=== PATIENT | male | born 1950 | race Caucasian/White ===

== ENCOUNTER 2022-01-25 14:03 | Inpatient (IN) | payer MEDICARE, SELFPAY ==
[2022-01-25 14:10] VITALS: BP 165/72; PULSE 93; RESP 18; O2SAT 92; BMI 44.3
--- NOTE | 2022-01-25 14:17 | ECG_ITS ---
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 Measurements Intervals [place] Rate: 95 P: [place]: QRS: 7 QRSD: 102 T: 55 QT: 365 QTc: 460 Interpretive Statements ATRIAL FIBRILLATION WITH ABERRANT CONDUCTION OR VENTRICULAR PREMATURE COMPLEXES ABNORMAL RHYTHM ECG Compared to ECG 01/25/2022 14:34:07 Aberrant conduction of supraventricular beat(s) now present Sinus rhythm no longer present Myocardial infarct finding no longer present ST (T wave) deviation no longer present Electronically Signed On 01-25-2022 22:01:18 CDT by Cristiano De M.D. [id number]
--- NOTE | 2022-01-25 14:18 | W.ED.AMS ---
HPI - Altered Mental Status General: Chief Complaint: Altered Mental Status Stated Complaint: AMS Time Seen by Provider: 01/25/22 14:17 Course Vital Signs: Vital signs: Vital Signs Pulse Rate 93 01/25/22 14:10 Respiratory Rate 18 01/25/22 14:10 Blood Pressure 165/72 01/25/22 14:10 Pulse Oximetry 92 01/25/22 14:10 MDM - Altered Mental Status Lab Data : 01/25/22 14:10 01/25/22 14:10 Laboratory Results WBC 14.5 10^3/uL (4.0-10.0) H 01/25/22 14:10 RBC 3.77 10^6/uL (4.1-5.3) L 01/25/22 14:10 Hgb 12.8 g/dL (11.7-16.6) 01/25/22 14:10 Hct 37.1 % (42.0-52.0) L 01/25/22 14:10 MCV 98.4 fl (80-94) H 01/25/22 14:10 MCH 34.0 pg (28.0-34.0) 01/25/22 14:10 MCHC 34.5 g/dL (30.0-36.0) 01/25/22 14:10 RDW 14.5 % (12.1-15.1) 01/25/22 14:10 Plt Count 218 10^3/cmm (130-400) 01/25/22 14:10 MPV 10.2 fL (7.4-10.4) 01/25/22 14:10 Neut % (Auto) 72.2 % 01/25/22 14:10 Lymph % (Auto) 19.8 % 01/25/22 14:10 Desha % (Auto) 6.7 % 01/25/22 14:10 Eos % (Auto) 0.4 % 01/25/22 14:10 Baso % (Auto) 0.4 % 01/25/22 14:10 Neut # (Auto) 10.50 10^3/uL (1.8-7.7) H 01/25/22 14:10 Lymph # (Auto) 2.9 10^3/uL (0.8-4.8) 01/25/22 14:10 Desha # (Auto) 1.0 10^3/uL (0.2-0.9) H 01/25/22 14:10 Eos # (Auto) 0.1 10^3/uL (0.0-0.8) 01/25/22 14:10 Baso # (Auto) 0.1 10^3/uL (0.0-0.1) 01/25/22 14:10 Nucleated RBC % (auto) 0 % 01/25/22 14:10 Nucleated RBCs # 0.0 /100WBC 01/25/22 14:10 Discharge Plan Discharge Patient Disposition: Home Clinical Impression: Altered mental status Condition: Stable Referrals: Tashi Mora DO [Primary Care Provider] - Patient Instructions: Opioid Safety Coding Level of Care Code 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
--- NOTE | 2022-01-25 14:19 | CTR_ITS ---
PROCEDURE INFORMATION: Exam: CT Head Without Contrast Exam date and time: 01/25/2022 3:13 PM Age: 71 years old Clinical indication: Altered mental status/memory loss; Confusion or disorientation; Patient HX: Baseline dementia w worsening confusion; Additional info: AMS TECHNIQUE: Imaging protocol: Computed tomography of the head without contrast. Radiation optimization: All CT scans at this facility use at least one of these dose optimization techniques: automated exposure control; mA and/or kV adjustment per patient size (includes targeted exams where dose is matched to clinical indication); or iterative reconstruction. COMPARISON: No relevant prior studies available. RADIATION DOSE METRICS: Total DLP (mGy-cm): 2031.78 FINDINGS: Brain: No hemorrhage or evidence of acute infarction. No mass effect. Cerebral ventricles: No ventriculomegaly. Paranasal sinuses: Visualized sinuses are unremarkable. No fluid levels. Mastoid air cells: Visualized mastoid air cells are well aerated. Soft tissues: Unremarkable. Bones/joints: Unremarkable. No acute fracture. CT/CT head wo con* [id number] IMPRESSION: No acute intracranial abnormality.
[2022-01-25 14:26] LABS: Basophils # 0.1 10^3/uL (0.0-0.1); Basophils % 0.4 %; Eosinophils # 0.1 10^3/uL (0.0-0.8); Eosinophils % 0.4 %; Hematocrit 37.1 % (42.0-52.0); Hemoglobin 12.8 g/dL (11.7-16.6); Lymphocytes # 2.9 10^3/uL (0.8-4.8); Lymphocytes % 19.8 %; Mean Corpuscular HGB Conc 34.5 g/dL (30.0-36.0); Mean Corpuscular Volume 98.4 fl (80-94); Mean Platelet Volume 10.2 fL (7.4-10.4); Monocytes % 6.7 %; Neutrophils % 72.2 %; Nucleated Red Blood Cells % 0 %; Platelet Count 218 10^3/cmm (130-400); Red Blood Count 3.77 10^6/uL (4.1-5.3); Red Cell Distribution Width 14.5 % (12.1-15.1); White Blood Count 14.5 10^3/uL (4.0-10.0)
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
--- NOTE | 2022-01-25 14:37 | XRR_ITS ---
PROCEDURE INFORMATION: Exam: XR Right Tibia and Fibula Exam date and time: 01/25/2022 2:45 PM Age: 71 years old Clinical indication: Cellulitis; Lower leg; Right; Additional info: Erythema TECHNIQUE: Imaging protocol: XR Right tibia and fibula. Views: 2 views. COMPARISON: No relevant prior studies available. FINDINGS: Bones/joints: No fracture or dislocation. No definite evidence of osteomyelitis. Mild simple appearing periosteal thickening in the lateral mid-fibular diaphysis may be secondary to chronic venous congestion. Ruia-ao-qdpmyauu degenerative changes are present in the right knee Soft tissues: Prominent diffuse subcutaneous edema changes are noted. XR/XR tibia fibula RT 2V [id number] IMPRESSION: No fracture or dislocation. Mild periosteal thickening in the lateral mid-fibular diaphysis may be secondary to chronic venous congestion. No definite radiographic evidence of osteomyelitis.
--- NOTE | 2022-01-25 14:37 | XRR_ITS ---
PROCEDURE INFORMATION: Exam: XR Left Tibia and Fibula Exam date and time: 01/25/2022 2:48 PM Age: 71 years old Clinical indication: Cellulitis; Lower leg; Left; Additional info: Erythema TECHNIQUE: Imaging protocol: XR Left tibia and fibula. Views: 2 views. COMPARISON: Right tibia/fibula radiographs from today. FINDINGS: Bones/joints: No fracture or dislocation. Mild periosteal thickening in the lateral mid-fibular diaphysis is similar to that seen on the comparison radiograph and may be secondary to chronic venous congestion. Moderate degenerative changes are seen in the left knee. Mild degenerative changes are also observed in the left ankle. A small 10 mm ossicle is seen in the posterolateral ankle soft tissues. Soft tissues: Prominent diffuse subcutaneous edema changes are noted. XR/XR tibia fibula LT 2V [id number] IMPRESSION: No fracture or dislocation. Mild periosteal thickening in the lateral left mid-fibular diaphysis may be secondary to chronic venous congestion. No definite radiographic evidence of osteomyelitis.
--- NOTE | 2022-01-25 14:38 | XRR_ITS ---
PROCEDURE INFORMATION: Exam: XR Chest Exam date and time: 01/25/2022 2:44 PM Age: 71 years old Clinical indication: Other: AMS TECHNIQUE: Imaging protocol: XR of the chest. Views: 1 view. COMPARISON: No relevant prior studies available. FINDINGS: Lungs: Mild pulmonary edema changes are noted. Pleural spaces: Small bilateral pleural effusions are noted. No pneumothorax is seen. Heart/Mediastinum: Unremarkable. No cardiomegaly. Bones/joints: Wggl-fz-bvqexmjd degenerative changes are present in the thoracic spine. No acute fracture is visualized. XR/XR chest 1V portable [id number] IMPRESSION: Mild pulmonary edema and small bilateral pleural effusions.
[2022-01-25 14:42] LABS: Troponin(5th) Baseline 19 ng/L (0-15)
[2022-01-25 14:49] LABS: Alanine Aminotransferase 25 U/L (0-41); Albumin Level 3.9 g/dL (3.5-5.2); Alkaline Phosphatase 95 IU/L (40-130); Anion Gap 18.2 (5-19); Aspartate Amino Transferase 34 U/L (0-40); Blood Urea Nitrogen 18 mg/dL (8-23); Calcium 9.4 mg/dL (8.5-10.5); Carbon Dioxide 21 mmol/L (22-29); Chloride 99 mmol/L (98-107); Free T4 Free Thyroxine 0.91 ng/dL (0.82-1.77); Globulin 3.6 g/dL (1.3-4.6); Glucose 131 mg/dL (65-115); Lipase 13 U/L (13-60); NT Pro B Type Natriuretic Pept 452 pg/mL (0-125); Osmolality Calculated 282 mOsm/kg (285-295); Potassium 4.2 mmol/L (3.5-5.1); Sodium 134 mmol/L (136-145); Thyroid Stimulating Hormone 1.44 uIU/mL (0.27-4.20); Total Bilirubin 0.7 mg/dL (0.15-1.2); Total Protein 7.5 g/dL (6.6-8.7)
[2022-01-25 14:50] LABS: Acetaminophen < 5.0 ug/mL (10-30); Salicylate < 0.3 mg/dL (3-10)
[2022-01-25 14:52] LABS: Alcohol Level < 10 mg/dL (0-10)
[2022-01-25 15:02] LABS: Ammonia 112 umol/L (16-60)
[2022-01-25 15:27] LABS: Bilirubin Urine Neg (Negative); Blood Urine 3+ (Negative); Glucose Urine UA Norm (Normal); Ketones Urine 1+ (Negative); Nitrate Urine Positive (Negative); Protein Urine Trace (Negative); Specific Gravity, Urine 1.015 (1.005-1.030); Sulfosalicylic Acid Urine Negative (Negative); Urine Appearance Hazy (CLEAR); Urine Color Yellow (Yellow); pH Urine 8 (5-7)
[2022-01-25 15:28] LABS: Add Urine Microscopic? YES; Leukocyte Esterase Urine 2+ (Negative); Urobilinogen Urine 1 mg/dL (Negative)
[2022-01-25 15:31] LABS: RBC Urine 40-50 /hpf (0-2); WBC Urine 80-100 /hpf (0-5)
[2022-01-25 15:32] LABS: Add Urine Culture? Yes; Bacteria Urine 2+ /hpf; Mucus Urine 1+ /hpf
[2022-01-25] MEDS: cefTRIAXone 1,000 MG in sodium chloride 0.9% (plus) 50 ML 100 MG IV (15:56)
[2022-01-25 16:01] VITALS: BP 149/62; PULSE 83; RESP 18; O2SAT 96
[2022-01-25 16:08] VITALS: BP 149/62; PULSE 82; RESP 17; O2SAT 95
--- NOTE | 2022-01-25 16:17 | ECG_ITS ---
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 Measurements Intervals [place] Rate: 83 P: [place]: QRS: 22 QRSD: 97 T: 60 QT: 361 QTc: 425 Interpretive Statements ATRIAL FLUTTER/TACHYCARDIA MINIMAL ST DEPRESSION [0.025+ mV ST DEPRESSION] ABNORMAL RHYTHM ECG Compared to ECG 01/25/2022 14:44:21 ST (T wave) deviation now present Atrial fibrillation no longer present Ventricular premature complex(es) no longer present Aberrant conduction of supraventricular beat(s) no longer present Electronically Signed On 01-26-2022 23:03:58 CDT by Cristiano De M.D. [id number]
--- NOTE | 2022-01-25 16:39 | CTR_ITS ---
PROCEDURE INFORMATION: Exam: CT Abdomen And Pelvis Without Contrast Exam date and time: 01/25/2022 6:05 PM Age: 71 years old Clinical indication: Abdominal pain; Generalized; Patient HX: C/O abd pain; Additional info: Renal stone, liver cirhoisis? TECHNIQUE: Imaging protocol: Computed tomography of the abdomen and pelvis without contrast. Radiation optimization: All CT scans at this facility use at least one of these dose optimization techniques: automated exposure control; mA and/or kV adjustment per patient size (includes targeted exams where dose is matched to clinical indication); or iterative reconstruction. COMPARISON: CR Hip 2-3v RIGHT wwo Pelv* [id number] 08/03/2018 11:24 AM RADIATION DOSE METRICS: Total DLP (mGy-cm): 1910.6 FINDINGS: Mild patient motion occurs during the examination. Tubes, catheters and devices: A catheter is present in the urinary bladder. Liver: Normal. No mass. Gallbladder and bile ducts: A small amount of sludge is present in the gallbladder. No biliary ductal dilatation. Pancreas: Normal. No ductal dilation. Spleen: Normal. No splenomegaly. Adrenal glands: Normal. No mass. Kidneys and ureters: Normal. No renal stone or hydronephrosis. Stomach and bowel: Unremarkable. No obstruction. No mucosal thickening. Appendix: The appendix is normal. Intraperitoneal space: Unremarkable. No free air. No significant fluid collection. Arteries: Unremarkable. No abdominal aortic aneurysm. Lymph nodes: Unremarkable. No enlarged lymph nodes. Urinary bladder: Unremarkable as visualized. Reproductive: Unremarkable as visualized. Bones/joints: Degenerative changes are observed in the visualized spine and both hips. No acute fracture. Soft tissues: A small umbilical hernia containing fat is noted. CT/CT abdomen pelvis con [id number] IMPRESSION: Mild patient motion. No acute abnormality is seen in the abdomen or pelvis. No renal stone is visualized.
[2022-01-25 16:44] VITALS: BMI 43.0
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
[2022-01-25 16:53] VITALS: BP 149/62; PULSE 82; RESP 17
[2022-01-25 17:14] LABS: Erythrocyte Sedimentation Rate 73 mm/hr (0-10)
[2022-01-25 17:19] LABS: Glucose Point of Care 93 mg/dL (70-110)
[2022-01-25 17:29] LABS: C Reactive Protein 15.8 mg/L (0.0-4.9)
[2022-01-25] MEDS: pantoprazole 40 mg SDV IVP (17:29)
[2022-01-25] MEDS: FUROsemide 10 mg/mL SDV 4mL 40 MG IVP (17:29)
[2022-01-25] MEDS: amlodipine 10 mg Tablet PO (17:29)
[2022-01-25] MEDS: enoxaparin 40 mg/0.4 mL Syringe SUBCUT (17:29)
[2022-01-25] MEDS: aspirin 325 mg Tablet PO (17:29)
[2022-01-25] MEDS: lactulose oral liq 20 gm/30 mL UDC PO ×2 (17:29→22:27)
[2022-01-25 17:30] LABS: Troponin 5 2HR 63.93 ng/L (0-15)
[2022-01-25 17:34] LABS: Procalcitonin 0.19 ng/mL (0-0.5)
[2022-01-25 17:34] LABS: Troponin 5 2HR Delta 44.93 ABS# (0-10)
[2022-01-25] MEDS: piperacillin-tazobactam 3.375 GM in sodium chloride 0.9% (plus) 50 ML IV (18:20)
[2022-01-25] MEDS: enoxaparin 100 mg/mL Syringe 90 MG SUBCUT (18:28)
[2022-01-25] MEDS: vancomycin 1,500 MG/300 ML PIGGYBACK 200 MG IV (18:41)
[2022-01-25 20:00] VITALS: BP 138/72; PULSE 83; RESP 17; TEMP 38.4; O2SAT 95
--- NOTE | 2022-01-25 20:17 | ECG_ITS ---
[facility] Test Date: 2022-01-25 Pat Name: Riki Lopez Department: Room: Gender: Male Copy Manager: : 1950 Requested By: Kalpana Maciel Order Number: [id number] Regulo MD: Cristiano De M.D. Measurements Intervals [place] Rate: 90 P: 41 OR: 201 QRS: 32 QRSD: 103 T: 81 QT: 349 QTc: 429 Interpretive Statements SINUS RHYTHM WITH OCCASIONAL VENTRICULAR PREMATURE COMPLEXES ANTEROSEPTAL MYOCARDIAL INFARCTION , OF INDETERMINATE AGE [40+ ms Q WAVE IN V1-V4] ST DEPRESSION, CONSIDER SUBENDOCARDIAL INJURY [0.1+ mV ST DEPRESSION] No previous ECG available for comparison Electronically Signed On 01-25-2022 22:03:32 CDT by Cristiano De M.D. [id number]
[2022-01-25 20:55] LABS: Lactate (Lactic Acid level) 3.4 mmol/L (0.5-2.2)
--- NOTE | 2022-01-25 21:14 | PC.NURSE ---
PATIENT'S NURSE SARAN JAMES NOTIFIED OF PATIENT'S FEVER.
[2022-01-25 22:00] VITALS: PULSE 81
[2022-01-25] MEDS: insulin glargine 100 units/1 mL 10 UNIT SUBCUT (22:26)
[2022-01-25] MEDS: metoprolol tartrate 25 mg Tablet PO (22:26)
[2022-01-25] MEDS: nitroglycerin 1 gm/inch oint Pkt 0.5 INCH TOPICAL (22:27)
[2022-01-26] VITALS (11 sets, daily range): BP systolic 127–157; BP diastolic 60–79; PULSE 69–95; RESP 18–24; TEMP 36.5–38; O2SAT 93–97
--- NOTE | 2022-01-26 00:10 | USCV_ITS ---
LE Venous Duplex BILATERAL Riki Lopez Age: 71 Gender: M : 1950 Exam Date: 01/26/2022 00:23 Ordering Phys: Deondre Mays MD Technologist: Javier Myers Exam Location: [facility] [place] Indication: dvt HISTORY: dvt PROCEDURES: Venous duplex imaging was performed in bilateral lower extremities. The following venous structures were evaluated: common femoral vein, profunda vein, proximal portion of the greater saphenous vein, superficial femoral vein, and the popliteal vein. In addition, the posterior tibial and peroneal trunk were evaluated. Serial compression, augmentation maneuvers, and spectral Doppler flow evaluation were performed. Distally the LT superficial femoral vein could not be visualized due to patient dressing. FINDINGS: Normal 2-D Doppler and augmentation and compressibility throughout the lower extremity venous structures. Additional imaging through the proximal calf veins also reveals no thrombus. Limited evaluation of the greater saphenous vein is patent with no thrombus.. CONCLUSIONS No DVT bilateral lower extremities. Dr. Genesis Alexis DO (Electronically Signed) Final Date: 26 January 2022 08:35 S
--- NOTE | 2022-01-26 00:10 | USCV_ITS ---
Riki Lopez Age: 71 Gender: M : 1950 Exam Date: 01/26/2022 05:48 Ordering Phys: Deondre Mays MD Technologist: Graciela Cervantes Exam Location: [facility] [place] Indication: NSTEMI BP: 157 / 79 HR: 73 Rhythm: Sinus Technical Quality: Technically difficult study MEASUREMENTS (Male / Female) Normal Values 2D ECHO LV Diastolic Diameter PLAX 5.2 cm 4.2 - 5.9 / 3.9 - 5.3 cm LV Systolic Diameter PLAX 3.6 cm LV Chamber Size 5.0 cm IVS Diastolic Thickness 0.9 cm 0.6 - 1.0 / 0.6 - 0.9 cm IVS Systolic Thickness 1.3 cm LVPW Diastolic Thickness 1.1 cm 0.6 - 1.0 / 0.6 - 0.9 cm LVPW Systolic Thickness 1.5 cm RV Chamber Size 3.8 cm LVOT Diameter 2.0 cm LV Ejection Fraction 2D Teich 57.8 % LV Ejection Fraction MOD 2C 51.7 % LV Ejection Fraction 2C AL 51.2 % LA Diameter 3.5 cm LA Width 4.0 cm LA Height 5.6 cm RA Width 4.0 cm RA Height 4.2 cm Aorta at Sinotubular Diameter 3.1 cm M-MODE Aortic Annulus Diameter 3.1 cm LA Ao Ratio MM 1.1 MV E Point Septal Separation 0.9 cm DOPPLER AV Peak Velocity 228.3 cm/s LVOT Peak Velocity 98.7 cm/s AV Area Cont Eq vti 1.7 cm squared AV Area Cont Eq pk 1.4 cm squared MV Area PHT 3.5 cm squared Mitral E to A Ratio 1.2 MV E' Velocity 59.0 cm/s Mitral E to MV E' Ratio 14.4 Mitral E to LV E' Lateral Ratio 11.4 Mitral E to LV E' Septal Ratio 19.6 TR Peak Velocity 221.7 cm/s TR Peak Gradient 19.7 mmHg TR Mean Velocity 164.3 cm/s TR Mean Gradient 12.2 mmHg TR Velocity Time Integral 54.6 cm TV Peak E Velocity 70.0 cm/s Right Atrial Pressure 3.0 mmHg Pulmonary Artery Systolic Pressu 22.7 mmHg PV Peak Velocity 82.0 cm/s RV Acceleration Time 0.2 s RV Ejection Time 0.3 s RV AcT/ET 0.6 FINDINGS Left Ventricle Normal left ventricular cavity size. Moderately decreased left ventricular systolic function. Left ventricular ejection fraction is estimated at 35-40 %. There is severe hypokinesis of mid to apical anterior, apical septal, apical inferior, apical lateral and apical boateng. Grade II diastolic dysfunction, moderately elevated filling pressures. Right Ventricle Normal right ventricular size and systolic function. Right ventricular systolic pressure 20 mmHg. Right Atrium Normal right atrial size. Left Atrium Mildly increased left atrial size. Mitral Valve Structurally normal mitral valve. No mitral valve stenosis. No mitral valve regurgitation. Aortic Valve Aortic valve not well visualized. No aortic valve stenosis. No aortic valve regurgitation. Tricuspid Valve Tricuspid valve not well visualized. Pulmonic Valve Structurally normal pulmonic valve. No pulmonary valve stenosis. Trace pulmonary valve regurgitation. Pericardium No pericardial effusion. Aorta Normal-sized aortic root. CONCLUSIONS 1. This is a technically difficult study. Optison was used per protocol. 2. Normal left ventricular cavity size. Moderately decreased left ventricular systolic function. Leftventricular ejection fraction is estimated at 35-40 %. There is moderate hypokinesis of mid to apical anterior, apical septal, apical inferior, apical lateral and apical boateng. Grade II diastolic dysfunction, moderately elevated filling pressures. 3. No prior similar studies to compare. Dayna Rice MD (Electronically Signed) Final Date: 26 January 2022 13:57 Amended: 28 January 2022 15:05 C
[2022-01-26] MEDS: piperacillin-tazobactam 3.375 GM in sodium chloride 0.9% (plus) 50 ML IV ×3 (02:29→17:18)
[2022-01-26] MEDS: nitroglycerin 1 gm/inch oint Pkt 0.5 INCH TOPICAL (05:34)
[2022-01-26] MEDS: lactulose oral liq 20 gm/30 mL UDC PO ×4 (05:34→21:50)
[2022-01-26] MEDS: enoxaparin 100 mg/mL Syringe 130 MG SUBCUT ×2 (05:35→17:27)
[2022-01-26 05:38] LABS: Ammonia 64 umol/L (16-60)
[2022-01-26 05:41] LABS: Alanine Aminotransferase 24 U/L (0-41); Albumin Level 3.4 g/dL (3.5-5.2); Alkaline Phosphatase 93 IU/L (40-130); Anion Gap 17.8 (5-19); Aspartate Amino Transferase 95 U/L (0-40); Blood Urea Nitrogen 18 mg/dL (8-23); C Reactive Protein 90.6 mg/L (0.0-4.9); Carbon Dioxide 23 mmol/L (22-29); Chloride 99 mmol/L (98-107); Globulin 4.1 g/dL (1.3-4.6); Glucose 132 mg/dL (65-115); Magnesium 1.5 mg/dL (1.7-2.3); Osmolality Calculated 286 mOsm/kg (285-295); Phosphorus 3.1 mg/dL (2.5-4.5); Potassium 3.8 mmol/L (3.5-5.1); Sodium 136 mmol/L (136-145); Total Bilirubin 1.9 mg/dL (0.15-1.2); Total Protein 7.5 g/dL (6.6-8.7)
[2022-01-26 06:25] LABS: Glucose Point of Care 94 mg/dL (70-110)
[2022-01-26] MEDS: perflutren protein-a microsphr 0.22 mg/mL SDV 3 mL IV (06:32)
[2022-01-26] MEDS: vancomycin 1,500 MG/300 ML PIGGYBACK 200 MG IV ×2 (06:33→18:26)
[2022-01-26 06:40] LABS: Troponin T (5th) Once 677 ng/L (0-15)
--- NOTE | 2022-01-26 06:44 | ECG_ITS ---
[facility] Test Date: 2022-01-26 Pat Name: Riki Lopez Department: Room: 276 Gender: Male Wood Type Finisher: : 1950 Requested By: Soumya Moreno Order Number: [id number] Reuglo MD: Cristiano De M.D. Measurements Intervals [place] Rate: 75 P: 21 MS: 148 QRS: 34 QRSD: 110 T: 72 QT: 411 QTc: 460 Interpretive Statements SINUS RHYTHM ANTEROSEPTAL MYOCARDIAL INFARCTION , OF INDETERMINATE AGE [40+ ms Q WAVE IN V1-V4] WARNING: DATA QUALITY MAY AFFECT INTERPRETATION Compared to ECG 01/25/2022 15:55:47 Myocardial infarct finding now present Atrial flutter no longer present ST (T wave) deviation no longer present Electronically Signed On 01-26-2022 22:50:48 CDT by Cristiano De M.D. [id number]
[2022-01-26 06:57] LABS: Basophils # 0.2 10^3/uL (0.0-0.1); Basophils % 0.9 %; Eosinophils % 0.1 %; Hematocrit 38.5 % (42.0-52.0); Hemoglobin 12.5 g/dL (11.7-16.6); Lymphocytes # 2.4 10^3/uL (0.8-4.8); Lymphocytes % 14.4 %; Mean Corpuscular HGB Conc 32.5 g/dL (30.0-36.0); Mean Corpuscular Hemoglobin 35.4 pg (28.0-34.0); Mean Corpuscular Volume 109.1 fl (80-94); Monocytes % 6.3 %; Neutrophils # 12.75 10^3/uL (1.8-7.7); Neutrophils % 77.7 %; Nucleated Red Blood Cells % 0.2 %; Platelet Count 179 10^3/cmm (130-400); Red Blood Count 3.53 10^6/uL (4.1-5.3); Red Cell Distribution Width 15.6 % (12.1-15.1); White Blood Count 16.4 10^3/uL (4.0-10.0)
[2022-01-26 07:12] LABS: Glucose Point of Care 127 mg/dL (70-110)
[2022-01-26] MEDS: aspirin 81 mg EC Tablet PO (08:06)
[2022-01-26] MEDS: atorvastatin 40 mg Tablet PO (08:07)
[2022-01-26] MEDS: nitroglycerin drip 50 MG/250 ML PREMIX IV (08:08)
--- NOTE | 2022-01-26 10:45 | PC.CHAP ---
Pastoral Care Encounter/Spiritual Assessment Type of Contact [] Declined automation qa lead visit [] Patient/Family/Request visit [] Outpatient visit [] Follow-up visit [] Physician referral [] Code/Alert [x] Routine visit [] Staff referral [] Actively dying [] Patient sleeping [] Family support [] [x] Out of room [] Palliative care [] [] Receiving care in room [] Pre-surgical visit [] Trauma [] Long length of stay [] ICU visit [] Other: Relational/Emotional Strength [] Patient feels connected with others/family/visitors/staff [] Distress [] Loneliness/isolation [] Abandonment Spirituality of Patient Person of Gaby [] Attends Yarsanism of their Gaby [] Believes in Prayer [] Reads Bible or Congregational materials [] There are Spiritual issues to be addressed Irrigationist Interventions [] Prayer [] Active listening [] Non-anxious presence [] Spiritual/emotional support [] Crisis/trauma care [] Spiritual counseling [] Bereavement support [] Provided bereavement packet [] Provided Bible/devotional materials [] Provided toy/stuffed animal, coloring book to patient or family member [] Provided Communion [] Anointing/[place] [] Salvation [] Completed spiritual assessment [] Other: Impact on Illness or Injury [] Angry [] Fearful [] Anxious [] Often cries [] Exhaustion [] Unable to work [] Unable to attend confucianism [] Unable to walk/stand [] Unable to read [] Unable to drive [] Unable to eat/drink [] Unable to sleep [] Unable to be with family [] Patient intubated [] Other: Summary Time spent with patient
[2022-01-26] MEDS: insulin glargine 100 units/1 mL 10 UNIT SUBCUT ×2 (10:53→21:15)
[2022-01-26 11:47] LABS: Glucose Point of Care 292 mg/dL (70-110)
--- NOTE | 2022-01-26 12:38 | PC.OT ---
OT EVALUATION ORDERS RECEIVED. EVALUATION ATTEMPTED. PATIENT IS SLEEPING SOUNDLY AND DOES NOT AWAKEN TO TOUCH OR TO CONVERSATION IN ROOM. I DID VISIT WITH HIS DAUGHTER ABOUT HIS PLOF. WILL HOLD TODAY AND ATTEMPT AGAIN IN TOMORROW.
[2022-01-26] MEDS: insulin lispro 100 unit/1 mL SUBCUT ×3 (12:51→20:50)
--- NOTE | 2022-01-26 13:08 | P.PN_ITS ---
Subjective Subjective: Overnight reports chest pain, received nitroglycerin, nitro drip was initially ordered, but was chest pain-free this morning. Subsequently some additional episodes of chest pain, nitroglycerin was started. Currently he is chest pain-free. His confusion appears to have improved. He knows where he is. He knows the year, the month. His daughter is at bedside. He is able to tell me some detail s about the equipment she has at home for assistance including lift chair and hospital bed. He is not a good historian, but does not recall ever having an IN or stress test. His daughter recalls that perhaps he was told of possible incidentally found mild heart attack told to him by his primary provider. His daughter also reports he had had some on and off epigastric discomfort sometimes for which he had seen his primary provider previously. He states he does not remember much from the last few days. He is not sure what may have led to his episode of confusion. Discussed with him that he should not be driving. He does take multiple pain medications, and he states sometimes it takes him a little bit to come back to his usual self especially if he takes them on empty stomach. Per discussion with his daughter, she and her brother have been considering additional supervision from her father. They are working currently on placement to assisted living. Vitals/I&O/Wt Last Vital Signs Temp 98.8 F 01/26/22 11:25 Pulse 78 01/26/22 11:25 Resp 18 01/26/22 11:25 BP 127/68 01/26/22 11:25 Pulse Ox 95 01/26/22 11:25 01/25/22 01/26/22 01/26/22 22:59 06:59 14:59 Intake Total 664.375 / 664.375 215.625 / 880.000 241.700 / 241.700 Output Total 1900 / 1900 Balance 664.375 / 664.375 -1684.375 / -1020.000 241.700 / 241.700 Weight last 48 hrs Weight 132.052 kg Weight 136.078 kg Physical Exam Narrative: Daughter at bedside Const: COMMON NORMALS: alert GENERAL APPEARANCE: cooperative NUTRITIONAL APPEARANCE: obese ORIENTATION/CONSCIOUSNESS: Yes awake HENMT: COMMON NORMALS: normocephalic, EAC's normal, Normal external nose present and moist oral mucous membranes HEAD & SCALP: normocephalic NOSE: Normal external nose present EXTERNAL AUDITORY CANAL: EAC's normal TEETH & GINGIVA: Yes poor dentition Neck/C-Spine: COMMON NORMALS: no meningeal signs Chest: CHEST: Yes Symmetrical chest wall rise Resp: COMMON NORMALS: clear to auscultation bilaterally AUSCULTATION: clear to auscultation bilaterally Cardio: COMMON NORMALS: regular rate, regular rhythm and No murmurs present (Cardio) RATE: regular rate RHYTHM: regular rhythm GI: COMMON NORMALS: Normal to inspection, nondistended, normoactive bowel sounds present, Soft to palpation and non-tender PALPATION: Yes Soft to palpation Extremity: GENERAL: Yes edema (Severe BL LE) Neuro: COMMON NORMALS: moves all extremities SENSORIUM/ORIENTATION: Yes alert MENINGEAL SIGNS: Yes no meningeal signs Psych: COMMON NORMALS: mental status grossly normal Skin: COMMON NORMALS: no wounds GENERAL SKIN EXAM: erythema (BL LE up to 2/3 of shins) Urinary Catheter Management: Guzmán: Cath Placed During This Visit: yes Reason for Continuing Indwelling Catheter: Acute Urinary Retention or Obstruction Urinary Catheter Date of Insertion: 01/25/22 Urinary Catheter Time of Insertion: 17:30 Data : 01/26/22 04:51 01/26/22 04:51 A&P Assessment and plan (1) NSTEMI (non-ST elevated myocardial infarction): Episodes of chest pain overnight. Nitro drip was requested, but not started initially as chest pain had resolved, this morning with transferring to the commode again chest pain reported. Is started on nitro drip currently. Troponin this morning up to 677. Risk factors of CAD, denies any prior evaluation. At home also takes meloxicam. Continue aspirin, Lovenox, statin, beta-jose francisco. Status: Acute (2) Acute encephalopathy: Improved. Unclear etiology. Does have underlying dementia which appears possibly mild as he does live independently, although his children do assist him at home and with shopping. Daughter reports some episodes of him not remembering her previously. These do not seem to be consistent. Not sundowning. Still question whether episodes of encephalopathy may be related to medications, he is on a number of pain medicines. Otherwise also possibly acute metabolic encephalopathy with urinary tract infection, cellulitis. Continue antibiotics to treat underlying conditions. Status: Acute (3) UTI (urinary tract infection): Continue antibiotic coverage. Follow culture. Status: Acute (4) Cellulitis: Continue antibiotics. LE duplex Status: Acute (5) Bilateral lower extremity edema: Acute systolic and diastolic CHF exacerbation. IV Lasix. Monitor I&O. Renal function. Additional work-up for ischemic heart disease pending. Appreciate cardiology recommendations. No DVT on venous duplex. Status: Acute (6) Chest pain: Status: Acute Plan Hyperammonemia -Etiology unclear, CT scan as above -Continue lactulose, monitor ammonia levels Type 2 diabetes mellitus -Moderate dose sliding scale -Lantus 10 units twice daily Hypertension -Norvasc -Metoprolol Attestations Medical Necessity Statement*: Continue admission for assessment management of NSTEMI, acute combined CHF. Coding Level of Care Code Acute Motorcycle Service Technician for g Fwd Exam Comprehensive Diagnoses Acute encephalopathy G93.40 UTI (urinary tract infection) N39.0 Cellulitis L03.90 Bilateral lower extremity edema R60.0 Chest pain R07.9 NSTEMI (non-ST elevated myocardial infarction) I21.4
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
--- NOTE | 2022-01-26 16:42 | PC.NURSE ---
Taking over care from primary nurse. Patient is resting in bed with physician at bedside.
[2022-01-26] MEDS: amlodipine 10 mg Tablet PO (16:58)
[2022-01-26] MEDS: FUROsemide 10 mg/mL SDV 4mL 40 MG IVP (16:58)
[2022-01-26] MEDS: pantoprazole 40 mg SDV IVP (16:58)
--- NOTE | 2022-01-26 17:12 | PC.NURSE ---
Shift Summary: Uneventful shift Patient rested in bed most of the day. Was occasionally up to a bedside commode. Patient has had 1 large bowel movement. Troponin came back elevated and nitroglycerin drip was briefly needed for chest pain. PCI planned for the future.
[2022-01-26 17:23] LABS: Glucose Point of Care 447 mg/dL (70-110)
[2022-01-26] MEDS: magnesium sulfate premix 2 GM/50 ML PIGGYBACK IV (18:26)
[2022-01-26 20:15] LABS: Glucose Point of Care 273 mg/dL (70-110)
[2022-01-26] MEDS: metoprolol tartrate 25 mg Tablet PO (20:50)
[2022-01-26] MEDS: clopidogrel 300 mg Tablet PO (20:50)
[2022-01-27] VITALS (12 sets, daily range): BP systolic 124–161; BP diastolic 49–74; PULSE 68–82; RESP 16–27; TEMP 36.6–37.6; O2SAT 90–96
[2022-01-27] MEDS: piperacillin-tazobactam 3.375 GM in sodium chloride 0.9% (plus) 50 ML IV ×3 (02:42→18:04)
[2022-01-27] MEDS: enoxaparin 100 mg/mL Syringe 130 MG SUBCUT ×2 (05:25→17:16)
[2022-01-27] MEDS: FUROsemide 10 mg/mL SDV 4mL 40 MG IVP ×2 (05:25→17:16)
[2022-01-27] MEDS: lactulose oral liq 20 gm/30 mL UDC PO (05:25)
--- NOTE | 2022-01-27 06:18 | PC.NURSE ---
Lab staff and nurse attempt to get blood for morning labs. Unable to obtain morning labs and vanc trough at this time. Lab states that another person will be coming down to try.
[2022-01-27 06:32] LABS: Glucose Point of Care 167 mg/dL (70-110)
[2022-01-27 07:27] LABS: Alanine Aminotransferase 31 U/L (0-41); Albumin Level 3.2 g/dL (3.5-5.2); Alkaline Phosphatase 89 IU/L (40-130); Blood Urea Nitrogen 17 mg/dL (8-23); C Reactive Protein 165.9 mg/L (0.0-4.9); Carbon Dioxide 20 mmol/L (22-29); Chloride 96 mmol/L (98-107); Globulin 4.4 g/dL (1.3-4.6); Glucose 168 mg/dL (65-115); Magnesium 1.8 mg/dL (1.7-2.3); Osmolality Calculated 277 mOsm/kg (285-295); Phosphorus 2.1 mg/dL (2.5-4.5); Sodium 131 mmol/L (136-145); Total Protein 7.6 g/dL (6.6-8.7)
[2022-01-27 07:29] LABS: Anion Gap 18.5 (5-19); Aspartate Amino Transferase 123 U/L (0-40); Potassium 3.5 mmol/L (3.5-5.1)
--- NOTE | 2022-01-27 08:22 | PC.OT ---
HOLD OT EVALUATION UNTIL AFTER [facility].
[2022-01-27] MEDS: vancomycin 1,500 MG/300 ML PIGGYBACK 200 MG IV (08:41)
[2022-01-27] MEDS: metoprolol tartrate 25 mg Tablet PO (08:42)
[2022-01-27] MEDS: clopidogrel 75 mg Tablet PO (08:42)
[2022-01-27] MEDS: aspirin 81 mg EC Tablet PO (08:42)
[2022-01-27] MEDS: atorvastatin 40 mg Tablet PO (08:42)
[2022-01-27] MEDS: insulin lispro 100 unit/1 mL SUBCUT ×4 (08:42→20:43)
[2022-01-27] MEDS: insulin glargine 100 units/1 mL 10 UNIT SUBCUT ×2 (08:50→20:42)
[2022-01-27] MEDS: potassium chloride ER 20 mEq Tablet PO (08:50)
[2022-01-27 09:01] LABS: Basophils # 0.1 10^3/uL (0.0-0.1); Basophils % 0.4 %; Eosinophils # 0.1 10^3/uL (0.0-0.8); Eosinophils % 0.6 %; Hematocrit 35.3 % (42.0-52.0); Hemoglobin 12.2 g/dL (11.7-16.6); Lymphocytes # 2.2 10^3/uL (0.8-4.8); Lymphocytes % 17.1 %; Mean Corpuscular HGB Conc 34.6 g/dL (30.0-36.0); Mean Corpuscular Hemoglobin 34.6 pg (28.0-34.0); Mean Platelet Volume 10.6 fL (7.4-10.4); Monocytes # 0.9 10^3/uL (0.2-0.9); Monocytes % 6.5 %; Neutrophils # 9.79 10^3/uL (1.8-7.7); Neutrophils % 74.6 %; Nucleated Red Blood Cells % 0 %; Platelet Count 189 10^3/cmm (130-400); Red Blood Count 3.53 10^6/uL (4.1-5.3); Red Cell Distribution Width 14.6 % (12.1-15.1); White Blood Count 13.1 10^3/uL (4.0-10.0)
[2022-01-27 09:07] LABS: Ammonia 25 umol/L (16-60)
--- NOTE | 2022-01-27 10:19 | P.PN_ITS ---
Subjective Subjective: Feels better. No chest pain overnight. Urine output 1875 mL yesterday, -100 mL. Length of stay -2.8 L Medications: Reviewed: Yes Medication Review Details: Current Medications Acetaminophen (Acetaminophen 325 Mg Tablet) 650 mg PO Q6H PRN PRN Reason: Mild/Mod Pain Or Temp >/= 101 Amlodipine Besylate (Amlodipine 10 Mg Tablet) 10 mg PO Q24H [facility] Last Admin: 01/26/22 16:58 Dose: 10 mg Documented by: Aspirin (Aspirin 81 Mg Ec Tablet) 81 mg PO DAILY [facility] Last Admin: 01/27/22 08:42 Dose: 81 mg Documented by: Atorvastatin Calcium (Atorvastatin 40 Mg Tablet) 40 mg PO DAILY NEFTALI Last Admin: 01/27/22 08:42 Dose: 40 mg Documented by: Clopidogrel Bisulfate (Clopidogrel 75 Mg Tablet) 75 mg PO DAILY [facility] Last Admin: 01/27/22 08:42 Dose: 75 mg Documented by: Dextrose (Dextrose 50% Syringe 50 Ml) 25 ml IVP ONCE PRN; Protocol PRN Reason: hypoglycemia protocol Dextrose (Dextrose 50% Syringe 50 Ml) 50 ml IVP PRN PRN; Protocol PRN Reason: hypoglycemia protocol Enoxaparin Sodium (Enoxaparin 100 Mg/Ml Syringe) 130 mg 1 mg/kg (130 mg) SUBCUT Q12H [facility] Last Admin: 01/27/22 05:25 Dose: 130 mg Documented by: Furosemide (Furosemide 10 Mg/Ml Sdv 4ml) 40 mg IVP Q12H NEFTALI Last Admin: 01/27/22 05:25 Dose: 40 mg Documented by: Glucagon (Glucagon 1 Mg/Ml Inj 1 Ml) 1 mg IM ONCE PRN; Protocol PRN Reason: Adult Acute Hypoglycemia Prot. Dextrose (D5w) 500 mls @ 100 mls/hr IV ONCE PRN; Protocol PRN Reason: Adult Acute Hypoglycemia Prot Piperacillin Sod/Tazobactam (Sod 3.375 gm/ Sodium Chloride) 50 mls @ 12.5 mls/hr IV Q8H [facility]; Protocol Last Admin: 01/27/22 11:39 Dose: 12.5 mls/hr Documented by: Vancomycin/PEG/NADA/Lysine/Water (Vancocin) 1,500 mg in 300 mls @ 200 mls/hr IV Q12H [facility] Last Admin: 01/27/22 08:41 Dose: 200 mls/hr Documented by: Nitroglycerin/Dextrose (Nitroglycerin Drip) 50 mg in 250 mls @ 0 mls/hr IV .Q0M [facility]; Protocol Last Titration: 01/26/22 17:14 Dose: 0 mcg/min, 0 mls/hr Documented by: Insulin Glargine (Insulin Glargine 100 Units/1 Ml) 10 unit SUBCUT Q12H NEFTALI Last Admin: 01/27/22 08:50 Dose: 10 unit Documented by: Insulin Human Lispro (Insulin Lispro 100 Unit/1 Ml) 0 unit SUBCUT WM&BEDTIME NEFTALI; Protocol Last Admin: 01/27/22 11:40 Dose: 6 unit Documented by: Metoprolol Tartrate (Metoprolol Tartrate 25 Mg Tablet) 25 mg PO BID@0900,2100 [facility] Last Admin: 01/27/22 08:42 Dose: 25 mg Documented by: Ondansetron HCl (Ondansetron 2 Mg/Ml Sdv 2 Ml) 4 mg IVP Q8H PRN PRN Reason: vomiting, or N/V if npo Pantoprazole Sodium (Pantoprazole Dr 40 Mg Tablet) 40 mg PO Q24H NEFTALI Potassium Chloride (Potassium Chloride Er 20 Meq Tablet) 20 meq PO DAILY [facility] Last Admin: 01/27/22 08:50 Dose: 20 meq Documented by: Vitals/I&O/Wt Last Vital Signs Temp 98 F 01/27/22 03:27 Pulse 68 01/27/22 10:18 Resp 27 H 01/27/22 03:27 BP 138/65 01/27/22 03:27 Pulse Ox 92 01/27/22 10:18 01/26/22 01/27/22 01/27/22 22:59 06:59 14:59 Intake Total 816.95 / 1458.650 300 / 1758.650 Output Total 1875 / 1875 1700 / 1700 Balance -1058.05 / -416.350 300 / -116.350 -1700 / -1700 Weight last 48 hrs Weight 291 lb 2 oz Weight 300 lb Physical Exam Narrative: GENERAL: Obese man sitting in bed in no acute distress HEENT: Extraocular movement intact. No pallor or icterus. NECK: Mild JVD, No carotid bruit. CARDIOVASCULAR SYSTEM: S1-S2 regular. No murmur rubs or gallops. RESPIRATORY SYSTEM: Chest clear to auscultation. No wheezes rhonchi or rubs heard. No use of accessory muscles. ABDOMEN: Soft, nontender and nondistended. Normal bowel sounds present. EXTREMITIES: No cyanosis. 2+ edema (R>L). Bilateral leg erythema present. PARKING GARAGE MANAGER: Patient is alert oriented ?3. No focal neurological deficits. SKIN: Normal turgor and temperature. No breakdown, rash or nail changes noted. PSYCH: Normal insight and judgment. Urinary Catheter Management: Guzmán: Cath Placed During This Visit: yes Reason for Continuing Indwelling Catheter: Acute Urinary Retention or Obstruction Urinary Catheter Date of Insertion: 01/25/22 Urinary Catheter Time of Insertion: 17:30 Data : 01/27/22 08:27 01/27/22 06:38 Micro: Microbiology 01/25/22 14:30 Urine Culture - Final Urine,Clean Catch A&P Assessment and plan (1) NSTEMI (non-ST elevated myocardial infarction): I had a long discussion with patient and family and decision was made to proceed with [facility]. -Risks and benefits were discussed with the patients. Possible complications including risk of heart attack stroke and , coronary perforation, arrhythmia, [place], stroke, , cardiac tamponade in urgent CABG were discussed with the patient as well. Plan is to proceed for the procedure tomorrow. -continue ASA, plavix, statin, lovenox, NTG SL. Status: Acute (2) CHF (congestive heart failure), NYHA class III: Will start on lasix 40 mg IV BID -I/O charting and daily weight -will add entresto after cath -BMP in morning. Status: Acute (3) Hypertension: Status: Acute (4) Hyperlipidemia: Status: Acute (5) Insulin dependent type 2 diabetes mellitus: Status: Acute Plan UTI : on antibiotics Hypomagnesemia: replaced Encephalopathy: resolved Abnormal LFT's Thank you for allowing me to participate in patient's care. Please feel free to call with questions or concerns Attestations Medical Necessity Statement*: needs hospital stay for CHF and NSTEMI Coding Level of Care Code Acute Associate Professor Of Automation for [facility] Fwd Diagnoses NSTEMI (non-ST elevated myocardial infarction) I21.4 CHF (congestive heart failure), NYHA class III I50.9 Hypertension I10 Hyperlipidemia E78.5 Insulin dependent type 2 diabetes mellitus E11.9; Z79.4
[2022-01-27 11:28] LABS: Glucose Point of Care 218 mg/dL (70-110)
--- NOTE | 2022-01-27 15:00 | P.PN_ITS ---
Subjective Subjective: When asked how he is doing, states he is feeling good but not looking good . Lower extremity edema appears to be shrinking down with some wrinkling visible over the residual swelling bilaterally. Denies chest pain. States has no problem breathing. Vitals/I&O/Wt Last Vital Signs Temp 98 F 01/27/22 03:27 Pulse 76 01/27/22 14:00 Resp 26 H 01/27/22 12:00 BP 137/63 01/27/22 12:00 Pulse Ox 94 01/27/22 12:00 01/27/22 01/27/22 01/27/22 06:59 14:59 22:59 Intake Total 300 / 1758.650 360 / 360 Output Total 1700 / 1700 Balance 300 / -116.350 -1340 / -1340 Weight last 48 hrs Weight 132.052 kg Physical Exam Const: COMMON NORMALS: alert GENERAL APPEARANCE: cooperative NUTRITIONAL APPEARANCE: obese ORIENTATION/CONSCIOUSNESS: Yes awake HENMT: COMMON NORMALS: normocephalic, EAC's normal, Normal external nose present and moist oral mucous membranes HEAD & SCALP: normocephalic NOSE: Normal external nose present EXTERNAL AUDITORY CANAL: EAC's normal TEETH & GINGIVA: Yes poor dentition Neck/C-Spine: COMMON NORMALS: no meningeal signs Chest: CHEST: Yes Symmetrical chest wall rise Resp: COMMON NORMALS: clear to auscultation bilaterally AUSCULTATION: clear to auscultation bilaterally Cardio: COMMON NORMALS: regular rate, regular rhythm and No murmurs present (Cardio) RATE: regular rate RHYTHM: regular rhythm GI: COMMON NORMALS: Normal to inspection, nondistended, normoactive bowel sounds present, Soft to palpation and non-tender PALPATION: Yes Soft to palpation Extremity: COMMON NORMALS: no pedal edema GENERAL: Yes edema (Shrinking 3+ BL LE edema, some wrinkling, cracking/dry flakes) Neuro: COMMON NORMALS: moves all extremities SENSORIUM/ORIENTATION: Yes alert MENINGEAL SIGNS: Yes no meningeal signs Psych: COMMON NORMALS: mental status grossly normal Skin: COMMON NORMALS: no wounds GENERAL SKIN EXAM: erythema (BL LE up to 2/3 of shins) RASHES: no rashes Urinary Catheter Management: Guzmán: Cath Placed During This Visit: yes Reason for Continuing Indwelling Catheter: Acute Urinary Retention or Obstruction Urinary Catheter Date of Insertion: 01/25/22 Urinary Catheter Time of Insertion: 17:30 Data : 01/27/22 08:27 01/27/22 06:38 Micro: Microbiology 01/25/22 14:30 Urine Culture - Final Urine,Clean Catch A&P Assessment and plan (1) CHF (congestive heart failure), NYHA class III: He is diuresing well. Continue IV diuresis, I&O monitoring, follow renal function. Acute systolic and diastolic CHF exacerbation. Additional work-up for ischemic heart disease pending. Appreciate cardiology recommendations. No LE DVT on venous duplex. Status: Acute (2) NSTEMI (non-ST elevated myocardial infarction): Episodes of chest pain resolved. Transiently on nitro drip. Continue aspirin, Lovenox, statin, beta-jose francisco. Pending additional assessment with coronary angiography once more euvolemic. Cardiology recommendations appreciated. Would discontinue celecoxib at discharge. Status: Acute (3) Acute encephalopathy: Improved. Unclear etiology. Does have underlying dementia which appears possibly mild as he does live independently, although his children do assist him at home and with shopping. Daughter reports some episodes of him not remembering her previously. These do not seem to be consistent. Not sundowning. Still question whether episodes of encephalopathy may be related to medications, he is on a number of pain medicines. Otherwise also possibly acute metabolic encephalopathy with urinary tract infection, cellulitis. Continue antibiotics to treat underlying conditions. Status: Acute (4) UTI (urinary tract infection): Continue antibiotic coverage. Urine culture with more than 100,000 CFU of mixed superficial jordan. Status: Acute (5) Cellulitis: Continue antibiotics. LE duplex without DVT Status: Acute (6) Bilateral lower extremity edema: Decreasing with diuresis. Some cracking/dry flakes of skin. Apply moisturizer. Status: Acute (7) Chest pain: Status: Acute Plan Hyperammonemia: Resolved. Hold further lactulose. Should follow-up with evaluation targeted for possible fibrosis or cirrhosis, although liver reported normal on CT. Does have some AST elevation, although this is new in the last 2 days. Type 2 diabetes mellitus -Moderate dose sliding scale -Lantus 10 units twice daily Hypertension -Norvasc -Metoprolol Attestations Medical Necessity Statement*: Continue admission for assessment of management of acute systolic and diastolic CHF, NSTEMI. Coding Level of Care Code Acute Clinical Interviewer for [facility] Fwd Exam Comprehensive Diagnoses NSTEMI (non-ST elevated myocardial infarction) I21.4 Acute encephalopathy G93.40 UTI (urinary tract infection) N39.0 Cellulitis L03.90 Bilateral lower extremity edema R60.0 Chest pain R07.9 CHF (congestive heart failure), NYHA class III I50.9
[2022-01-27 16:25] LABS: Creatine Phosphokinase 778 U/L (39-308)
[2022-01-27 16:49] LABS: Glucose Point of Care 255 mg/dL (70-110)
[2022-01-27] MEDS: pantoprazole DR 40 mg Tablet PO (17:15)
[2022-01-27] MEDS: amlodipine 10 mg Tablet PO (17:16)
[2022-01-27] MEDS: vancomycin 1,500 MG/300 ML PIGGYBACK 150 MG IV (18:04)
[2022-01-27 19:29] LABS: Glucose Point of Care 304 mg/dL (70-110)
[2022-01-27] MEDS: metoprolol succinate ER (24 HR) 25 mg Tablet PO (20:40)
[2022-01-28] VITALS (42 sets, daily range): BP systolic 120–169; BP diastolic 63–87; PULSE 71–97; RESP 14–31; TEMP 36.6–37.8; O2SAT 67–100
[2022-01-28] MEDS: piperacillin-tazobactam 3.375 GM in sodium chloride 0.9% (plus) 50 ML IV ×3 (02:01→17:56)
[2022-01-28] MEDS: FUROsemide 10 mg/mL SDV 4mL 40 MG IVP (05:04)
[2022-01-28] MEDS: enoxaparin 100 mg/mL Syringe 130 MG SUBCUT ×2 (05:04→17:55)
[2022-01-28] MEDS: vancomycin 1,500 MG/300 ML PIGGYBACK 150 MG IV (06:02)
--- NOTE | 2022-01-28 06:20 | PC.NURSE ---
pt's bilateral wrist and groin hair clipped. sites cleansed with CHG wipes x2.
[2022-01-28 06:29] LABS: Glucose Point of Care 237 mg/dL (70-110)
--- NOTE | 2022-01-28 07:30 | XACV_ITS ---
Exam Room: [facility] Ht: 175 cm Wt: 132 kg BSA: 2.60 m2 Gender: Male : 1950 Any Known Allergies: No known allergies Exam Priority: Routine Procedure(s): Procedure Description: Diagnostic procedure Procedure Description: Coronary Angiography Diagnostic Cath Status: Urgent Diagnostic Findings * Riki Lopez is a 71-year-old man with past medical history of insulin-dependent diabetes mellitus type 2, diabetic peripheral neuropathy, hypertension hyperlipidemia, BPH and chronic back pain who presented to the ER with altered mental status. He was found to have UTI and was treated for cellulitis in bilateral lower extremity. He complained of atypical chest discomfort and troponin T increased from 19 on arrival to greater than 600 at 6 hours. Echocardiogram showed moderately decreased left ventricular systolic function at 35 to 40% with severe hypokinesis of mid to apical anterior and apical boateng. * Angiography shows a right coronary dominant system. * Normal left main artery. * Small to medium caliber left circumflex artery. Short discrete calcified 95% stenosis in proximal circumflex. DEVI-3 flow. Segment distal to this is slightly aneurysmal. Proximal obtuse marginal with 70% stenosis. DEVI-3 flow. * Small caliber calcified left anterior descending artery with chronic total occlusion of proximal left anterior descending artery after takeoff of first septal civil project engineer. * Small to medium caliber right coronary artery. Highly calcified proximal to mid right coronary artery. 70-80% diffuse stenosis of proximal right coronary artery. DEVI-3 flow. Mid right coronary artery with 60-70% stenosis. Proximal PDA with 80% stenosis that seems to be nearly occluded distally with DEVI 2 flow. Conclusions 1. Cardiac Catheterization study revealed multivessel coronary artery disease. 2. Severe 95% stenosis of proximal circumflex and proximal obtuse marginal with 70% stenosis. 3. Chronic total occlusion of proximal left anterior descending artery. 4. 70-80% diffuse stenosis of proximal right coronary artery. Mid right coronary artery with 60-70% stenosis. Proximal PDA with 80% stenosis and vessel is nearly occluded distally. 5. Case was discussed with Dr. Gayle and decision was made to proceed with evaluation by Dr. Mccann for possible CABG. Recommendations * Return to inpatient for close monitoring and routine cath care. * Statin and aspirin 81mg lifelong, if tolerated. Interventional RX Recommendation: CABG Diagnostic RX Recommendation: CABG Left Ventriculography Findings: * Left Ventriculogram not performed to minimize contrast use. Pressures Phase:Rest AO : 122 / 66 ( 89 ) @ 9:54:00 AM 109 / 76 ( 92 ) @ 9:57:00 AM 96 / 56 ( 74 ) @ 10:11:00 AM 136 / 70 ( 98 ) @ 10:17:00 AM 126 / 65 ( 92 ) @ 10:22:00 AM Hemodynamic Findings Aortic valve not crossed. Clinical Evaluation EBL: 5mL-10mL Procedural Details Procedure Consent Obtained. Admit Source: In Patient. Pre-Procedure Time Out. Identified patient by full name and date of as verbalized by the patient/guarantor. Does the consent match the physician's order: Yes. Accurate & Complete Informed Consent: Yes. Inpatient/Outpatient History & Physical on Chart: Yes. If H&P is completed, is and addenduem needed: No; If yes, is the addendum complete: N/A. Visualize and Verify Site with Patient/Guarantor: N/A. Relevant Radiology Images available: Yes. Pre-op teaching completed and patient verbalized understanding. The risks, benefits, and alternatives of sedation and/or procedure were discussed by physician. The patient agrees to continue. Procedure started. [facility] Clinical Fraility Score: 4: Vulnerable. Fiscal Clerk Indications: ACS > 24 hours. Chest Pain Symptom Assessment: Atypical Angina. Correct patient, site and procedure confirmed by cath team. Current diagnosis: NSTEMI. PERRLA. Strong, equal hand financial services intern bilaterally. Lungs clear x 5 lobes. IV Fluids: 0.9% NaCl at KVO. 0 mL infused prior to chemical laboratory tester. IV Site on Arrival: 20 gauge in the right anticubital. Oxygen started at 2liters/min via nasal canula. right groin was prepped with chloroprep then draped in the usual sterile fashion. right radial was prepped with chloroprep then draped in the usual sterile fashion. Physician notified. Baseline sample Acquired. HR: 82 BPM. Physician arrived. Physician scrubbed in. Immediate Pre-Procedure Time Out. Correct Patient: Yes; Correct Procedure: Yes; Correct Site: Yes; Correct Patient Position: Yes; Correct Supplies: Yes; Dried Flammable Prep: Yes; Blood Products Available: N/A;. Lidocaine 1% infiltrated to the right radial. Arterial access obtained. A 6 kazakh TIG catheter in over wire. Multiple views taken of left coronary artery. Dr. Gayle called to review films. Catheter redirected to the RCA. exchange wire inserted. Dr. Gayle arrived. Wire out. Catheter removed over the exchange wire. A 6 kazakh JR4 catheter in over wire. Multiple views taken of right coronary artery. Side port of sheath attached to Normal Saline flush at KVO to maintain patency. Physician review of cine films. Dr. Mccann called to review films. Dr. Rice scrubbed out to talk to family. Dr. Rice scrubbed in to remove catheter OTW. Catheter removed over the exchange wire. Physician scrubbed out. Vital chart was stopped. A TR Band was successful obtaining hemostatsis at the Right Radial artery insertion site. Post Procedure: Pulses reassessed and unchanged. PERRLA. Strong, equal hand financial services intern bilaterally. No VTE prophylaxis required. Contrast type used: Visipaque 320 mgI/mL, 500 mL bottle. Post-op diagnosis: CAD. Complications: None. Estimated blood loss: 5mL-10mL. Responsiveness - Normal response to verbal stimuli; alert and oriented, PERRLA. Airway - Unaffected, no intervention required; spontaneous ventilation. Circulation: W/N/L, pulses unchanged. Nausea/Vomiting: No. Procedure completed. Medication's Wasted: Lidocaine 1% = 9 mL. Medication's Wasted: Heparin = 1000 units. Medication's Wasted: Nitro = 49.8 mg. Total IV fluids: 75.6 mL. Patient transferred by wheelchair to 1st floor. Access Site Site: Right Radial artery Sheath Size: 6 Fr Hemostasis Method: TR Band Hemostasis Success: Successful Procedure Medications Start: 8:42 AM Stop: 8:42 AM Medication: Fentanyl Amount: 50 mcg Route: I.V. Start: 8:42 AM Stop: 8:42 AM Medication: Versed Amount: 1 mg Route: I.V. Start: 8:51 AM Stop: 8:51 AM Medication: Nitrogylcerin Amount: 200 mcg Route: I.A. Start: 8:51 AM Stop: 8:51 AM Medication: Verapamil Amount: 5 mg Route: I.A. Start: 8:51 AM Stop: 8:51 AM Medication: Versed Amount: 1 mg Route: I.V. Start: 9:17 AM Stop: 9:17 AM Medication: Fentanyl Amount: 25 mcg Route: I.V. Start: 9:24 AM Stop: 9:24 AM Medication: Fentanyl Amount: 25 mcg Route: I.V. I, the attending physician, have reviewed and verified all procedure medications. Yes, all medications given per verbal order History/Risk Factors Hypertension: Yes Dyslipidemia: Yes Peripheral Arterial Disease (PAD): No Myocardial Infarction (PR): No Obesity: Yes Renal Disease: No Tobacco Use: Never Prior Interventions PCI: No CABG: No Valve Surgery: No Report Signatures Finalized by Dayna Rice MD on 02/10/2022 06:59 PM
[2022-01-28 07:57] LABS: Basophils # 0.1 10^3/uL (0.0-0.1); Basophils % 0.6 %; Eosinophils # 0.4 10^3/uL (0.0-0.8); Eosinophils % 3.3 %; Hematocrit 34.6 % (42.0-52.0); Hemoglobin 11.9 g/dL (11.7-16.6); Lymphocytes # 2.2 10^3/uL (0.8-4.8); Lymphocytes % 20.5 %; Mean Corpuscular HGB Conc 34.4 g/dL (30.0-36.0); Mean Corpuscular Hemoglobin 34.6 pg (28.0-34.0); Mean Corpuscular Volume 100.6 fl (80-94); Monocytes % 9.2 %; Neutrophils # 7.21 10^3/uL (1.8-7.7); Neutrophils % 65.9 %; Nucleated Red Blood Cells % 0 %; Platelet Count 199 10^3/cmm (130-400); Red Blood Count 3.44 10^6/uL (4.1-5.3); Red Cell Distribution Width 14.4 % (12.1-15.1); White Blood Count 10.9 10^3/uL (4.0-10.0)
[2022-01-28 08:03] LABS: Alanine Aminotransferase 26 U/L (0-41); Alkaline Phosphatase 79 IU/L (40-130); Aspartate Amino Transferase 71 U/L (0-40); Blood Urea Nitrogen 15 mg/dL (8-23); Calcium 8.4 mg/dL (8.5-10.5); Carbon Dioxide 25 mmol/L (22-29); Chloride 96 mmol/L (98-107); Glucose 231 mg/dL (65-115); Magnesium 1.7 mg/dL (1.7-2.3); Osmolality Calculated 284 mOsm/kg (285-295); Sodium 133 mmol/L (136-145); Total Bilirubin 1.8 mg/dL (0.15-1.2)
[2022-01-28 08:04] LABS: Anion Gap 15.2 (5-19); Potassium 3.2 mmol/L (3.5-5.1)
[2022-01-28 08:05] LABS: Ammonia 35 umol/L (16-60)
[2022-01-28] MEDS: metoprolol succinate ER (24 HR) 25 mg Tablet PO ×2 (08:10→20:44)
[2022-01-28] MEDS: diphenhydrAMINE 50 mg Capsule PO (08:10)
[2022-01-28] MEDS: atorvastatin 40 mg Tablet PO (08:10)
[2022-01-28] MEDS: clopidogrel 75 mg Tablet PO (08:10)
[2022-01-28] MEDS: potassium chloride ER 20 mEq Tablet PO (08:10)
[2022-01-28] MEDS: aspirin 81 mg EC Tablet PO (08:10)
[2022-01-28] MEDS: sodium chloride 0.9% 1,000 ML 50 ML IV (08:10)
--- NOTE | 2022-01-28 08:44 | W.PM.OPSUD ---
Surgery/Procedure H&P Update DATE OF PROCEDURE: January 28, 2022 DATE H&P PERFORMED: 01/27/22 PREOP DIAGNOSIS: NSTEMI, CHF PLANNED PROCEDURE: Operation Date: 01/28/22 10:00 Proposed Procedures p Cardiac Catheterization(Not Applicable) - Dayna Rice MD PATIENT REASSESSED PRIOR TO SEDATION, WITH NO CHANGE NOTED: Yes PHYSICAL EXAM: alert, oriented x 3, clear to auscultation bilaterally and regular rate & rhythm AIRWAY EVAL/ANESTHESIA PLAN: see other exam findings (Airway 3), ASA III, Monitored Anesthesia, Local Anesthesia, Risks, benefits & alternatives of sedation and/or procedure discussed and Patient agrees to continue as planned
--- NOTE | 2022-01-28 09:42 | PM.PN ---
Subjective Subjective: Patient underwent LHC and was was found to have multivessel CAD Medications: Reviewed: Yes Vitals/I&O/Wt Last Vital Signs Temp 100.1 F H 01/28/22 08:00 Pulse 87 01/28/22 08:00 Resp 14 01/28/22 08:00 BP 153/68 01/28/22 08:00 Pulse Ox 93 01/28/22 08:00 01/27/22 01/28/22 01/28/22 22:59 06:59 14:59 Intake Total 760 / 1420 50 / 1470 358 / 358 Output Total 1900 / 3600 900 / 4500 Balance -1140 / -2180 -850 / -3030 358 / 358 Physical Exam Narrative: GENERAL: Obese man sitting in bed in no acute distress HEENT: Extraocular movement intact. ? No pallor or icterus. NECK: Mild JVD,? No carotid bruit. CARDIOVASCULAR SYSTEM: S1-S2 regular.? No murmur rubs or gallops. RESPIRATORY SYSTEM: Chest clear to auscultation.? No wheezes rhonchi or rubs heard. No use of accessory muscles. ABDOMEN: Soft, nontender and nondistended.? Normal bowel sounds present.? EXTREMITIES: No cyanosis. 2+ edema (R>L).? Bilateral leg erythema present. ANALOG IC DESIGN ENGINEER: Patient is alert oriented ?3.? No focal neurological deficits.? SKIN: Normal turgor and temperature.? No breakdown, rash or nail changes noted. PSYCH: Normal insight and judgment. ? Urinary Catheter Management: Guzmán: Cath Placed During This Visit: yes Reason for Continuing Indwelling Catheter: Accurate Measurement of Urinary Output in Critically Ill Patients Urinary Catheter Date of Insertion: 01/25/22 Urinary Catheter Time of Insertion: 17:30 Data : 01/28/22 07:27 01/28/22 07:27 Micro: Microbiology 01/25/22 14:30 Urine Culture - Final Urine,Clean Catch A&P Assessment and plan (1) NSTEMI (non-ST elevated myocardial infarction): I had a long discussion with patient and family and decision was made to proceed with C. Patient was found to have severe stenosis in px to mid RCA, px to mid LCx and PAPER REWINDER OPERATOR of mid LAD -After discussing with the patient and family, decision was made to get Dr. Mccann's opinion and proceed from there. -continue ASA, statin, lovenox, NTG SL. Status: Acute (2) CHF (congestive heart failure), NYHA class III: hold off on lasix today -I/O charting and daily weight -will add entresto after cath Status: Acute (3) Hypertension: Status: Acute (4) Hyperlipidemia: Status: Acute (5) Insulin dependent type 2 diabetes mellitus: Status: Acute Plan UTI : on antibiotics Hypomagnesemia: replaced Hypokalemia: replaced Encephalopathy: resolved Abnormal LFT's Altered mental status: resolved Thank you for allowing me to participate in patient's care. Please feel free to call with questions or concerns Attestations Medical Necessity Statement*: needs hospital stay for NSTEMI, CHF and UTI Coding Level of Care Code Acute Law Reporter for [facility] Fwd Diagnoses NSTEMI (non-ST elevated myocardial infarction) I21.4 CHF (congestive heart failure), NYHA class III I50.9 Hypertension I10 Hyperlipidemia E78.5 Insulin dependent type 2 diabetes mellitus E11.9; Z79.4
--- NOTE | 2022-01-28 10:13 | PC.SOCIAL ---
IMM update IMM updated with patient and family at bedside. Verbalized an understanding. Copy Pg 2 provided. Initialled, dated, timed, and placed in chart.
--- NOTE | 2022-01-28 10:41 | PM.CONSULT ---
Providers/Reason For Consult Consulting Physician/Specialty*: Dr. Mccann/cardiothoracic surgery Reason for Consult*: Coronary artery disease Requesting Physician: Dr. Rice/cardiology Attending Physician: Reji Miramontes Primary Care Provider: Tashi Mora DO History of Present Illness History of Present Illness Riki Lopez is a 71 year old male whom I been consulted on by Dr. Rice following up left heart catheterization this morning. He presented to the emergency department on January 25 with altered mental status and some confusion which slowly cleared. He lives alone though his daughter does visit with him at least 3 times weekly if not more as well as run his errands. He ambulates with the use of a cane or a walker. He does have some mild confusion from time to time as reported by his daughter. He complained of chest discomfort for which he initially treated as acid reflux without substantial resolution. He was evaluated by my colleague Dr. Rice and was also noted to have a troponin leak. Due to a strong family history as well as multiple risk factors including type 2 diabetes mellitus, hyperlipidemia, and hypertension, left heart catheterization was recommended. His initial presenting evaluation also determine that he had a urinary tract infection for which she is currently undergoing treatment. Left heart catheterization was completed this morning by Dr. Rice. I have personally reviewed the cardiac catheterization. He has rather diffuse disease particular involving the LAD though he does have a very discrete high-grade lesion in the proximal circumflex and subtotal occlusion of the first OMB with diffuse disease elsewhere, including the RCA Currently being treated for urinary tract infection as well. Given review of the anatomy of his left heart catheterization, I feel he would be best served initially with addressing percutaneously if possible, the proximal circumflex lesion. I do not think the LAD is acceptable target for surgery revascularization and the mid and distal OMB branches of the circumflex also are small target vessels. The RCA has diffuse very distal disease also with small targets. Transthoracic echocardiogram of January 26 revealed reduced ejection fraction at 35 to 40% with moderate hypokinesia of the apical anterior, apical septal, apical inferior, apical lateral, and apical boateng. There was also grade 2 diastolic dysfunction with moderately elevated filling pressures. Chest x-ray from this admission reveals relatively clear lung rosa with modest to moderate cardiomegaly. Review of Systems Const: Denies: fever(s), chills or change in appetite ENMT: Denies: throat pain or hoarseness Card: Reports: chest pain, edema and swelling of feet/ankles; Denies: irregular heart rhythm Resp: Reports: dyspnea; Denies: productive cough GI: Denies: abdominal pain, nausea or vomiting : Denies: flank pain, difficulty urinating or dysuria Neuro: Reports: confusion; Denies: headache(s), numbness in extremities or Slurred speech present Psych: Denies: anxiety or depression Medications/Allergies Home Medications Medication Instructions Recorded Confirmed Last Taken Type amlodipine 2.5 mg tablet 2.5 mg PO DAILY 01/25/22 01/25/22 01/24/22 History atorvastatin 20 mg tablet 20 mg PO DAILY 01/25/22 01/25/22 01/24/22 History cyclobenzaprine 10 mg tablet 5 - 10 mg PO DAILY PRN 01/25/22 01/25/22 Unknown History gabapentin 100 mg capsule 100 mg PO TID PRN 01/25/22 01/25/22 Unknown History hydrocodone 5 mg-acetaminophen 325 1 tab PO QID PRN 01/25/22 01/25/22 Unknown History mg tablet insulin glargine 100 unit/mL 50 unit SUBCUT BEDTIME 01/25/22 01/25/22 01/24/22 History subcutaneous solution (Lantus U-100 Insulin) insulin lispro 100 unit/mL 75 unit SUBCUT TID 01/25/22 01/25/22 01/24/22 History subcutaneous solution meloxicam 15 mg tablet 15 mg PO DAILY 01/25/22 01/25/22 01/24/22 History metformin 1,000 mg tablet 1,000 mg PO BID 01/25/22 01/25/22 01/24/22 History metoprolol succinate 200 mg 200 mg PO DAILY 01/25/22 01/25/22 01/24/22 History tablet,extended release 24 hr naloxone 4 mg/actuation nasal 1 spray INTRANASAL . DIRECTED PRN 01/25/22 01/25/22 Unknown History spray (Narcan) omeprazole 20 mg capsule,delayed 20 mg PO DAILY 01/25/22 01/25/22 01/24/22 History release Allergies Allergy/AdvReac Type Severity Reaction Status Date / Time No Known Allergies Allergy Verified 01/25/22 14:16 Current Medications Generic Name Dose Route Start Last Admin Trade Name Freq PRN Reason Stop Dose Admin Amlodipine Besylate 10 mg 01/25/22 16:45 01/27/22 17:16 Amlodipine 10 Mg Tablet PO 10 mg Q24H NEFTALI Administration Aspirin 81 mg 01/26/22 09:00 01/28/22 08:10 Aspirin 81 Mg Ec Tablet PO 81 mg DAILY NEFTALI Administration Atorvastatin Calcium 40 mg 01/26/22 09:00 01/28/22 08:10 Atorvastatin 40 Mg Tablet PO 40 mg DAILY NEFTALI Administration Enoxaparin Sodium 130 mg 01/26/22 06:00 01/28/22 05:04 Enoxaparin 100 Mg/Ml Syringe 1 mg/kg (130 mg) 130 mg SUBCUT Administration Q12H NEFTALI Furosemide 40 mg 01/26/22 16:45 01/28/22 05:04 Furosemide 10 Mg/Ml Sdv 4ml IVP 40 mg Q12H NEFTALI Administration Piperacillin Sod/Tazobactam 50 mls @ 12.5 mls/hr 01/25/22 18:30 01/28/22 06:03 Sod 3.375 gm/ Sodium Chloride IV Infused Q8H [facility] Infusion Protocol Vancomycin/PEG/NADA/Lysine/Water 1,500 mg in 300 mls @ 200 mls/hr 01/26/22 06:30 01/28/22 06:02 Vancocin IV 150 mls/hr Q12H NEFTALI Administration Sodium Chloride 1,000 mls @ 50 mls/hr 01/28/22 08:00 01/28/22 08:10 Sodium Chloride 0.9% IV 01/29/22 03:59 50 mls/hr .Q20H ONE Administration Insulin Glargine 10 unit 01/25/22 21:00 01/27/22 20:42 Insulin Glargine 100 Units/1 Ml SUBCUT 10 unit Q12H NEFTALI Administration Insulin Human Lispro 0 unit 01/25/22 18:00 01/27/22 20:43 Insulin Lispro 100 Unit/1 Ml SUBCUT 12 unit WM&BEDTIME NEFTALI Administration Protocol Metoprolol Succinate 25 mg 01/27/22 21:00 01/28/22 08:10 Metoprolol Succinate Er (24 Hr) 25 Mg Tablet PO 25 mg 0900,2100 NEFTALI Administration Pantoprazole Sodium 40 mg 01/27/22 16:30 01/27/22 17:[address] 40 Mg Tablet PO 40 mg Q24H NEFTALI Administration Potassium Chloride 20 meq 01/27/22 09:00 01/28/22 08:10 Potassium Chloride Er 20 Meq Tablet PO 20 meq DAILY NEFTALI Administration PFSH Acute PFSH: Medical History CHF (congestive heart failure), NYHA class III Chronic prescription opiate use Dementia History of diabetic neuropathy Hyperlipidemia Hypertension Insulin dependent type 2 diabetes mellitus Surgical History History of left knee replacement Social History Smoking and tobacco status: never smoked Alcohol intake: never Substance/Drug Use: never Vitals/I&O/Wt Last Vital Signs Temp 100.1 F H 01/28/22 08:00 Pulse 87 01/28/22 08:00 Resp 14 01/28/22 08:00 BP 153/68 01/28/22 08:00 Pulse Ox 93 01/28/22 08:00 01/27/22 01/28/22 01/28/22 22:59 06:59 14:59 Intake Total 760 / 1420 50 / 1470 358 / 358 Output Total 1900 / 3600 900 / 4500 Balance -1140 / -2180 -850 / -3030 358 / 358 Physical Exam Const: COMMON NORMALS: patient oriented x3 HENMT: COMMON NORMALS: normocephalic, atraumatic, hearing grossly normal bilaterally and external ears normal HEAD & SCALP: normocephalic and atraumatic EXTERNAL EAR: Yes external ears normal Eye: COMMON NORMALS: Equal, round and reactive pupils present, EOMs intact bilaterally and conjunctivae normal CONJUNCTIVA: Yes conjunctivae normal PUPIL: Yes Equal, round and reactive pupils present Neck/C-Spine: COMMON NORMALS: no lymphadenopathy Chest: COMMONS NORMALS: normal inspection of the chest Resp: COMMON NORMALS: normal respiratory effort, No retractions and No use of accessory muscles AUSCULTATION: diminished lung sounds bilateral in the lower lung rosa Cardio: COMMON NORMALS: regular rate, regular rhythm, S1 normal heart sound present, No murmurs present (Cardio) and No rub (Cardio) RATE: regular rate RHYTHM: regular rhythm HEART SOUNDS: S1 normal heart sound present GI: INSPECTION: Yes central obesity Extremity: OTHER: 1+ peripheral edema Neuro: COMMON NORMALS: patient oriented x3, moves all extremities, no focal motor deficits and no sensory deficits noted Urinary Catheter Management: Guzmán: Cath Placed During This Visit: yes Reason for Continuing Indwelling Catheter: Accurate Measurement of Urinary Output in Critically Ill Patients Urinary Catheter Date of Insertion: 01/25/22 Urinary Catheter Time of Insertion: 17:30 Data : 01/28/22 07:27 01/28/22 07:27 Micro: Microbiology 01/25/22 14:30 Urine Culture - Final Urine,Clean Catch A&P Assessment and plan (1) Multi-vessel coronary artery stenosis: Mr. Lopez is a pleasant, quite obese gentleman with multivessel and rather diffuse coronary artery disease. Related to his rather mid vessel and distal diffuse disease I do not think surgery vascularization is an ideal option at present, though certainly may eventually be required. Given his discrete proximal circumflex lesion and a relatively large vessel, it may be prudent to consider attempting to address this first percutaneously, and as Dr. Rice has suggested, perhaps addressing some areas of the RCA percutaneously as well. The relative increased upfront risk profile for proceeding directly to surgery revascularization I do not think it is prudent in the immediate future given the above findings as well as his current treatment for urinary tract infection. I will be available to discuss further with our cardiology colleagues. Thank you very much for allowing me to dissipate in the evaluation of Mr. Lopez. Status: Acute Coding Level of Care Code Acute Credit Department Manager for [facility] Diagnoses Multi-vessel coronary artery stenosis I25.10
--- NOTE | 2022-01-28 10:59 | PM.PN ---
Subjective Subjective: States he is doing all right. Denies chest pain or pressure. Has some mild cough which is dry. Denies any other new symptoms, no nausea vomiting or diarrhea. Discussed with him and his family regarding noted low-grade fever, 100.1 Fahrenheit. He has been discussing results of coronary angiogram with multivessel disease with cardiology with consideration of further steps including evaluation for bypass surgery. Vitals/I&O/Wt Last Vital Signs Temp 100.1 F H 01/28/22 08:00 Pulse 87 01/28/22 08:00 Resp 14 01/28/22 08:00 BP 153/68 01/28/22 08:00 Pulse Ox 93 01/28/22 08:00 01/27/22 01/28/22 01/28/22 22:59 06:59 14:59 Intake Total 760 / 1420 50 / 1470 358 / 358 Output Total 1900 / 3600 900 / 4500 Balance -1140 / -2180 -850 / -3030 358 / 358 Physical Exam Narrative: Children at bedside Const: COMMON NORMALS: alert GENERAL APPEARANCE: cooperative NUTRITIONAL APPEARANCE: obese ORIENTATION/CONSCIOUSNESS: Yes awake HENMT: COMMON NORMALS: normocephalic, EAC's normal, Normal external nose present and moist oral mucous membranes HEAD & SCALP: normocephalic NOSE: Normal external nose present EXTERNAL AUDITORY CANAL: EAC's normal TEETH & GINGIVA: Yes poor dentition Neck/C-Spine: COMMON NORMALS: no meningeal signs Chest: CHEST: Yes Symmetrical chest wall rise Resp: COMMON NORMALS: clear to auscultation bilaterally AUSCULTATION: clear to auscultation bilaterally Cardio: COMMON NORMALS: regular rate, regular rhythm and No murmurs present (Cardio) RATE: regular rate RHYTHM: regular rhythm GI: COMMON NORMALS: Normal to inspection, nondistended, normoactive bowel sounds present, Soft to palpation and non-tender PALPATION: Yes Soft to palpation Extremity: COMMON NORMALS: no pedal edema GENERAL: Yes edema (Shrinking 3+ BL LE edema, some wrinkling, cracking/dry flakes) Neuro: COMMON NORMALS: moves all extremities SENSORIUM/ORIENTATION: Yes alert MENINGEAL SIGNS: Yes no meningeal signs Psych: COMMON NORMALS: mental status grossly normal Skin: COMMON NORMALS: no wounds GENERAL SKIN EXAM: erythema (BL LE up to 2/3 of shins) RASHES: no rashes Urinary Catheter Management: Guzmán: Cath Placed During This Visit: yes Reason for Continuing Indwelling Catheter: Accurate Measurement of Urinary Output in Critically Ill Patients Urinary Catheter Date of Insertion: 01/25/22 Urinary Catheter Time of Insertion: 17:30 Data : 01/28/22 07:27 01/28/22 07:27 Micro: Microbiology 01/25/22 14:30 Urine Culture - Final Urine,Clean Catch A&P Assessment and plan (1) Multi-vessel coronary artery stenosis: Underwent coronary angiography with HYPERION ADMINISTRATOR of LAD with circumflex lesion and RCA disease. Pending cardiothoracic surgery evaluation and further recommendations for revascularization options. Status: Acute (2) CHF (congestive heart failure), NYHA class III: Tolerating diuresis. Continue IV diuretics, I&O monitoring, follow renal function. Acute systolic and diastolic CHF exacerbation. Additional work-up for ischemic heart disease pending. Appreciate cardiology recommendations. No LE DVT on venous duplex. Status: Acute (3) NSTEMI (non-ST elevated myocardial infarction): Status post diagnostic coronary angiogram 01/28. Continue cardiac medications. Would discontinue celecoxib at discharge. Status: Acute (4) Acute encephalopathy: Improved. Unclear etiology. Does have underlying dementia which appears possibly mild as he does live independently, although his children do assist him at home and with shopping. Daughter reports some episodes of him not remembering her previously. These do not seem to be consistent. Not sundowning. Still question whether episodes of encephalopathy may be related to medications, he is on a number of pain medicines. Otherwise also possibly acute metabolic encephalopathy with urinary tract infection, cellulitis. Continue antibiotics to treat underlying conditions. Status: Acute (5) UTI (urinary tract infection): Continue antibiotic coverage. Urine culture with more than 100,000 CFU of mixed superficial jordan. Status: Acute (6) Cellulitis: Low-grade fever today 100.1. Leukocytosis has been improving. Continue Vanco and Zosyn. LE duplex without DVT Status: Acute (7) Bilateral lower extremity edema: Decreasing with diuresis. Some cracking/dry flakes of skin. Apply moisturizer. Status: Acute (8) Chest pain: Status: Acute Plan Low-grade fever: 100.1 Fahrenheit fever today. Reports dry cough. He is having some persistent oxygen requirement of 4 L. Will assess chest x-ray. COVID-19 PCR. Hyperammonemia: Resolved. Hold further lactulose. Should follow-up with evaluation targeted for possible fibrosis or cirrhosis, although liver reported normal on CT. Does have some AST elevation, although this is new in the last 2 days. Type 2 diabetes mellitus -Moderate dose sliding scale -Lantus 10 units twice daily Hypertension -Norvasc -Metoprolol Attestations Medical Necessity Statement*: Continue admission for additional assessment and management of multivessel coronary artery disease, UTI, cellulitis. 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
--- NOTE | 2022-01-28 11:14 | XRR_ITS ---
PROCEDURE INFORMATION: Exam: XR Chest Exam date and time: 01/28/2022 11:42 AM Age: 71 years old Clinical indication: Cough and fever; Additional info: Low grade fever, cough TECHNIQUE: Imaging protocol: XR of the chest. Views: 1 view. COMPARISON: CR (CHEST, ) 01/25/2022 2:44 PM FINDINGS: Lungs: Low lung volumes seen. The lungs are otherwise clear. Pleural spaces: Unremarkable. No pleural effusion. No pneumothorax. Heart/Mediastinum: Unremarkable. No cardiomegaly. Bones/joints: Unremarkable. XR/XR chest 1V portable [id number] IMPRESSION: 1. Low lung volumes 2. No acute findings.
[2022-01-28] MEDS: insulin lispro 100 unit/1 mL SUBCUT ×3 (11:22→20:44)
[2022-01-28] MEDS: magnesium sulfate premix 2 GM/50 ML PIGGYBACK IV (11:24)
[2022-01-28] MEDS: insulin glargine 100 units/1 mL 10 UNIT SUBCUT ×2 (11:24→20:45)
[2022-01-28] MEDS: lidocaine 1% 5 ML in potassium chloride premix 100 ML 50 ML IV (11:25)
[2022-01-28 11:27] LABS: Glucose Point of Care 224 mg/dL (70-110)
[2022-01-28 14:51] LABS: Adenovirus Not Detected (NOT DETECT); Chlamydia Pneumoniae Not Detected (NOT DETECT); Coronavirus 229E,HKU1,NL63,OC4 Not Detected (NOT DETECT); Human Metapneumovirus Not Detected (NOT DETECT); Human Rhinovirus/Enterovirus Not Detected (NOT DETECT); Influenza A Not Detected (NOT DETECT); Influenza A H1 Not Detected (NOT DETECT); Influenza A H1-2009 Not Detected (NOT DETECT); Influenza A H3 Not Detected (NOT DETECT); Influenza B Not Detected (NOT DETECT); Mycoplasma Pneumoniae Not Detected (NOT DETECT); Parainfluenza Virus Type 1 Not Detected (NOT DETECT); Parainfluenza Virus Type 2 Not Detected (NOT DETECT); Parainfluenza Virus Type 3 Not Detected (NOT DETECT); Parainfluenza Virus Type 4 Not Detected (NOT DETECT); Respiratory Syncytial Virus A Not Detected (NOT DETECT); Respiratory Syncytial Virus B Not Detected (NOT DETECT); SARS-COV-2 Not Detected (NOT DETECT)
--- NOTE | 2022-01-28 15:17 | PC.NURSE ---
received from cardiac wastewater analyst lab analyst at 0940 via w/c.report received.pt is awake and alert.sr on monitor.tr band on and inflated.right hand is warm to touch and with brisk capillary refill.palpable radial pulse noted distal to tr band.no hematoma noted.instructed in activity restrictions s/p radial artery procedure ,and instructed to notify staff for any bleeding,pain,numbness...or for any concerns at all.pt verb understanding of instructions
[2022-01-28 16:40] LABS: Glucose Point of Care 342 mg/dL (70-110)
[2022-01-28] MEDS: pantoprazole DR 40 mg Tablet PO (17:19)
[2022-01-28] MEDS: amlodipine 10 mg Tablet PO (17:21)
[2022-01-28] MEDS: vancomycin 1,500 MG/300 ML PIGGYBACK 200 MG IV (17:56)
[2022-01-28 20:05] LABS: Glucose Point of Care 407 mg/dL (70-110)
[2022-01-29] VITALS (30 sets, daily range): BP systolic 122–169; BP diastolic 49–97; PULSE 72–94; RESP 18–31; TEMP 36.8–37.1; O2SAT 92–98
[2022-01-29] MEDS: piperacillin-tazobactam 3.375 GM in sodium chloride 0.9% (plus) 50 ML IV ×2 (03:34→18:45)
[2022-01-29 05:40] LABS: Basophils # 0.1 10^3/uL (0.0-0.1); Basophils % 0.9 %; Eosinophils # 0.5 10^3/uL (0.0-0.8); Eosinophils % 7.2 %; Hematocrit 36.2 % (42.0-52.0); Hemoglobin 12.5 g/dL (11.7-16.6); Lymphocytes # 1.8 10^3/uL (0.8-4.8); Lymphocytes % 26.4 %; Mean Corpuscular HGB Conc 34.5 g/dL (30.0-36.0); Mean Corpuscular Hemoglobin 34.2 pg (28.0-34.0); Mean Corpuscular Volume 99.2 fl (80-94); Mean Platelet Volume 12.3 fL (7.4-10.4); Monocytes # 0.8 10^3/uL (0.2-0.9); Monocytes % 11.6 %; Neutrophils % 53.5 %; Nucleated Red Blood Cells % 0 %; Platelet Count 122 10^3/cmm (130-400); Red Blood Count 3.65 10^6/uL (4.1-5.3); Red Cell Distribution Width 14.2 % (12.1-15.1); White Blood Count 6.9 10^3/uL (4.0-10.0)
[2022-01-29] MEDS: vancomycin 1,500 MG/300 ML PIGGYBACK 150 MG IV ×2 (06:00→18:46)
[2022-01-29 06:23] LABS: Slide Review Slide Review Perform
[2022-01-29 06:44] LABS: Glucose Point of Care 275 mg/dL (70-110)
--- NOTE | 2022-01-29 08:16 | W.PM.OPSUD ---
Surgery/Procedure H&P Update DATE OF PROCEDURE: January 29, 2022 DATE H&P PERFORMED: 01/26/22 H&P UPDATE INFORMATION: I have reviewed H&P completed within last 30 days, I have examined patient prior to procedure and No changes to prior documentation CHANGES TO PREVIOUS DOCUMENTATION: Patient has severe, heavily calcified multivessel disease with CAN FILLING MACHINE OPERATOR of mid LAD, critical stenosis of proximal to mid left circumflex artery and critical, long, heavily calcified stenosis of proximal to mid RCA. Patient was assessed by CT surgery team and was deemed high risk for surgical revascularization and they noted diffusely diseased vessels at target areas. Today we will proceed with PCI of left circumflex artery with arthrectomy. Depending on the complexity of procedure, will assess during the procedure if RCA needs to be staged or can undergo revascularization today. I had a detailed discussion with the patient and his family regarding risks and benefits of the procedure. They understand the risks and benefits and wants to proceed with the procedure. PREOP DIAGNOSIS: NSTEMI, CHF PRIMARY INDICATION FOR PROCEDURE: NSTEMI/ CHF PLANNED PROCEDURE: Operation Date: 01/28/22 10:00 Proposed Procedures p Cardiac Catheterization(Not Applicable) - Zay Gayle MD Percutaneous coronary intervention PATIENT REASSESSED PRIOR TO SEDATION, WITH NO CHANGE NOTED: Yes PHYSICAL EXAM: alert, oriented x 3, clear to auscultation bilaterally and regular rate & rhythm AIRWAY EVAL/ANESTHESIA PLAN: ASA IV, Monitored Anesthesia, Local Anesthesia, Risks, benefits & alternatives of sedation and/or procedure discussed and Patient agrees to continue as planned
--- NOTE | 2022-01-29 08:30 | XACV_ITS ---
Exam Room: [facility] Ht: 175 cm Wt: 132 kg BSA: 2.60 m2 Gender: Male : 1950 Any Known Allergies: No known allergies Exam Priority: Routine Procedure(s): Procedure Description: Diagnostic procedure Procedure Description: PCI procedure Procedure Description: Drug Eluting Coronary Stent Procedure Description: PTCA Procedure Description: Coronary Atherectomy Procedure Description: Miscellaneous Procedure Description: Angio-Seal Procedure Description: ACT Procedure Description: Coronary Angiography Zay Gayle MD; Diagnostic Cath Status: Urgent Diagnostic Findings * Left Main has no disease. * Proximal Circumflex: critical 95% stenosis, DEVI: 3 flow. PCI Status: Urgent PCI Indication: NSTE - ACS Interventional Findings * Procedure Detail: We engaged left main artery with XB 3.5 guide catheter. IV heparin was administered to maintain ACT above 250 s. Viper wire was used to cross severe proximal left circumflex artery stenosis. This was followed by performing orbital arthrectomy. We then predilated the stenosis by 2.75 x 15 mm semi-compliant balloon. This was followed by placement of 3.5 x 26 mm resolute Leonardo drug-eluting stent. We then postdilated the stent with 3.75 x 8 mm NC balloon. At this time final angiogram was performed that showed excellent stent expansion, DEVI-3 flow and no residual stenosis. Patient left the Business Resiliency Manager in stable condition.. * Proximal Circumflex: 95% stenosis treated with a AB TREK 2.75X15 RX BALLOON, AB TREK 2.75X12 RX BALLOON, LALO R LEONARDO 3.5X26 BENNY, and MDT SHERRY EUPHORA RX [id number] BALLOON. 0% residual stenosis, DEVI: 3 flow. Conclusions 1. Critical left circumflex artery 2. heavily calcified stenosis status post successful revascularization with orbital arthrectomy and BENNY x1.. 3. Proximal Circumflex was treated with a Balloon, Balloon, Drug Eluting Stent, and Balloon. Recommendations * Aspirin and Plavix for at least 1 year. * High intensity statin therapy. * We will plan on staged PCI of RCA with arthrectomy in 2 to 3 weeks. * Outpatient cardiology follow-up in 1 to 2 weeks. Interventional RX Recommendation: PCI w/o planned CABG Diagnostic RX Recommendation: PCI w/o planned CABG Anticoagulation: Heparin Pressures Phase:Rest AO : 111 / 73 ( 84 ) @ 9:48:00 AM 107 / 81 ( 94 ) @ 10:02:00 AM Clinical Evaluation EBL: 5mL-10mL Procedural Details Procedure Consent Obtained. Hemodynamic formulas in Rest were re-calculated based on hemoglobin value from 01/29/2022 4:18:00 AM. Pre-Procedure Time Out. Identified patient by full name and date of as verbalized by the patient/guarantor. Does the consent match the physician's order: Yes. Accurate & Complete Informed Consent: Yes. Inpatient/Outpatient History & Physical on Chart: Yes. If H&P is completed, is and addenduem needed: Yes; If yes, is the addendum complete: No. Visualize and Verify Site with Patient/Guarantor: N/A. Relevant Radiology Images available: Yes. The risks, benefits, and alternatives of sedation and/or procedure were discussed by physician. The patient agrees to continue. Procedure started. [facility] Clinical Fraility Score: 4: Vulnerable. Chest Pain Symptom Assessment: Typical Angina Symptoms. Business Resiliency Manager Indications: NSTEMI. Correct patient, site and procedure confirmed by cath team. Current diagnosis: NSTEMI. PERRLA. Strong, equal hand admissions dean bilaterally. Lungs clear x 5 lobes. IV Site on Arrival: 20 gauge in the right anticubital. IV Site on Arrival: 20 gauge in the left hand. IV Fluids: 0.9% NaCl at KVO. 0 mL infused prior to labor specialist. Oxygen started at 3liters/min via nasal canula. right groin was prepped with chloroprep then draped in the usual sterile fashion. Pre Procedural Pulses: bilateral posterior tibial was Doppled. Pre Procedural Pulses: bilateral dorsalis pedis was Doppled. Physician notified. Baseline sample Acquired. HR: 87 BPM. Physician arrived. Physician scrubbed in. Immediate Pre-Procedure Time Out. Correct Patient: Yes; Correct Procedure: Yes; Correct Site: Yes; Correct Patient Position: Yes; Correct Supplies: Yes; Dried Flammable Prep: Yes; Blood Products Available: No;. Lidocaine 1% infiltrated to the right groin. Arterial access obtained with micropuncture set. PCI Indication: NSTE. 6 martiniquais XB 3.5 guide catheter was inserted over the wire. Coronary flex tip Viper wire advanced through guide catheter to mid circumflex. ACT drawn. Results 377 seconds. Therapeutic limits - pre-heparin administration 90-150 seconds and monitoring heparin during a vascular procedure >250 seconds. AP pads applied to patient chest. Orbital atherectomy device in over wire. Orbital atherectomy performed to proximal circumflex lesion for 10 seconds. Orbital atherectomy device repositioned, atherectomy performed to prox circumflex lesion for 23 seconds. Atherectomy performed to proximal circumflex lesion for 7 seconds. Atherectomy device out over wire. Teleport catheter in over viper coronary wire to mid circumflex. Viper wire out. Runthrough 300cm guidewire was advanced through the guide catheter to lesion in the prox Circ. Teleport catheter out over runthrough wire. Guidewire advanced across lesion. Balloon inserted to lesion in the prox Circ. Inflation number : 1 A AB TREK 2.75X15 RX BALLOON was prepped and advanced across the Prox CX , then inflated to 12 ZENAIDA for 0:23 seconds. Inflation number: 2 The AB TREK 2.75X15 RX BALLOON was reinflated across the Prox CX, to 12 ZENAIDA for 0:15 seconds. Balloon out. Angiography performed. Inflation number: 3 The AB TREK 2.75X15 RX BALLOON was reinflated across the Prox CX, to 12 ZENAIDA for 0:09 seconds. Balloon out. ACT drawn. Results 259 seconds. Therapeutic limits - pre-heparin administration 90-150 seconds and monitoring heparin during a vascular procedure >250 seconds. Inflation number : 4 A AB TREK 2.75X12 RX BALLOON was prepped and advanced across the Prox CX , then inflated to 12 ZENAIDA for 0:17 seconds. Inflation number: 5 The AB TREK 2.75X12 RX BALLOON was reinflated across the Prox CX, to 12 ZENAIDA for 0:09 seconds. Inflation number: 6 The AB TREK 2.75X12 RX BALLOON was reinflated across the Prox CX, to 12 ZENAIDA for 0:23 seconds. Inflation number: 7 The AB TREK 2.75X12 RX BALLOON was reinflated across the Prox CX, to 8 ZENAIDA for 0:16 seconds. Balloon out. Stent balloon out over runthrough wire, intact. 6F Guideliner catheter in over runthrough wire. Stent inserted to lesion in the prox Circ. Angiography performed. Inflation Number : 8 A MDT R LEONARDO 3.5X26 BENNY -Lot Number# [id number] was prepped and advanced across the Prox CX. The stent was deployed at 12 ZENAIDA for 0:32 seconds. EXP 10-25-2024. Stent balloon out over wire. guideliner out over runthrough wire. NC Euphoria 3.75mm X 8mm in over runthrough. unable to cross, NC balloon out. Guideliner catheter inserted over runthrough wire. Inflation number: 9 The AB TREK 2.75X15 RX BALLOON was reinflated across the Prox CX, to 16 ZENAIDA for 0:20 seconds. Inflation number: 10 The AB TREK 2.75X15 RX BALLOON was reinflated across the Prox CX, to 14 ZENAIDA for 0:16 seconds. Balloon out over the wire. Guideliner advanced into the Left Circumflex over the Runthrough. Inflation number : 11 A MDT NC EUPHORA RX [id number] BALLOON was prepped and advanced across the Prox CX , then inflated to 12 ZENAIDA for 0:24 seconds. Inflation number: 12 The MDT NC EUPHORA RX [id number] BALLOON was reinflated across the Prox CX, to 12 ZENAIDA for 0:11 seconds. Inflation number: 13 The MDT NC EUPHORA RX [id number] BALLOON was reinflated across the Prox CX, to 12 ZENAIDA for 0:12 seconds. Inflation number: 14 The MDT NC EUPHORA RX [id number] BALLOON was reinflated across the Prox CX, to 12 ZENAIDA for 0:22 seconds. Balloon out. Guideliner out over runthrough wire. Angiography performed, checking results. Runthrough wire out. Angiography performed. Guide catheter out. ACT drawn. Results seconds. Therapeutic limits - pre-heparin administration 90-150 seconds and monitoring heparin during a vascular procedure >250 seconds. A Right femoral angiogram was performed to determine safe placement of closure device. A Angio-Seal VIP ([facility]) was successful obtaining hemostatsis at the Right Femoral artery insertion site, held 3 minutes manual pressure. Post Procedure: Pulses reassessed and unchanged. PERRLA. Strong, equal hand admissions dean bilaterally. No VTE prophylaxis required. Post-op diagnosis: Severe proximal circumflex stenosis. Complications: None. Estimated blood loss: 5mL-10mL. Responsiveness - Normal response to verbal stimuli; alert and oriented, PERRLA. Airway - Unaffected, no intervention required; spontaneous ventilation. Circulation: W/N/L, pulses unchanged. Nausea/Vomiting: No. Total IV fluids: 41 mL. Medication's Wasted: Nitro = 49.8 mg. Medication's Wasted: Heparin = 1500 unit. Procedure completed. Patient transferred by bed to 1st floor. Access Site Site: Right Femoral artery Sheath Size: 6 Fr Hemostasis Method: Angio-Seal VIP ([facility]) Hemostasis Success: Successful Procedure Medications Start: 8:21 AM Stop: 8:21 AM Medication: Versed Amount: 1 mg Route: I.V. Start: 8:27 AM Stop: 8:27 AM Medication: Benadryl Amount: 25 mg Route: I.V. Start: 8:33 AM Stop: 8:33 AM Medication: Fentanyl Amount: 25 mcg Route: I.V. Start: 8:35 AM Stop: 8:35 AM Medication: Heparin Amount: 78513 units Route: I.V. Start: 8:42 AM Stop: 8:42 AM Medication: Lasix (furosemide) Amount: 40 mg Route: I.V. Start: 8:58 AM Stop: 8:58 AM Medication: Heparin Amount: 1000 units Route: I.V. Start: 9:04 AM Stop: 9:04 AM Medication: Fentanyl Amount: 25 mcg Route: I.V. Start: 9:13 AM Stop: 9:13 AM Medication: Heparin Amount: 2000 units Route: I.V. Start: 9:19 AM Stop: 9:19 AM Medication: Versed Amount: 1 mg Route: I.V. Start: 9:31 AM Stop: 9:31 AM Medication: Fentanyl Amount: 25 mcg Route: I.V. Start: 9:45 AM Stop: 9:45 AM Medication: Nitrogylcerin Amount: 200 mcg Route: I.C. Start: 9:51 AM Stop: 9:51 AM Medication: Heparin Amount: 2000 units Route: I.V. Start: 9:55 AM Stop: 9:55 AM Medication: Plavix Amount: 300 mg Route: P.O. Start: 9:55 AM Stop: 9:55 AM Medication: Aspirin Amount: 81 mg Route: P.O. I, the attending physician, have reviewed and verified all procedure medications. Yes, all medications given per verbal order History/Risk Factors Hypertension: Yes Dyslipidemia: Yes Peripheral Arterial Disease (PAD): No Myocardial Infarction (VT): No Obesity: Yes Renal Disease: No Tobacco Use: Never Prior Interventions PCI: No CABG: No Valve Surgery: No Report Signatures Finalized by Zay Gayle MD on 02/12/2022 11:04 AM
--- NOTE | 2022-01-29 09:45 | PC.OT ---
OT tx attempted. He is off the floor getting an angiogram. Will attempt tx at later time if possible.
--- NOTE | 2022-01-29 10:27 | PM.MISC ---
Miscellaneous Note Purpose of Documentation: Brief procedure note Note: Successful revascularization of proximal to mid LCx with orbital arthrectomy and BENNY X1 Continue aspirin and Plavix Will need staged revascularization of RCA with arthrectomy in 2 weeks
[2022-01-29 10:52] LABS: Glucose Point of Care 246 mg/dL (70-110)
--- NOTE | 2022-01-29 11:36 | PC.OT ---
HOLD OT TREATMENT TODAY DUE TO HEART PROCEDURE.
[2022-01-29 12:35] LABS: Alanine Aminotransferase 28 U/L (0-41); Albumin Level 2.8 g/dL (3.5-5.2); Alkaline Phosphatase 76 IU/L (40-130); Aspartate Amino Transferase 45 U/L (0-40); Blood Urea Nitrogen 12 mg/dL (8-23); Carbon Dioxide 26 mmol/L (22-29); Chloride 97 mmol/L (98-107); Globulin 4.6 g/dL (1.3-4.6); Glucose 248 mg/dL (65-115); Osmolality Calculated 284 mOsm/kg (285-295); Sodium 133 mmol/L (136-145); Total Bilirubin 1.2 mg/dL (0.15-1.2); Total Protein 7.4 g/dL (6.6-8.7)
[2022-01-29 12:36] LABS: Anion Gap 16.2 (5-19); Potassium 6.2 mmol/L (3.5-5.1)
[2022-01-29] MEDS: insulin lispro 100 unit/1 mL 8 UNIT SUBCUT (13:28)
[2022-01-29 16:52] LABS: Glucose Point of Care 237 mg/dL (70-110)
[2022-01-29] MEDS: amlodipine 10 mg Tablet PO (17:20)
[2022-01-29] MEDS: pantoprazole DR 40 mg Tablet PO (17:20)
[2022-01-29] MEDS: insulin lispro 100 unit/1 mL SUBCUT ×2 (17:20→21:01)
[2022-01-29 21:00] LABS: Glucose Point of Care 350 mg/dL (70-110)
[2022-01-29] MEDS: insulin glargine 100 units/1 mL 10 UNIT SUBCUT (21:02)
[2022-01-29] MEDS: metoprolol succinate ER (24 HR) 25 mg Tablet PO (21:02)
--- NOTE | 2022-01-29 21:21 | P.PN_ITS ---
Subjective Subjective: He is doing well after his procedure. Denies chest pain or pressure. Breathing is comfortable, although still requiring about 3 L of oxygen by nasal cannula. States he will wear his CPAP tonight. Vitals/I&O/Wt Last Vital Signs Temp 98.5 F 01/29/22 19:50 Pulse 77 01/29/22 19:50 Resp 23 H 01/29/22 19:50 BP 154/65 01/29/22 19:50 Pulse Ox 92 01/29/22 19:50 01/29/22 01/29/22 01/29/22 06:59 14:59 22:59 Intake Total 600 / 600 800 / 1400 Output Total 950 / 2950 2200 / 2200 350 / 2550 Balance -950 / -1737 -1600 / -1600 450 / -1150 Physical Exam Narrative: Children at bedside Sitting up at edge of bed. Const: COMMON NORMALS: alert GENERAL APPEARANCE: cooperative NUTRITIONAL APPEARANCE: obese ORIENTATION/CONSCIOUSNESS: Yes awake HENMT: COMMON NORMALS: normocephalic, EAC's normal, Normal external nose present and moist oral mucous membranes HEAD & SCALP: normocephalic NOSE: Normal external nose present EXTERNAL AUDITORY CANAL: EAC's normal TEETH & GINGIVA: Yes poor dentition Neck/C-Spine: COMMON NORMALS: no meningeal signs Chest: CHEST: Yes Symmetrical chest wall rise Resp: COMMON NORMALS: clear to auscultation bilaterally AUSCULTATION: clear to auscultation bilaterally Cardio: COMMON NORMALS: regular rate, regular rhythm and No murmurs present (Cardio) RATE: regular rate RHYTHM: regular rhythm GI: COMMON NORMALS: Normal to inspection, nondistended, normoactive bowel sounds present, Soft to palpation and non-tender PALPATION: Yes Soft to palpation Extremity: COMMON NORMALS: no pedal edema GENERAL: Yes edema (Shrinking 3+ BL LE edema, some wrinkling, cracking/dry flakes) Neuro: COMMON NORMALS: moves all extremities SENSORIUM/ORIENTATION: Yes alert MENINGEAL SIGNS: Yes no meningeal signs Psych: COMMON NORMALS: mental status grossly normal Skin: COMMON NORMALS: no wounds GENERAL SKIN EXAM: erythema (BL LE up to 2/3 of shins) RASHES: no rashes Urinary Catheter Management: Guzmán: Cath Placed During This Visit: yes Reason for Continuing Indwelling Catheter: Other Urinary Catheter Date of Insertion: 01/25/22 Urinary Catheter Time of Insertion: 17:30 Data : 01/29/22 04:18 01/29/22 12:05 A&P Assessment and plan (1) Multi-vessel coronary artery stenosis: Not found to be a good candidate for CABG. Underwent successful revascularization of proximal to mid LCx with orbital arthrectomy and BENNY x1. Anticipated revascularization of RCA with atherectomy in 2 weeks. On initial diagnostic coronary angiography with INSURANCE CLAIMS EXAMINER of LAD with circumflex lesion and RCA disease. Continue cardiac medications. Status: Acute (2) CHF (congestive heart failure), NYHA class III: Still significant lower extremity edema. There is seeing well. In negative balance. Continue IV diuretics, I&O monitoring, follow renal function. Acute systolic and diastolic CHF exacerbation. Additional work-up for ischemic heart disease pending. Appreciate cardiology recommendations. No LE DVT on venous duplex. With deconditioning, PT, OT. Disposition planning. May benefit from rehabilitation prior to returning home. Status: Acute (3) NSTEMI (non-ST elevated myocardial infarction): Status post diagnostic coronary angiogram 01/28. Continue cardiac medications. Would discontinue celecoxib at discharge. Status: Acute (4) Acute encephalopathy: Improved. PT, OT. Disposition planning. May benefit from rehabilitation, closer supervision of his medications prior to return home. Unclear etiology. Does have underlying dementia which appears possibly mild as he does live independently, although his children do assist him at home and with shopping. Daughter reports some episodes of him not remembering her previously. These do not seem to be consistent. Not sundowning. Still question whether episodes of encephalopathy may be related to medications, he is on a number of pain medicines. Otherwise also possibly acute metabolic encephalopathy with urinary tract infection, cellulitis. Continue antibiotics to treat underlying conditions. Status: Acute (5) UTI (urinary tract infection): Continue antibiotic coverage. Urine culture with more than 100,000 CFU of mixed superficial jordan. Status: Acute (6) Cellulitis: Low-grade fever today 100.1. Leukocytosis has been improving. Continue Vanco and Zosyn. LE duplex without DVT Status: Acute (7) Bilateral lower extremity edema: Decreasing with diuresis. Some cracking/dry flakes of skin. Apply moisturizer. Status: Acute (8) Chest pain: Status: Acute Plan Hyperkalemia: Potassium 6.2. Hold supplement. Recheck potassium level. Continues with Lasix for diuresis. Low-grade fever: Resolved. No recurrence of fever. 100.1 Fahrenheit fever today. Reports dry cough. He is having some persistent oxygen requirement of 4 L. No pneumonia noted on CXR. Negative COVID-19 PCR. Hyperammonemia: Resolved. Hold further lactulose. Should follow-up with evaluation targeted for possible fibrosis or cirrhosis, although liver reported normal on CT. Does have some AST elevation, although this is new in the last 2 days. Type 2 diabetes mellitus -Moderate dose sliding scale -Lantus 10 units twice daily Hypertension -Norvasc -Metoprolol Attestations Medical Necessity Statement*: Continue admission for further treatment of systolic and diastolic CHF exacerbation, post PCI care. Coding Level of Care Code Acute Assistant Professor Of Marine Biology for Chg Fwd Diagnoses Multi-vessel coronary artery stenosis I25.10 CHF (congestive heart failure), NYHA class III I50.9 NSTEMI (non-ST elevated myocardial infarction) I21.4 Acute encephalopathy G93.40 UTI (urinary tract infection) N39.0 Cellulitis L03.90 Bilateral lower extremity edema R60.0 Chest pain R07.9
[2022-01-29 22:57] LABS: Potassium 3.3 mmol/L (3.5-5.1)
[2022-01-30] VITALS (13 sets, daily range): BP systolic 119–154; BP diastolic 57–86; PULSE 68–83; RESP 17–21; TEMP 36.3–36.8; O2SAT 91–98
[2022-01-30] MEDS: piperacillin-tazobactam 3.375 GM in sodium chloride 0.9% (plus) 50 ML IV ×3 (02:47→17:36)
[2022-01-30 05:14] LABS: Basophils # 0.1 10^3/uL (0.0-0.1); Basophils % 0.9 %; Eosinophils # 0.5 10^3/uL (0.0-0.8); Eosinophils % 5.9 %; Hematocrit 35.5 % (42.0-52.0); Hemoglobin 11.9 g/dL (11.7-16.6); Lymphocytes # 2.1 10^3/uL (0.8-4.8); Lymphocytes % 27.1 %; Mean Corpuscular HGB Conc 33.5 g/dL (30.0-36.0); Mean Corpuscular Hemoglobin 33.8 pg (28.0-34.0); Mean Corpuscular Volume 100.9 fl (80-94); Mean Platelet Volume 10.3 fL (7.4-10.4); Neutrophils # 4.14 10^3/uL (1.8-7.7); Neutrophils % 52.6 %; Nucleated Red Blood Cells % 0 %; Platelet Count 206 10^3/cmm (130-400); Red Blood Count 3.52 10^6/uL (4.1-5.3); Red Cell Distribution Width 14.1 % (12.1-15.1); White Blood Count 7.9 10^3/uL (4.0-10.0)
[2022-01-30 05:38] LABS: Alanine Aminotransferase 23 U/L (0-41); Alkaline Phosphatase 81 IU/L (40-130); Blood Urea Nitrogen 12 mg/dL (8-23); Calcium 7.7 mg/dL (8.5-10.5); Carbon Dioxide 26 mmol/L (22-29); Chloride 95 mmol/L (98-107); Globulin 4.1 g/dL (1.3-4.6); Glucose 243 mg/dL (65-115); Osmolality Calculated 286 mOsm/kg (285-295); Sodium 134 mmol/L (136-145); Total Bilirubin 0.9 mg/dL (0.15-1.2); Total Protein 7.1 g/dL (6.6-8.7)
[2022-01-30 05:42] LABS: Anion Gap 16.6 (5-19); Aspartate Amino Transferase 41 U/L (0-40); Potassium 3.6 mmol/L (3.5-5.1)
[2022-01-30] MEDS: vancomycin 1,500 MG/300 ML PIGGYBACK 150 MG IV ×2 (06:23→18:33)
[2022-01-30 07:32] LABS: Glucose Point of Care 223 mg/dL (70-110)
[2022-01-30] MEDS: insulin lispro 100 unit/1 mL SUBCUT ×4 (08:14→20:31)
[2022-01-30] MEDS: insulin glargine 100 units/1 mL 10 UNIT SUBCUT ×2 (08:14→20:30)
[2022-01-30] MEDS: aspirin 81 mg EC Tablet PO (08:15)
[2022-01-30] MEDS: losartan 50 mg Tablet PO (08:15)
[2022-01-30] MEDS: clopidogrel 75 mg Tablet PO (08:15)
[2022-01-30] MEDS: FUROsemide 40 mg Tablet PO (08:15)
[2022-01-30] MEDS: atorvastatin 40 mg Tablet PO (08:16)
[2022-01-30] MEDS: metoprolol succinate ER (24 HR) 50 mg Tablet PO ×2 (09:17→20:31)
[2022-01-30 10:49] LABS: Glucose Point of Care 286 mg/dL (70-110)
--- NOTE | 2022-01-30 13:53 | PM.PN ---
Subjective Subjective: This morning he is feeling well, although at night could not sleep, had woken up multiple times. Was wearing his CPAP. Currently breathing is comfortable, he is weaning down to room air. Denies chest pain or pressure. Vitals/I&O/Wt Last Vital Signs Temp 97.4 F L 01/30/22 12:00 Pulse 75 01/30/22 12:00 Resp 19 H 01/30/22 12:00 BP 119/86 01/30/22 12:00 Pulse Ox 94 01/30/22 12:00 01/29/22 01/30/22 01/30/22 22:59 06:59 14:59 Intake Total 1090 / 1690 180 / 1870 900 / 900 Output Total 700 / 2900 700 / 3600 700 / 700 Balance 390 / -1210 -520 / -1730 200 / 200 Weight last 48 hrs Weight 132.041 kg Physical Exam Narrative: Sitting up at edge of bed. Const: COMMON NORMALS: alert GENERAL APPEARANCE: cooperative NUTRITIONAL APPEARANCE: obese ORIENTATION/CONSCIOUSNESS: Yes awake HENMT: COMMON NORMALS: normocephalic, EAC's normal, Normal external nose present and moist oral mucous membranes HEAD & SCALP: normocephalic NOSE: Normal external nose present EXTERNAL AUDITORY CANAL: EAC's normal TEETH & GINGIVA: Yes poor dentition Neck/C-Spine: COMMON NORMALS: no meningeal signs Chest: CHEST: Yes Symmetrical chest wall rise Resp: COMMON NORMALS: clear to auscultation bilaterally AUSCULTATION: clear to auscultation bilaterally Cardio: COMMON NORMALS: regular rate, regular rhythm and No murmurs present (Cardio) RATE: regular rate RHYTHM: regular rhythm GI: COMMON NORMALS: Normal to inspection, nondistended, normoactive bowel sounds present, Soft to palpation and non-tender PALPATION: Yes Soft to palpation Extremity: COMMON NORMALS: no pedal edema GENERAL: Yes edema (Shrinking 3+ BL LE edema, some wrinkling, cracking/dry flakes) Neuro: COMMON NORMALS: moves all extremities SENSORIUM/ORIENTATION: Yes alert MENINGEAL SIGNS: Yes no meningeal signs Psych: COMMON NORMALS: mental status grossly normal Skin: COMMON NORMALS: no wounds GENERAL SKIN EXAM: erythema (BL LE up to 2/3 of shins) RASHES: no rashes Urinary Catheter Management: Guzmán: Cath Placed During This Visit: yes Reason for Continuing Indwelling Catheter: Other Urinary Catheter Date of Insertion: 01/25/22 Urinary Catheter Time of Insertion: 17:30 Data : 01/30/22 04:00 01/30/22 04:00 A&P Assessment and plan (1) CHF (congestive heart failure), NYHA class III: Discussed with cardiology. He is initially was switched to oral diuretics, however, his weight does not appear to be significantly decreased. Still quite a bit of peripheral edema, we are going to switch him back to IV diuresis. Continue to monitor I&O. Potassium was elevated yesterday morning, but repeat potassium is decreased. Will resume low-dose potassium supplementation. Acute systolic and diastolic CHF exacerbation. S/p partial revascularization of multivessel CAD as part of a staged procedure. No LE DVT on venous duplex. With deconditioning, PT, OT. Disposition planning. May benefit from rehabilitation prior to returning home. Status: Acute (2) Cellulitis: So far no recurrence of fever. Continue vancomycin and Zosyn for now. Leukocytosis has resolved. LE duplex without DVT Status: Acute (3) Multi-vessel coronary artery stenosis: Not found to be a good candidate for CABG. Underwent successful revascularization of proximal to mid LCx with orbital arthrectomy and BENNY x1. Anticipated revascularization of RCA with atherectomy in 2 weeks. On initial diagnostic coronary angiography with ELECTRON BEAM WELDER of LAD with circumflex lesion and RCA disease. Continue cardiac medications. Status: Acute (4) NSTEMI (non-ST elevated myocardial infarction): Status post diagnostic coronary angiogram 01/28. Continue cardiac medications. Would discontinue celecoxib at discharge. Status: Acute (5) Acute encephalopathy: Resolved. PT, OT. Disposition planning. May benefit from rehabilitation, closer supervision of his medications prior to return home. Unclear etiology. Does have underlying dementia which appears possibly mild as he does live independently, although his children do assist him at home and with shopping. Daughter reports some episodes of him not remembering her previously. These do not seem to be consistent. Not sundowning. Still question whether episodes of encephalopathy may be related to medications, he is on a number of pain medicines. Otherwise also possibly acute metabolic encephalopathy with urinary tract infection, cellulitis. Continue antibiotics to treat underlying conditions. Status: Acute (6) UTI (urinary tract infection): Completed 5 days of antibiotic coverage. Urine culture with more than 100,000 CFU of mixed superficial jordan. Status: Acute (7) Bilateral lower extremity edema: Decreasing with diuresis. Some cracking/dry flakes of skin. Apply moisturizer. Status: Acute (8) Chest pain: Status: Acute Plan Hyperkalemia: Resolved. Supplement was transiently held. Resume at lower dose. Continues with Lasix for diuresis. Low-grade fever: Resolved. No recurrence of fever. 100.1 Fahrenheit fever on 01/28. Reported dry cough. No pneumonia noted on CXR. Now weaning down on oxygen requirement to room air. Negative COVID-19 PCR. Hyperammonemia: Resolved. Hold further lactulose. Should follow-up with evaluation targeted for possible fibrosis or cirrhosis, although liver reported normal on CT. Does have some AST elevation, although this is new in the last 2 days. Type 2 diabetes mellitus -Moderate dose sliding scale -Lantus 10 units twice daily Hypertension -Norvasc -Metoprolol Attestations Medical Necessity Statement*: Continue admission for further management of CHF exacerbation with IV diuresis, treatment of lower extremity cellulitis. Coding Level of Care Code Acute Stitcher Set Up Operator Automatic for Chg Fwd Diagnoses Multi-vessel coronary artery stenosis I25.10 CHF (congestive heart failure), NYHA class III I50.9 NSTEMI (non-ST elevated myocardial infarction) I21.4 Acute encephalopathy G93.40 UTI (urinary tract infection) N39.0 Cellulitis L03.90 Bilateral lower extremity edema R60.0 Chest pain R07.9
--- NOTE | 2022-01-30 14:05 | P.PN_ITS ---
Subjective Subjective: LOS -~7L, No chest pain. Feels good ; s/p Successful revascularization of proximal to mid LCx with orbital arthrectomy and BENNY X1 Vitals/I&O/Wt Last Vital Signs Temp 97.4 F L 01/30/22 12:00 Pulse 75 01/30/22 12:00 Resp 19 H 01/30/22 12:00 BP 119/86 01/30/22 12:00 Pulse Ox 94 01/30/22 12:00 01/29/22 01/30/22 01/30/22 22:59 06:59 14:59 Intake Total 1090 / 1690 180 / 1870 900 / 900 Output Total 700 / 2900 700 / 3600 700 / 700 Balance 390 / -1210 -520 / -1730 200 / 200 Weight last 48 hrs Weight 291 lb 1.6 oz Physical Exam Narrative: GENERAL: Obese man sitting in bed in no acute distress HEENT: Extraocular movement intact. ? No pallor or icterus. NECK: Mild JVD,? No carotid bruit. CARDIOVASCULAR SYSTEM: S1-S2 regular.? No murmur rubs or gallops. RESPIRATORY SYSTEM: Chest clear to auscultation.? No wheezes rhonchi or rubs heard. No use of accessory muscles. ABDOMEN: Soft, nontender and nondistended.? Normal bowel sounds present.? EXTREMITIES: No cyanosis. 2+ edema (R>L).? Bilateral leg erythema present. ELECTRIC MULE OPERATOR: Patient is alert oriented ?3.? No focal neurological deficits.? SKIN: Normal turgor and temperature.? No breakdown, rash or nail changes noted. Urinary Catheter Management: Guzmán: Cath Placed During This Visit: yes Reason for Continuing Indwelling Catheter: Other Urinary Catheter Date of Insertion: 01/25/22 Urinary Catheter Time of Insertion: 17:30 Data : 01/30/22 04:00 01/30/22 04:00 A&P Assessment and plan (1) CHF (congestive heart failure), NYHA class III: -resume lasix 40 mg IV BID as patient is in hospital awaiting placement -I/O charting and daily weight -will change to entresto based on BMP -possibly add aldactone Status: Acute (2) NSTEMI (non-ST elevated myocardial infarction): I had a long discussion with patient and family and decision was made to proceed with [facility]. Patient was found to have severe stenosis in px to mid RCA, px to mid LCx and TELEPHONE STERILIZER of mid LAD -After discussing with the patient and family, decision was made to get Dr. Mccann's opinion and proceed from there. -He ws not thought to be good candidate for CABG -Successful revascularization of proximal to mid LCx with orbital arthrectomy and BENNY X1 -continue ASA, statin, lovenox, NTG SL. Status: Acute (3) Hypertension: BP well controlled Status: Acute (4) Hyperlipidemia: Status: Acute (5) Insulin dependent type 2 diabetes mellitus: Status: Acute Plan UTI : on antibiotics Hypomagnesemia: replaced Hypokalemia: replaced Encephalopathy: resolved Abnormal LFT's Altered mental status: resolved Thank you for allowing me to participate in patient's care. Please feel free to call with questions or concerns Attestations Medical Necessity Statement*: As per primary team. awaiting placement Coding Level of Care Code Acute Shot Hole Driller for [facility] Diagnoses NSTEMI (non-ST elevated myocardial infarction) I21.4 CHF (congestive heart failure), NYHA class III I50.9 Hypertension I10 Hyperlipidemia E78.5 Insulin dependent type 2 diabetes mellitus E11.9; Z79.4
[2022-01-30] MEDS: potassium chloride ER 10 mEq Tablet PO (14:33)
--- NOTE | 2022-01-30 15:09 | PC.SOCIAL ---
IMM update IMM updated with patient. Verbalized an understanding. Copy PG 2 provided. Initialled, dated, timed and placed in chart.
[2022-01-30] MEDS: pantoprazole DR 40 mg Tablet PO (15:56)
[2022-01-30] MEDS: FUROsemide 10 mg/mL SDV 4mL 40 MG IVP (15:56)
[2022-01-30 17:01] LABS: Glucose Point of Care 359 mg/dL (70-110)
[2022-01-30 18:16] LABS: Vancomycin Trough 12.7 ug/mL (10-15)
[2022-01-30 20:00] LABS: Glucose Point of Care 395 mg/dL (70-110)
[2022-01-31] VITALS (10 sets, daily range): BP systolic 125–139; BP diastolic 53–82; PULSE 64–76; RESP 15–23; TEMP 36.6–36.8; O2SAT 93–97
[2022-01-31] MEDS: piperacillin-tazobactam 3.375 GM in sodium chloride 0.9% (plus) 50 ML IV ×3 (03:11→17:48)
[2022-01-31 05:01] LABS: Creatine Phosphokinase 136 U/L (39-308); Magnesium 1.7 mg/dL (1.7-2.3)
[2022-01-31] MEDS: vancomycin 1,500 MG/300 ML PIGGYBACK 150 MG IV ×2 (05:42→17:44)
[2022-01-31] MEDS: FUROsemide 10 mg/mL SDV 4mL 40 MG IVP ×2 (05:42→16:37)
[2022-01-31 06:24] LABS: Basophils # 0.1 10^3/uL (0.0-0.1); Basophils % 0.9 %; Eosinophils # 0.5 10^3/uL (0.0-0.8); Hematocrit 34.1 % (42.0-52.0); Hemoglobin 11.6 g/dL (11.7-16.6); Lymphocytes # 2.1 10^3/uL (0.8-4.8); Mean Corpuscular Hemoglobin 33.8 pg (28.0-34.0); Mean Corpuscular Volume 99.4 fl (80-94); Mean Platelet Volume 10.5 fL (7.4-10.4); Monocytes # 0.9 10^3/uL (0.2-0.9); Monocytes % 10.8 %; Neutrophils # 4.33 10^3/uL (1.8-7.7); Neutrophils % 54.8 %; Nucleated Red Blood Cells % 0 %; Platelet Count 212 10^3/cmm (130-400); Red Blood Count 3.43 10^6/uL (4.1-5.3); Red Cell Distribution Width 14.1 % (12.1-15.1); White Blood Count 7.9 10^3/uL (4.0-10.0)
[2022-01-31 06:34] LABS: Alanine Aminotransferase 21 U/L (0-41); Albumin Level 3.2 g/dL (3.5-5.2); Alkaline Phosphatase 79 IU/L (40-130); Anion Gap 14.1 (5-19); Aspartate Amino Transferase 33 U/L (0-40); Blood Urea Nitrogen 11 mg/dL (8-23); Calcium 7.9 mg/dL (8.5-10.5); Carbon Dioxide 27 mmol/L (22-29); Chloride 95 mmol/L (98-107); Globulin 3.5 g/dL (1.3-4.6); Glucose 211 mg/dL (65-115); Osmolality Calculated 282 mOsm/kg (285-295); Potassium 3.1 mmol/L (3.5-5.1); Sodium 133 mmol/L (136-145); Total Bilirubin 0.6 mg/dL (0.15-1.2); Total Protein 6.7 g/dL (6.6-8.7)
[2022-01-31 07:19] LABS: Glucose Point of Care 211 mg/dL (70-110)
--- NOTE | 2022-01-31 07:25 | PM.PN ---
Subjective Subjective: No chest pain. Feels good ; s/p Successful revascularization of proximal to mid LCx with orbital arthrectomy and BENNY X1 Last 24 hr: 24 hr: -1.7; LOS -8.8 L, Medications: Reviewed: Yes Medication Review Details: Current Medications Acetaminophen (Acetaminophen 325 Mg Tablet) 650 mg PO Q6H PRN PRN Reason: MILD PAIN Al Hydrox/Mg Hydrox/Simethicone (Qljw-Mjc-Cqfvdptcq-Maximiliano 30 Ml Udc) 30 ml PO Q15M PRN PRN Reason: INDIGESTION Alprazolam (Alprazolam 0.5 Mg Tablet) 0.25 mg PO TID PRN PRN Reason: ANXIETY Aspirin (Aspirin 81 Mg Ec Tablet) 81 mg PO DAILY [facility] Last Admin: 01/30/22 08:15 Dose: 81 mg Documented by: Atorvastatin Calcium (Atorvastatin 40 Mg Tablet) 40 mg PO DAILY [facility] Last Admin: 01/30/22 08:16 Dose: 40 mg Documented by: Atropine Sulfate (Atropine 1 Mg/Ml Sdv 1 Ml) 0.5 mg IVP PRN PRN PRN Reason: Symptomatic bradycardia Atropine Sulfate (Atropine 1 Mg/Ml Sdv 1 Ml) 0.5 mg IVP PRN PRN PRN Reason: Symptomatic bradycardia Clopidogrel Bisulfate (Clopidogrel 75 Mg Tablet) 75 mg PO DAILY [facility] Last Admin: 01/30/22 08:15 Dose: 75 mg Documented by: Dextrose (Dextrose 50% Syringe 50 Ml) 25 ml IVP ONCE PRN; Protocol PRN Reason: hypoglycemia protocol Dextrose (Dextrose 50% Syringe 50 Ml) 50 ml IVP PRN PRN; Protocol PRN Reason: hypoglycemia protocol Fentanyl (Fentanyl 50 Mcg/Ml Inj 2ml) 50 mcg IVP PRN PRN PRN Reason: Prior to sheath removal Fentanyl (Fentanyl 50 Mcg/Ml Inj 2ml) 50 mcg IVP PRN PRN PRN Reason: PAIN Furosemide (Furosemide 10 Mg/Ml Sdv 4ml) 40 mg IVP Q12H [facility] Last Admin: 01/31/22 05:42 Dose: 40 mg Documented by: Gabapentin (Gabapentin 100 Mg Capsule) 100 mg PO TID PRN PRN Reason: Pain Glucagon (Glucagon 1 Mg/Ml Inj 1 Ml) 1 mg IM ONCE PRN; Protocol PRN Reason: Adult Acute Hypoglycemia Prot. Guaifenesin/Codeine Phosphate (Guaifenesin-Codeine Udc 10 Ml) 5 ml PO Q4H PRN PRN Reason: COUGH Dextrose (D5w) 500 mls @ 100 mls/hr IV ONCE PRN; Protocol PRN Reason: Adult Acute Hypoglycemia Prot Piperacillin Sod/Tazobactam (Sod 3.375 gm/ Sodium Chloride) 50 mls @ 12.5 mls/hr IV Q8H [facility]; Protocol Last Admin: 01/31/22 03:11 Dose: 12.5 mls/hr Documented by: Vancomycin/PEG/NADA/Lysine/Water (Vancocin) 1,500 mg in 300 mls @ 200 mls/hr IV Q12H [facility] Last Admin: 01/31/22 05:42 Dose: 150 mls/hr Documented by: Lidocaine HCl 5 ml/ Potassium (Chloride) 105 mls @ 50 mls/hr IV ONCE ONE Stop: 01/31/22 09:28 Insulin Glargine (Insulin Glargine 100 Units/1 Ml) 10 unit SUBCUT Q12H [facility] Last Admin: 01/30/22 20:30 Dose: 10 unit Documented by: Insulin Human Lispro (Insulin Lispro 100 Unit/1 Ml) 0 unit SUBCUT WM&BEDTIME [facility]; Protocol Last Admin: 01/30/22 20:31 Dose: 14 unit Documented by: Losartan Potassium (Losartan 50 Mg Tablet) 50 mg PO DAILY [facility] Last Admin: 01/30/22 08:15 Dose: 50 mg Documented by: Magnesium Hydroxide (Magnesium Hydroxide 30 Ml Udc) 30 ml PO DAILY PRN PRN Reason: CONSTIPATION Metoprolol Succinate (Metoprolol Succinate Er (24 Hr) 50 Mg Tablet) 50 mg PO 0900,2100 [facility] Last Admin: 01/30/22 20:31 Dose: 50 mg Documented by: Naloxone HCl (Naloxone 0.4 Mg/Ml Sdv) 0.1 mg IVP Q2M PRN PRN Reason: RESPIRATORY RATE < 8/MIN Nitroglycerin (Nitroglycerin 0.4 Mg Sublingual Tablet) 0.4 mg SUBLINGUAL Q5M PRN PRN Reason: CHEST PAIN Ondansetron HCl (Ondansetron 2 Mg/Ml Sdv 2 Ml) 4 mg IVP Q8H PRN PRN Reason: vomiting, or N/V if npo Pantoprazole Sodium (Pantoprazole Dr 40 Mg Tablet) 40 mg PO Q24H [facility] Last Admin: 01/30/22 15:56 Dose: 40 mg Documented by: Potassium Chloride (Potassium Chloride Er 10 Meq Tablet) 20 meq PO BID [facility] Temazepam (Temazepam 15 Mg Capsule) 15 mg PO BEDTIME PRN PRN Reason: INSOMNIA Vitals/I&O/Wt Last Vital Signs Temp 98.3 F 01/31/22 06:50 Pulse 72 01/31/22 06:50 Resp 15 01/31/22 06:50 BP 139/74 01/31/22 06:50 Pulse Ox 94 01/31/22 06:50 01/30/22 01/31/22 01/31/22 22:59 06:59 14:59 Intake Total 760 / 1660 Output Total 1275 / 1975 890 / 2865 Balance -515 / -315 -890 / -1205 Weight last 48 hrs Weight 291 lb 1.6 oz Physical Exam Narrative: GENERAL: Obese man sitting in bed in no acute distress HEENT: Extraocular movement intact. ? No pallor or icterus. NECK: Mild JVD,? No carotid bruit. CARDIOVASCULAR SYSTEM: S1-S2 regular.? No murmur rubs or gallops. RESPIRATORY SYSTEM: Chest clear to auscultation.? No wheezes rhonchi or rubs heard. No use of accessory muscles. ABDOMEN: Soft, nontender and nondistended.? Normal bowel sounds present.? EXTREMITIES: No cyanosis. 2-3+ edema.? Bilateral leg erythema present. CARDIAC NURSE: Patient is alert oriented ?3.? No focal neurological deficits.? SKIN: Normal turgor and temperature.? No breakdown, rash or nail changes noted. Const: COMMON NORMALS: no acute distress, patient oriented x3 and alert GENERAL APPEARANCE: cooperative, comfortable, well kempt, well hydrated and other (morbidly obese) HENMT: COMMON NORMALS: hearing grossly normal bilaterally and external ears normal FACE & SINUS: normal facial exam NOSE: No nasal discharge present; no Epistaxis present EXTERNAL EAR: Yes external ears normal MOUTH: lip normal Eye: COMMON NORMALS: EOMs intact bilaterally and no scleral icterus GENERAL EYE: appearance normal, both eyes and all related structures ALIGNMENT: Yes alignment normal Neck/C-Spine: COMMON NORMALS: no lymphadenopathy, supple and no JVD GENERAL: Yes normal visual inspection and Yes trachea midline CAROTIDS: Yes normal carotid upstroke Lymph: LYMPHATIC: no lymphadenopathy noted Chest: COMMONS NORMALS: normal inspection of the chest and normal palpation of entire chest wall CHEST: Yes Symmetrical chest wall rise and No tenderness Resp: COMMON NORMALS: clear to auscultation bilaterally EFFORT & INSPECTION: Yes able to speak in complete sentences and No respiratory distress AUSCULTATION: clear to auscultation bilaterally, no crackles, no rales, no rhonchi and no wheezes OTHER: tachypnea+ Cardio: COMMON NORMALS: no JVD, regular rate, regular rhythm, S1 normal heart sound present, S2 normal heart sound present and Peripheral pulses 2+ throughout PALPATION: normal PMI RATE: regular rate RHYTHM: regular rhythm HEART SOUNDS: S1 normal heart sound present, S2 normal heart sound present, no gallops and no murmurs BRUITS: no carotid bruits PERIPHERAL PULSES: Peripheral pulses 2+ throughout, radial pulses present, posterior tibial pulses present and dorsalis pedis present GI: COMMON NORMALS: Soft to palpation AUSCULTATION: Yes normoactive bowel sounds PALPATION: Yes Soft to palpation, No Tenderness to palpation present (GI), No Guarding due to palpation present (GI) and No Rigid due to palpation PERCUSSION: tympanic to percussion : COMMON NORMALS: Yes no CVA tenderness BLADDER/KIDNEY EXAM: Yes no CVA tenderness Back/Pelvis: COMMON NORMALS: no CVA tenderness Extremity: GENERAL: No cyanosis, Yes edema (2-3+ bilateral leg edema) and No pallor Neuro: COMMON NORMALS: patient oriented x3 and no focal motor deficits SENSORIUM/ORIENTATION: Yes alert Psych: COMMON NORMALS: Normal thought process present and speech normal APPEARANCE: Yes well kempt SPEECH: Yes normal speech MOOD & AFFECT: Yes euthymic mood THOUGHT PROCESS: Normal thought process present THOUGHT CONTENT: Yes Normal thought content present Skin: LESIONS: no lesions OTHER: Bilateral lower extremity erythema upto the knees Urinary Catheter Management: Guzmán: Cath Placed During This Visit: yes, but has since been removed by the nurse Reason for Continuing Indwelling Catheter: Other Urinary Catheter Date of Insertion: 01/25/22 Urinary Catheter Time of Insertion: 17:30 Date Urinary Catheter Removed: 01/30/22 Time Urinary Catheter Discontinued: 11:45 Data : 01/31/22 04:12 01/31/22 04:12 A&P Assessment and plan (1) CHF (congestive heart failure), NYHA class III: -resume lasix 40 mg IV BID as patient is in hospital awaiting placement -I/O charting and daily weight -continue metoprolol -started on low dose entresto and added aldactone Status: Acute (2) NSTEMI (non-ST elevated myocardial infarction): Patient was found to have severe stenosis in px to mid RCA, px to mid LCx and 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 Mccann's opinion and proceed from there. -He was not thought to be good candidate for CABG d/t poor targets. -Successful revascularization of proximal to mid LCx with orbital arthrectomy and BENNY X1 -continue ASA, statin, NTG SL. Status: Acute (3) Hypertension: BP well controlled Status: Acute (4) Hyperlipidemia: Status: Acute (5) Insulin dependent type 2 diabetes mellitus: Status: Acute Plan UTI : on antibiotics Hypomagnesemia: replaced Hypokalemia: replaced Encephalopathy: resolved Abnormal LFT's Altered mental status: resolved Thank you for allowing me to participate in patient's care. 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
[2022-01-31] MEDS: aspirin 81 mg EC Tablet PO (08:24)
[2022-01-31] MEDS: sacubitril/valsartan 24-26 mg Tablet 1 EACH PO ×2 (08:24→17:44)
[2022-01-31] MEDS: potassium chloride ER 10 mEq Tablet 20 MEQ PO (08:24)
[2022-01-31] MEDS: atorvastatin 40 mg Tablet PO (08:24)
[2022-01-31] MEDS: gabapentin 100 mg Capsule PO (08:24)
[2022-01-31] MEDS: metoprolol succinate ER (24 HR) 50 mg Tablet PO ×2 (08:25→21:57)
[2022-01-31] MEDS: clopidogrel 75 mg Tablet PO (08:25)
[2022-01-31] MEDS: spironolactone 25 mg Tablet 12.5 MG PO (08:25)
[2022-01-31] MEDS: lidocaine 1% 5 ML in potassium chloride premix 100 ML 50 ML IV (08:26)
[2022-01-31] MEDS: insulin lispro 100 unit/1 mL SUBCUT ×4 (08:28→21:57)
[2022-01-31] MEDS: insulin glargine 100 units/1 mL 10 UNIT SUBCUT (08:31)
[2022-01-31 09:16] LABS: Magnesium 1.8 mg/dL (1.7-2.3)
[2022-01-31 11:53] LABS: Glucose Point of Care 239 mg/dL (70-110)
[2022-01-31 16:07] LABS: Glucose Point of Care 307 mg/dL (70-110)
[2022-01-31] MEDS: pantoprazole DR 40 mg Tablet PO (16:37)
[2022-01-31 19:59] LABS: Glucose Point of Care 397 mg/dL (70-110)
--- NOTE | 2022-01-31 21:02 | PM.PN ---
Subjective Subjective: States he is doing well. Denies chest pain or pressure. Breathing is comfortable. States he has not yet felt comfortable getting up and using his walker. Vitals/I&O/Wt Last Vital Signs Temp 97.8 F 01/31/22 15:10 Pulse 68 01/31/22 15:10 Resp 15 01/31/22 15:10 BP 125/82 01/31/22 15:10 Pulse Ox 95 01/31/22 15:10 01/31/22 01/31/22 01/31/22 06:59 14:59 22:59 Intake Total 1225 / 1225 470 / 1695 Output Total 890 / 2865 1040 / 1040 1250 / 2290 Balance -890 / -1205 185 / 185 -780 / -595 Weight last 48 hrs Weight 132.63 kg Weight 132.041 kg Physical Exam Narrative: Sitting up at edge of bed. Const: COMMON NORMALS: alert GENERAL APPEARANCE: cooperative NUTRITIONAL APPEARANCE: obese ORIENTATION/CONSCIOUSNESS: Yes awake HENMT: COMMON NORMALS: normocephalic, EAC's normal, Normal external nose present and moist oral mucous membranes HEAD & SCALP: normocephalic NOSE: Normal external nose present EXTERNAL AUDITORY CANAL: EAC's normal TEETH & GINGIVA: Yes poor dentition Neck/C-Spine: COMMON NORMALS: no meningeal signs Chest: CHEST: Yes Symmetrical chest wall rise Resp: COMMON NORMALS: clear to auscultation bilaterally AUSCULTATION: clear to auscultation bilaterally Cardio: COMMON NORMALS: regular rate, regular rhythm and No murmurs present (Cardio) RATE: regular rate RHYTHM: regular rhythm GI: COMMON NORMALS: Normal to inspection, nondistended, normoactive bowel sounds present, Soft to palpation and non-tender PALPATION: Yes Soft to palpation Extremity: COMMON NORMALS: no pedal edema GENERAL: Yes edema (Shrinking 3+ BL LE edema, some wrinkling, cracking/dry flakes) Neuro: COMMON NORMALS: moves all extremities SENSORIUM/ORIENTATION: Yes alert MENINGEAL SIGNS: Yes no meningeal signs Psych: COMMON NORMALS: mental status grossly normal Skin: COMMON NORMALS: no wounds GENERAL SKIN EXAM: erythema (BL LE up to 2/3 of shins) RASHES: no rashes Urinary Catheter Management: Guzmán: Cath Placed During This Visit: yes, but has since been removed by the nurse Reason for Continuing Indwelling Catheter: Other Urinary Catheter Date of Insertion: 01/25/22 Urinary Catheter Time of Insertion: 17:30 Date Urinary Catheter Removed: 01/30/22 Time Urinary Catheter Discontinued: 11:45 Data : 01/31/22 04:12 01/31/22 04:12 A&P Assessment and plan (1) CHF (congestive heart failure), NYHA class III: Continue IV diuresis. He appears to be in negative balance. However, weight has not decreased substantially. Discussed with him limiting fluid intake. Continue to monitor I&O. Potassium supplementation escalated. Acute systolic and diastolic CHF exacerbation. S/p partial revascularization of multivessel CAD as part of a staged procedure. No LE DVT on venous duplex. With deconditioning, PT, OT. Disposition planning. May benefit from rehabilitation prior to returning home. Status: Acute (2) Cellulitis: So far no recurrence of fever. Continue vancomycin and Zosyn for now. Leukocytosis has resolved. LE duplex without DVT Status: Acute (3) Multi-vessel coronary artery stenosis: Not found to be a good candidate for CABG. Underwent successful revascularization of proximal to mid LCx with orbital arthrectomy and BENNY x1. Anticipated revascularization of RCA with atherectomy in 2 weeks. On initial diagnostic coronary angiography with DIVIDER OPERATOR of LAD with circumflex lesion and RCA disease. Continue cardiac medications. Status: Acute (4) NSTEMI (non-ST elevated myocardial infarction): Status post diagnostic coronary angiogram 01/28. Continue cardiac medications. Would discontinue celecoxib at discharge. Status: Acute (5) Acute encephalopathy: Resolved. PT, OT. Disposition planning. May benefit from rehabilitation, closer supervision of his medications prior to return home. Unclear etiology. Does have underlying dementia which appears possibly mild as he does live independently, although his children do assist him at home and with shopping. Daughter reports some episodes of him not remembering her previously. These do not seem to be consistent. Not sundowning. Still question whether episodes of encephalopathy may be related to medications, he is on a number of pain medicines. Otherwise also possibly acute metabolic encephalopathy with urinary tract infection, cellulitis. Continue antibiotics to treat underlying conditions. Status: Acute (6) UTI (urinary tract infection): Completed 5 days of antibiotic coverage. Urine culture with more than 100,000 CFU of mixed superficial jordan. Status: Acute (7) Bilateral lower extremity edema: Decreasing with diuresis. Some cracking/dry flakes of skin. Apply moisturizer. Status: Acute (8) Chest pain: Status: Acute Plan Hyperkalemia: Resolved. Low-grade fever: Resolved. No recurrence of fever. 100.1 Fahrenheit fever on 01/28. Reported dry cough. No pneumonia noted on CXR. Now weaning down on oxygen requirement to room air. Negative COVID-19 PCR. Hyperammonemia: Resolved. Hold further lactulose. Should follow-up with evaluation targeted for possible fibrosis or cirrhosis, although liver reported normal on CT. Does have some AST elevation, although this is new in the last 2 days. Type 2 diabetes mellitus -Moderate dose sliding scale -Lantus 15 units twice daily Hypertension -Norvasc -Metoprolol Attestations Medical Necessity Statement*: Continue admission for management of acute CHF. 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
[2022-02-01] VITALS (14 sets, daily range): BP systolic 124–145; BP diastolic 66–76; PULSE 62–78; RESP 16–27; TEMP 36.5–36.7; O2SAT 93–98
[2022-02-01 03:54] LABS: Basophils # 0.1 10^3/uL (0.0-0.1); Eosinophils # 0.6 10^3/uL (0.0-0.8); Eosinophils % 7.6 %; Hematocrit 35.2 % (42.0-52.0); Hemoglobin 11.9 g/dL (11.7-16.6); Lymphocytes # 2.2 10^3/uL (0.8-4.8); Lymphocytes % 28.6 %; Mean Corpuscular HGB Conc 33.8 g/dL (30.0-36.0); Mean Corpuscular Volume 100.6 fl (80-94); Mean Platelet Volume 10.1 fL (7.4-10.4); Monocytes % 12.7 %; Neutrophils # 3.77 10^3/uL (1.8-7.7); Neutrophils % 49.6 %; Nucleated Red Blood Cells % 0 %; Platelet Count 210 10^3/cmm (130-400); Red Cell Distribution Width 14.1 % (12.1-15.1); White Blood Count 7.6 10^3/uL (4.0-10.0)
[2022-02-01 04:27] LABS: Blood Urea Nitrogen 12 mg/dL (8-23); Calcium 7.9 mg/dL (8.5-10.5); Carbon Dioxide 28 mmol/L (22-29); Chloride 96 mmol/L (98-107); Glucose 264 mg/dL (65-115); Magnesium 1.8 mg/dL (1.7-2.3); Osmolality Calculated 287 mOsm/kg (285-295); Sodium 134 mmol/L (136-145)
[2022-02-01 04:34] LABS: Anion Gap 13.3 (5-19); Potassium 3.3 mmol/L (3.5-5.1)
[2022-02-01] MEDS: vancomycin 1,500 MG/300 ML PIGGYBACK 150 MG IV ×2 (06:38→16:56)
[2022-02-01] MEDS: FUROsemide 10 mg/mL SDV 4mL 40 MG IVP (06:39)
[2022-02-01 06:45] LABS: Glucose Point of Care 206 mg/dL (70-110)
[2022-02-01] MEDS: insulin lispro 100 unit/1 mL SUBCUT ×4 (07:55→21:00)
[2022-02-01] MEDS: sacubitril/valsartan 24-26 mg Tablet 1 EACH PO ×2 (07:56→16:58)
[2022-02-01] MEDS: potassium chloride ER 10 mEq Tablet 20 MEQ PO ×2 (07:56→16:57)
[2022-02-01] MEDS: aspirin 81 mg EC Tablet PO (07:56)
[2022-02-01] MEDS: spironolactone 25 mg Tablet 12.5 MG PO ×2 (07:57→11:17)
[2022-02-01] MEDS: metoprolol succinate ER (24 HR) 50 mg Tablet PO ×2 (07:58→21:01)
[2022-02-01] MEDS: atorvastatin 40 mg Tablet PO (07:58)
--- NOTE | 2022-02-01 08:01 | P.PN_ITS ---
Subjective Subjective: No chest pain. Feels good ; s/p Successful revascularization of proximal to mid LCx with orbital arthrectomy and BENNY X1 Last 24 hr: 24 hr: -3 L; LOS -10 L, Medications: Reviewed: Yes Medication Review Details: Current Medications Acetaminophen (Acetaminophen 325 Mg Tablet) 650 mg PO Q6H PRN PRN Reason: MILD PAIN Al Hydrox/Mg Hydrox/Simethicone (Fxaf-Jlc-Tmjqvhnpb-Maximiliano 30 Ml Udc) 30 ml PO Q15M PRN PRN Reason: INDIGESTION Alprazolam (Alprazolam 0.5 Mg Tablet) 0.25 mg PO TID PRN PRN Reason: ANXIETY Aspirin (Aspirin 81 Mg Ec Tablet) 81 mg PO DAILY [facility] Last Admin: 01/30/22 08:15 Dose: 81 mg Documented by: Atorvastatin Calcium (Atorvastatin 40 Mg Tablet) 40 mg PO DAILY [facility] Last Admin: 01/30/22 08:16 Dose: 40 mg Documented by: Atropine Sulfate (Atropine 1 Mg/Ml Sdv 1 Ml) 0.5 mg IVP PRN PRN PRN Reason: Symptomatic bradycardia Atropine Sulfate (Atropine 1 Mg/Ml Sdv 1 Ml) 0.5 mg IVP PRN PRN PRN Reason: Symptomatic bradycardia Clopidogrel Bisulfate (Clopidogrel 75 Mg Tablet) 75 mg PO DAILY [facility] Last Admin: 01/30/22 08:15 Dose: 75 mg Documented by: Dextrose (Dextrose 50% Syringe 50 Ml) 25 ml IVP ONCE PRN; Protocol PRN Reason: hypoglycemia protocol Dextrose (Dextrose 50% Syringe 50 Ml) 50 ml IVP PRN PRN; Protocol PRN Reason: hypoglycemia protocol Fentanyl (Fentanyl 50 Mcg/Ml Inj 2ml) 50 mcg IVP PRN PRN PRN Reason: Prior to sheath removal Fentanyl (Fentanyl 50 Mcg/Ml Inj 2ml) 50 mcg IVP PRN PRN PRN Reason: PAIN Furosemide (Furosemide 10 Mg/Ml Sdv 4ml) 40 mg IVP Q12H [facility] Last Admin: 01/31/22 05:42 Dose: 40 mg Documented by: Gabapentin (Gabapentin 100 Mg Capsule) 100 mg PO TID PRN PRN Reason: Pain Glucagon (Glucagon 1 Mg/Ml Inj 1 Ml) 1 mg IM ONCE PRN; Protocol PRN Reason: Adult Acute Hypoglycemia Prot. Guaifenesin/Codeine Phosphate (Guaifenesin-Codeine Udc 10 Ml) 5 ml PO Q4H PRN PRN Reason: COUGH Dextrose (D5w) 500 mls @ 100 mls/hr IV ONCE PRN; Protocol PRN Reason: Adult Acute Hypoglycemia Prot Piperacillin Sod/Tazobactam (Sod 3.375 gm/ Sodium Chloride) 50 mls @ 12.5 mls/hr IV Q8H [facility]; Protocol Last Admin: 01/31/22 03:11 Dose: 12.5 mls/hr Documented by: Vancomycin/PEG/NADA/Lysine/Water (Vancocin) 1,500 mg in 300 mls @ 200 mls/hr IV Q12H [facility] Last Admin: 01/31/22 05:42 Dose: 150 mls/hr Documented by: Lidocaine HCl 5 ml/ Potassium (Chloride) 105 mls @ 50 mls/hr IV ONCE ONE Stop: 01/31/22 09:28 Insulin Glargine (Insulin Glargine 100 Units/1 Ml) 10 unit SUBCUT Q12H [facility] Last Admin: 01/30/22 20:30 Dose: 10 unit Documented by: Insulin Human Lispro (Insulin Lispro 100 Unit/1 Ml) 0 unit SUBCUT WM&BEDTIME [facility]; Protocol Last Admin: 01/30/22 20:31 Dose: 14 unit Documented by: Losartan Potassium (Losartan 50 Mg Tablet) 50 mg PO DAILY [facility] Last Admin: 01/30/22 08:15 Dose: 50 mg Documented by: Magnesium Hydroxide (Magnesium Hydroxide 30 Ml Udc) 30 ml PO DAILY PRN PRN Reason: CONSTIPATION Metoprolol Succinate (Metoprolol Succinate Er (24 Hr) 50 Mg Tablet) 50 mg PO 0900,2100 [facility] Last Admin: 01/30/22 20:31 Dose: 50 mg Documented by: Naloxone HCl (Naloxone 0.4 Mg/Ml Sdv) 0.1 mg IVP Q2M PRN PRN Reason: RESPIRATORY RATE < 8/MIN Nitroglycerin (Nitroglycerin 0.4 Mg Sublingual Tablet) 0.4 mg SUBLINGUAL Q5M PRN PRN Reason: CHEST PAIN Ondansetron HCl (Ondansetron 2 Mg/Ml Sdv 2 Ml) 4 mg IVP Q8H PRN PRN Reason: vomiting, or N/V if npo Pantoprazole Sodium (Pantoprazole Dr 40 Mg Tablet) 40 mg PO Q24H [facility] Last Admin: 01/30/22 15:56 Dose: 40 mg Documented by: Potassium Chloride (Potassium Chloride Er 10 Meq Tablet) 20 meq PO BID NEFTALI Temazepam (Temazepam 15 Mg Capsule) 15 mg PO BEDTIME PRN PRN Reason: INSOMNIA Vitals/I&O/Wt Last Vital Signs Temp 98.0 F 02/01/22 06:52 Pulse 68 02/01/22 06:52 Resp 20 H 02/01/22 06:52 BP 145/76 02/01/22 06:52 Pulse Ox 94 02/01/22 07:47 01/31/22 02/01/22 02/01/22 22:59 06:59 14:59 Intake Total 1300 / 2525 240 / 2765 Output Total 1975 / 3015 1225 / 4240 Balance -675 / -490 -985 / -1475 Weight last 48 hrs Weight 291 lb 11.2 oz Weight 292 lb 6.4 oz Physical Exam Narrative: GENERAL: Obese man sitting in bed in no acute distress HEENT: Extraocular movement intact. ? No pallor or icterus. NECK: Mild JVD,? No carotid bruit. CARDIOVASCULAR SYSTEM: S1-S2 regular.? No murmur rubs or gallops. RESPIRATORY SYSTEM: Chest clear to auscultation.? No wheezes rhonchi or rubs heard. No use of accessory muscles. ABDOMEN: Soft, nontender and nondistended.? Normal bowel sounds present.? EXTREMITIES: No cyanosis. 2+ edema (R>L).? Bilateral leg erythema present. 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 No focal neurological deficits.? SKIN: Normal turgor and temperature.? No breakdown, rash or nail changes noted. Const: COMMON NORMALS: no acute distress, patient oriented x3 and alert GENERAL APPEARANCE: cooperative, comfortable, well kempt, well hydrated and othe r (morbidly obese) HENMT: COMMON NORMALS: hearing grossly normal bilaterally and external ears normal FACE & SINUS: normal facial exam NOSE: No nasal discharge present; no Epistaxis present EXTERNAL EAR: Yes external ears normal MOUTH: lip normal Eye: COMMON NORMALS: EOMs intact bilaterally and no scleral icterus GENERAL EYE: appearance normal, both eyes and all related structures ALIGNMENT: Yes alignment normal Neck/C-Spine: COMMON NORMALS: no lymphadenopathy, supple and no JVD GENERAL: Yes normal visual inspection and Yes trachea midline CAROTIDS: Yes normal carotid upstroke Lymph: LYMPHATIC: no lymphadenopathy noted Chest: COMMONS NORMALS: normal inspection of the chest and normal palpation of entire chest wall CHEST: Yes Symmetrical chest wall rise and No tenderness Resp: COMMON NORMALS: clear to auscultation bilaterally EFFORT & INSPECTION: Yes able to speak in complete sentences and No respiratory distress AUSCULTATION: clear to auscultation bilaterally, no crackles, no rales, no rhonchi and no wheezes OTHER: tachypnea+ Cardio: COMMON NORMALS: no JVD, regular rate, regular rhythm, S1 normal heart sound present, S2 normal heart sound present and Peripheral pulses 2+ throughout PALPATION: normal PMI RATE: regular rate RHYTHM: regular rhythm HEART SOUNDS: S1 normal heart sound present, S2 normal heart sound present, no gallops and no murmurs BRUITS: no carotid bruits PERIPHERAL PULSES: Peripheral pulses 2+ throughout, radial pulses present, posterior tibial pulses present and dorsalis pedis present GI: COMMON NORMALS: Soft to palpation AUSCULTATION: Yes normoactive bowel sounds PALPATION: Yes Soft to palpation, No Tenderness to palpation present (GI), No Guarding due to palpation present (GI) and No Rigid due to palpation PERCUSSION: tympanic to percussion : COMMON NORMALS: Yes no CVA tenderness BLADDER/KIDNEY EXAM: Yes no CVA tenderness Back/Pelvis: COMMON NORMALS: no CVA tenderness Extremity: GENERAL: No cyanosis, Yes edema (2-3+ bilateral leg edema) and No pallor Neuro: COMMON NORMALS: patient oriented x3 and no focal motor deficits SENSORIUM/ORIENTATION: Yes alert Psych: COMMON NORMALS: Normal thought process present and speech normal APPEARANCE: Yes well kempt SPEECH: Yes normal speech MOOD & AFFECT: Yes euthymic mood THOUGHT PROCESS: Normal thought process present THOUGHT CONTENT: Yes Normal thought content present Skin: LESIONS: no lesions OTHER: Bilateral lower extremity erythema upto the knees Urinary Catheter Management: Guzmán: Cath Placed During This Visit: yes, but has since been removed by the nurse Reason for Continuing Indwelling Catheter: Other Urinary Catheter Date of Insertion: 01/25/22 Urinary Catheter Time of Insertion: 17:30 Date Urinary Catheter Removed: 01/30/22 Time Urinary Catheter Discontinued: 11:45 Data : 02/01/22 03:20 02/01/22 03:20 A&P Assessment and plan (1) CHF (congestive heart failure), NYHA class III: -HFrEF -resume lasix 40 mg IV BID as patient is in hospital awaiting placement -I/O charting and daily weight -continue metoprolol -started on low dose entresto and added aldactone Status: Acute (2) NSTEMI (non-ST elevated myocardial infarction): Patient was found to have severe stenosis in px to mid RCA, px to mid LCx 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 Mccann's opinion and proceed from there. -He was not thought to be good candidate for CABG d/t poor targets. -Successful revascularization of proximal to mid LCx with orbital arthrectomy and BENNY X1 -continue ASA, statin, NTG SL. Status: Acute (3) Hypertension: BP well controlled Status: Acute (4) Hyperlipidemia: Status: Acute (5) Insulin dependent type 2 diabetes mellitus: Status: Acute Plan UTI : on antibiotics Hypomagnesemia: replaced Hypokalemia: replaced Encephalopathy: resolved Abnormal LFT's Altered mental status: resolved Thank you for allowing me to participate in patient's care. Please feel free to call with questions or concerns Attestations Medical Necessity Statement*: As per primary team Coding Level of Care Code Acute Putty Mixer for [place] Fwd Exam Comprehensive Diagnoses CHF (congestive heart failure), NYHA class III I50.9 NSTEMI (non-ST elevated myocardial infarction) I21.4 Hypertension I10 Hyperlipidemia E78.5 Insulin dependent type 2 diabetes mellitus E11.9; Z79.4
[2022-02-01] MEDS: insulin glargine 100 units/1 mL 10 UNIT SUBCUT (08:02)
--- NOTE | 2022-02-01 08:48 | PC.SOCIAL ---
IMM Update pg 2 of IMM updated and reviewed w/ patient. Copy provided and copy in chart updated.
[2022-02-01] MEDS: lidocaine 1% 5 ML in potassium chloride premix 100 ML 50 ML IV (09:37)
--- NOTE | 2022-02-01 10:57 | PC.NURSE ---
Patient sat on bedside commode for bed bath and bed change.
[2022-02-01] MEDS: piperacillin-tazobactam 3.375 GM in sodium chloride 0.9% (plus) 50 ML IV (11:16)
[2022-02-01 11:30] LABS: Glucose Point of Care 289 mg/dL (70-110)
--- NOTE | 2022-02-01 15:56 | PM.PN ---
Subjective Subjective: States he is doing okay. Still did not sleep well last night, but little bit better than yesterday. Denies chest pain or pressure. Vitals/I&O/Wt Last Vital Signs Temp 98.0 F 02/01/22 14:58 Pulse 78 02/01/22 14:58 Resp 27 H 02/01/22 14:58 BP 139/69 02/01/22 14:58 Pulse Ox 95 02/01/22 14:58 02/01/22 02/01/22 02/01/22 06:59 14:59 22:59 Intake Total 240 / 2765 727 / 727 Output Total 1225 / 4240 240 / 240 Balance -985 / -1475 487 / 487 Weight last 48 hrs Weight 132.313 kg Weight 132.63 kg Physical Exam Narrative: Sitting up at edge of bed. Const: COMMON NORMALS: alert GENERAL APPEARANCE: cooperative NUTRITIONAL APPEARANCE: obese ORIENTATION/CONSCIOUSNESS: Yes awake HENMT: COMMON NORMALS: normocephalic, EAC's normal, Normal external nose present and moist oral mucous membranes HEAD & SCALP: normocephalic NOSE: Normal external nose present EXTERNAL AUDITORY CANAL: EAC's normal TEETH & GINGIVA: Yes poor dentition Neck/C-Spine: COMMON NORMALS: no meningeal signs Chest: CHEST: Yes Symmetrical chest wall rise Resp: COMMON NORMALS: clear to auscultation bilaterally AUSCULTATION: clear to auscultation bilaterally Cardio: COMMON NORMALS: regular rate, regular rhythm and No murmurs present (Cardio) RATE: regular rate RHYTHM: regular rhythm GI: COMMON NORMALS: Normal to inspection, nondistended, normoactive bowel sounds present, Soft to palpation and non-tender PALPATION: Yes Soft to palpation Extremity: COMMON NORMALS: no pedal edema GENERAL: Yes edema (Shrinking 3+ BL LE edema, some wrinkling, cracking/dry flakes) Neuro: COMMON NORMALS: moves all extremities SENSORIUM/ORIENTATION: Yes alert MENINGEAL SIGNS: Yes no meningeal signs Psych: COMMON NORMALS: mental status grossly normal Skin: COMMON NORMALS: no wounds GENERAL SKIN EXAM: erythema (BL LE up to 2/3 of shins) RASHES: no rashes Urinary Catheter Management: Guzmán: Cath Placed During This Visit: yes, but has since been removed by the nurse Reason for Continuing Indwelling Catheter: Other Urinary Catheter Date of Insertion: 01/25/22 Urinary Catheter Time of Insertion: 17:30 Date Urinary Catheter Removed: 01/30/22 Time Urinary Catheter Discontinued: 11:45 Data : 02/01/22 03:20 02/01/22 03:20 A&P Assessment and plan (1) CHF (congestive heart failure), NYHA class III: He is again charted in negative balance. There is still some improvement in lower extremity edema, but slow. Weight is also again charted as 132 kg. Will fluid restrict him to 1500 mL/day. Increase Lasix IV dose to 60 mg twice daily. Spironolactone dose has also been increased to 25 mg. Continue to monitor I&O. Potassium supplementation. Acute systolic and diastolic CHF exacerbation. S/p partial revascularization of multivessel CAD as part of a staged procedure. No LE DVT on venous duplex. With deconditioning, PT, OT. Disposition planning. May benefit from rehabilitation prior to returning home. Status: Acute (2) Cellulitis: Erythema appears to be improving. Less intensely red. Symptomatically improving. Leg size appears to be gradually decreasing. Discussed with nursing staff to apply moisturizer as well. We will continue IV antibiotic for additional day, then consider switching to oral. Continue diuresis. So far no recurrence of fever. Leukocytosis has resolved. LE duplex without DVT Status: Acute (3) Multi-vessel coronary artery stenosis: Not found to be a good candidate for CABG. Underwent successful revascularization of proximal to mid LCx with orbital arthrectomy and BENNY x1. Anticipated revascularization of RCA with atherectomy in 2 weeks. On initial diagnostic coronary angiography with SOX ANALYST of LAD with circumflex lesion and RCA disease. Continue cardiac medications. Status: Acute (4) NSTEMI (non-ST elevated myocardial infarction): Status post diagnostic coronary angiogram 01/28. Continue cardiac medications. Would discontinue celecoxib at discharge. Status: Acute (5) Acute encephalopathy: Resolved. PT, OT. Disposition planning. May benefit from rehabilitation, closer supervision of his medications prior to return home. Unclear etiology. Does have underlying dementia which appears possibly mild as he does live independently, although his children do assist him at home and with shopping. Daughter reports some episodes of him not remembering her previously. These do not seem to be consistent. Not sundowning. Still question whether episodes of encephalopathy may be related to medications, he is on a number of pain medicines. Otherwise also possibly acute metabolic encephalopathy with urinary tract infection, cellulitis. Continue antibiotics to treat underlying conditions. Status: Acute (6) UTI (urinary tract infection): Completed 5 days of antibiotic coverage. Urine culture with more than 100,000 CFU of mixed superficial jordan. Status: Acute (7) Bilateral lower extremity edema: Decreasing with diuresis. Some cracking/dry flakes of skin. Apply moisturizer. Status: Acute (8) Chest pain: Status: Acute Plan Hyperkalemia: Resolved. Low-grade fever: Resolved. No recurrence of fever. 100.1 Fahrenheit fever on 01/28. Reported dry cough. No pneumonia noted on CXR. Now weaning down on oxygen requirement to room air. Negative COVID-19 PCR. Hyperammonemia: Resolved. Hold further lactulose. Should follow-up with evaluation targeted for possible fibrosis or cirrhosis, although liver reported normal on CT. Does have some AST elevation, although this is new in the last 2 days. Type 2 diabetes mellitus -Moderate dose sliding scale -Lantus 15 units twice daily Hypertension -Norvasc -Metoprolol Attestations Medical Necessity Statement*: Continue admission for assessment of management of CHF exacerbation, cellulitis, disposition planning and arrangements. 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
[2022-02-01] MEDS: pantoprazole DR 40 mg Tablet PO (16:08)
[2022-02-01] MEDS: FUROsemide 10 mg/mL SDV 10mL 60 MG IVP (16:09)
[2022-02-01 16:20] LABS: Glucose Point of Care 346 mg/dL (70-110)
[2022-02-01] MEDS: piperacillin-tazobactam 3.375 GM in sodium chloride 0.9% (plus) 100 ML IV (18:44)
[2022-02-01 20:37] LABS: Glucose Point of Care 332 mg/dL (70-110)
[2022-02-01] MEDS: insulin glargine 100 units/1 mL 15 UNIT SUBCUT (21:00)
[2022-02-02] VITALS (10 sets, daily range): BP systolic 112–160; BP diastolic 55–74; PULSE 62–80; RESP 14–24; TEMP 36.1–36.6; O2SAT 91–100
[2022-02-02] MEDS: piperacillin-tazobactam 3.375 GM in sodium chloride 0.9% (plus) 100 ML IV ×2 (02:37→10:10)
[2022-02-02 03:32] LABS: Basophils # 0.1 10^3/uL (0.0-0.1); Eosinophils # 0.5 10^3/uL (0.0-0.8); Eosinophils % 6.6 %; Hematocrit 33.8 % (42.0-52.0); Hemoglobin 11.6 g/dL (11.7-16.6); Lymphocytes # 2.2 10^3/uL (0.8-4.8); Lymphocytes % 31.3 %; Mean Corpuscular HGB Conc 34.3 g/dL (30.0-36.0); Mean Corpuscular Hemoglobin 33.8 pg (28.0-34.0); Mean Corpuscular Volume 98.5 fl (80-94); Mean Platelet Volume 10.2 fL (7.4-10.4); Monocytes % 13.7 %; Neutrophils # 3.34 10^3/uL (1.8-7.7); Neutrophils % 46.8 %; Nucleated Red Blood Cells % 0 %; Platelet Count 206 10^3/cmm (130-400); Red Blood Count 3.43 10^6/uL (4.1-5.3); Red Cell Distribution Width 14.1 % (12.1-15.1); White Blood Count 7.1 10^3/uL (4.0-10.0)
[2022-02-02 03:55] LABS: Anion Gap 13.6 (5-19); Blood Urea Nitrogen 13 mg/dL (8-23); Calcium 8.8 mg/dL (8.5-10.5); Carbon Dioxide 27 mmol/L (22-29); Chloride 97 mmol/L (98-107); Glucose 305 mg/dL (65-115); Magnesium 1.7 mg/dL (1.7-2.3); Osmolality Calculated 290 mOsm/kg (285-295); Potassium 3.6 mmol/L (3.5-5.1); Sodium 134 mmol/L (136-145)
[2022-02-02] MEDS: FUROsemide 10 mg/mL SDV 10mL 60 MG IVP ×2 (04:26→16:45)
[2022-02-02 06:39] LABS: Glucose Point of Care 293 mg/dL (70-110)
[2022-02-02] MEDS: vancomycin 1,500 MG/300 ML PIGGYBACK 150 MG IV (07:07)
[2022-02-02] MEDS: potassium chloride ER 10 mEq Tablet 20 MEQ PO ×2 (07:55→17:22)
[2022-02-02] MEDS: sacubitril/valsartan 24-26 mg Tablet 1 EACH PO ×2 (08:08→17:22)
[2022-02-02] MEDS: insulin lispro 100 unit/1 mL SUBCUT ×4 (08:08→20:35)
[2022-02-02] MEDS: atorvastatin 40 mg Tablet PO (08:08)
[2022-02-02] MEDS: insulin glargine 100 units/1 mL 15 UNIT SUBCUT (08:08)
[2022-02-02] MEDS: metoprolol succinate ER (24 HR) 50 mg Tablet PO ×2 (08:08→20:35)
[2022-02-02] MEDS: aspirin 81 mg EC Tablet PO (08:08)
[2022-02-02] MEDS: spironolactone 25 mg Tablet PO (08:10)
--- NOTE | 2022-02-02 09:29 | P.PN_ITS ---
Subjective Subjective: No chest pain. Feels good ; s/p Successful revascularization of proximal to mid LCx with orbital arthrectomy and BENNY X1 Last 24 hr: 24 hr: -2.9 L; LOS -13 L, Medications: Reviewed: Yes Medication Review Details: Current Medications Acetaminophen (Acetaminophen 325 Mg Tablet) 650 mg PO Q6H PRN PRN Reason: MILD PAIN Al Hydrox/Mg Hydrox/Simethicone (Vlzq-Kmv-Uypxlhmwa-Maximiliano 30 Ml Udc) 30 ml PO Q15M PRN PRN Reason: INDIGESTION Alprazolam (Alprazolam 0.5 Mg Tablet) 0.25 mg PO TID PRN PRN Reason: ANXIETY Aspirin (Aspirin 81 Mg Ec Tablet) 81 mg PO DAILY [facility] Last Admin: 01/30/22 08:15 Dose: 81 mg Documented by: Atorvastatin Calcium (Atorvastatin 40 Mg Tablet) 40 mg PO DAILY [facility] Last Admin: 01/30/22 08:16 Dose: 40 mg Documented by: Atropine Sulfate (Atropine 1 Mg/Ml Sdv 1 Ml) 0.5 mg IVP PRN PRN PRN Reason: Symptomatic bradycardia Atropine Sulfate (Atropine 1 Mg/Ml Sdv 1 Ml) 0.5 mg IVP PRN PRN PRN Reason: Symptomatic bradycardia Clopidogrel Bisulfate (Clopidogrel 75 Mg Tablet) 75 mg PO DAILY [facility] Last Admin: 01/30/22 08:15 Dose: 75 mg Documented by: Dextrose (Dextrose 50% Syringe 50 Ml) 25 ml IVP ONCE PRN; Protocol PRN Reason: hypoglycemia protocol Dextrose (Dextrose 50% Syringe 50 Ml) 50 ml IVP PRN PRN; Protocol PRN Reason: hypoglycemia protocol Fentanyl (Fentanyl 50 Mcg/Ml Inj 2ml) 50 mcg IVP PRN PRN PRN Reason: Prior to sheath removal Fentanyl (Fentanyl 50 Mcg/Ml Inj 2ml) 50 mcg IVP PRN PRN PRN Reason: PAIN Furosemide (Furosemide 10 Mg/Ml Sdv 4ml) 40 mg IVP Q12H [facility] Last Admin: 01/31/22 05:42 Dose: 40 mg Documented by: Gabapentin (Gabapentin 100 Mg Capsule) 100 mg PO TID PRN PRN Reason: Pain Glucagon (Glucagon 1 Mg/Ml Inj 1 Ml) 1 mg IM ONCE PRN; Protocol PRN Reason: Adult Acute Hypoglycemia Prot. Guaifenesin/Codeine Phosphate (Guaifenesin-Codeine Udc 10 Ml) 5 ml PO Q4H PRN PRN Reason: COUGH Dextrose (D5w) 500 mls @ 100 mls/hr IV ONCE PRN; Protocol PRN Reason: Adult Acute Hypoglycemia Prot Piperacillin Sod/Tazobactam (Sod 3.375 gm/ Sodium Chloride) 50 mls @ 12.5 mls/hr IV Q8H [facility]; Protocol Last Admin: 01/31/22 03:11 Dose: 12.5 mls/hr Documented by: Vancomycin/PEG/NADA/Lysine/Water (Vancocin) 1,500 mg in 300 mls @ 200 mls/hr IV Q12H [facility] Last Admin: 01/31/22 05:42 Dose: 150 mls/hr Documented by: Lidocaine HCl 5 ml/ Potassium (Chloride) 105 mls @ 50 mls/hr IV ONCE ONE Stop: 01/31/22 09:28 Insulin Glargine (Insulin Glargine 100 Units/1 Ml) 10 unit SUBCUT Q12H [facility] Last Admin: 01/30/22 20:30 Dose: 10 unit Documented by: Insulin Human Lispro (Insulin Lispro 100 Unit/1 Ml) 0 unit SUBCUT WM&BEDTIME S ; Protocol Last Admin: 01/30/22 20:31 Dose: 14 unit Documented by: Losartan Potassium (Losartan 50 Mg Tablet) 50 mg PO DAILY [facility] Last Admin: 01/30/22 08:15 Dose: 50 mg Documented by: Magnesium Hydroxide (Magnesium Hydroxide 30 Ml Udc) 30 ml PO DAILY PRN PRN Reason: CONSTIPATION Metoprolol Succinate (Metoprolol Succinate Er (24 Hr) 50 Mg Tablet) 50 mg PO 0900,2100 [facility] Last Admin: 01/30/22 20:31 Dose: 50 mg Documented by: Naloxone HCl (Naloxone 0.4 Mg/Ml Sdv) 0.1 mg IVP Q2M PRN PRN Reason: RESPIRATORY RATE < 8/MIN Nitroglycerin (Nitroglycerin 0.4 Mg Sublingual Tablet) 0.4 mg SUBLINGUAL Q5M PRN PRN Reason: CHEST PAIN Ondansetron HCl (Ondansetron 2 Mg/Ml Sdv 2 Ml) 4 mg IVP Q8H PRN PRN Reason: vomiting, or N/V if npo Pantoprazole Sodium (Pantoprazole Dr 40 Mg Tablet) 40 mg PO Q24H [facility] Last Admin: 01/30/22 15:56 Dose: 40 mg Documented by: Potassium Chloride (Potassium Chloride Er 10 Meq Tablet) 20 meq PO BID NEFTALI Temazepam (Temazepam 15 Mg Capsule) 15 mg PO BEDTIME PRN PRN Reason: INSOMNIA Vitals/I&O/Wt Last Vital Signs Temp 97.8 F 02/02/22 06:57 Pulse 67 02/02/22 07:39 Resp 14 02/02/22 06:57 BP 145/68 02/02/22 06:57 Pulse Ox 97 02/02/22 07:39 02/01/22 02/02/22 02/02/22 22:59 06:59 14:59 Intake Total 910 / 1937 150 / 2087 640 / 640 Output Total 2250 / 3090 1950 / 5040 610 / 610 Balance -1340 / -1153 -1800 / -2953 30 / 30 Weight last 48 hrs Weight 290 lb Weight 291 lb 11.2 oz Physical Exam Narrative: GENERAL: Obese man sitting in bed in no acute distress HEENT: Extraocular movement intact. ? No pallor or icterus. NECK: Mild JVD,? No carotid bruit. CARDIOVASCULAR SYSTEM: S1-S2 regular.? No murmur rubs or gallops. RESPIRATORY SYSTEM: Chest clear to auscultation.? No wheezes rhonchi or rubs heard. No use of accessory muscles. ABDOMEN: Soft, nontender and nondistended.? Normal bowel sounds present.? EXTREMITIES: No cyanosis. 2+ edema (R>L).? Bilateral leg erythema present. 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 No focal neurological deficits.? SKIN: Normal turgor and temperature.? No breakdown, rash or nail changes noted. Const: COMMON NORMALS: no acute distress, patient oriented x3 and alert GENERAL APPEARANCE: cooperative, comfortable, well kempt, well hydrated and other (morbidly obese) HENMT: COMMON NORMALS: hearing grossly normal bilaterally and external ears normal FACE & SINUS: normal facial exam NOSE: No nasal discharge present; no Epistaxis present EXTERNAL EAR: Yes external ears normal MOUTH: lip normal Eye: COMMON NORMALS: EOMs intact bilaterally and no scleral icterus GENERAL EYE: appearance normal, both eyes and all related structures ALIGNMENT: Yes alignment normal Neck/C-Spine: COMMON NORMALS: no lymphadenopathy, supple and no JVD GENERAL: Yes normal visual inspection and Yes trachea midline CAROTIDS: Yes normal carotid upstroke Lymph: LYMPHATIC: no lymphadenopathy noted Chest: COMMONS NORMALS: normal inspection of the chest and normal palpation of entire chest wall CHEST: Yes Symmetrical chest wall rise and No tenderness Resp: COMMON NORMALS: clear to auscultation bilaterally EFFORT & INSPECTION: Yes able to speak in complete sentences and No respiratory distress AUSCULTATION: clear to auscultation bilaterally, no crackles, no rales, no rhonchi and no wheezes OTHER: tachypnea+ Cardio: COMMON NORMALS: no JVD, regular rate, regular rhythm, S1 normal heart sound present, S2 normal heart sound present and Peripheral pulses 2+ throughout PALPATION: normal PMI RATE: regular rate RHYTHM: regular rhythm HEART SOUNDS: S1 normal heart sound present, S2 normal heart sound present, no gallops and no murmurs BRUITS: no carotid bruits PERIPHERAL PULSES: Peripheral pulses 2+ throughout, radial pulses present, posterior tibial pulses present and dorsalis pedis present GI: COMMON NORMALS: Soft to palpation AUSCULTATION: Yes normoactive bowel sounds PALPATION: Yes Soft to palpation, No Tenderness to palpation present (GI), No Guarding due to palpation present (GI) and No Rigid due to palpation PERCUSSION: tympanic to percussion : COMMON NORMALS: Yes no CVA tenderness BLADDER/KIDNEY EXAM: Yes no CVA tenderness Back/Pelvis: COMMON NORMALS: no CVA tenderness Extremity: GENERAL: No cyanosis, Yes edema (2-3+ bilateral leg edema) and No pallor Neuro: COMMON NORMALS: patient oriented x3 and no focal motor deficits SENSORIUM/ORIENTATION: Yes alert Psych: COMMON NORMALS: Normal thought process present and speech normal APPEARANCE: Yes well kempt SPEECH: Yes normal speech MOOD & AFFECT: Yes euthymic mood THOUGHT PROCESS: Normal thought process present THOUGHT CONTENT: Yes Normal thought content present Skin: LESIONS: no lesions OTHER: Bilateral lower extremity erythema upto the knees Urinary Catheter Management: Guzmán: Cath Placed During This Visit: yes, but has since been removed by the nurse Reason for Continuing Indwelling Catheter: Other Urinary Catheter Date of Insertion: 01/25/22 Urinary Catheter Time of Insertion: 17:30 Date Urinary Catheter Removed: 01/30/22 Time Urinary Catheter Discontinued: 11:45 Data : 02/02/22 02:45 02/02/22 02:45 A&P Assessment and plan (1) CHF (congestive heart failure), NYHA class III: -HFrEF -On lasix IV per primary team -I/O charting and daily weight -continue metoprolol -started on low dose entresto and aldactone Follow up in [facility] 1 week after discharge with Ms. Montez Plan to have RCA intervention in next few weeks as an outpatient. 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 Mccann's opinion and proceed from there. -He was not thought to be good candidate for CABG d/t poor targets. -Successful revascularization of proximal to mid LCx with orbital arthrectomy and BENNY X1 -continue ASA, statin, NTG SL. Status: Acute (3) Hypertension: BP well controlled Status: Acute (4) Hyperlipidemia: Status: Acute (5) Insulin dependent type 2 diabetes mellitus: Status: Acute Plan UTI : on antibiotics Abnormal LFT's Altered mental status: resolved Thank you for allowing me to participate in patient's care. Please feel free to call with questions or concerns Attestations Medical Necessity Statement*: As per primary team Coding Level of Care Code Acute Welcome Center Attendant for [facility] Fwd Exam Comprehensive Diagnoses CHF (congestive heart failure), NYHA class III I50.9 NSTEMI (non-ST elevated myocardial infarction) I21.4 Hypertension I10 Hyperlipidemia E78.5 Insulin dependent type 2 diabetes mellitus E11.9; Z79.4
[2022-02-02 11:44] LABS: Glucose Point of Care 401 mg/dL (70-110)
--- NOTE | 2022-02-02 12:19 | PM.PN ---
Subjective Subjective: Patient was seen this morning, patient's family is at bedside, he is eating breakfast, he tells me that he is feeling better, continues to have bilateral extremity edema, but getting better, no chest pain, no nausea, no vomiting, Vitals/I&O/Wt Last Vital Signs Temp 97.2 F L 02/02/22 11:34 Pulse 65 02/02/22 11:34 Resp 17 02/02/22 11:34 BP 147/74 02/02/22 11:34 Pulse Ox 91 02/02/22 11:34 02/01/22 02/02/22 02/02/22 22:59 06:59 14:59 Intake Total 910 / 1937 150 / 2087 640 / 640 Output Total 2250 / 3090 1950 / 5040 1410 / 1410 Balance -1340 / -1153 -1800 / -2953 -770 / -770 Weight last 48 hrs Weight 131.542 kg Weight 132.313 kg Physical Exam Const: COMMON NORMALS: no acute distress and patient oriented x3 Resp: COMMON NORMALS: normal respiratory effort, No retractions, No use of accessory muscles and clear to auscultation bilaterally AUSCULTATION: clear to auscultation bilaterally Cardio: COMMON NORMALS: regular rate, regular rhythm, S1 normal heart sound present and S2 normal heart sound present RATE: regular rate RHYTHM: regular rhythm HEART SOUNDS: S1 normal heart sound present and S2 normal heart sound present GI: COMMON NORMALS: Normal to inspection, nondistended, normoactive bowel sounds present, Soft to palpation, non-tender and No hepatosplenomegaly present PALPATION: Yes Soft to palpation and Yes No hepatosplenomegaly present Extremity: NARRATIVE EXTREMITY EXAM: 1+ pitting edema bilateral extremity Neuro: COMMON NORMALS: patient oriented x3 Urinary Catheter Management: Guzmán: Cath Placed During This Visit: yes, but has since been removed by the nurse Reason for Continuing Indwelling Catheter: Other Urinary Catheter Date of Insertion: 01/25/22 Urinary Catheter Time of Insertion: 17:30 Date Urinary Catheter Removed: 01/30/22 Time Urinary Catheter Discontinued: 11:45 Data : 02/02/22 02:45 02/02/22 02:45 A&P Assessment and plan (1) CHF (congestive heart failure), NYHA class III: Total -14 L. There is still some improvement in lower extremity edema, but slow. Weight is also again charted as 132 kg. Will fluid restrict him to 1500 mL/day. Increase Lasix IV dose to 60 mg twice daily. Spironolactone dose has also been increased to 25 mg. Continue to monitor I&O. Potassium supplementation. Acute systolic and diastolic CHF exacerbation. S/p partial revascularization of multivessel CAD as part of a staged procedure. No LE DVT on venous duplex. With deconditioning, PT, OT. Disposition planning. May benefit from rehabilitation prior to returning home. Status: Acute (2) Cellulitis: Erythema appears to be improving. Less intensely red. Symptomatically improving. Leg size appears to be gradually decreasing. Discussed with nursing staff to apply moisturizer as well. Switch to p.o. doxycycline, and Augmentin Continue diuresis. So far no recurrence of fever. Leukocytosis has resolved. LE duplex without DVT Status: Acute (3) Multi-vessel coronary artery stenosis: Not found to be a good candidate for CABG. Underwent successful revascularization of proximal to mid LCx with orbital arthrectomy and BENNY x1. Anticipated revascularization of RCA with atherectomy in 2 weeks. On initial diagnostic coronary angiography with CLAY THROWER of LAD with circumflex lesion and RCA disease. Continue cardiac medications. Status: Acute (4) NSTEMI (non-ST elevated myocardial infarction): Status post diagnostic coronary angiogram 01/28. Continue cardiac medications. Would discontinue celecoxib at discharge. Status: Acute (5) Acute encephalopathy: Resolved. PT, OT. Disposition planning. May benefit from rehabilitation, closer supervision of his medications prior to return home. Unclear etiology. Does have underlying dementia which appears possibly mild as he does live independently, although his children do assist him at home and with shopping. Daughter reports some episodes of him not remembering her previously. These do not seem to be consistent. Not sundowning. Still question whether episodes of encephalopathy may be related to medications, he is on a number of pain medicines. Otherwise also possibly acute metabolic encephalopathy with urinary tract infection, cellulitis. Continue antibiotics to treat underlying conditions. Status: Acute (6) UTI (urinary tract infection): Completed 5 days of antibiotic coverage. Urine culture with more than 100,000 CFU of mixed superficial jordan. Status: Acute (7) Bilateral lower extremity edema: Decreasing with diuresis. Some cracking/dry flakes of skin. Apply moisturizer. Status: Acute (8) Chest pain: Status: Acute Plan Hyperkalemia: Resolved. Low-grade fever: Resolved. No recurrence of fever. 100.1 Fahrenheit fever on 01/28. Reported dry cough. No pneumonia noted on CXR. Now weaning down on oxygen requirement to room air. Negative COVID-19 PCR. Hyperammonemia: Resolved. Hold further lactulose. Should follow-up with evaluation targeted for possible fibrosis or cirrhosis, although liver reported normal on CT. Does have some AST elevation, although this is new in the last 2 days. Type 2 diabetes mellitus -Moderate dose sliding scale -Lantus 15 units twice daily Hypertension -Norvasc -Metoprolol Attestations Medical Necessity Statement*: Patient requires hospitalization for fluid overload, CHF, requiring diuresis, cellulitis Coding Level of Care Code Acute Equal Opportunity Director for [facility] Fwd Diagnoses CHF (congestive heart failure), NYHA class III I50.9 Cellulitis L03.90 Multi-vessel coronary artery stenosis I25.10 NSTEMI (non-ST elevated myocardial infarction) I21.4 Acute encephalopathy G93.40 UTI (urinary tract infection) N39.0 Bilateral lower extremity edema R60.0 Chest pain R07.9
[2022-02-02 16:16] LABS: Glucose Point of Care 370 mg/dL (70-110)
[2022-02-02] MEDS: pantoprazole DR 40 mg Tablet PO (16:45)
[2022-02-02] MEDS: amoxicillin-clav 875-125 mg Tablet 1 TAB PO (17:22)
[2022-02-02] MEDS: doxycycline 100 mg Tablet PO (17:22)
[2022-02-02 20:18] LABS: Glucose Point of Care 440 mg/dL (70-110)
[2022-02-02] MEDS: insulin glargine 100 units/1 mL 20 UNIT SUBCUT (20:36)
[2022-02-03] VITALS (14 sets, daily range): BP systolic 119–145; BP diastolic 56–75; PULSE 60–78; RESP 16–37; TEMP 36.6; O2SAT 94–100
[2022-02-03] MEDS: FUROsemide 10 mg/mL SDV 10mL 60 MG IVP (03:49)
[2022-02-03 04:15] LABS: Anion Gap 12.8 (5-19); Blood Urea Nitrogen 12 mg/dL (8-23); Calcium 9.1 mg/dL (8.5-10.5); Carbon Dioxide 27 mmol/L (22-29); Chloride 96 mmol/L (98-107); Glucose 270 mg/dL (65-115); Osmolality Calculated 283 mOsm/kg (285-295); Potassium 3.8 mmol/L (3.5-5.1); Sodium 132 mmol/L (136-145)
[2022-02-03 04:18] LABS: Basophils # 0.1 10^3/uL (0.0-0.1); Eosinophils # 0.5 10^3/uL (0.0-0.8); Eosinophils % 6.1 %; Hematocrit 35.1 % (42.0-52.0); Lymphocytes # 2.6 10^3/uL (0.8-4.8); Lymphocytes % 32.4 %; Mean Corpuscular HGB Conc 34.2 g/dL (30.0-36.0); Mean Corpuscular Hemoglobin 33.7 pg (28.0-34.0); Mean Corpuscular Volume 98.6 fl (80-94); Monocytes % 12.4 %; Neutrophils # 3.77 10^3/uL (1.8-7.7); Neutrophils % 47.8 %; Nucleated Red Blood Cells % 0 %; Platelet Count 222 10^3/cmm (130-400); Red Blood Count 3.56 10^6/uL (4.1-5.3); White Blood Count 7.9 10^3/uL (4.0-10.0)
[2022-02-03 06:37] LABS: Glucose Point of Care 239 mg/dL (70-110)
[2022-02-03] MEDS: insulin lispro 100 unit/1 mL SUBCUT ×4 (08:08→20:51)
[2022-02-03] MEDS: atorvastatin 40 mg Tablet PO (08:08)
[2022-02-03] MEDS: doxycycline 100 mg Tablet PO ×2 (08:09→17:25)
[2022-02-03] MEDS: insulin glargine 100 units/1 mL 20 UNIT SUBCUT ×2 (08:09→20:52)
[2022-02-03] MEDS: spironolactone 25 mg Tablet PO ×2 (08:09→10:04)
[2022-02-03] MEDS: aspirin 81 mg EC Tablet PO (08:09)
[2022-02-03] MEDS: potassium chloride ER 10 mEq Tablet 20 MEQ PO ×2 (08:09→17:25)
[2022-02-03] MEDS: sacubitril/valsartan 24-26 mg Tablet 1 EACH PO ×2 (08:09→17:25)
[2022-02-03] MEDS: amoxicillin-clav 875-125 mg Tablet 1 TAB PO ×2 (08:09→17:25)
[2022-02-03] MEDS: metoprolol succinate ER (24 HR) 50 mg Tablet PO ×2 (08:12→20:51)
--- NOTE | 2022-02-03 10:47 | PC.SOCIAL ---
IMM Update Pg. 2 of IMM updated and reviewed with patient, who verbalized understanding. Copy provided.
--- NOTE | 2022-02-03 11:20 | P.PN_ITS ---
Vitals/I&O/Wt Last Vital Signs Temp 98 F 02/03/22 03:50 Pulse 73 02/03/22 08:18 Resp 21 H 02/03/22 08:18 BP 119/75 02/03/22 08:18 Pulse Ox 100 02/03/22 08:18 02/02/22 02/03/22 02/03/22 22:59 06:59 14:59 Intake Total 480 / 1760 200 / 1960 237 / 237 Output Total 2080 / 3490 2050 / 5540 200 / 200 Balance -1600 / -1730 -1850 / -3580 37 / 37 Weight last 48 hrs Weight 123.831 kg Weight 131.542 kg Physical Exam Const: COMMON NORMALS: no acute distress and patient oriented x3 Resp: COMMON NORMALS: normal respiratory effort, No retractions, No use of accessory muscles and clear to auscultation bilaterally AUSCULTATION: clear to auscultation bilaterally Cardio: COMMON NORMALS: regular rate, regular rhythm, S1 normal heart sound present and S2 normal heart sound present RATE: regular rate RHYTHM: regular rhythm HEART SOUNDS: S1 normal heart sound present and S2 normal heart sound present GI: COMMON NORMALS: Normal to inspection, nondistended, normoactive bowel sounds present and Soft to palpation PALPATION: Yes Soft to palpation Extremity: NARRATIVE EXTREMITY EXAM: 1+ pitting edema bilaterally Neuro: COMMON NORMALS: patient oriented x3 Psych: COMMON NORMALS: mental status grossly normal Urinary Catheter Management: Guzmán: Cath Placed During This Visit: yes, but has since been removed by the nurse Reason for Continuing Indwelling Catheter: Other Urinary Catheter Date of Insertion: 01/25/22 Urinary Catheter Time of Insertion: 17:30 Date Urinary Catheter Removed: 01/30/22 Time Urinary Catheter Discontinued: 11:45 Data : 02/03/22 03:45 02/03/22 03:45 A&P Assessment and plan (1) CHF (congestive heart failure), NYHA class III: Total - 17 L. There is still some improvement in lower extremity edema, but slow. Will fluid restrict him to 1500 mL/day. Switch to Lasix 40 twice daily. Spironolactone dose has also been increased to 25 mg. Continue to monitor I&O. Potassium supplementation. Acute systolic and diastolic CHF exacerbation. S/p partial revascularization of multivessel CAD as part of a staged procedure. No LE DVT on venous duplex. With deconditioning, PT, OT. Disposition planning. May benefit from rehabilitation prior to returning home. Status: Acute (2) Cellulitis: Erythema appears to be improving. Less intensely red. Symptomatically improving. Leg size appears to be gradually decreasing. Discussed with nursing staff to apply moisturizer as well. Continue. doxycycline, and Augmentin, continue diuresis. So far no recurrence of fever. Leukocytosis has resolved. LE duplex without DVT Status: Acute (3) Multi-vessel coronary artery stenosis: Not found to be a good candidate for CABG. Underwent successful revascularization of proximal to mid LCx with orbital arthrectomy and BENNY x1. Anticipated revascularization of RCA with atherectomy in 2 weeks. 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 Continue cardiac medications. Status: Acute (4) NSTEMI (non-ST elevated myocardial infarction): Status post diagnostic coronary angiogram 01/28. Continue cardiac medications. Would discontinue celecoxib at discharge. Status: Acute (5) Acute encephalopathy: Resolved. PT, OT. Disposition planning. May benefit from rehabilitation, closer supervision of his medications prior to return home. Unclear etiology. Does have underlying dementia which appears possibly mild as he does live independently, although his children do assist him at home and with shopping. Daughter reports some episodes of him not remembering her previously. These do not seem to be consistent. Not sundowning. Still question whether episodes of encephalopathy may be related to medications, he is on a number of pain medicines. Otherwise also possibly acute metabolic encephalopathy with urinary tract inf ection, cellulitis. Continue antibiotics to treat underlying conditions. Status: Acute (6) UTI (urinary tract infection): Completed 5 days of antibiotic coverage. Urine culture with more than 100,000 CFU of mixed superficial jordan. Status: Acute (7) Bilateral lower extremity edema: Decreasing with diuresis. Some cracking/dry flakes of skin. Apply moisturizer. Status: Acute (8) Chest pain: Status: Acute Plan Hyperkalemia: Resolved. Low-grade fever: Resolved. No recurrence of fever. 100.1 Fahrenheit fever on 01/28. Reported dry cough. No pneumonia noted on CXR. Now weaning down on oxygen requirement to room air. Negative COVID-19 PCR. Hyperammonemia: Resolved. Hold further lactulose. Should follow-up with evalu ation targeted for possible fibrosis or cirrhosis, although liver reported normal on CT. Does have some AST elevation, although this is new in the last 2 days. Type 2 diabetes mellitus -Moderate dose sliding scale -Lantus 20 units twice daily Hypertension -Norvasc -Metoprolol Attestations Medical Necessity Statement*: Patient requires hospitalization for fluid overload, requiring diuresis, Coding Level of Care Code Acute Mapping Supervisor for g Fwd Diagnoses CHF (congestive heart failure), NYHA class III I50.9 Cellulitis L03.90 Multi-vessel coronary artery stenosis I25.10 NSTEMI (non-ST elevated myocardial infarction) I21.4 Acute encephalopathy G93.40 UTI (urinary tract infection) N39.0 Bilateral lower extremity edema R60.0 Chest pain R07.9
--- NOTE | 2022-02-03 11:25 | PM.PN ---
Subjective Subjective: No chest pain. Feels good ; s/p Successful revascularization of proximal to mid LCx with orbital arthrectomy and BENNY X1 Last 24 hr: 24 hr: -3.5L; LOS -17 L, Medications: Reviewed: Yes Medication Review Details: Current Medications Acetaminophen (Acetaminophen 325 Mg Tablet) 650 mg PO Q6H PRN PRN Reason: MILD PAIN Al Hydrox/Mg Hydrox/Simethicone (Ftvn-Lau-Yiyrrbilt-Maximiliano 30 Ml Udc) 30 ml PO Q15M PRN PRN Reason: INDIGESTION Alprazolam (Alprazolam 0.5 Mg Tablet) 0.25 mg PO TID PRN PRN Reason: ANXIETY Aspirin (Aspirin 81 Mg Ec Tablet) 81 mg PO DAILY [facility] Last Admin: 01/30/22 08:15 Dose: 81 mg Documented by: Atorvastatin Calcium (Atorvastatin 40 Mg Tablet) 40 mg PO DAILY [facility] Last Admin: 01/30/22 08:16 Dose: 40 mg Documented by: Atropine Sulfate (Atropine 1 Mg/Ml Sdv 1 Ml) 0.5 mg IVP PRN PRN PRN Reason: Symptomatic bradycardia Atropine Sulfate (Atropine 1 Mg/Ml Sdv 1 Ml) 0.5 mg IVP PRN PRN PRN Reason: Symptomatic bradycardia Clopidogrel Bisulfate (Clopidogrel 75 Mg Tablet) 75 mg PO DAILY [facility] Last Admin: 01/30/22 08:15 Dose: 75 mg Documented by: Dextrose (Dextrose 50% Syringe 50 Ml) 25 ml IVP ONCE PRN; Protocol PRN Reason: hypoglycemia protocol Dextrose (Dextrose 50% Syringe 50 Ml) 50 ml IVP PRN PRN; Protocol PRN Reason: hypoglycemia protocol Fentanyl (Fentanyl 50 Mcg/Ml Inj 2ml) 50 mcg IVP PRN PRN PRN Reason: Prior to sheath removal Fentanyl (Fentanyl 50 Mcg/Ml Inj 2ml) 50 mcg IVP PRN PRN PRN Reason: PAIN Furosemide (Furosemide 10 Mg/Ml Sdv 4ml) 40 mg IVP Q12H [facility] Last Admin: 01/31/22 05:42 Dose: 40 mg Documented by: Gabapentin (Gabapentin 100 Mg Capsule) 100 mg PO TID PRN PRN Reason: Pain Glucagon (Glucagon 1 Mg/Ml Inj 1 Ml) 1 mg IM ONCE PRN; Protocol PRN Reason: Adult Acute Hypoglycemia Prot. Guaifenesin/Codeine Phosphate (Guaifenesin-Codeine Udc 10 Ml) 5 ml PO Q4H PRN PRN Reason: COUGH Dextrose (D5w) 500 mls @ 100 mls/hr IV ONCE PRN; Protocol PRN Reason: Adult Acute Hypoglycemia Prot Piperacillin Sod/Tazobactam (Sod 3.375 gm/ Sodium Chloride) 50 mls @ 12.5 mls/hr IV Q8H [facility]; Protocol Last Admin: 01/31/22 03:11 Dose: 12.5 mls/hr Documented by: Vancomycin/PEG/NADA/Lysine/Water (Vancocin) 1,500 mg in 300 mls @ 200 mls/hr IV Q12H NEFTALI Last Admin: 01/31/22 05:42 Dose: 150 mls/hr Documented by: Lidocaine HCl 5 ml/ Potassium (Chloride) 105 mls @ 50 mls/hr IV ONCE ONE Stop: 01/31/22 09:28 Insulin Glargine (Insulin Glargine 100 Units/1 Ml) 10 unit SUBCUT Q12H [facility] Last Admin: 01/30/22 20:30 Dose: 10 unit Documented by: Insulin Human Lispro (Insulin Lispro 100 Unit/1 Ml) 0 unit SUBCUT WM&BEDTIME [facility]; Protocol Last Admin: 01/30/22 20:31 Dose: 14 unit Documented by: Losartan Potassium (Losartan 50 Mg Tablet) 50 mg PO DAILY [facility] Last Admin: 01/30/22 08:15 Dose: 50 mg Documented by: Magnesium Hydroxide (Magnesium Hydroxide 30 Ml Udc) 30 ml PO DAILY PRN PRN Reason: CONSTIPATION Metoprolol Succinate (Metoprolol Succinate Er (24 Hr) 50 Mg Tablet) 50 mg PO 0900,2100 [facility] Last Admin: 01/30/22 20:31 Dose: 50 mg Documented by: Naloxone HCl (Naloxone 0.4 Mg/Ml Sdv) 0.1 mg IVP Q2M PRN PRN Reason: RESPIRATORY RATE < 8/MIN Nitroglycerin (Nitroglycerin 0.4 Mg Sublingual Tablet) 0.4 mg SUBLINGUAL Q5M PRN PRN Reason: CHEST PAIN Ondansetron HCl (Ondansetron 2 Mg/Ml Sdv 2 Ml) 4 mg IVP Q8H PRN PRN Reason: vomiting, or N/V if npo Pantoprazole Sodium (Pantoprazole Dr 40 Mg Tablet) 40 mg PO Q24H [facility] Last Admin: 01/30/22 15:56 Dose: 40 mg Documented by: Potassium Chloride (Potassium Chloride Er 10 Meq Tablet) 20 meq PO BID NEFTALI Temazepam (Temazepam 15 Mg Capsule) 15 mg PO BEDTIME PRN PRN Reason: INSOMNIA Vitals/I&O/Wt Last Vital Signs Temp 98 F 02/03/22 03:50 Pulse 73 02/03/22 08:18 Resp 21 H 02/03/22 08:18 BP 119/75 02/03/22 08:18 Pulse Ox 100 02/03/22 08:18 02/02/22 02/03/22 02/03/22 22:59 06:59 14:59 Intake Total 480 / 1760 200 / 1960 237 / 237 Output Total 2080 / 3490 2050 / 5540 200 / 200 Balance -1600 / -1730 -1850 / -3580 37 / 37 Weight last 48 hrs Weight 273 lb Weight 290 lb Physical Exam Narrative: GENERAL: Obese man sitting in bed in no acute distress HEENT: Extraocular movement intact. ? No pallor or icterus. NECK: Mild JVD,? No carotid bruit. CARDIOVASCULAR SYSTEM: S1-S2 regular.? No murmur rubs or gallops. RESPIRATORY SYSTEM: Chest clear to auscultation.? No wheezes rhonchi or rubs heard. No use of accessory muscles. ABDOMEN: Soft, nontender and nondistended.? Normal bowel sounds present.? EXTREMITIES: No cyanosis. 1-2+ edema (R>L).? Bilateral leg erythema present. 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 No focal neurological deficits.? SKIN: Normal turgor and temperature.? No breakdown, rash or nail changes noted. Const: COMMON NORMALS: no acute distress, patient oriented x3 and alert GENERAL APPEARANCE: cooperative, comfortable, well kempt, well hydrated and other (morbidly obese) HENMT: COMMON NORMALS: hearing grossly normal bilaterally and external ears normal FACE & SINUS: normal facial exam NOSE: No nasal discharge present; no Epistaxis present EXTERNAL EAR: Yes external ears normal MOUTH: lip normal Eye: COMMON NORMALS: EOMs intact bilaterally and no scleral icterus GENERAL EYE: appearance normal, both eyes and all related structures ALIGNMENT: Yes alignment normal Neck/C-Spine: COMMON NORMALS: no lymphadenopathy, supple and no JVD GENERAL: Yes normal visual inspection and Yes trachea midline CAROTIDS: Yes normal carotid upstroke Lymph: LYMPHATIC: no lymphadenopathy noted Chest: COMMONS NORMALS: normal inspection of the chest and normal palpation of entire chest wall CHEST: Yes Symmetrical chest wall rise and No tenderness Resp: COMMON NORMALS: clear to auscultation bilaterally EFFORT & INSPECTION: Yes able to speak in complete sentences and No respiratory distress AUSCULTATION: clear to auscultation bilaterally, no crackles, no rales, no rhonchi and no wheezes OTHER: tachypnea+ Cardio: COMMON NORMALS: no JVD, regular rate, regular rhythm, S1 normal heart sound present, S2 normal heart sound present and Peripheral pulses 2+ throughout PALPATION: normal PMI RATE: regular rate RHYTHM: regular rhythm HEART SOUNDS: S1 normal heart sound present, S2 normal heart sound present, no gallops and no murmurs BRUITS: no carotid bruits PERIPHERAL PULSES: Peripheral pulses 2+ throughout, radial pulses present, posterior tibial pulses present and dorsalis pedis present GI: COMMON NORMALS: Soft to palpation AUSCULTATION: Yes normoactive bowel sounds PALPATION: Yes Soft to palpation, No Tenderness to palpation present (GI), No Guarding due to palpation present (GI) and No Rigid due to palpation PERCUSSION: tympanic to percussion : COMMON NORMALS: Yes no CVA tenderness BLADDER/KIDNEY EXAM: Yes no CVA tenderness Back/Pelvis: COMMON NORMALS: no CVA tenderness Extremity: GENERAL: No cyanosis, Yes edema (2-3+ bilateral leg edema) and No pallor Neuro: COMMON NORMALS: patient oriented x3 and no focal motor deficits SENSORIUM/ORIENTATION: Yes alert Psych: COMMON NORMALS: Normal thought process present and speech normal APPEARANCE: Yes well kempt SPEECH: Yes normal speech MOOD & AFFECT: Yes euthymic mood THOUGHT PROCESS: Normal thought process present THOUGHT CONTENT: Yes Normal thought content present Skin: LESIONS: no lesions OTHER: Bilateral lower extremity erythema upto the knees Urinary Catheter Management: Guzmán: Cath Placed During This Visit: yes, but has since been removed by the nurse Reason for Continuing Indwelling Catheter: Other Urinary Catheter Date of Insertion: 01/25/22 Urinary Catheter Time of Insertion: 17:30 Date Urinary Catheter Removed: 01/30/22 Time Urinary Catheter Discontinued: 11:45 Data : 02/03/22 03:45 02/03/22 03:45 A&P Assessment and plan (1) CHF (congestive heart failure), NYHA class III: -HFrEF -On lasix IV; possible change to PO in morning -I/O charting and daily weight -continue metoprolol -started on low dose entresto and aldactone Follow up in [facility] 1 week after discharge with Ms. Montez Plan to have RCA intervention in next few weeks as an outpatient. 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 Mccann's opinion and proceed from there. -He was not thought to be good candidate for CABG d/t poor targets. -Successful revascularization of proximal to mid LCx with orbital arthrectomy and BENNY X1 -continue ASA, statin, NTG SL. Status: Acute (3) Hypertension: BP well controlled Status: Acute (4) Hyperlipidemia: Status: Acute (5) Insulin dependent type 2 diabetes mellitus: Status: Acute Plan UTI : on antibiotics Abnormal LFT's Altered mental status: resolved Thank you for allowing me to participate in patient's care. Please feel free to call with questions or concerns Attestations Medical Necessity Statement*: As per primary team Coding Level of Care Code Acute Scale Installer for Henrietta Ulloa Diagnoses CHF (congestive heart failure), NYHA class III I50.9 NSTEMI (non-ST elevated myocardial infarction) I21.4 Hypertension I10 Hyperlipidemia E78.5 Insulin dependent type 2 diabetes mellitus E11.9; Z79.4
[2022-02-03 11:27] LABS: Glucose Point of Care 318 mg/dL (70-110)
[2022-02-03 17:23] LABS: Glucose Point of Care 332 mg/dL (70-110)
[2022-02-03] MEDS: pantoprazole DR 40 mg Tablet PO (17:25)
[2022-02-03] MEDS: FUROsemide 40 mg Tablet PO (17:25)
[2022-02-03 20:38] LABS: Glucose Point of Care 459 mg/dL (70-110)
[2022-02-04] VITALS (7 sets, daily range): BP systolic 119–127; BP diastolic 53–76; PULSE 61–69; RESP 18; TEMP 36.4–36.6; O2SAT 94–99
[2022-02-04 06:34] LABS: Glucose Point of Care 290 mg/dL (70-110)
[2022-02-04 07:24] LABS: Basophils # 0.1 10^3/uL (0.0-0.1); Basophils % 1.4 %; Eosinophils # 0.4 10^3/uL (0.0-0.8); Hemoglobin 13.7 g/dL (11.7-16.6); Lymphocytes # 2.6 10^3/uL (0.8-4.8); Lymphocytes % 35.9 %; Mean Corpuscular HGB Conc 33.4 g/dL (30.0-36.0); Mean Corpuscular Hemoglobin 33.9 pg (28.0-34.0); Mean Corpuscular Volume 101.5 fl (80-94); Mean Platelet Volume 9.9 fL (7.4-10.4); Monocytes # 0.8 10^3/uL (0.2-0.9); Monocytes % 10.6 %; Neutrophils # 3.44 10^3/uL (1.8-7.7); Neutrophils % 46.8 %; Nucleated Red Blood Cells % 0 %; Platelet Count 236 10^3/cmm (130-400); Red Blood Count 4.04 10^6/uL (4.1-5.3); Red Cell Distribution Width 14.3 % (12.1-15.1); White Blood Count 7.4 10^3/uL (4.0-10.0)
[2022-02-04 07:37] LABS: Alanine Aminotransferase 35 U/L (0-41); Albumin Level 3.4 g/dL (3.5-5.2); Alkaline Phosphatase 82 IU/L (40-130); Anion Gap 14.4 (5-19); Aspartate Amino Transferase 48 U/L (0-40); Blood Urea Nitrogen 11 mg/dL (8-23); Calcium 9.8 mg/dL (8.5-10.5); Carbon Dioxide 27 mmol/L (22-29); Chloride 94 mmol/L (98-107); Glucose 242 mg/dL (65-115); Magnesium 1.6 mg/dL (1.7-2.3); Osmolality Calculated 279 mOsm/kg (285-295); Phosphorus 2.8 mg/dL (2.5-4.5); Potassium 4.4 mmol/L (3.5-5.1); Sodium 131 mmol/L (136-145); Total Bilirubin 0.6 mg/dL (0.15-1.2); Total Protein 7.4 g/dL (6.6-8.7)
[2022-02-04 07:48] LABS: NT Pro B Type Natriuretic Pept 472 pg/mL (0-125)
[2022-02-04] MEDS: insulin lispro 100 unit/1 mL SUBCUT ×2 (07:57→12:14)
[2022-02-04] MEDS: doxycycline 100 mg Tablet PO (07:59)
[2022-02-04] MEDS: amoxicillin-clav 875-125 mg Tablet 1 TAB PO (07:59)
[2022-02-04] MEDS: aspirin 81 mg EC Tablet PO (07:59)
[2022-02-04] MEDS: atorvastatin 40 mg Tablet PO (08:00)
[2022-02-04] MEDS: FUROsemide 40 mg Tablet PO (08:00)
[2022-02-04] MEDS: spironolactone 25 mg Tablet 50 MG PO (08:01)
[2022-02-04] MEDS: metoprolol succinate ER (24 HR) 50 mg Tablet PO (08:01)
[2022-02-04] MEDS: potassium chloride ER 10 mEq Tablet 20 MEQ PO (08:01)
[2022-02-04] MEDS: insulin glargine 100 units/1 mL 20 UNIT SUBCUT (08:02)
[2022-02-04] MEDS: sacubitril/valsartan 24-26 mg Tablet 2 EACH PO (08:27)
[2022-02-04] MEDS: clopidogrel 300 mg Tablet 600 MG PO (09:01)
--- NOTE | 2022-02-04 09:23 | PC.CHAP ---
Pastoral Care Encounter/Spiritual Assessment Type of Contact [] Declined customer relations consultant visit [] Patient/Family/Request visit [] Outpatient visit [] Follow-up visit [] Physician referral [] Code/Alert [x] Routine visit [] Staff referral [] Actively dying [] Patient sleeping [x] Family support [] [] Out of room [] Palliative care [] [] Receiving care in room [] Pre-surgical visit [] Trauma [] Long length of stay [] ICU visit [] Other: Relational/Emotional Strength [] Patient feels connected with others/family/visitors/staff [] Distress [] Loneliness/isolation [] Abandonment Spirituality of Patient [] Person of Gaby [] Attends Advent of their Gaby [] Believes in Prayer [] Reads Bible or Hinduism materials [] There are Spiritual issues to be addressed Box Inspector Interventions [x] Prayer [x] Active listening [x] Non-anxious presence [x] Spiritual/emotional support [] Crisis/trauma care [] Spiritual counseling [] Bereavement support [] Provided bereavement packet [] Provided Bible/devotional materials [] Provided toy/stuffed animal, coloring book to patient or family member [] Provided Communion [] Anointing/Lysite [] Salvation [x] Completed spiritual assessment [] Other: Impact on Illness or Injury [] Angry [] Fearful [] Anxious [] Often cries [] Exhaustion [] Unable to work [] Unable to attend jain [] Unable to walk/stand [] Unable to read [] Unable to drive [] Unable to eat/drink [] Unable to sleep [] Unable to be with family [] Patient intubated [] Other: Summary enjoying breakfast... looking forward to getting home Time spent with patient 5 min
[2022-02-04 12:07] LABS: Glucose Point of Care 293 mg/dL (70-110)
--- NOTE | 2022-02-04 12:36 | PM.DCS ---
Discharge Providers Date of Admission: 01/25/22 15:37 Date of Discharge: February 04, 2022 Attending Provider at Admission: Deondre Mays MD Attending Provider at Discharge: Deondre Mays MD Primary Care Provider: Tashi Mora DO Diagnoses at Discharge Discharge Diagnosis (1) CHF (congestive heart failure), NYHA class III: Status: Acute (2) NSTEMI (non-ST elevated myocardial infarction): Status: Acute (3) Hypertension: Status: Acute (4) Hyperlipidemia: Status: Acute (5) Insulin dependent type 2 diabetes mellitus: Status: Acute Reason for Visit Reason for Visit: [facility] Hospital Course Hospital Course Riki Lopez is a 71 year old male with a past medical history of BPH, insulin-dependent type 2 diabetes mellitus, hypertension, hyperlipidemia, on chronic opiates who presents [facility] due to altered mental status.? Patient was admitted to [facility] for CHF exacerbation, acute systolic and diastolic exacerbation, ejection fraction 35 to 40%, with moderate hypokinesis of mid to apical anterior, apical septal, apical inferior and apical lateral and apical boateng. Received Lasix diuresis, diuresed over 20 L. Clinically improved, lower extremity edema improved, discharged on Lasix 40 p.o. twice daily, potassium replacement, Entresto, with close follow-up with cardiology as outpatient Patient was also found to have multivessel CAD on coronary angiographic, was not a good candidate for CABG, underwent successful revascularization of mid Left circumflex drug-eluting stent x1. Anticipated revascularization of RCA with arthrectomy in 2 weeks. Follow-up with cardiology in 1 week. He discharged on aspirin, Plavix, statin, beta-jose francisco, Entresto Initially also had acute encephalopathy during his hospitalization, likely sec to UTI, resolved Also found to have bilateral lower extremity cellulitis, managed with broad-spectrum antibiotic therapy, discharged on doxycycline Augmentin Physical Exam Const: COMMON NORMALS: no acute distress and patient oriented x3 Resp: COMMON NORMALS: normal respiratory effort, No retractions, No use of accessory muscles and clear to auscultation bilaterally AUSCULTATION: clear to auscultation bilaterally Cardio: COMMON NORMALS: regular rate, regular rhythm, S1 normal heart sound present and S2 normal heart sound present RATE: regular rate RHYTHM: regular rhythm HEART SOUNDS: S1 normal heart sound present and S2 normal heart sound present GI: COMMON NORMALS: Normal to inspection, nondistended, normoactive bowel sounds present, Soft to palpation and non-tender PALPATION: Yes Soft to palpation Extremity: COMMON NORMALS: no pedal edema Neuro: COMMON NORMALS: patient oriented x3 Psych: COMMON NORMALS: mental status grossly normal Urinary Catheter Management: Guzmán: Cath Placed During This Visit: yes, but has since been removed by the nurse Reason for Continuing Indwelling Catheter: Other Urinary Catheter Date of Insertion: 01/25/22 Urinary Catheter Time of Insertion: 17:30 Date Urinary Catheter Removed: 01/30/22 Time Urinary Catheter Discontinued: 11:45 Discharge Data Studies Completed and Pending Completed Studies During Hospitalization Category Date Time Status CT abdomen pelvis wo con [id number] Stat Cat Scan 01/25/22 16:[address] head wo con* [id number] Urgent Cat Scan 01/25/22 14:19 Completed CXRP [XR chest 1V portable [id number]] Routine Exams 01/28/22 11:14 Completed XR chest 1V portable [id number] Urgent Exams 01/25/22 14:38 Completed XR tibia fibula LT 2V [id number] Urgent Exams 01/25/22 14:37 Completed XR tibia fibula RT 2V [id number] Urgent Exams 01/25/22 14:37 [place] [id number] Routine Ultrasound 01/26/22 00:10 Completed CV. 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 Routine Exams 01/28/22 07:30 Taken ENVIRONMENTAL ENGINEERING TECHNICIAN request for service Routine Exams 01/29/22 08:30 Taken COVID [SARS Covid-2 Antigen] Routine Lab 02/04/22 12:19 Uncollected Complete Blood Count w/Auto AM LABS Lab 02/05/22 04:00 Ordered Complete Blood Count w/Auto AM LABS Lab 02/06/22 04:00 Ordered Comprehensive Metabolic Panel AM LABS Lab 02/05/22 04:00 Ordered Comprehensive Metabolic Panel AM LABS Lab 02/06/22 04:00 Ordered Magnesium AM LABS Lab 02/05/22 04:00 Ordered Magnesium AM LABS Lab 02/06/22 04:00 Ordered NT Pro B Type Natriuretic Pept QAM Lab 02/05/22 06:00 Ordered NT Pro B Type Natriuretic Pept QAM Lab 02/06/22 06:00 Ordered Phosphorus AM LABS Lab 02/05/22 04:00 Ordered Phosphorus AM LABS Lab 02/06/22 04:00 Ordered Radiology Impressions Head CT 01/25/22 14:19 IMPRESSION: No acute intracranial abnormality. Tibia/Fibula X-Ray 01/25/22 14:37 IMPRESSION: No fracture or dislocation. Mild periosteal thickening in the lateral left mid-fibular diaphysis may be secondary to chronic venous congestion. No definite radiographic evidence of osteomyelitis. Abdomen/Pelvis CT 01/25/22 16:39 IMPRESSION: Mild patient motion. No acute abnormality is seen in the abdomen or pelvis. No renal stone is visualized. Chest X-Ray 01/28/22 11:14 IMPRESSION: 1. Low lung volumes 2. No acute findings. Laboratory Results WBC 7.4 10^3/uL (4.0-10.0) 02/04/22 07:01 Corrected WBC Cancelled 01/27/22 06:38 RBC 4.04 10^6/uL (4.1-5.3) L 02/04/22 07:01 Hgb 13.7 g/dL (11.7-16.6) 02/04/22 07:01 Hct 41.0 % (42.0-52.0) L 02/04/22 07:01 MCV 101.5 fl (80-94) H 02/04/22 07:01 MCH 33.9 pg (28.0-34.0) 02/04/22 07:01 MCHC 33.4 g/dL (30.0-36.0) 02/04/22 07:01 RDW 14.3 % (12.1-15.1) 02/04/22 07:01 Plt Count 236 10^3/cmm (130-400) 02/04/22 07:01 MPV 9.9 fL (7.4-10.4) 02/04/22 07:01 Gran % Cancelled 01/27/22 06:38 Neut % (Auto) 46.8 % 02/04/22 07:01 Lymph % (Auto) 35.9 % 02/04/22 07:01 [place] % (Auto) 10.6 % 02/04/22 07:01 Eos % (Auto) 5.0 % 02/04/22 07:01 Baso % (Auto) 1.4 % 02/04/22 07:01 Neut # (Auto) 3.44 10^3/uL (1.8-7.7) 02/04/22 07:01 Lymph # (Auto) 2.6 10^3/uL (0.8-4.8) 02/04/22 07:01 [place] # (Auto) 0.8 10^3/uL (0.2-0.9) 02/04/22 07:01 Eos # (Auto) 0.4 10^3/uL (0.0-0.8) 02/04/22 07:01 Baso # (Auto) 0.1 10^3/uL (0.0-0.1) 02/04/22 07:01 Absolute Gran (auto) Cancelled 01/27/22 06:38 Nucleated RBC % (auto) 0 % 02/04/22 07:01 Nucleated RBCs # 0.0 /100WBC 02/04/22 07:01 ESR 73 mm/hr (0-10) H 01/25/22 14:10 Sodium 131 mmol/L (136-145) L 02/04/22 07:01 Potassium 4.4 mmol/L (3.5-5.1) 02/04/22 07:01 Chloride 94 mmol/L (98-107) L 02/04/22 07:01 Carbon Dioxide 27 mmol/L (22-29) 02/04/22 07:01 Anion Gap 14.4 (5-19) 02/04/22 07:01 BUN 11 mg/dL (8-23) 02/04/22 07:01 Creatinine 0.7 mg/dL (0.7-1.2) 02/04/22 07:01 GFR Calculation Not Reportable 02/04/22 07:01 Glucose 242 mg/dL (65-115) H 02/04/22 07:01 POC Glucose 293 mg/dL (70-110) H 02/04/22 11:12 Calculated Osmolality 279 mOsm/kg (285-295) L 02/04/22 07:01 Lactate 3.4 mmol/L (0.5-2.2) H 01/25/22 20:20 Calcium 9.8 mg/dL (8.5-10.5) 02/04/22 07:01 Phosphorus 2.8 mg/dL (2.5-4.5) 02/04/22 07:01 Magnesium 1.6 mg/dL (1.7-2.3) L 02/04/22 07:01 Total Bilirubin 0.6 mg/dL (0.15-1.2) 02/04/22 07:01 AST 48 U/L (0-40) H 02/04/22 07:01 ALT 35 U/L (0-41) 02/04/22 07:01 Alkaline Phosphatase 82 IU/L (40-130) 02/04/22 07:01 Ammonia 35 umol/L (16-60) 01/28/22 07:27 Creatine Kinase 136 U/L (39-308) 01/31/22 04:12 Troponin T Gen 5 ng/L 677 ng/L (0-15) H* 01/26/22 04:51 Troponin T Baseline 19 ng/L (0-15) H 01/25/22 14:10 Troponin T 120 Minute 63.93 ng/L (0-15) H 01/25/22 16:45 Delta Troponin T 44.93 ABS# (0-10) H* 01/25/22 16:45 Troponin T Hi Sens 6Hr 198.0 ng/L (0-15) H 01/25/22 20:20 Troponin T Hi Sens 6Hr Delta 179.0 ng/L (0-12) H* 01/25/22 20:20 C-Reactive Protein 134.0 mg/L (0.0-4.9) H 01/28/22 07:27 NT-Pro-B Natriuret Pep 472 pg/mL (0-125) H 02/04/22 07:01 Total Protein 7.4 g/dL (6.6-8.7) 02/04/22 07:01 Albumin 3.4 g/dL (3.5-5.2) L 02/04/22 07:01 Globulin 4.0 g/dL (1.3-4.6) 02/04/22 07:01 Lipase 13 U/L (13-60) 01/25/22 14:10 Procalcitonin 0.19 ng/mL (0-0.5) 01/25/22 14:10 TSH 1.44 uIU/mL (0.27-4.20) 01/25/22 14:10 Free T4 0.91 ng/dL (0.82-1.77) 01/25/22 14:10 Urine Color Yellow (Yellow) 01/25/22 14:30 Urine Appearance Hazy (CLEAR) A 01/25/22 14:30 Urine pH 8 (5-7) H 01/25/22 14:30 Ur Specific [place] 1.015 (1.005-1.030) 01/25/22 14:30 Urine Protein Trace (Negative) 01/25/22 14:30 Urine Glucose (UA) Norm (Normal) 01/25/22 14:30 Urine Ketones 1+ (Negative) H 01/25/22 14:30 Urine Blood 3+ (Negative) H 01/25/22 14:30 Urine Nitrate Positive (Negative) H 01/25/22 14: Urine Bilirubin Neg (Negative) 01/25/22 14: Prot Sulfosalicylic Acd Negative (Negative) 01/25/22 14:30 Urine Urobilinogen 1 mg/dL (Negative) H 01/25/22 14:30 Ur Leukocyte Esterase 2+ (Negative) H 01/25/22 14:30 Urine RBC 40-50 /hpf (0-2) H 01/25/22 14:30 Urine WBC 80-100 /hpf (0-5) H 01/25/22 14:30 Ur Squamous Epith Cells None /hpf (0-5) 01/25/22 14:30 Amorphous Sediment Not Reportable 01/25/22 14:30 Urine Bacteria 2+ /hpf (NONE) H 01/25/22 14:30 Urine Mucus 1+ /hpf 01/25/22 14:30 Vancomycin Trough 12.7 ug/mL (10-15) 01/30/22 17:38 Salicylates < 0.3 mg/dL (3-10) L 01/25/22 14:10 Acetaminophen < 5.0 ug/mL (10-30) L 01/25/22 14:10 Ethyl Alcohol < 10 mg/dL (0-10) 01/25/22 14:10 Coronavirus 229E (PCR) Not detected (NOT DETECT) 01/28/22 11:45 SARS-CoV-2 (PCR) Not detected (NOT DETECT) 01/28/22 11:45 Vitals Last Vital Signs Temp 97.8 F 02/04/22 11:05 Pulse 69 02/04/22 11:05 Resp 18 02/04/22 11:05 BP 127/70 02/04/22 11:05 Pulse Ox 99 02/04/22 11:05 Discharge Plan Discharge Patient Disposition: Xfer SNF Condition: Stable Prescriptions: New pantoprazole 40 mg Tablet,Delayed Release (Dr/Ec) 40 mg PO Q24H 30 Days Qty: 30 0RF metoprolol succinate 50 mg Tablet Extended Release 24 Hr 50 mg PO 0900,2100 30 Days Qty: 60 0RF spironolactone 25 mg Tablet 50 mg PO DAILY 30 Days Qty: 60 0RF Entresto 24-26 mg Tablet 2 ea PO BID 30 Days Qty: 120 0RF aspirin 81 mg Tablet,Delayed Release (Dr/Ec) 81 mg PO DAILY 30 Days Qty: 30 0RF nitroglycerin 0.4 mg Tablet, Sublingual 0.4 mg sublingual Q5M PRN (Reason: Chest Pain) 30 Days Qty: 30 0RF amoxicillin-pot clavulanate 875-125 mg Tablet 1 tab PO BID 7 Days Qty: 14 0RF doxycycline monohydrate 100 mg Tablet 100 mg PO BID 7 Days Qty: 14 0RF furosemide 40 mg Tablet 40 mg PO BID@08,16 30 Days Qty: 60 0RF clopidogrel 75 mg Tablet 75 mg PO DAILY 30 Days Qty: 30 0RF potassium chloride [Klor-Con M20] 20 mEq tablet,ER particles/crystals 20 meq PO DAILY 30 Days Qty: 30 0RF Continued cyclobenzaprine 10 mg tablet 5 - 10 mg PO DAILY PRN (Reason: Muscle Pain) 0RF atorvastatin 20 mg tablet 20 mg PO DAILY 0RF metformin 1,000 mg tablet 1,000 mg PO BID 0RF omeprazole 20 mg capsule,delayed release(DR/EC) 20 mg PO DAILY 0RF gabapentin 100 mg capsule 100 mg PO TID PRN (Reason: Pain) 0RF Narcan 4 mg/actuation spray,non-aerosol 1 spray INTRANASAL . DIRECTED PRN (Reason: overdose) 0RF hydrocodone-acetaminophen 5-325 mg tablet 1 tab PO QID PRN (Reason: Pain) 7 Days Qty: 0 0RF Changed Lantus U-100 Insulin 100 unit/mL solution 20 unit SUBCUT BID Qty: 0 0RF insulin lispro 100 unit/mL solution See Rx Instructions .ROUTE .COMPLEX Qty: 10 0RF Rx Instructions: Inject, subcut, 3 times daily, after meals, based on moderate dose sliding scale Discontinued meloxicam 15 mg tablet 15 mg PO DAILY 0RF metoprolol succinate 200 mg tablet extended release 24 hr 200 mg PO DAILY 0RF amlodipine 2.5 mg tablet 2.5 mg PO DAILY 0RF Discharge Orders: Discharge Order (Routine); Ordered 02/04/22 Ordered By: Deondre Mays Referrals: [facility] [Outside] Terri Montez FNP [Nurse Practitioner] - 4-7 days Tashi Mora DO [Primary Care Provider] - Discharge Diet: Cardiac Discharge Activity: Resume usual activity Patient Instructions: Post Angiogram Home Care Instructions Activity Restrictions/Additional Instructions: - Please take Lasix as prescribed, recheck kidney function, potassium in 1 week -Take insulin as prescribed -Lantus 20 and is twice daily -Moderate dose insulin sliding scale -Inject subcu, 3 times daily, after meals, based on sliding scale moderate dose -If blood sugar in the 500 call primary care -If blood sugar less than 60 drink or juice or eat a hard candy go to emergency room or call primary care -Bilateral extremity cellulitis take antibiotics -Follow-up with cardiology in 1 week -If any recurrent chest pain go to the emergency room Discharge Attestations Time Spent in Discharge Care*: less than 30 min Quality Metrics Clinical Quality Measures [ Acute Myocardial Infaction { Clinical Trial Participant: No; Contraindication to aspirin: None; Aspirin prescribed; Contraindication to statin: None; Statin prescribed; Contraindication to PCI: None; PCI performed;}] Coding Level of Care Code Acute [facility] note Diagnoses CHF (congestive heart failure), NYHA class III I50.9 NSTEMI (non-ST elevated myocardial infarction) I21.4 Hypertension I10 Hyperlipidemia E78.5 Insulin dependent type 2 diabetes mellitus E11.9; Z79.4
--- NOTE | 2022-02-04 12:47 | P.PN_ITS ---
Subjective Subjective: No chest pain. Feels good ; s/p Successful revascularization of proximal to mid LCx with orbital arthrectomy and BENNY X1 Last 24 hr: 24 hr: -2 L; LOS -19.5 L, -30 lb Medications: Reviewed: Yes Medication Review Details: Current Medications Acetaminophen (Acetaminophen 325 Mg Tablet) 650 mg PO Q6H PRN PRN Reason: MILD PAIN Al Hydrox/Mg Hydrox/Simethicone (Dhtu-Cdt-Txuwdnyjx-Maximiliano 30 Ml Udc) 30 ml PO Q15M PRN PRN Reason: INDIGESTION Alprazolam (Alprazolam 0.5 Mg Tablet) 0.25 mg PO TID PRN PRN Reason: ANXIETY Aspirin (Aspirin 81 Mg Ec Tablet) 81 mg PO DAILY [facility] Last Admin: 01/30/22 08:15 Dose: 81 mg Documented by: Atorvastatin Calcium (Atorvastatin 40 Mg Tablet) 40 mg PO DAILY [facility] Last Admin: 01/30/22 08:16 Dose: 40 mg Documented by: Atropine Sulfate (Atropine 1 Mg/Ml Sdv 1 Ml) 0.5 mg IVP PRN PRN PRN Reason: Symptomatic bradycardia Atropine Sulfate (Atropine 1 Mg/Ml Sdv 1 Ml) 0.5 mg IVP PRN PRN PRN Reason: Symptomatic bradycardia Clopidogrel Bisulfate (Clopidogrel 75 Mg Tablet) 75 mg PO DAILY [facility] Last Admin: 01/30/22 08:15 Dose: 75 mg Documented by: Dextrose (Dextrose 50% Syringe 50 Ml) 25 ml IVP ONCE PRN; Protocol PRN Reason: hypoglycemia protocol Dextrose (Dextrose 50% Syringe 50 Ml) 50 ml IVP PRN PRN; Protocol PRN Reason: hypoglycemia protocol Fentanyl (Fentanyl 50 Mcg/Ml Inj 2ml) 50 mcg IVP PRN PRN PRN Reason: Prior to sheath removal Fentanyl (Fentanyl 50 Mcg/Ml Inj 2ml) 50 mcg IVP PRN PRN PRN Reason: PAIN Furosemide (Furosemide 10 Mg/Ml Sdv 4ml) 40 mg IVP Q12H [facility] Last Admin: 01/31/22 05:42 Dose: 40 mg Documented by: Gabapentin (Gabapentin 100 Mg Capsule) 100 mg PO TID PRN PRN Reason: Pain Glucagon (Glucagon 1 Mg/Ml Inj 1 Ml) 1 mg IM ONCE PRN; Protocol PRN Reason: Adult Acute Hypoglycemia Prot. Guaifenesin/Codeine Phosphate (Guaifenesin-Codeine Udc 10 Ml) 5 ml PO Q4H PRN PRN Reason: COUGH Dextrose (D5w) 500 mls @ 100 mls/hr IV ONCE PRN; Protocol PRN Reason: Adult Acute Hypoglycemia Prot Piperacillin Sod/Tazobactam (Sod 3.375 gm/ Sodium Chloride) 50 mls @ 12.5 mls/hr IV Q8H [facility]; Protocol Last Admin: 01/31/22 03:11 Dose: 12.5 mls/hr Documented by: Vancomycin/PEG/NADA/Lysine/Water (Vancocin) 1,500 mg in 300 mls @ 200 mls/hr IV Q12H [facility] Last Admin: 01/31/22 05:42 Dose: 150 mls/hr Documented by: Lidocaine HCl 5 ml/ Potassium (Chloride) 105 mls @ 50 mls/hr IV ONCE ONE Stop: 01/31/22 09:28 Insulin Glargine (Insulin Glargine 100 Units/1 Ml) 10 unit SUBCUT Q12H [facility] Last Admin: 01/30/22 20:30 Dose: 10 unit Documented by: Insulin Human Lispro (Insulin Lispro 100 Unit/1 Ml) 0 unit SUBCUT WM&BEDTIME [facility]; Protocol Last Admin: 01/30/22 20:31 Dose: 14 unit Documented by: Losartan Potassium (Losartan 50 Mg Tablet) 50 mg PO DAILY [facility] Last Admin: 01/30/22 08:15 Dose: 50 mg Documented by: Magnesium Hydroxide (Magnesium Hydroxide 30 Ml Udc) 30 ml PO DAILY PRN PRN Reason: CONSTIPATION Metoprolol Succinate (Metoprolol Succinate Er (24 Hr) 50 Mg Tablet) 50 mg PO 0900,2100 [facility] Last Admin: 01/30/22 20:31 Dose: 50 mg Documented by: Naloxone HCl (Naloxone 0.4 Mg/Ml Sdv) 0.1 mg IVP Q2M PRN PRN Reason: RESPIRATORY RATE < 8/MIN Nitroglycerin (Nitroglycerin 0.4 Mg Sublingual Tablet) 0.4 mg SUBLINGUAL Q5M PRN PRN Reason: CHEST PAIN Ondansetron HCl (Ondansetron 2 Mg/Ml Sdv 2 Ml) 4 mg IVP Q8H PRN PRN Reason: vomiting, or N/V if npo Pantoprazole Sodium (Pantoprazole Dr 40 Mg Tablet) 40 mg PO Q24H [facility] Last Admin: 01/30/22 15:56 Dose: 40 mg Documented by: Potassium Chloride (Potassium Chloride Er 10 Meq Tablet) 20 meq PO BID NEFTALI Temazepam (Temazepam 15 Mg Capsule) 15 mg PO BEDTIME PRN PRN Reason: INSOMNIA Vitals/I&O/Wt Last Vital Signs Temp 97.8 F 02/04/22 11:05 Pulse 69 02/04/22 11:05 Resp 18 02/04/22 11:05 BP 127/70 02/04/22 11:05 Pulse Ox 99 02/04/22 11:05 02/03/22 02/04/22 02/04/22 22:59 06:59 14:59 Intake Total 356 / 593 480 / 480 Output Total 1290 / 1940 700 / 2640 540 / 540 Balance -934 / -1347 -700 / -2047 -60 / -60 Weight last 48 hrs Weight 270 lb 4.8 oz Weight 273 lb Physical Exam Narrative: GENERAL: Obese man sitting in bed in no acute distress HEENT: Extraocular movement intact. ? No pallor or icterus. NECK: Mild JVD,? No carotid bruit. CARDIOVASCULAR SYSTEM: S1-S2 regular.? No murmur rubs or gallops. RESPIRATORY SYSTEM: Chest clear to auscultation.? No wheezes rhonchi or rubs heard. No use of accessory muscles. ABDOMEN: Soft, nontender and nondistended.? Normal bowel sounds present.? EXTREMITIES: No cyanosis. trace-1+ edema.? Bilateral leg erythema present. 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 No focal neurological deficits.? SKIN: Normal turgor and temperature.? No breakdown, rash or nail changes noted. Const: COMMON NORMALS: no acute distress, patient oriented x3 and alert GENERAL APPEARANCE: cooperative, comfortable, well kempt, well hydrated and other (morbidly obese) HENMT: COMMON NORMALS: hearing grossly normal bilaterally and external ears normal FACE & SINUS: normal facial exam NOSE: No nasal discharge present; no Epistaxis present EXTERNAL EAR: Yes external ears normal MOUTH: lip normal Eye: COMMON NORMALS: EOMs intact bilaterally and no scleral icterus GENERAL EYE: appearance normal, both eyes and all related structures ALIGNMENT: Yes alignment normal Neck/C-Spine: COMMON NORMALS: no lymphadenopathy, supple and no JVD GENERAL: Yes normal visual inspection and Yes trachea midline CAROTIDS: Yes normal carotid upstroke Lymph: LYMPHATIC: no lymphadenopathy noted Chest: COMMONS NORMALS: normal inspection of the chest and normal palpation of entire chest wall CHEST: Yes Symmetrical chest wall rise and No tenderness Resp: COMMON NORMALS: clear to auscultation bilaterally EFFORT & INSPECTION: Yes able to speak in complete sentences and No respiratory distress AUSCULTATION: clear to auscultation bilaterally, no crackles, no rales, no rhonchi and no wheezes OTHER: tachypnea+ Cardio: COMMON NORMALS: no JVD, regular rate, regular rhythm, S1 normal heart sound present, S2 normal heart sound present and Peripheral pulses 2+ throughout PALPATION: normal PMI RATE: regular rate RHYTHM: regular rhythm HEART SOUNDS: S1 normal heart sound present, S2 normal heart sound present, no gallops and no murmurs BRUITS: no carotid bruits PERIPHERAL PULSES: Peripheral pulses 2+ throughout, radial pulses present, posterior tibial pulses present and dorsalis pedis present GI: COMMON NORMALS: Soft to palpation AUSCULTATION: Yes normoactive bowel sounds PALPATION: Yes Soft to palpation, No Tenderness to palpation present (GI), No Guarding due to palpation present (GI) and No Rigid due to palpation PERCUSSION: tympanic to percussion : COMMON NORMALS: Yes no CVA tenderness BLADDER/KIDNEY EXAM: Yes no CVA tenderness Back/Pelvis: COMMON NORMALS: no CVA tenderness Extremity: GENERAL: No cyanosis, Yes edema (2-3+ bilateral leg edema) and No pallor Neuro: COMMON NORMALS: patient oriented x3 and no focal motor deficits SENSORIUM/ORIENTATION: Yes alert Psych: COMMON NORMALS: Normal thought process present and speech normal APPEARANCE: Yes well kempt SPEECH: Yes normal speech MOOD & AFFECT: Yes euthymic mood THOUGHT PROCESS: Normal thought process present THOUGHT CONTENT: Yes Normal thought content present Skin: LESIONS: no lesions OTHER: Bilateral lower extremity erythema upto the knees Urinary Catheter Management: Guzmán: Cath Placed During This Visit: yes, but has since been removed by the nurse Reason for Continuing Indwelling Catheter: Other Urinary Catheter Date of Insertion: 01/25/22 Urinary Catheter Time of Insertion: 17:30 Date Urinary Catheter Removed: 01/30/22 Time Urinary Catheter Discontinued: 11:45 Data : 02/04/22 07:01 02/04/22 07:01 A&P Assessment and plan (1) CHF (congestive heart failure), NYHA class III: -HFrEF -On lasix IV; possible change to PO in morning -I/O charting and daily weight -continue metoprolol -started on low dose entresto and aldactone Follow up in [facility] 1 week after discharge with Ms. Montez Plan to have RCA intervention in next few weeks as an outpatient. 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 Mccann's opinion and proceed from there. -He was not thought to be good candidate for CABG d/t poor targets. -Successful revascularization of proximal to mid LCx with orbital arthrectomy and BENNY X1 -continue ASA, plavixstatin, NTG SL. -It seems like Plavix was stopped by overnight nurse on 31 January 2022. I spoke to the pharmacist and asked him to file incident report. Plan to load patient with Plavix 600 mg x 1 today and resume Plavix 75 mg daily after that. -Follow up with [facility] in 1 week -Follow up with me in 2 months Status: Acute (3) Hypertension: BP well controlled Status: Acute (4) Hyperlipidemia: Status: Acute (5) Insulin dependent type 2 diabetes mellitus: Status: Acute Plan UTI : on antibiotics Abnormal LFT's Altered mental status: resolved Thank you for allowing me to participate in patient's care. Please feel free to call with questions or concerns Attestations Medical Necessity Statement*: As per primary team Coding Level of Care Code Acute [employer] Diagnoses CHF (congestive heart failure), NYHA class III I50.9 NSTEMI (non-ST elevated myocardial infarction) I21.4 Hypertension I10 Hyperlipidemia E78.5 Insulin dependent type 2 diabetes mellitus E11.9; Z79.4
[2022-02-04 13:29] LABS: SARS Covid-2 Antigen Negative (Negative)
== END 2022-02-04 14:06 | disposition skilled nursing facility (03) | DRG 246 ==
LOC: ER 15:10 → MEDSURG 16:09 → CSU 01-26 18:10
PROVIDERS: Internal Medicine; Internal Medicine Cardiovascular Disease; Admitting Provider Family Medicine; Emergency Provider Emergency Medicine; PCP Family Medicine; Visit Provider Family Medicine
PROC: 027034Z Dilation of Coronary Artery, One Artery with Drug-eluting Intraluminal Device, Percutaneous Approach (ICD-10-PCS; principal; 2022-01-29 08:30)
DX: I21.4 Non-ST elevation (NSTEMI) myocardial infarction (principal); I50.41 Acute combined systolic (congestive) and diastolic (congestive) heart failure; G93.41 Metabolic encephalopathy; L03.116 Cellulitis of left lower limb; L03.115 Cellulitis of right lower limb; N39.0 Urinary tract infection, site not specified; I11.0 Hypertensive heart disease with heart failure; F03.90 Unspecified dementia, unspecified severity, without behavioral disturbance, psychotic disturbance, mood disturbance, and anxiety; N40.0 Benign prostatic hyperplasia without lower urinary tract symptoms; E11.42 Type 2 diabetes mellitus with diabetic polyneuropathy; E78.5 Hyperlipidemia, unspecified; Z79.891 Long term (current) use of opiate analgesic; G89.29 Other chronic pain; M54.9 Dorsalgia, unspecified; E83.42 Hypomagnesemia; I25.10 Atherosclerotic heart disease of native coronary artery without angina pectoris; Z79.84 Long term (current) use of oral hypoglycemic drugs; E66.9 Obesity, unspecified; Z68.39 Body mass index [BMI] 39.0-39.9, adult
CPT/HCPCS: 36415; 36416; 51702; 70450; 71045; 73590; 74176; 80048; 80053; 80202; 80307; 81001; 82140; 82550; 82962; 83605; 83690; 83735; 83880; 84100; 84132; 84145; 84439; 84443; 84484; 85025; 85347; 85651; 86140; 87086; 87426; 87635; 92924; 93005; 93454; 93970; 94664; 96365; 96372; 97110; 97116; 97161; 97166; 97530; 97535; 99285; C1724; C1725; C1760; C1769; C1874; C1887; C1894; C8929; C9113; C9600; J0696; J1200; J1644; J1650; J1815 ×2; J1940; J2250; J2543; J3010; J3370; J3475; J3480; J3490; J7030; Q0163; Q9956; Q9967

== ENCOUNTER → 2022-02-11 09:08 | Outpatient (BNVA) | payer MEDICARE, SELFPAY | PROVIDERS: PCP Family Medicine; Visit Provider Nurse Practitioner Family | DX: I25.10 Atherosclerotic heart disease of native coronary artery without angina pectoris (principal); I11.0 Hypertensive heart disease with heart failure; I50.9 Heart failure, unspecified | CPT/HCPCS: 36415; 99214 ==

== ENCOUNTER → 2022-05-14 11:57 | Outpatient (BNVA) | payer MEDICARE, SELFPAY | PROVIDERS: PCP Family Medicine; Visit Provider Internal Medicine Cardiovascular Disease | DX: I25.10 Atherosclerotic heart disease of native coronary artery without angina pectoris (principal); I50.9 Heart failure, unspecified; R07.9 Chest pain, unspecified; E78.5 Hyperlipidemia, unspecified; E11.9 Type 2 diabetes mellitus without complications; Z79.4 Long term (current) use of insulin; I11.0 Hypertensive heart disease with heart failure | CPT/HCPCS: 36415; 80048; 83735; 83880; 99214 ==

== ENCOUNTER 2022-06-10 06:10 | Outpatient (CLI) | payer MEDICARE, SELFPAY ==
[2022-06-10 07:05] LABS: Basophils # 0.1 10^3/uL (0.0-0.1); Basophils % 0.8 %; Eosinophils # 0.4 10^3/uL (0.0-0.8); Eosinophils % 4.3 %; Hematocrit 36.2 % (42.0-52.0); Hemoglobin 12.3 g/dL (11.7-16.6); Lymphocytes # 3.6 10^3/uL (0.8-4.8); Mean Corpuscular Hemoglobin 34.5 pg (28.0-34.0); Mean Corpuscular Volume 101.4 fl (80-94); Mean Platelet Volume 9.4 fL (7.4-10.4); Monocytes % 11.9 %; Neutrophils # 3.35 10^3/uL (1.8-7.7); Neutrophils % 39.9 %; Nucleated Red Blood Cells % 0 %; Platelet Count 228 10^3/cmm (130-400); Red Blood Count 3.57 10^6/uL (4.1-5.3); Red Cell Distribution Width 14.2 % (12.1-15.1); White Blood Count 8.4 10^3/uL (4.0-10.0)
[2022-06-10] MEDS: diphenhydrAMINE 50 mg Capsule PO (07:28)
[2022-06-10 07:40] LABS: Anion Gap 17.4 (5-19); Blood Urea Nitrogen 19 mg/dL (8-23); Carbon Dioxide 26 mmol/L (22-29); Chloride 95 mmol/L (98-107); Glucose 197 mg/dL (65-115); Osmolality Calculated 286 mOsm/kg (285-295); Potassium 4.4 mmol/L (3.5-5.1); Sodium 134 mmol/L (136-145)
--- NOTE | 2022-06-10 07:46 | PC.NURSE ---
0746: Per Dr. Gayle patient to be rescheduled for atherectomy with surgical back-up for the first week in June.
== END 2022-06-10 06:11 | disposition home or self-care (01) ==
PROVIDERS: PCP Family Medicine; Visit Provider Internal Medicine
DX: R07.9 Chest pain, unspecified (principal); I50.9 Heart failure, unspecified; I25.10 Atherosclerotic heart disease of native coronary artery without angina pectoris; Z53.8 Procedure and treatment not carried out for other reasons
CPT/HCPCS: 80048; 85025; J1644; J2250; J3010; J3490; J7030; Q0163

== ENCOUNTER 2022-06-23 10:08 | Observation (INO) | payer MEDICARE, SELFPAY ==
[2022-06-23] VITALS (8 sets, daily range): BP systolic 111–151; BP diastolic 54–75; PULSE 66–105; RESP 16–20; TEMP 36.1–37; O2SAT 95–100; BMI 39.4
--- NOTE | 2022-06-23 06:36 | XACV_ITS ---
Ht: 175 cm Wt: 121 kg BSA: 2.48 m2 Gender: Male : 1950 Any Known Allergies: No known allergies Exam Priority: Routine Procedure(s): Procedure Description: Diagnostic procedure Procedure Description: PCI procedure Procedure Description: Drug Eluting Coronary Stent Procedure Description: PTCA Procedure Description: Coronary Atherectomy Procedure Description: Miscellaneous Procedure Description: Angio-Seal Procedure Description: ACT Procedure Description: Coronary Angiography Diagnostic Cath Status: Elective Diagnostic Findings * INDICATION: 71-year-old woman with past medical history of CAD s/p PCI of left circumflex artery, insulin-dependent diabetes, hypertension who has presented for staged high risk PCI of RCA with arthrectomy. Patient had presented with non-ST elevation CA in January with culprit lesion being left circumflex artery. Denies chest pain. Has dyspnea on exertion. Also has lower extremity edema. * Circumflex has patent prior stent. * RCA has severe heavily calcified disease from proximal to mid RCA. * P * roximal Right Coronary Artery: critical 95% stenosis, DEVI: 3 flow. * Left Main has no disease. * Proximal Left Anterior Descending: total occlusion, DEVI: 0 flow. * Proximal Right Coronary Artery to Mid Right Coronary Artery: severe 90% stenosis, DEVI: 3 flow. * Mid Right Coronary Artery to Distal Right Coronary Artery: severe 85% stenosis, DEVI: 3 flow. * Coronary angiography shows right dominance. PCI Status: Elective PCI Indication: Staged PCI Interventional Findings * PROCEDURE NOTE: After obtaining access in right common femoral artery we switched short sheath to the long sheath. We engaged RCA with a AL 0.75 guide catheter. IV heparin was administered to maintain ACT above 250 S. We crossed the proximal to mid heavily calcified lesions with run-through guidewire. Using small [id number] balloon we exchanged wires to a Viper wire. Orbital arthrectomy was performed multiple times from proximal to mid RCA. We then predilated the vessel with 2.75 x 20 mm semicompliant balloon. We then placed a 3.5 x 38 mm resolute Leonardo drug-eluting stent in the mid RCA. We then had to switch guide to JR4 as AL guide was jumping into the vessel. Using guide liner we delivered a 3.5 x 34 mm drug-eluting stent from proximal to mid RCA and then a third stent was placed from ostial to proximal RCA measuring 3.5 x 18 mm resolute Leonardo drug-eluting stent. We postdilated the stents with 3.75 x 15 mm NC balloon. At this time final angiogram was performed that showed excellent stent expansion, no residual stenosis and DEVI-3 flow. Guidewire and guide catheter were removed. Patient left the Community Mental Health Worker in a stable condition. * Proximal Right Coronary Artery: 95% stenosis treated with a AB TREK 2.75X20 RX BALLOON, MDT R LEONARDO 3.5X34 BENNY, and MDT NC EUPHORA RX [id number] BALLOON. 0% residual stenosis, DEVI: 3 flow. * Proximal Right Coronary Artery to Mid Right Coronary Artery: 90% stenosis treated with a MDT R LEONARDO 3.5X18 BENNY. 0% residual stenosis, DEVI: 3 flow. * Mid Right Coronary Artery to Distal Right Coronary Artery: 85% stenosis treated with a AB TREK 2.75X20 RX BALLOON, and MDT R LEONARDO 3.5X38 BENNY. 0% residual stenosis, DEVI: 3 flow. Conclusions 1. Severe, heavily calcified proximal to mid RCA 2. stenosis s/p successful revascularization with arthrectomy and BENNY x3.. 3. Proximal Right Coronary Artery was treated with a Balloon, Drug Eluting Stent, and Balloon. 4. Proximal Right Coronary Artery to Mid Right Coronary Artery was treated with a Drug Eluting Stent. 5. Mid Right Coronary Artery to Distal Right Coronary Artery was treated with a Balloon, and Drug Eluting Stent. Recommendations * Dual antiplatelet therapy with aspirin and Plavix for at least 1 year. * High intensity statin therapy. * Outpatient cardiology follow-up in 4 weeks. Interventional RX Recommendation: PCI w/o planned CABG Diagnostic RX Recommendation: PCI w/o planned CABG Anticoagulation: Heparin Pressures Phase:Rest AO : 121 / 66 ( 90 ) @ 8:57:00 AM 185 / 86 ( 117 ) @ 9:10:00 AM 90 / 53 ( 70 ) @ 9:27:00 AM 70 / 62 ( 68 ) @ 9:32:00 AM 75 / 63 ( 69 ) @ 9:33:00 AM 80 / 70 ( 75 ) @ 9:33:00 AM 76 / 67 ( 72 ) @ 9:37:00 AM 131 / 122 ( 120 ) @ 9:39:00 AM 70 / 50 ( 60 ) @ 9:49:00 AM 83 / 62 ( 72 ) @ 9:52:00 AM 89 / 63 ( 77 ) @ 9:54:00 AM Clinical Evaluation EBL: 5mL-10mL Procedural Details Procedure Consent Obtained. Admit Source: Out Patient. Pre-Procedure Time Out. Identified patient by full name and date of as verbalized by the patient/guarantor. Does the consent match the physician's order: Yes. Accurate & Complete Informed Consent: Yes. Inpatient/Outpatient History & Physical on Chart: Yes. If H&P is completed, is and addenduem needed: No; If yes, is the addendum complete: N/A. Visualize and Verify Site with Patient/Guarantor: N/A. Relevant Radiology Images available: N/A. Procedure started. [facility] Clinical Fraility Score: 4: Vulnerable. Community Mental Health Worker Indications: Cardiomyopathy. Chest Pain Symptom Assessment: Typical Angina Symptoms. Cardiovascular Instability: No, if yes, stable. Correct patient, site and procedure confirmed by cath team. Current diagnosis: known cad, staged pci with atherectomy planned of the rca. PERRLA. Strong, equal hand director pharmaceutical bilaterally. Lungs clear x 5 lobes. IV Site on Arrival: 20 gauge in the right hand. IV Fluids: 0.9% NaCl at KVO. 0 mL infused prior to energy systems laboratory director. Pre Procedural Pulses: bilateral posterior tibial was Doppled. Pre Procedural Pulses: bilateral dorsalis pedis was Doppled. Pre Procedural Pulses: bilateral radial was 1+. Oxygen started at 3liters/min via nasal canula. bilateral groins was prepped with chloroprep then draped in the usual sterile fashion. Baseline sample Acquired. HR: 74 BPM. Physician notified. Family updated prior to the start of the procedure. Equipment: 6F - Femoral. Cardiac Cath Pack. ACLLUSTRE Manifold Kit Model BT 2000. Heparinized Saline (2 units/mL), 1000 mL bag. Equipment: 5F - Femoral. Physician arrived. Physician scrubbed in. Immediate Pre-Procedure Time Out. Correct Patient: Yes; Correct Procedure: Yes; Correct Site: Yes; Correct Patient Position: Yes; Correct Supplies: Yes; Dried Flammable Prep: Yes; Blood Products Available: N/A;. Lidocaine 1% infiltrated to the right groin. Arterial access obtained. Venous access obtained. Sheath upsized to a 6 Fr. A CRD 5F JL4 Diagnostic Catheter was advanced over the wire and used for Left coronary angiography. Multiple views taken of left coronary artery. Catheter removed over the wire. Inventory is CRD 6FR AL .75 GUIDE. 6 irish AL 0.75 guide catheter was inserted over the wire. Guide seated in the RCA. Guide removed over the wire. INVENTORY: 6 FR AL .75 SH. 6 irish AL 0.75 SH guide catheter was inserted over the wire. Guide seated in the RCA. Anesthesia notified to assist with sedation of the patient. Inventory: 300 cm Runthrough. 300 cm Runthrough guidewire was advanced through the guide catheter to lesion in the prox RCA. Dr Zambrano here from anesthesia. Discussed anesthesia availability then left. Runthrough out. Guide reseated over the standard wire. 300 cm Runthrough guidewire was advanced through the guide catheter to lesion in the prox RCA. Runthrough out. Arterial sheath to KVO to maintain patency. pending anesthesia availability. Dr Ortiz from anesthesia arrived. Anesthesia to monitor and sedated patient. Procedure resumed. Guide reseated in the RCA. 300 cm Runthrough guidewire was advanced through the guide catheter to lesion in the prox RCA. Guidewire advanced across lesion. 1.25X 6 Sprinter OTW balloon inserted over the Runthrough wire. Runthrough wire out. Coronary Viper wire inserted through the Sprinter Balloon. Sprinter balloon out. Angiography performed. Coronary 1.25 jennifer inserted. ACT drawn. Results 397 seconds. Therapeutic limits - pre-heparin administration 90-150 seconds and monitoring heparin during a vascular procedure >250 seconds. Jennifer tested on the wire outside body. 1.25 coronary jennifer inserted. Atherectomy of the Proximal RCA performed for 25 seconds. Atherectomy of the Proximal RCA performed for 21 seconds. Atherectomy of the Proximal RCA performed for 25 seconds. Jennifer advanced to MID RCA. Atherectomy of the Mid RCA performed for 25 seconds. Atherectomy of the Proximal RCA performed for 23 seconds. Atherectomy of the Proximal RCA performed for 25 seconds. Angiography performed. Atherectomy of the Proximal RCA performed for 25 seconds. CSI jennifer removed over the wire. Sprinter balloon insterted over the Coronary viper wire. Viper wire removed. 300 cm Runthrough reinserted through the Sprinter ballon. Seated in the DA. Sprinter Balloon out over the wire. Inflation number : 1 A AB TREK 2.75X20 RX BALLOON was prepped and advanced across the Mid RCA , then inflated to 14 ZENAIDA for 0:21 seconds. Inflation number: 2 The AB TREK 2.75X20 RX BALLOON was reinflated across the Mid RCA, to 14 ZENAIDA for 0:13 seconds. Inflation number: 3 The AB TREK 2.75X20 RX BALLOON was reinflated across the Mid RCA, to 14 ZENAIDA for 0:16 seconds. Inflation number: 1 The AB TREK 2.75X20 RX BALLOON was reinflated across the Prox RCA, to 14 ZENAIDA for 0:18 seconds. Balloon out over the wire. Results checked. Inflation Number : 4 A LALO Coelho LEONARDO 3.5X38 BENNY -Lot Number# [id number] was prepped and advanced across the Mid RCA. The stent was deployed at 12 ZENAIDA for 0:25 seconds. EXP 11/19/2024. Stent ballon out over the wire. Results checked. Stent inserted. No cross. Removed intact. Guideliner inserted. Wire and guide came back during guideliner inserted. Wire and guideliner removed. Guide removed over the wire. Inventory is CRD 6FR JR 4 GUIDE 100cm. 6 irish JR 4 guide catheter was inserted over the wire. Guide seated in the RCA. Inventory is TR 180cm Runthrough NS extra floppy 0.014 wire. Runthrough guidewire was advanced through the guide catheter to lesion in the prox RCA. Guidewire advanced across lesion. Guideliner inserted for crossing support. Family updated by CPRU rn. Inflation Number : 2 A MDT R LEONARDO 3.5X34 BENNY -Lot Number#[id number] was prepped and advanced across the Prox RCA. The stent was deployed at 14 ZENAIDA for 0:21 seconds. EXP 04-19-2024. Angiography performed, checking results. ACT drawn. Results 330 seconds. Therapeutic limits - pre-heparin administration 90-150 seconds and monitoring heparin during a vascular procedure >250 seconds. Inflation Number : 1 A MDT R LEONARDO 3.5X18 BENNY -Lot Number#[id number] was prepped and advanced across the Prox RCA1. The stent was deployed at 15 ZENAIDA for 0:21 seconds. EXP 12-02-2024. Stent balloon out over wire. Balloon inserted to lesion in the prox RCA. Inflation number : 3 A MDT NC EUPHORA RX [id number] BALLOON was prepped and advanced across the Prox RCA , then inflated to 12 ZENAIDA for 0:11 seconds. Inflation number: 4 The MDT NC EUPHORA RX [id number] BALLOON was reinflated across the Prox RCA, to 12 ZENAIDA for 0:18 seconds. Inflation number: 5 The MDT NC EUPHORA RX [id number] BALLOON was reinflated across the Prox RCA, to 14 ZENAIDA for 0:13 seconds. Inflation number: 6 The MDT NC EUPHORA RX [id number] BALLOON was reinflated across the Prox RCA, to 14 ZENAIDA for 0:16 seconds. Balloon out. Angiography performed. Wire out. Angiography performed. ACT drawn. Results 262 seconds. Therapeutic limits - pre-heparin administration 90-150 seconds and monitoring heparin during a vascular procedure >250 seconds. Guide out over the wire. Sheath upsized to a 6 Fr. A Right femoral angiogram was performed to determine safe placement of closure device. A Angio-Seal VIP ([facility]) was successful obtaining hemostatsis at the Right Femoral artery insertion site. Physician scrubbed out. A Suture was successful obtaining hemostatsis at the Right Femoral vein insertion site. Sheath(s) sutured into position with 2-0 silk and sterile 4x4's and Op-site applied over the site. No oozing or signs and symptoms of hematoma noted. Venous sheath flushed and capped. Angioseal placed without complications. No signs or symptoms of hematoma noted. Sterile dressing applied per usual sterile fashion. EXP 04-16-2023 LOT # [id number]. Post Procedure: Pulses reassessed and unchanged. PERRLA. Strong, equal hand director pharmaceutical bilaterally. No VTE prophylaxis required. MEDICATION WASTE: Heparin 2,000 units Lidocain 1 ml Versed 1 mg Nitro 49 mg. Total IV fluids: 750 mL. Fluoro: 34:07. Contrast type used: Omnipaque 350 mgI/mL, 500 mL bottle. [id number]. Post-op diagnosis: Severe proximal and mid calcified RCA stenosis; status post atherectomy and BENNY placement. Complications: None. Estimated blood loss: 5mL-10mL. Responsiveness - Normal response to verbal stimuli; alert and oriented, PERRLA. Airway - Unaffected, no intervention required; spontaneous ventilation. Circulation: W/N/L, pulses unchanged. Nausea/Vomiting: No. Procedure completed. Patient transferred by bed to [facility]. Vital chart was stopped. Access Site Site: Right Femoral artery Sheath Size: 6 Fr Hemostasis Method: Angio-Seal VIP ([facility]) Hemostasis Success: Successful Site: Right Femoral vein Sheath Size: 4 Fr Hemostasis Method: Suture Hemostasis Success: Successful Procedure Medications Start: 7:41 AM Stop: 7:41 AM Medication: Versed Amount: 1 mg Route: I.V. Start: 7:41 AM Stop: 7:41 AM Medication: Fentanyl Amount: 50 mcg Route: I.V. Start: 7:43 AM Stop: 7:43 AM Medication: Versed Amount: 1 mg Route: I.V. Start: 7:45 AM Stop: 7:45 AM Medication: Heparin Amount: 42919 units Route: I.V. Start: 7:46 AM Stop: 7:46 AM Medication: Fentanyl Amount: 25 mcg Route: I.V. Start: 7:59 AM Stop: 7:59 AM Medication: Fentanyl Amount: 25 mcg Route: I.V. Start: 8:02 AM Stop: 8:02 AM Medication: Versed Amount: 1 mg Route: I.V. Start: 8:09 AM Stop: 8:09 AM Medication: Heparin Amount: 1000 units Route: I.V. Start: 8:46 AM Stop: 8:46 AM Medication: Heparin Amount: 1000 units Route: I.V. Start: 8:54 AM Stop: 8:54 AM Medication: Heparin Amount: 1000 units Route: I.V. Start: 9:08 AM Stop: 9:08 AM Medication: Heparin Amount: 1000 units Route: I.V. Start: 9:30 AM Stop: 9:30 AM Medication: Plavix Amount: 600 mg Route: P.O. Start: 9:30 AM Stop: 9:30 AM Medication: Aspirin Amount: 325 mg Route: P.O. I, the attending physician, have reviewed and verified all procedure medications. Yes, all medications given per verbal order History/Risk Factors Hypertension: Yes Dyslipidemia: Yes Peripheral Arterial Disease (PAD): No Myocardial Infarction (CA): No Obesity: Yes Renal Disease: No Tobacco Use: Never Prior Interventions PCI: Yes CABG: No Valve Surgery: No Date of PCI: 01/29/2022 Report Signatures Finalized by Zay Gayle MD on 06/27/2022 01:30 PM
[2022-06-23] MEDS: diphenhydrAMINE 50 mg Capsule PO (06:40)
--- NOTE | 2022-06-23 07:27 | P.HP_ITS ---
Same Day Surgery H&P Indication for Procedure/HPI DATE OF PROCEDURE: June 23, 2022 CHIEF COMPLAINT/INDICATIONFOR SURGICAL PROCEDURE: Staged PCI of RCA with orbital arthrectomy/Multivessel CAD PREOP DIAGNOSIS: Staged PCI PLANNED PROCEDURE: Operation Date: 06/23/22 07:[address] [facility] W W/O 51209,R07.9,I50.9,I25.10(Left) - Zay Gayle M.D Percutaneous coronary intervention 71-year-old woman with past medical history of CAD s/p PCI of left circumflex artery, insulin-dependent diabetes, hypertension who has presented for staged high risk PCI of RCA. Patient had presented with non-ST elevation [place] in January with culprit lesion being left circumflex artery. Denies chest pain. Has dyspnea on exertion. Also has lower extremity edema. ROS CONSTITUTIONAL: No fever chills weight loss or gain or night sweats. [] HEENT: Normocephalic, atraumatic.[] RESPIRATORY: Dyspnea on exertion. CARDIOVASCULAR: He has dyspnea on exertion. No chest pain. GI: no nausea vomiting diarrhea. [] RESPITE CARE PROVIDER: No numbness, tingling, weakness or loss of function in any part of the body. [] MUSCULOSKELETAL: No knee or joint pain or rashes. [] Medications/Allergies* Home Medications Medication Instructions Recorded Confirmed Type cyclobenzaprine 10 mg tablet 5 - 10 mg PO DAILY PRN Muscle Pain 01/25/22 06/23/22 History gabapentin 100 mg capsule 100 mg PO TID PRN Pain 01/25/22 06/23/22 History metformin 1,000 mg tablet 1,000 mg PO BID 01/25/22 06/23/22 History naloxone 4 mg/actuation nasal 1 spray intranasal . DIRECTED 01/25/22 06/23/22 History spray (Narcan) PRN overdose omeprazole 20 mg capsule,delayed 20 mg PO DAILY 01/25/22 06/23/22 History release metoprolol succinate 50 mg 50 mg PO BID 04/22/22 06/23/22 History tablet,extended release 24 hr pantoprazole 40 mg tablet,delayed 40 mg PO DAILY 04/22/22 06/23/22 History release aspirin 81 mg tablet,delayed 81 mg PO DAILY 05/14/22 06/23/22 History release (Adult Low Dose Aspirin) clopidogrel 75 mg tablet 75 mg PO DAILY 05/14/22 06/23/22 History potassium chloride 20 mEq 20 meq PO DAILY 05/14/22 06/23/22 History tablet,extended release(part/cryst) spironolactone 50 mg tablet 50 mg PO DAILY 05/14/22 06/23/22 History Allergies/Adverse Reactions Allergy/AdvReac Type Severity Reaction Status Date / Time atorvastatin [From Lipitor] Allergy Severe cannot Verified 05/13/22 09:48 take statins Current Medications: Generic Name Dose Route Start Last Admin Trade Name Tom PRN Reason Stop Dose Admin Sodium Chloride 1,000 mls @ 50 mls/hr 06/23/22 06:36 06/23/22 06:56 Sodium Chloride 0.9% IV 06/24/22 02:35 Not Given .Q20H ONE Pertinent History/Comorbid Conditions* Medical History (Updated 02/11/22 @ 09:45 by ELGIN Henderson) Atherosclerosis of coronary artery CHF (congestive heart failure), NYHA class III Chronic prescription opiate use Dementia History of diabetic neuropathy Hyperlipidemia Hypertension Insulin dependent type 2 diabetes mellitus Surgical History (Updated 01/25/22 @ 16:51 by Deondre Mays MD) History of left knee replacement Social History Smoking and tobacco status: never smoked Alcohol intake: never Pertinent Exam Findings alert, oriented x 3, clear to auscultation bilaterally and regular rate & rhythm Conscious Sedation Assessment PATIENT ASSESSED PRIOR TO SEDATION, WITH NO CHANGE NOTED: Yes AIRWAY EVAL/ANESTHESIA PLAN: normal airway, ASA IV, Local Anesthesia, Risks, benefits & alternatives of sedation and/or procedure discussed and Patient agrees to continue as planned Recommendations Surgery/Procedure today (Left heart cath with percutaneous coronary intervention of RCA with orbital arthrectomy.) Coding Level of Care Code Acute Route Delivery Driver for Henrietta Ulloa
--- NOTE | 2022-06-23 10:51 | ANES.PREANE2 ---
Pre-Anesthetic Assessment Height/Weight: Height 1.75 m Weight 121.109 kg Temp Pulse Resp BP Pulse Ox O2 Del Method 98.3 F 71 20 H 111/73 98 06/23/22 10:00 06/23/22 10:15 06/23/22 10:15 06/23/22 10:15 06/23/22 06:26 06/23/22 10:30 Preop Diagnosis: Staged PCI Operation Date: 06/23/22 07:00 Proposed Procedures p [facility] W W/O 05842,R07.9,I50.9,I25.10(Left) - Paul Felix anesthetic complications: None Was Beta Ronan taken within 24 hours: Yes Was Clonidine taken within 24 hours: N/A Social No alcohol and No tobacco Exam clear to auscultation bilaterally and regular rate & rhythm Airway Submandibular: within normal limits Cervical ROM: Other (limited flexion and extension) Mallampati: Class III CV/HEM Coronary Artery Disease, Congestive Heart Failure and Hypertension GI Gastroesophageal Reflux Disease Metabolic Diabetes Mellitus, Hyperlipidemia and Morbid Obesity [facility] [place] Osteoarthritis/DJD Anesthetic Plan ASA status: 3E Anesthesia: MAC Other Pertinent Information Procedure was in process when we were asked to intervene and assist with sedation. Patient verbally agreed with anesthetic plan. Medications/Allergies Home Medications Medication Instructions Recorded Confirmed Last Taken Type cyclobenzaprine 10 mg tablet 5 - 10 mg PO DAILY PRN Muscle Pain 01/25/22 06/23/22 Unknown History gabapentin 100 mg capsule 100 mg PO TID PRN Pain 01/25/22 06/23/22 06/22/22 20:00 History metformin 1,000 mg tablet 1,000 mg PO BID 01/25/22 06/23/22 06/22/22 20:00 History naloxone 4 mg/actuation nasal 1 spray intranasal . DIRECTED 01/25/22 06/23/22 Unknown History spray (Narcan) PRN overdose omeprazole 20 mg capsule,delayed 20 mg PO DAILY 01/25/22 06/23/22 01/24/22 History release atorvastatin 40 mg tablet 40 mg PO DAILY #30 tabs 02/04/22 06/23/22 06/22/22 20:00 Rx nitroglycerin 0.4 mg sublingual 0.4 mg sublingual Q5M PRN chest 02/04/22 06/23/22 Unknown Rx tablet pain #30 tabs metoprolol succinate 50 mg 50 mg PO BID 04/22/22 06/23/22 06/22/22 20:00 History tablet,extended release 24 hr pantoprazole 40 mg tablet,delayed 40 mg PO DAILY 04/22/22 06/23/22 Unknown History release insulin glargine 100 unit/mL 50 unit (0.5 mL) SUBCUT BID #10 mL 05/13/22 06/23/22 06/22/22 23:30 Rx subcutaneous solution (Lantus U-100 Insulin) insulin lispro 100 unit/mL See Rx Instructions .Route 05/13/22 06/23/22 06/22/22 17:00 Rx subcutaneous solution .COMPLEX #10 mL sacubitril 24 mg-valsartan 26 mg 2 tab PO BID #360 tabs 05/13/22 06/23/22 06/22/22 20:00 Rx tablet (Entresto) aspirin 81 mg tablet,delayed 81 mg PO DAILY 05/14/22 06/23/22 06/22/22 08:00 History release (Adult Low Dose Aspirin) clopidogrel 75 mg tablet 75 mg PO DAILY 05/14/22 06/23/22 06/22/22 08:00 History potassium chloride 20 mEq 20 meq PO DAILY 05/14/22 06/23/22 06/22/22 08:00 History tablet,extended release(part/cryst) spironolactone 50 mg tablet 50 mg PO DAILY 05/14/22 06/23/22 Unknown History magnesium oxide 400 mg PO DAILY #90 caps 05/15/22 06/23/22 06/22/22 08:00 Rx furosemide 40 mg tablet 40 mg PO DIRECTED #270 tabs 06/02/22 06/23/22 06/22/22 08:00 Rx hydrocodone 5 mg-acetaminophen 325 1 tab PO QID PRN Pain 1 month #120 06/08/22 06/23/22 06/22/22 20:00 Rx mg tablet tabs Allergies Allergy/AdvReac Type Severity Reaction Status Date / Time atorvastatin [From Lipitor] Allergy Severe cannot Verified 05/13/22 09:48 take statins Current Medications Generic Name Dose Route Start Last Admin Trade Name Freq PRN Reason Stop Dose Admin Sodium Chloride 1,000 mls @ 50 mls/hr 06/23/22 06:36 06/23/22 06:56 Sodium Chloride 0.9% IV 06/24/22 02:35 Not Given .Q20H ONE PFSH Anesthesia Medical History Atherosclerosis of coronary artery CHF (congestive heart failure), NYHA class III Chronic prescription opiate use Dementia History of diabetic neuropathy Hyperlipidemia Hypertension Insulin dependent type 2 diabetes mellitus Surgical History History of left knee replacement Social History Smoking and tobacco status: never smoked Alcohol intake: never Data Anesthesia Cardiac Studies: Echocardiogram 01/26/22
--- NOTE | 2022-06-23 11:03 | ANE.PACU2 ---
Inpatient post-anesthesia follow up: Airway intact: Yes Vital signs: Temperature 98.3 F Pulse Rate 71 Respiratory Rate 20 Blood Pressure 111/73 Pulse Oximetry 98 Oxygen Delivery Me thod Nasal Cannula Oxygen Flow Rate Fraction of Inspir ed Oxygen Hydration adequate: Yes Nausea and vomiting: No Pain level: 2 Mental status: Baseline
[2022-06-23] MEDS: sodium chloride 0.9% 1,000 ML 100 ML IV (13:52)
[2022-06-23 16:53] LABS: Glucose Point of Care 330 mg/dL (70-110)
[2022-06-23] MEDS: insulin lispro 100 unit/1 mL SUBCUT ×2 (17:18→21:24)
--- NOTE | 2022-06-23 19:36 | PC.NURSE ---
Received bedside report from JACOB Murillo. [place] [facility] [place] is s/p LHC/RHC with right femoral and venous access. Dressing in place remains c,d,i with no s/s of bleeding or hematoma formation observed. Patient denies pain to site. No other distress observed. Patient denies other needs at this time. Will continue to monitor.
[2022-06-23 20:55] LABS: Glucose Point of Care 295 mg/dL (70-110)
[2022-06-24 03:17] LABS: Basophils # 0.1 10^3/uL (0.0-0.1); Basophils % 0.8 %; Eosinophils # 0.2 10^3/uL (0.0-0.8); Eosinophils % 1.8 %; Hematocrit 38.2 % (42.0-52.0); Hemoglobin 12.3 g/dL (11.7-16.6); Lymphocytes # 2.1 10^3/uL (0.8-4.8); Lymphocytes % 25.8 %; Mean Corpuscular HGB Conc 32.2 g/dL (30.0-36.0); Mean Corpuscular Hemoglobin 34.8 pg (28.0-34.0); Mean Corpuscular Volume 108.2 fl (80-94); Mean Platelet Volume 9.8 fL (7.4-10.4); Monocytes # 0.9 10^3/uL (0.2-0.9); Monocytes % 11.3 %; Neutrophils # 4.99 10^3/uL (1.8-7.7); Neutrophils % 60.1 %; Nucleated Red Blood Cells % 0 %; Platelet Count 243 10^3/cmm (130-400); Positive C 1; Red Blood Count 3.53 10^6/uL (4.1-5.3); Red Cell Distribution Width 14.1 % (12.1-15.1); White Blood Count 8.3 10^3/uL (4.0-10.0)
[2022-06-24 03:42] LABS: Blood Urea Nitrogen 11 mg/dL (8-23); Calcium 9.7 mg/dL (8.5-10.5); Carbon Dioxide 24 mmol/L (22-29); Chloride 97 mmol/L (98-107); Glucose 243 mg/dL (65-115); Osmolality Calculated 285 mOsm/kg (285-295); Sodium 134 mmol/L (136-145)
[2022-06-24 03:53] LABS: Anion Gap 17.5 (5-19); Potassium 4.5 mmol/L (3.5-5.1)
[2022-06-24 04:00] VITALS: BP 158/70; PULSE 75; RESP 17; O2SAT 100
[2022-06-24 05:06] LABS: Slide Review Slide Review Perform
[2022-06-24 06:00] VITALS: PULSE 92
[2022-06-24 06:20] LABS: Glucose Point of Care 429 mg/dL (70-110)
[2022-06-24 07:17] VITALS: BP 148/68; PULSE 83; RESP 18; TEMP 36.7; O2SAT 98
[2022-06-24] MEDS: insulin lispro 100 unit/1 mL SUBCUT ×2 (08:41→12:42)
[2022-06-24] MEDS: aspirin 81 mg EC Tablet PO (08:42)
[2022-06-24] MEDS: clopidogrel 75 mg Tablet PO (08:42)
[2022-06-24 09:26] VITALS: PULSE 100; O2SAT 93
--- NOTE | 2022-06-24 09:37 | PM.DCS ---
Discharge Providers Date of Admission: 06/23/22 10:08 Date of Discharge: June 24, 2022 Attending Provider at Admission: Zay Gayle M.D Attending Provider at Discharge: Zay Gayle M.D Primary Care Provider: Tashi Mora DO Reason for Visit Reason for Visit: Staged PCI of RCA Brief History: 71-year-old woman with past medical history of CAD s/p PCI of left circumflex artery, insulin-dependent diabetes, hypertension who has presented for staged high risk PCI of RCA.? Patient had presented with non-ST elevation MN in January with culprit lesion being left circumflex artery.? Denies chest pain.? Has dyspnea on exertion.? Also has lower extremity edema. Hospital Course Hospital Course Patient underwent successul revascularization of RCA with orbital arthrectomy and DESx 3. Patient was observed overnight and stayed stable. Patient discharged in a stable condition. Physical Exam Const: COMMON NORMALS: no acute distress and patient oriented x3 HENMT: COMMON NORMALS: normocephalic HEAD & SCALP: normocephalic Resp: COMMON NORMALS: normal respiratory effort Cardio: COMMON NORMALS: regular rate, regular rhythm, S1 normal heart sound present and S2 normal heart sound present RATE: regular rate RHYTHM: regular rhythm HEART SOUNDS: S1 normal heart sound present and S2 normal heart sound present GI: COMMON NORMALS: Normal to inspection, nondistended, normoactive bowel sounds present Extremity: COMMON NORMALS: normal to inspection Neuro: COMMON NORMALS: patient oriented x3 Discharge Data Studies Completed and Pending Pending at discharge Category Date Time Status [employer] request for service Routine Exams 06/23/22 06:36 Taken Laboratory Results WBC 8.3 10^3/uL (4.0-10.0) 06/24/22 02:56 RBC 3.53 10^6/uL (4.1-5.3) L 06/24/22 02:56 Hgb 12.3 g/dL (11.7-16.6) 06/24/22 02:56 Hct 38.2 % (42.0-52.0) L 06/24/22 02:56 MCV 108.2 fl (80-94) H 06/24/22 02:56 MCH 34.8 pg (28.0-34.0) H 06/24/22 02:56 MCHC 32.2 g/dL (30.0-36.0) 06/24/22 02:56 RDW 14.1 % (12.1-15.1) 06/24/22 02:56 Plt Count 243 10^3/cmm (130-400) 06/24/22 02:56 MPV 9.8 fL (7.4-10.4) 06/24/22 02:56 Neut % (Auto) 60.1 % 06/24/22 02:56 Lymph % (Auto) 25.8 % 06/24/22 02:56 [place] % (Auto) 11.3 % 06/24/22 02:56 Eos % (Auto) 1.8 % 06/24/22 02:56 Baso % (Auto) 0.8 % 06/24/22 02:56 Neut # (Auto) 4.99 10^3/uL (1.8-7.7) 06/24/22 02:56 Lymph # (Auto) 2.1 10^3/uL (0.8-4.8) 06/24/22 02:56 [place] # (Auto) 0.9 10^3/uL (0.2-0.9) 06/24/22 02:56 Eos # (Auto) 0.2 10^3/uL (0.0-0.8) 06/24/22 02:56 Baso # (Auto) 0.1 10^3/uL (0.0-0.1) 06/24/22 02:56 Nucleated RBC % (auto) 0 % 06/24/22 02:56 Nucleated RBCs # 0.0 /100WBC 06/24/22 02:56 Sodium 134 mmol/L (136-145) L 06/24/22 02:56 Potassium 4.5 mmol/L (3.5-5.1) 06/24/22 02:56 Chloride 97 mmol/L (98-107) L 06/24/22 02:56 Carbon Dioxide 24 mmol/L (22-29) 06/24/22 02:56 Anion Gap 17.5 (5-19) 06/24/22 02:56 BUN 11 mg/dL (8-23) 06/24/22 02:56 Creatinine 0.8 mg/dL (0.7-1.2) 06/24/22 02:56 GFR Calculation Not Reportable 06/24/22 02:56 Glucose 243 mg/dL (65-115) H 06/24/22 02:56 POC Glucose 429 mg/dL (70-110) H 06/24/22 06:16 Calculated Osmolality 285 mOsm/kg (285-295) 06/24/22 02:56 Calcium 9.7 mg/dL (8.5-10.5) 06/24/22 02:56 Vitals Last Vital Signs Temp 98.1 F 06/24/22 07:17 Pulse 100 06/24/22 09:26 Resp 18 06/24/22 07:17 BP 148/68 06/24/22 07:17 Pulse Ox 93 06/24/22 09:26 O2 Del Method 06/24/22 09:26 O2 Flow Rate 2 06/24/22 09:26 Discharge Plan Discharge Patient Disposition: Home Condition: Stable Prescriptions: Continued pantoprazole 40 mg tablet,delayed release (DR/EC) 40 mg PO DAILY metoprolol succinate 50 mg tablet extended release 24 hr 50 mg PO BID clopidogrel 75 mg tablet 75 mg PO DAILY potassium chloride 20 mEq tablet,ER particles/crystals 20 meq PO DAILY spironolactone 50 mg tablet 50 mg PO DAILY aspirin [Adult Low Dose Aspirin] 81 mg tablet,delayed release (DR/EC) 81 mg PO DAILY insulin lispro 100 unit/mL solution See Rx Instructions .ROUTE .COMPLEX Qty: 10 12RF Rx Instructions: Inject, subcut, 3 times daily, before meals, according to moderate sliding scale Lantus U-100 Insulin 100 unit/mL solution 50 unit SUBCUT BID Qty: 10 12RF magnesium oxide 400 mg magnesium capsule 400 mg PO DAILY Qty: 90 0RF furosemide 40 mg tablet 40 mg PO DIRECTED Qty: 270 3RF Rx Instructions: Take 80mg in morning 40 in evening cyclobenzaprine 10 mg tablet 5 - 10 mg PO DAILY PRN (Reason: Muscle Pain) omeprazole 20 mg capsule,delayed release(DR/EC) 20 mg PO DAILY gabapentin 100 mg capsule 100 mg PO TID PRN (Reason: Pain) naloxone [Narcan] 4 mg/actuation spray,non-aerosol 1 spray INTRANASAL . DIRECTED PRN (Reason: overdose) nitroglycerin 0.4 mg tablet, sublingual 0.4 mg sublingual Q5M PRN (Reason: chest pain) Qty: 30 3RF Rx Instructions: do not exceed 3 doses per episode atorvastatin 40 mg Tablet 40 mg PO DAILY Qty: 30 2RF Held metformin 1,000 mg tablet 1,000 mg PO BID Hold Instructions: Resume on 06/26/22. No Action sacubitril-valsartan 97-103 mg tablet 1 tab PO BID Qty: 180 3RF hydrocodone-acetaminophen 5-325 mg tablet 1 tab PO QID PRN (Reason: Pain) 30 Days Qty: 120 0RF Discharge Orders: Discharge Order (Routine); Ordered 06/24/22 Ordered By: Zay Gayle Referrals: Terri Montez FNP [Nurse Practitioner] - 07/01/22 10:45 am (You have a follow up appointment with ELGIN Henderson on 07/01/22 at 10:45 If you are unable to keep this appointment please contact clinic to arrange your care. ) Dayna Rice MD [Physician] - 08/19/22 10:15 am (You have a follow up appointment with Dr Rice on 08/19/22 at 10:15 If you are unable to keep this appointment please contact clinic to arrange your care. ) Discharge Diet: Cardiac and Diabetic Patient Instructions: Coronary Angioplasty (DC), Opioid Safety, Post Angiogram Home Care Instructions Discharge Attestations Time Spent in Discharge Care*: less than 30 min Quality Metrics Clinical Quality Measures [ No reported AMI, CVA or VTE this stay] Coding Level of Care Code Acute Chg FW DC note
[2022-06-24 11:19] VITALS: BP 143/68; PULSE 79; RESP 18; TEMP 36.8; O2SAT 98
[2022-06-24 11:41] LABS: Glucose Point of Care 407 mg/dL (70-110)
--- NOTE | 2022-06-24 12:15 | PC.NURSE ---
patient removed own IVs caths found on table intact no issues seen at sites
[2022-06-24 13:37] VITALS: BP 143/68; PULSE 79; RESP 18; TEMP 36.8; O2SAT 98
--- NOTE | 2022-06-24 13:38 | PC.NURSE ---
Discharge Note Patient discharged to Home via Private vehicle accompanied by family. Discharge instructions reviewed with patient and/or entry level account representative. Mobile pharmacy medications and/or prescriptions provided. Belongings/home medications returned.
== END 2022-06-24 13:38 | disposition home or self-care (01) ==
LOC: MEDSURG 10:08
PROVIDERS: Admitting Provider Internal Medicine; PCP Family Medicine; Visit Provider Internal Medicine
DX: I25.10 Atherosclerotic heart disease of native coronary artery without angina pectoris (principal); E11.40 Type 2 diabetes mellitus with diabetic neuropathy, unspecified; I11.0 Hypertensive heart disease with heart failure; I50.9 Heart failure, unspecified; E78.5 Hyperlipidemia, unspecified; I25.2 Old myocardial infarction; F03.90 Unspecified dementia, unspecified severity, without behavioral disturbance, psychotic disturbance, mood disturbance, and anxiety; E66.01 Morbid (severe) obesity due to excess calories; Z68.39 Body mass index [BMI] 39.0-39.9, adult; Z79.82 Long term (current) use of aspirin; Z79.4 Long term (current) use of insulin; Z79.84 Long term (current) use of oral hypoglycemic drugs
CPT/HCPCS: 36415; 36416; 80048; 82962; 85025; 85347; 92924; 93454; 96360; 96361; 96372; 99152; 99153; C1724; C1725; C1760; C1769; C1874; C1887; C1894; C9600; G0378; J1644; J1815; J2250; J2270; J2370; J2704; J3010; J3490; J7030; Q0163; Q9967

== ENCOUNTER → 2022-07-01 10:00 | Outpatient (BNVA) | payer MEDICARE, SELFPAY | PROVIDERS: PCP Family Medicine; Visit Provider Nurse Practitioner Family | DX: I25.10 Atherosclerotic heart disease of native coronary artery without angina pectoris (principal); I11.0 Hypertensive heart disease with heart failure; I50.9 Heart failure, unspecified | CPT/HCPCS: 80048; 99214 ==

== ENCOUNTER → 2022-08-19 13:06 | Outpatient (BNVA) | payer MEDICARE, SELFPAY | PROVIDERS: PCP Family Medicine; Visit Provider Internal Medicine Cardiovascular Disease | DX: I11.0 Hypertensive heart disease with heart failure (principal); I50.20 Unspecified systolic (congestive) heart failure; I25.10 Atherosclerotic heart disease of native coronary artery without angina pectoris; E78.5 Hyperlipidemia, unspecified | CPT/HCPCS: 93005; 99214 ==

== ENCOUNTER 2022-09-07 11:15 | Outpatient (CLI) | payer MEDICARE, SELFPAY ==
[2022-09-07 12:18] LABS: Blood Urea Nitrogen 40 mg/dL (8-23); Calcium 9.8 mg/dL (8.5-10.5); Carbon Dioxide 24 mmol/L (22-29); Chloride 94 mmol/L (98-107); Glucose 223 mg/dL (65-115); Magnesium 1.2 mg/dL (1.7-2.3); NT Pro B Type Natriuretic Pept 138 pg/mL (0-125); Osmolality Calculated 295 mOsm/kg (285-295); Sodium 134 mmol/L (136-145)
[2022-09-07 12:19] LABS: Anion Gap 20.6 (5-19); Potassium 4.6 mmol/L (3.5-5.1)
== END 2022-09-07 11:16 | disposition home or self-care (01) ==
PROVIDERS: PCP Family Medicine; Visit Provider Internal Medicine Cardiovascular Disease
DX: I11.0 Hypertensive heart disease with heart failure (principal); I50.9 Heart failure, unspecified; I25.10 Atherosclerotic heart disease of native coronary artery without angina pectoris
CPT/HCPCS: 36415; 80048; 83735; 83880

== ENCOUNTER 2023-01-15 04:21 | Inpatient (IN) | payer MEDICARE, MEDICAID, SELFPAY ==
[2023-01-15] VITALS (128 sets, daily range): BP systolic 71–135; BP diastolic 38–108; PULSE 69–98; RESP 12–30; TEMP 36.6–37.4; O2SAT 85–99; BMI 38.4
--- NOTE | 2023-01-15 04:25 | CTR_ITS ---
PROCEDURE INFORMATION: Exam: CT Head Without Contrast Exam date and time: 01/15/2023 4:53 AM Age: 72 years old Clinical indication: Patient HX: C/O general weakness TECHNIQUE: Imaging protocol: Computed tomography of the head without contrast. Radiation optimization: All CT scans at this facility use at least one of these dose optimization techniques: automated exposure control; mA and/or kV adjustment per patient size (includes targeted exams where dose is matched to clinical indication); or iterative reconstruction. REPORTING DATA: Count of CT and Cardiac NM exams in prior 12 months: This patient has received 2 known CTs and 0 known cardiac nuclear medicine studies in the 12 months prior to the current study. COMPARISON: CT head wo con* [id number] 01/25/2022 3:13 PM RADIATION DOSE METRICS: Total DLP (mGy-cm): 1068.68 FINDINGS: Brain: Unchanged mildly prominent brain sulci seen, related to the patient's age. Associated unchanged minimal nonspecific periventricular white matter low attenuation areas.There are no intracranial masses, mass effect or midline shift. There is no cerebral edema. There is no subarachnoid hemorrhage. There are no intra-or extra-axial fluid collections, intraventricular or intraparenchymal hemorrhage. No definite areas of low attenuation or boudreaux-white matter junction obscuration seen on the noncontrast CT to suggest a subacute stroke. Intracranial atherosclerotic vascular calcifications seen. Cerebral ventricles: The lateral, third and fourth ventricles appear unremarkable. The suprasellar and basilar cisterns appear unremarkable. Paranasal sinuses: The visualized sinuses are unremarkable. Mastoid air cells: The visualized mastoids are unremarkable. Orbital cavities: The visualized orbits are unremarkable. Bones/joints: No definite acute osseous or skull abnormalities seen. Soft tissues: Unremarkable. Notes: If there is further clinical concern for intracranial pathology, MRI of the brain may be performed for further assessment. CT/CT head wo con* [id number] IMPRESSION: No non-contrast CT evidence of intracranial hemorrhage, masses or definite subacute stroke.
--- NOTE | 2023-01-15 04:25 | XRR_ITS ---
PROCEDURE INFORMATION: Exam: XR Chest Exam date and time: 01/15/2023 4:31 AM Age: 72 years old Clinical indication: Patient HX: C/O general weakness. History of chf. TECHNIQUE: Imaging protocol: Radiologic exam of the chest. Views: 1 view. COMPARISON: CR XR chest 1V portable [id number] 01/28/2022 11:42 AM FINDINGS: Lungs: There are normal lung volumes. There are no confluent interstitial or airspace opacities. Pleural spaces: There are no pleural effusions or pneumothorax. Heart/Mediastinum: The heart size is at the upper limit of normal on the current exam. There is a mildly tortuous thoracic aorta. The trachea is in the midline. Bones/joints: No acute abnormalities. Medium-sized degenerative osteophytes are seen in the thoracic spine with moderate degenerative disc disease changes. Soft tissues: Multiple external densities are seen overlying the chest, limiting assessment. XR/XR chest 1V portable [id number] IMPRESSION: No confluent infiltrates in the lungs.
--- NOTE | 2023-01-15 04:26 | ECG_ITS ---
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 Measurements Intervals [place] Rate: 75 P: 23 IA: 153 QRS: 46 QRSD: 106 T: 51 QT: 415 QTc: 464 Interpretive Statements SINUS RHYTHM LOW QRS VOLTAGE IN PRECORDIAL LEADS [QRS DEFLECTION < 1.0 mV IN CHEST LEADS] SEPTAL MYOCARDIAL INFARCTION , PROBABLY OLD [40+ ms Q WAVE IN V1/V2] Compared to ECG 01/26/2022 05:53:05 Low QRS voltage now present Myocardial infarct finding still present Electronically Signed On 01-15-2023 15:53:46 CDT by Zay Gayle M.D. [id number]
--- NOTE | 2023-01-15 04:27 | W.ED.GENADLT ---
HPI - General Adult General: Chief complaint: Weakness Stated complaint: WEAKNESS/FALL Time Seen by Provider: 01/15/23 04:22 Source: EMS Mode of arrival: EMS Limitations: no limitations History of Present Illness: 72-year-old male with a history of diabetes congestive heart failure history and stroke in the past as well EMS was called tonight as he had a fall on the floor and could not get up he has been having increasing weakness he states over the last month that he has been having a hard time walking lately his blood sugar was in the 550s he states he never takes any of his meds and he is very noncompliant he has extreme edema to his legs he denies any pain anywhere currently. Associated symptoms: Deny chest pain, dyspnea, nausea, rash or vomiting Review of Systems Const: Denies: fever(s), chills, body aches or change in appetite Eyes: Denies: blurry vision or eye discomfort ENMT: Denies: throat pain or dental pain Card: Denies: chest pain Resp: Denies: dyspnea GI: Denies: abdominal pain, nausea, vomiting or diarrhea : Denies: dysuria Musc: Reports: extremity swelling Skin/Breast: Denies: rash Neuro: Reports: weakness in extremities Psych: Denies: depression Jose/Lymph: Denies: easy bruising All/Imm: Denies: urticaria PFSH ED PFSH: Medical History Atherosclerosis of coronary artery CHF (congestive heart failure), NYHA class III Chronic prescription opiate use Dementia History of diabetic neuropathy Hyperlipidemia Hypertension Insulin dependent type 2 diabetes mellitus Surgical History History of left knee replacement Social History Smoking and tobacco status: never smoked Alcohol intake: never Physical Exam Const: COMMON NORMALS: patient oriented x3 GENERAL APPEARANCE: disheveled HENMT: COMMON NORMALS: normocephalic and atraumatic HEAD & SCALP: normocephalic and atraumatic Eye: COMMON NORMALS: Equal, round and reactive pupils present and EOMs intact bilaterally PUPIL: Yes Equal, round and reactive pupils present Neck/C-Spine: COMMON NORMALS: full ROM and supple Chest: COMMONS NORMALS: normal inspection of the chest and normal palpation of entire chest wall Resp: COMMON NORMALS: normal respiratory effort, No retractions, No use of accessory muscles and clear to auscultation bilaterally AUSCULTATION: clear to auscultation bilaterally Cardio: COMMON NORMALS: regular rate, regular rhythm and No murmurs present (Cardio) RATE: regular rate RHYTHM: regular rhythm GI: COMMON NORMALS: Normal to inspection, nondistended, normoactive bowel sounds present, Soft to palpation, non-tender and no masses PALPATION: Yes Soft to palpation Extremity: OTHER: 2+ edema with erythema and chronic wounds to bilateral legs Neuro: COMMON NORMALS: patient oriented x3, moves all extremities and no focal motor deficits Psych: COMMON NORMALS: mental status grossly normal, Normal thought process present and cooperative THOUGHT PROCESS: Normal thought process present Skin: COMMON NORMALS: no rashes or lesions noted and no wounds GENERAL SKIN EXAM: no rashes or lesions noted Course Vital Signs: Vital signs: Vital Signs Temperature 97.9 F 01/17/23 04:45 Pulse Rate 78 01/17/23 06:15 Respiratory Rate 18 01/17/23 06:15 Blood Pressure 133/65 01/17/23 06:15 Pulse Oximetry 97 01/17/23 06:15 Oxygen Delivery Me thod 01/17/23 06:15 MDM - General Adult Medical Decision Making Patient presents for generalized weakness patient does not take very good care of himself he is not compliant with any of his meds he states his blood sugars always run in the 600s he has multiple pressure ulcers he is swollen extremities he is quite hyperglycemic here with elevated lactic and a white count patient given Zosyn for likely cellulitis he did not receive the full fluid bolus for sepsis as his blood pressure here has been stable and he has quite a bit of lower extremity edema with an elevated BNP at his baseline spoke to the hospitalist will admit to the ICU at this time. Lab Data 01/17/23 02:58 01/17/23 02:[address] 01/15/23 04:25 IMPRESSION: No non-contrast CT evidence of intracranial hemorrhage, masses or definite subacute stroke. Chest/Abdomen/Pelvis CT 01/15/23 07:34 IMPRESSION: 1. Lungs are well aerated. No acute pulmonary infiltrates. Slight bibasilar atelectasis. 2. No mediastinal or hilar lymphadenopathy. 3. Cholelithiasis. 4. No free fluid in the abdomen or pelvis. 5. No hydronephrosis in either kidney. 6. No other acute findings. Tibia/Fibula X-Ray 01/15/23 08:54 IMPRESSION: 1. No fracture or dislocation. 2. Soft tissue swelling. Venous Duplex 01/15/23 08:54 IMPRESSION: No evidence of deep vein thrombosis. Chest X-Ray 01/15/23 13:11 IMPRESSION: 1. Right-sided PICC line ending at the cavoatrial junction. 2. Mild cardiac enlargement unchanged. Laboratory Results WBC 27.4 10^3/uL (4.0-10.0) H 01/15/23 05:20 RBC 3.68 10^6/uL (4.1-5.3) L 01/15/23 05:20 Hgb 12.3 g/dL (11.7-16.6) 01/15/23 05:20 Hct 36.9 % (42.0-52.0) L 01/15/23 05:20 MCV 100.3 fl (80-94) H 01/15/23 05:20 MCH 33.4 pg (28.0-34.0) 01/15/23 05:20 MCHC 33.3 g/dL (30.0-36.0) 01/15/23 05:20 RDW 13.6 % (12.1-15.1) 01/15/23 05:20 Plt Count 211 10^3/cmm (130-400) 01/15/23 05:20 MPV 10.4 fL (7.4-10.4) 01/15/23 05:20 Lymph % (Auto) Not Reportable 01/15/23 05:20 [place] % (Auto) Not Reportable 01/15/23 05:20 Lymph # (Auto) Not Reportable 01/15/23 05:20 [place] # (Auto) Not Reportable 01/15/23 05:20 Total Counted 100 (0-100) 01/15/23 05:20 Atypical Lymphs % 0.0 % (0-5) 01/15/23 05:20 Absolute Neutrophils 23.3 10^3/cmm (1.4-6.5) H 01/15/23 05:20 Segmented Neutrophils 81 % 01/15/23 05:20 Abs Segm Neuts (Man) 22.2 10/cmm (1.6-7.1) H 01/15/23 05:20 Band Neutrophils 4.0 % 01/15/23 05:20 Abs Band Neuts (Man) 1.1 10^3/cmm (0.0-1.2) 01/15/23 05:20 Absolute Lymphocytes 2.2 10^3/cmm (1.2-3.4) 01/15/23 05:20 Lymphocytes (Manual) 8 % 01/15/23 05:20 Monocytes (Manual) 7.0 % 01/15/23 05:20 Absolute Monocytes 1.9 10^3/cmm (0.1-0.6) H 01/15/23 05:20 Eosinophils (Manual) 0 % 01/15/23 05:20 Absolute Eosinophils 0.0 10^3/cmm (0.0-0.7) 01/15/23 05:20 Basophils (Manual) 0.0 % 01/15/23 05:20 Absolute Basophils 0.0 10^3/cmm (0.0-0.2) 01/15/23 05:20 Platelet Estimate Normal (Normal) 01/15/23 05:20 PT 17.60 SECONDS (12.1-14.9) H 01/15/23 05:20 INR 1.40 (0.8-1.2) H 01/15/23 05:20 Sodium 123 mmol/L (136-145) L 01/15/23 05:20 Potassium 5.8 mmol/L (3.5-5.1) H 01/15/23 05:20 Chloride 84 mmol/L (98-107) L 01/15/23 05:20 Carbon Dioxide 20 mmol/L (22-29) L 01/15/23 05:20 Anion Gap 24.8 (5-19) H 01/15/23 05:20 BUN 49 mg/dL (8-23) H 01/15/23 05:20 Creatinine 2.9 mg/dL (0.7-1.2) H 01/15/23 05:20 GFR Calculation Not Reportable 01/15/23 05:20 Glucose 503 mg/dL (65-115) H* 01/15/23 05:20 POC Glucose 512 mg/dL (70-110) H* 01/15/23 05:03 Calculated Osmolality 291 mOsm/kg (285-295) 01/15/23 05:20 Lactate 4.7 mmol/L (0.5-2.2) H* 01/15/23 06:08 Calcium 9.7 mg/dL (8.5-10.5) 01/15/23 05:20 Magnesium 2.0 mg/dL (1.7-2.3) 01/15/23 05:20 Total Bilirubin 0.9 mg/dL (0.15-1.2) 01/15/23 05:20 AST 45 U/L (0-40) H 01/15/23 05:20 ALT 18 U/L (0-41) 01/15/23 05:20 Alkaline Phosphatase 86 U/L (40-130) 01/15/23 05:20 Ammonia 20 umol/L (16-60) 01/15/23 06:00 Troponin T Baseline 109 ng/L (0-15) H* 01/15/23 05:20 C-Reactive Protein 237.1 mg/L (0.0-4.9) H 01/15/23 05:20 NT-Pro-B Natriuret Pep 2525 pg/mL (0-125) H 01/15/23 05:20 Total Protein 7.9 g/dL (6.6-8.7) 01/15/23 05:20 Albumin 3.3 g/dL (3.5-5.2) L 01/15/23 05:20 Globulin 4.6 g/dL (1.3-4.6) 01/15/23 05:20 Procalcitonin 86.29 ng/mL (0-0.5) H 01/15/23 05:20 Urine Color Straw (Yellow) 01/15/23 06:06 Urine Appearance Cloudy (CLEAR) A 01/15/23 06:06 Urine pH 5 (5-7) 01/15/23 06:06 Ur Specific [place] 1.010 (1.005-1.030) 01/15/23 06:06 Urine Protein Neg (Negative) 01/15/23 06:06 Urine Glucose (UA) 4+ (Normal) H 01/15/23 06:06 Urine Ketones Negative (Negative) 01/15/23 06:06 Urine Blood Neg (Negative) 01/15/23 06:06 Urine Nitrate Negative (Negative) 01/15/23 06:06 Urine Bilirubin Neg (Negative) 01/15/23 06:06 Urine Urobilinogen Norm mg/dL (Negative) 01/15/23 06:06 Ur Leukocyte Esterase 2+ (Negative) H 01/15/23 06:06 Urine RBC 0-4 /hpf (0-2) H 01/15/23 06:06 Urine WBC 55-80 /hpf (0-5) H 01/15/23 06:06 Ur Squamous Epith Cells 0-4 /hpf (0-5) H 01/15/23 06:06 Amorphous Sediment Not Reportable 01/15/23 06:06 Urine Bacteria 1+ /hpf (NONE) H 01/15/23 06:06 Urine Mucus Trace /hpf 01/15/23 06:06 Urine Yeast 1+ /hpf H 01/15/23 06:06 EKG Data EKG 1: I personally reviewed and interpreted this EKG as follows: EKG interpretation date: 01/15/23 EKG interpretation time: 05:05 Interpretation: nsr hr [address] or t wave abnormalities qrs 106 qtc 443 Computer generated interpretation: Head CT 01/15/23 04:25 IMPRESSION: No non-contrast CT evidence of intracranial hemorrhage, masses or definite subacute stroke. Chest/Abdomen/Pelvis CT 01/15/23 07:34 IMPRESSION: 1. Lungs are well aerated. No acute pulmonary infiltrates. Slight bibasilar atelectasis. 2. No mediastinal or hilar lymphadenopathy. 3. Cholelithiasis. 4. No free fluid in the abdomen or pelvis. 5. No hydronephrosis in either kidney. 6. No other acute findings. Tibia/Fibula X-Ray 01/15/23 08:54 IMPRESSION: 1. No fracture or dislocation. 2. Soft tissue swelling. Venous Duplex 01/15/23 08:54 IMPRESSION: No evidence of deep vein thrombosis. Chest X-Ray 01/15/23 13:11 IMPRESSION: 1. Right-sided PICC line ending at the cavoatrial junction. 2. Mild cardiac enlargement unchanged. Critical Care Time Critical Care Time: Critical Care Time: Yes Total Critical Care Time: 45 Attestation: The high probability of a clinically significant, sudden or life threatening deterioration of the patient'sendocrine system(s) required my full and direct attention, intervention and personal management. The critical care time is as shown. 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
[2023-01-15 05:26] LABS: Hematocrit 36.9 % (42.0-52.0); Hemoglobin 12.3 g/dL (11.7-16.6); Mean Corpuscular HGB Conc 33.3 g/dL (30.0-36.0); Mean Corpuscular Hemoglobin 33.4 pg (28.0-34.0); Mean Corpuscular Volume 100.3 fl (80-94); Mean Platelet Volume 10.4 fL (7.4-10.4); Platelet Count 211 10^3/cmm (130-400); Red Blood Count 3.68 10^6/uL (4.1-5.3); Red Cell Distribution Width 13.6 % (12.1-15.1); White Blood Count 27.4 10^3/uL (4.0-10.0)
[2023-01-15 05:53] LABS: Alanine Aminotransferase 18 U/L (0-41); Albumin Level 3.3 g/dL (3.5-5.2); Alkaline Phosphatase 86 U/L (40-130); Aspartate Amino Transferase 45 U/L (0-40); Blood Urea Nitrogen 49 mg/dL (8-23); Calcium 9.7 mg/dL (8.5-10.5); Carbon Dioxide 20 mmol/L (22-29); Chloride 84 mmol/L (98-107); Globulin 4.6 g/dL (1.3-4.6); NT Pro B Type Natriuretic Pept 2525 pg/mL (0-125); Osmolality Calculated 291 mOsm/kg (285-295); Sodium 123 mmol/L (136-145); Total Bilirubin 0.9 mg/dL (0.15-1.2); Total Protein 7.9 g/dL (6.6-8.7)
[2023-01-15 05:54] LABS: Anion Gap 24.8 (5-19); Potassium 5.8 mmol/L (3.5-5.1)
[2023-01-15 05:55] LABS: Glucose 503 mg/dL (65-115)
[2023-01-15 06:02] LABS: Slide Review Slide Review Perform
[2023-01-15 06:03] LABS: Absolute Segmented Neutrophil 22.2 10/cmm (1.6-7.1); Band Neutrophils Absolute 1.1 10^3/cmm (0.0-1.2); Segmented Neutrophils 81 %; Total Cells Counted 100 (0-100)
[2023-01-15 06:04] LABS: Eosinophils 0 %; Lymphocytes 8 %; Lymphocytes Absolute 2.2 10^3/cmm (1.2-3.4); Monocytes Absolute 1.9 10^3/cmm (0.1-0.6)
[2023-01-15 06:05] LABS: Absolute Neutrophil 23.3 10^3/cmm (1.4-6.5); Platelet Estimate Normal (Normal)
[2023-01-15 06:18] LABS: Ammonia 20 umol/L (16-60)
--- NOTE | 2023-01-15 06:43 | USCV_ITS ---
John Riki Age: 72 Gender: M : 1950 Exam Date: 01/15/2023 07:34 Ordering Phys: Jessica Booth MD Technologist: ARMIN [place] [facility] [place]: hf BP: / HR: 79 Rhythm: Sinus Technical Quality: Technically difficult study MEASUREMENTS (Male / Female) Normal Values 2D ECHO LV Diastolic Diameter PLAX 4.3 cm 4.2 - 5.9 / 3.9 - 5.3 cm LV Systolic Diameter PLAX 3.1 cm IVS Diastolic Thickness 1.0 cm 0.6 - 1.0 / 0.6 - 0.9 cm IVS Systolic Thickness 1.1 cm LVPW Diastolic Thickness 0.9 cm 0.6 - 1.0 / 0.6 - 0.9 cm LVPW Systolic Thickness 1.1 cm LVOT Diameter 2.3 cm LV Ejection Fraction 2D Teich 54.6 % LV Ejection Fraction MOD 2C 47.8 % LV Ejection Fraction 2C AL 48.2 % LA Diameter 2.7 cm M-MODE Aortic Annulus Diameter 3.2 cm LA Ao Ratio MM 1.0 MV E Point Septal Separation 0.8 cm DOPPLER AV Peak Velocity 199.0 cm/s LVOT Peak Velocity 96.0 cm/s AV Area Cont Eq vti 2.2 cm squared AV Area Cont Eq pk 2.1 cm squared MV Area PHT 3.1 cm squared Mitral E to A Ratio 0.7 MV E' Velocity 43.0 cm/s Mitral E to MV E' Ratio 9.8 Mitral E to LV E' Lateral Ratio 9.6 Mitral E to LV E' Septal Ratio 10.1 TV Peak E Velocity 53.0 cm/s PV Peak Velocity 121.0 cm/s FINDINGS Left Ventricle Normal left ventricular size and systolic function, EF 60 %. Grade I/IV diastolic dysfunction (abnormal relaxation filling pattern), normal to mildly elevated filling pressures. Right Ventricle The right ventricle is normal in size and function. Right Atrium The right atrium is normal in size. Left Atrium The left atrium is normal in size. Mitral Valve Thickened mitral valve. Aortic Valve Thickened aortic valve. Tricuspid Valve No gross abnormalities noted Pulmonic Valve No gross abnormalities noted Pericardium Normal pericardium without effusion. Aorta Normal ascending aorta dimension. IVC The inferior vena cava appears normal. CONCLUSIONS Normal left ventricular size and systolic function, EF 60 %. Grade I/IV diastolic dysfunction (abnormal relaxation filling pattern), normal to mildly elevated filling pressures. Thickened aortic and mitral valves. Features of aortic valve sclerosis. There is no pericardial effusion. Technically difficult study because of the poor ultrasonic window. Dr Cristiano De MD [facility] (Electronically Signed) Final Date: 15 January 2023 11:51 S
--- NOTE | 2023-01-15 06:43 | P.HP_ITS ---
Providers/Chief Complaint Primary Care Provider: Tashi Mora DO Chief Complaint: WEAKNESS/FALL History of Present Illness Riki Lopez is a 72 year old male with past medical history of insulin- dependent type 2 diabetes mellitus,diabetic peripheral neuropathy, hypertension, hyperlipidemia, BPH, chronic back pain on chronic opiates who presented to ER via EMS after he was found on the floor due to a fall and he could not get up due to having increasing weakness over the last month. He states that he has stopped taking his medications but he is not very compliant with them. He has been feeling weaker and weaker over the last couple of weeks. He was brought in via EMS. His lower extremities are swollen. Blood sugar noted to be 550 in the ER today. WBC 27,000, lactic acid pending, ammonia level pending at this time. EKG did not show any acute ischemic changes. In January 2022 he had a left heart cath which showed multivessel CAD. He was thought not to be a surgical candidate due to anatomy of his coronary vessels. He underwent orbital arthrectomy and drug-eluting stent x1 to mid left circumflex. Then in June 2022 he had a staged PCI of RCA using right femoral approach underwent atherectomy from proximal to mid RCA balloon angioplasty and BENNY x3 to proximal to mid RCA. He most recently saw cardiology in August 2022. At that visit he stated he was able to do his housework without stopping. However now has been feeling weaker and weaker. Most recent echo from January 2022 shows EF 35 to 40% with moderate hypokinesis mid to apical anterior apical septal apical inferior apical lateral and apical boateng. Grade 2 diastolic dysfunction. Chest x-ray done today does not show pneumonia. Head CT does not show intracranial hemorrhage mass or definite subacute stroke. Blood cultures obtained today. Labs show 4% bands, 23% absolute neutrophils. INR 1.40, sodium 123, potassium 5.8. Creatinine 2.9. Baseline is normal 0.7-1.1. Glucose 500. AST 45, BNP 2525, albumin 3.3. Serum ketones are pending. Patient is supposed to be on aspirin Plavix atorvastatin Lasix 80 twice daily at home along with 50 units of insulin however is noncompliant to his medications. He tries to take them daily however does miss doses here and there. Also complains of diarrhea that has been going on for the last 2 days. Medications/Allergies Home Medications Medication Instructions Recorded Confirmed Last Taken Type gabapentin 100 mg capsule 100 mg PO TID PRN Pain 01/25/22 01/15/23 06/22/22 20:00 History metformin 1,000 mg tablet 1,000 mg PO BID 01/25/22 01/15/23 06/22/22 20:00 History naloxone 4 mg/actuation nasal 1 spray intranasal . DIRECTED 01/25/22 01/15/23 Unknown History spray (Narcan) PRN overdose nitroglycerin 0.4 mg sublingual 0.4 mg sublingual Q5M PRN chest 02/04/22 01/15/23 Unknown Rx tablet pain #30 tabs metoprolol succinate 50 mg 50 mg PO BID 04/22/22 01/15/23 06/22/22 20:00 History tablet,extended release 24 hr pantoprazole 40 mg tablet,delayed 40 mg PO DAILY 04/22/22 01/15/23 Unknown History release insulin glargine 100 unit/mL 50 unit (0.5 mL) SUBCUT BID #10 mL 05/13/22 01/15/23 06/22/22 23:30 Rx subcutaneous solution (Lantus U-100 Insulin) aspirin 81 mg tablet,delayed 81 mg PO DAILY 05/14/22 01/15/23 06/22/22 08:00 History release (Adult Low Dose Aspirin) clopidogrel 75 mg tablet 75 mg PO DAILY 05/14/22 01/15/23 06/22/22 08:00 History potassium chloride 20 mEq 20 meq PO DAILY 05/14/22 01/15/23 06/22/22 08:00 History tablet,extended release(part/cryst) sacubitril 97 mg-valsartan 103 mg 1 tab PO BID #180 tabs 07/01/22 01/15/23 Unknown Rx tablet furosemide 80 mg tablet 80 mg PO BID #60 tabs 08/19/22 01/15/23 Unknown Rx magnesium oxide 400 mg PO BID #180 caps 09/15/22 01/15/23 Unknown Rx hydrocodone 5 mg-acetaminophen 325 1 tab PO QID PRN Pain 1 month #120 09/16/22 01/15/23 Unknown Rx mg tablet tabs cyclobenzaprine 10 mg tablet See Rx Instructions .Route 10/01/22 01/15/23 Unknown Rx .COMPLEX #30 tabs insulin lispro 100 unit/mL See Rx Instructions .Route 10/09/22 01/15/23 Unknown Rx subcutaneous solution (Humalog .COMPLEX #10 mL U-100 Insulin) insulin syringe-needle U-100 1 mL #100 ea 10/20/22 01/15/23 Unknown Rx 30 gauge x 1/2 (UltiCare) spironolactone 50 mg tablet See Rx Instructions .Route 10/20/22 01/15/23 Unknown Rx .COMPLEX #30 tabs blood sugar diagnostic (OneTouch #100 strips 12/07/22 01/15/23 Unknown Rx Ultra Test strips) atorvastatin 20 mg tablet 20 mg PO QPM 01/15/23 01/15/23 Unknown History Allergies Allergy/AdvReac Type Severity Reaction Status Date / Time No Known Allergies Allergy Verified 01/15/23 09:10 PFSH Acute PFSH: Medical History Atherosclerosis of coronary artery CHF (congestive heart failure), NYHA class III Chronic prescription opiate use Dementia History of diabetic neuropathy Hyperlipidemia Hypertension Insulin dependent type 2 diabetes mellitus Surgical History History of left knee replacement Social History Smoking and tobacco status: never smoked Alcohol intake: never Vitals/I&O/Wt Last Vital Signs Temp 97.8 F 01/15/23 04:22 Pulse 76 01/15/23 04:22 Resp 20 H 01/15/23 04:22 BP 117/61 01/15/23 04:22 Pulse Ox 95 01/15/23 04:22 Weight last 48 hrs Weight 117.934 kg Physical Exam Narrative: General: Alert oriented x3, patient seen laying in bed saturating 95% on room air HEENT: Normocephalic, atraumatic, EOMI, Cardio: Regular rate rhythm, normal S1-S2, Respiratory: Clear to auscultation bilaterally no wheezes no rhonchi GI: Abdomen soft, nontender, nondistended, bowel sounds + Extremities: 2+ pitting edema bilateral lower extremities, lots of open wounds noted Pressure ulcers on buttocks Data 01/15/23 05:20 01/15/23 05:20 Micro: Microbiology 01/15/23 06:10 Blood Culture - Preliminary Blood SPECIMEN COLLECTED 01/15/23 06:08 Blood Culture - Preliminary Blood SPECIMEN COLLECTED A&P Assessment and plan (1) Hyperglycemia: (2) Weakness: (3) Pressure ulcer: (4) Leukocytosis: (5) Diabetes: (6) Atherosclerosis of coronary artery: (7) Insulin dependent type 2 diabetes mellitus: (8) Hyperlipidemia: (9) Hypertension: (10) CHF (congestive heart failure), NYHA class III: (11) Bilateral lower extremity edema: (12) ISRAEL (acute kidney injury): (13) Cardiorenal syndrome: (14) Hyperkalemia: (15) Hyponatremia: (16) High anion gap metabolic acidosis: (17) DKA (diabetic ketoacidosis): (18) Bandemia: (19) Leukocytosis: (20) CAD (coronary artery disease): (21) Stented coronary artery: (22) Diastolic heart failure: (23) Systolic heart failure: Plan #Generalized weakness #Fall #Acute on chronic congestive systolic and diastolic heart failure #History of CAD status post stents times 01/2022 (January and August) #Noncompliant to medications #Type 2 diabetes mellitus complicated by hyperglycemia #Leukocytosis with bandemia, most likely due to infection #Pressure ulcers on buttock area #Hyperlipidemia #Hypertension #GERD #Peripheral neuropathy #Hyperkalemia #Hyponatremia #Acute kidney injury, most likely cardiorenal syndrome #Possible DKA versus [place] #Elevated liver enzymes #Possible component of rhabdomyolysis ? Await lactic acid, ammonia level ? Check sputum culture Gram stain, blood cultures, urine culture, check urinalysis ? Start on broad-spectrum antibiotics vancomycin and Zosyn at this time ? There is leukocytosis with left shift most likely due to infectious cause ? Reviewed chest x-ray image and mild pulm vasc congestion noted. - Lasix 40 IV x1 given in ER. Will await lactic acid. ? Wound care to be ordered ? Aspirin, Plavix, atorvastatin, to be continued ? Hold metformin ? Check blood glucose ACHS ? Blood pressure stable at this time 117/69. I will hold Entresto for now, along with spironolactone. Hold potassium as well. Hold gabapentin, cyclobenzaprine ? Hyponatremia most likely secondary to elevated glucose and hypervolemia ? BNP 2525. EF noted to be 35 to 40% on previous echo from January 2022. Patient also has an ISRAEL with elevated creatinine 2.9. This is most likely secondary to cardiorenal syndrome at this time. Ketones are pending at this time. Anion gap is elevated at 24.8. ? Start insulin drip protocol ? BMP check every 4 hours ? Blood glucose check as per DKA protocol -Liver enzyme elevated possibly secondary to hepatic congestion ? We will check a CPK level -Patient appears quite dehydrated. Will place on normal saline 75 cc/h. Cautious use of fluids in setting of EF of 35%. Full code SCDs, heparin SQ twice daily Attestations Medical Necessity Statement*: Admit to ICU for management of multiple comorbid conditions. Other Coding Information Focused coding review requested Diagnoses Hyperglycemia R73.9 Weakness R53.1 Pressure ulcer L89.90 Leukocytosis D72.829 Diabetes E11.9 Atherosclerosis of coronary artery I25.10 Insulin dependent type 2 diabetes mellitus E11.9; Z79.4 Hyperlipidemia E78.5 Hypertension I10 CHF (congestive heart failure), NYHA class III I50.9 Bilateral lower extremity edema R60.0 ISRAEL (acute kidney injury) N17.9 Cardiorenal syndrome I13.10 Hyperkalemia E87.5 Hyponatremia E87.1 High anion gap metabolic acidosis E87.29 DKA (diabetic ketoacidosis) E11.10 Bandemia D72.825 Leukocytosis D72.829 CAD (coronary artery disease) I25.10 Stented coronary artery Z95.5 Diastolic heart failure I50.30 Systolic heart failure I50.20
[2023-01-15 06:47] LABS: Lactate (Lactic Acid level) 4.7 mmol/L (0.5-2.2)
[2023-01-15] MEDS: insulin regular-human 100 units/1 mL 10 UNIT IVP (06:49)
[2023-01-15 06:53] LABS: Ketone (Acetest) Serum Negative (Negative)
[2023-01-15 06:56] LABS: Add Urine Microscopic? YES; Bilirubin Urine Neg (Negative); Blood Urine Neg (Negative); Glucose Urine UA 4+ (Normal); Ketones Urine Negative (Negative); Leukocyte Esterase Urine 2+ (Negative); Nitrate Urine Negative (Negative); Protein Urine Neg (Negative); RBC Urine 0-4 /hpf (0-2); Squamous Epithelial Cell Urine 0-4 /hpf (0-5); Urine Appearance Cloudy (CLEAR); Urine Color Straw (Yellow); Urobilinogen Urine Norm (Negative); WBC Urine 55-80 /hpf (0-5); pH Urine 5 (5-7)
--- NOTE | 2023-01-15 06:56 | ECG_ITS ---
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 Measurements Intervals [place] Rate: 75 P: 9 [place]: 161 QRS: 62 QRSD: 100 T: 64 QT: 408 QTc: 457 Interpretive Statements SINUS RHYTHM LOW QRS VOLTAGE IN PRECORDIAL LEADS [QRS DEFLECTION < 1.0 mV IN CHEST LEADS] SEPTAL MYOCARDIAL INFARCTION , PROBABLY OLD [40+ ms Q WAVE IN V1/V2] Compared to ECG 01/15/2023 05:05:33 No significant changes Electronically Signed On 01-15-2023 15:53:38 CDT by aZy Gayle M.D. [id number]
[2023-01-15 06:57] LABS: Add Urine Culture? Yes; Bacteria Urine 1+ /hpf; Mucus Urine TRACE /hpf
[2023-01-15 07:26] LABS: Procalcitonin 86.29 ng/mL (0-0.5)
[2023-01-15 07:30] LABS: Troponin(5th) Baseline 109 ng/L (0-15)
--- NOTE | 2023-01-15 07:34 | CT_ITS ---
WS: [id number] CT CHEST, ABDOMEN, AND PELVIS TECHNIQUE: Noncontrast CT of the chest, abdomen, and pelvis with coronal and sagittal reformatted kayleigh ges. CLINICAL INFORMATION: ams COMPARISON: CT January 25, 2022 DLP: 1348.[address] scans at [facility] use at least one of these dose optimization techniques: automated e xposure control; mA and/or kV adjustment per patient size (includes targeted exams where dose is matc hed to clinical indication); or iterative reconstruction. CT CHEST: Both lungs are well aerated. No acute pulmonary infiltrates. Slight bibasilar atelectasis. No focal p neumonia or pleural fluid. Aortic calcification. Coronary calcification. No mediastinal or hilar lymp hadenopathy. No axillary lymphadenopathy. Hypertrophic changes thoracic spine. Mild thoracic kyphosis . CT ABDOMEN AND PELVIS: Normal noncontrast liver. Cholelithiasis. Small esophageal hiatal hernia. Splenic granulomas. Adrenal glands are normal. Fatty atrophy of the pancreas. No hydronephrosis in either kidney. Small renal cy sts some are too small to characterize. Slightly prominent prostate measuring 4.1 cm. Normal sigmoid colon. Normal appendix. No free fluid in the abdomen or pelvis. Normal caliber abdominal aorta. Mild aortic calcification. Hypertrophic changes lumbar spine. Slight anterolisthesis L4 on L5. Advanced de generative arthritis RIGHT hip with subchondral cystic changes. CT/[place] [id number] IMPRESSION: 1. Lungs are well aerated. No acute pulmonary infiltrates. Slight bibasilar at electasis. 2. No mediastinal or hilar lymphadenopathy. 3. Cholelithiasis. 4. No free fluid in the abdomen or pelvis. 5. No hydronephrosis in either kidney. 6. No other acute findings.
[2023-01-15] MEDS: vancomycin 1,000 MG in sodium chloride 0.9% 250 ML 250 MG IV (07:53)
[2023-01-15] MEDS: heparin 5,000 unit/mL INJ 1 mL 5000 UNIT SUBCUT ×3 (08:01→23:38)
[2023-01-15 08:04] LABS: C Reactive Protein 237.1 mg/L (0.0-4.9)
--- NOTE | 2023-01-15 08:15 | PC.PHAR ---
Patient: Floor: Age: 72 yo Serum creatinine: 2.9 mg/dL Height: 68.9 Inches Weight (kg): 118 Assessment: IBW (kg): 70.47 Dosing wt(kg): 89.5 Estimated Creatinine clearance (ml/min): 29.1 CRCL method: Cockcroft and Gault using adjusted body weight Drug selected: Vancomycin Loading dose (mg): Vd (liters): 62.6 (factor used: 0.7 L/kg) Pepe (hr-1): 0.029 Half life (hrs): 23.90 CLvanco=?? 1.815 L/hr Recommended dose: 1500 mg Interval: 36 hrs Infusion time (hrs): 1 Predicted peak (mcg/mL): 36.4 Predicted trough (mcg/mL): 13.19 Adjusted body weight was selected for vancomycin dosing. To switch back, select the total body weight option above. Recommendations: Give Vancomycin 1500 mg q 36 hrs with an expected Cpeak of 36.4 mcg/ml and an expected Ctrough of 13.19 mcg/ml AUC 0-24 /RADHA Data: RADHA 0.5 mcg/mL:?? AUC/RADHA:? 1101.9 RADHA 1.0 mcg/mL:?? AUC/RADHA:? 551.0 --------- RADHA 1.5 mcg/mL:?? AUC/RADHA:? 367.3 RADHA 2.0 mcg/mL:?? AUC/RADHA:? 275.5 Renal dosing of other antibiotics (review renal dosing of other medications and list guidelines here): Thank you for the consult, will continue to follow. Darien Stacy
[2023-01-15] MEDS: perflutren protein-a microsphr 0.22 mg/mL SDV 3 mL IV (08:22)
--- NOTE | 2023-01-15 08:54 | XR_ITS ---
WS: [id number] Exam: XR tibia fibula LT 2V [id number] Date/Time of Exam: 01/15/2023 9:12 AM Reason For Exam: pain Comparison 01/25/2022. No fracture or dislocation identified. There appears to be soft tissue edema. Moderate degenerative c hange at the knee. Vascular calcifications noted posteriorly. XR/XR tibia fibula LT 2V [id number] IMPRESSION: 1. No fracture or dislocation. 2. Soft tissue swelling.
--- NOTE | 2023-01-15 08:54 | XR_ITS ---
WS: [id number] Exam: XR tibia fibula RT 2V [id number] Date/Time of Exam: 01/15/2023 9:12 AM Reason For Exam: pain Comparison 01/25/2022. No fracture or dislocation noted. Unremarkable soft tissues. Moderate degenerative changes at the kne e. XR/XR tibia fibula RT 2V [id number] IMPRESSION: 1. Negative right tibia and fibula.
--- NOTE | 2023-01-15 08:54 | USR_ITS ---
PROCEDURE INFORMATION: Exam: US Duplex Lower Extremity Veins, Bilateral Exam date and time: 01/15/2023 3:37 PM Age: 72 years old Clinical indication: Edema, localized; Lower extremity, bilateral; Additional info: Dvt TECHNIQUE: Imaging protocol: Real-time duplex ultrasound of the bilateral extremities with 2-D boudreaux scale, color Doppler flow and spectral waveform analysis including responses to compression and other maneuvers (when performed) with image documentation. Complete exam focused on the lower extremity veins. COM[place]ISON: [place] [id number] 01/15/2023 8:24 AM FINDINGS: Right deep veins: Unremarkable. The common femoral, femoral, proximal profunda femoral and popliteal veins are patent without thrombus. Normal Doppler waveforms. Normal compressibility and/or augmentation response. Right superficial veins: Saphenofemoral junction is patent without thrombus. Left deep veins: Unremarkable. The common femoral, femoral, proximal profunda femoral and popliteal veins are patent without thrombus. Normal Doppler waveforms. Normal compressibility and/or augmentation response. Left superficial veins: Saphenofemoral junction is patent without thrombus. Soft tissues: Unremarkable. US/CV venous duplex [facility] [id number] IMPRESSION: No evidence of deep vein thrombosis.
[2023-01-15 08:57] LABS: Blood Gas Allen Test Pos; Blood Gas Sample Site Brachial, right; Blood Gas Sample Type Arterial
[2023-01-15 08:58] LABS: Arterial Blood Gas Hematocrit 32.8 % (42-52); Base Excess ABG 1.5 mmol/L (-2.0-2.0)
--- NOTE | 2023-01-15 09:12 | PC.PHAR ---
MEDICATIONS VERIFIED WITH PTS SON HAILY- SON HAD MEDICATION BOTTLES WITH HIM
[2023-01-15 09:23] LABS: Glucose Point of Care 510 mg/dL (70-110)
[2023-01-15 09:34] LABS: Erythrocyte Sedimentation Rate 97 mm/hr (0-10)
[2023-01-15] MEDS: insulin regular-human 250 UNIT in sodium chloride 0.9% 250 ML 13.64 UNIT IV (09:39)
[2023-01-15] MEDS: lactated ringers 1,000 ML 50 ML IV (09:42)
--- NOTE | 2023-01-15 09:47 | ECG_ITS ---
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 Measurements Intervals [place] Rate: 78 P: 8 [place]: 204 QRS: 74 QRSD: 93 T: 28 QT: 400 QTc: 456 Interpretive Statements SINUS RHYTHM LOW QRS VOLTAGE IN PRECORDIAL LEADS [QRS DEFLECTION < 1.0 mV IN CHEST LEADS] SEPTAL MYOCARDIAL INFARCTION , PROBABLY OLD [40+ ms Q WAVE IN V1/V2] Compared to ECG 01/15/2023 06:56:21 No significant changes Electronically Signed On 01-15-2023 15:54:52 CDT by Zay Gayle M.D. [id number]
[2023-01-15 09:49] LABS: Estmated Average Glucose 390; Hemoglobin A1C 15.2 % (4.0-6.0)
[2023-01-15 09:51] LABS: Anion Gap 25.1 (5-19); Blood Urea Nitrogen 50 mg/dL (8-23); Calcium 9.2 mg/dL (8.5-10.5); Carbon Dioxide 21 mmol/L (22-29); Chloride 85 mmol/L (98-107); Glucose 498 mg/dL (65-115); Osmolality Calculated 298 mOsm/kg (285-295); Potassium 5.1 mmol/L (3.5-5.1); Sodium 126 mmol/L (136-145)
[2023-01-15 09:52] LABS: Troponin 5 2HR 94.65 ng/L (0-15)
[2023-01-15 09:54] LABS: Troponin 5 2HR Delta -14.35 ABS# (0-10)
[2023-01-15] MEDS: pantoprazole 40 mg SDV IVP (10:10)
[2023-01-15] MEDS: atorvastatin 40 mg Tablet PO (10:10)
[2023-01-15] MEDS: aspirin 81 mg EC Tablet PO (10:10)
[2023-01-15] MEDS: clopidogrel 75 mg Tablet PO (10:10)
[2023-01-15 10:11] LABS: C Reactive Protein 232.2 mg/L (0.0-4.9); Thyroid Stimulating Hormone 1.04 uIU/mL (0.27-4.20)
[2023-01-15] MEDS: sacubitril/valsartan 24-26 mg Tablet 4 EACH PO (10:13)
[2023-01-15 10:26] LABS: Glucose Point of Care 521 mg/dL (70-110)
[2023-01-15 10:29] LABS: Creatine Phosphokinase 934 U/L (39-308)
[2023-01-15] MEDS: piperacillin-tazobactam 3.375 GM in sodium chloride 0.9% (plus) 50 ML IV ×2 (10:50→17:22)
[2023-01-15 11:28] LABS: ABG PCO2 33.8 mmHg (35-45); ABG PH Result 7.48 (7.35-7.45); Blood Gas Operator Identificat MONRO; HCO3 ABG 24.8 mmol/L (22-26); Oxygen Device ROOM AIR; PO2 ABG 69.2 mmHg (80.0-100.0)
[2023-01-15 11:38] LABS: Glucose Point of Care 434 mg/dL (70-110)
[2023-01-15 12:42] LABS: Glucose Point of Care 411 mg/dL (70-110)
--- NOTE | 2023-01-15 13:11 | XR_ITS ---
WS: [id number] Exam: XR chest 1V portable [id number] Date/Time of Exam: 01/15/2023 2:37 PM Reason For Exam: Post PICC placement Comparison 01/15/2023 at 4:40 AM. A right-sided PICC line is been inserted and ends at the cavoatrial junction. Mild cardiac enlargemen t. The lungs are fully expanded. Pulmonary vascularity mildly prominent. No consolidating infiltrates . Bony elements are intact. XR/XR chest 1V portable [id number] IMPRESSION: 1. Right-sided PICC line ending at the cavoatrial junction. 2. Mild cardiac enlargement unchanged.
--- NOTE | 2023-01-15 13:21 | P.PN_ITS ---
Subjective Subjective: Patient was seen multiple times throughout the morning -Early in the morning he was seen in the emergency room, his complaints has been feeling weak and fatigued for the last 2 months he has been frequently falling, denies any abdominal pain, no nausea, no vomiting no diarrhea, he does tell me that he has a bad rash around his testicles that has been bothering him, currently denies any chest pain, no shortness of breath he does not tell me that both his legs are bothering him -He was reexamined in the ICU, he is alert and awake, following commands, denies any chest pain, shortness of breath, receiving antibiotic therapy, blood sugars still in the 500s, on insulin drip, anion gap 25 -He was then reexamined early in the afternoon, as he had episodes of confusion and became hypotensive, MAP less than 65, family at bedside, he is complaining of pain all especially in his back -PICC line to be placed, currently on Levophed of 4, he is not alert to person place or time Vitals/I&O/Wt Last Vital Signs Temp 98.8 F 01/15/23 11:15 Pulse 81 01/15/23 12:15 Resp 29 H 01/15/23 12:15 BP 75/44 01/15/23 12:15 Pulse Ox 94 01/15/23 12:15 O2 Del Method 01/15/23 12:15 01/14/23 01/15/23 01/15/23 22:59 06:59 14:59 Intake Total 310.298 / 310.298 Balance 310.298 / 310.298 Weight last 48 hrs Weight 117.934 kg Weight 117.934 kg Physical Exam Const: COMMON NORMALS: no acute distress and patient oriented x3 Resp: COMMON NORMALS: normal respiratory effort, No retractions, No use of accessory muscles and clear to auscultation bilaterally AUSCULTATION: clear to auscultation bilaterally Cardio: COMMON NORMALS: regular rate, regular rhythm, S1 normal heart sound present and S2 normal heart sound present RATE: regular rate RHYTHM: regular rhythm HEART SOUNDS: S1 normal heart sound present and S2 normal heart sound present GI: COMMON NORMALS: Normal to inspection, nondistended, normoactive bowel sounds present and non-tender Extremity: NARRATIVE EXTREMITY EXAM: Bilateral shins, erythema, swelling, tenderness, from the knee down to the ankle Neuro: COMMON NORMALS: patient oriented x3 Psych: COMMON NORMALS: mental status grossly normal Urinary Catheter Management: Guzmán: Cath Placed During This Visit: yes Urinary Catheter Date of Insertion: 01/15/23 Urinary Catheter Time of Insertion: 07:24 Data 01/15/23 05:20 01/15/23 09:12 Micro: Microbiology 01/15/23 06:10 Blood Culture - Preliminary Blood SPECIMEN COLLECTED 01/15/23 06:08 Blood Culture - Preliminary Blood SPECIMEN COLLECTED A&P Assessment and plan (1) Septic shock: (2) Increased anion gap metabolic acidosis: (3) Cellulitis: (4) Urinary tract infection: (5) Acute encephalopathy: (6) Rhabdomyolysis: (7) Non-ST elevation ND (NSTEMI): (8) Acute kidney injury: (9) DKA (diabetic ketoacidosis): (10) Insulin dependent type 2 diabetes mellitus: (11) Hyperlipidemia: (12) Hypertension: (13) CHF (congestive heart failure), NYHA class III: (14) Leukocytosis: (15) Stented coronary artery: (16) CAD (coronary artery disease): Plan Acute encephalopathy -Likely septic encephalopathy -From UTI, and cellulitis -Neurochecks, aspiration precautions Septic shock -Source likely UTI, and bilateral lower leg cellulitis -Maintain MAP in 65 -We will avoid fluid overload, given his history of EF of 35% and CHF -Continue Levophed -PICC line to be placed -Currently on vancomycin, Zosyn -1 dose of hydrocortisone, serum cortisol level Urinary tract infection -Follow urine cultures -Follow blood cultures Bilateral lower extremity cellulitis -ESR is 92 -Bilateral lower limb x-rays ordered -Once more stable we can order certainly a CT to evaluate for underlying osteomyelitis -Continue vancomycin, Zosyn -Follow blood cultures Acute renal failure -Likely secondary to sepsis -Gentle IV hydration given history of CHF -We will monitor urine output closely Non-ST elevation ND -Likely type II NSTEMI from supply demand ischemia from sepsis -Cardiac echo -Continue aspirin, Plavix -Serial EKGs, serial troponins, telemetry monitoring Lactic acidosis -Likely from septic shock and sepsis as above Diabetic ketoacidosis -Although ketones are negative -Blood sugars are over 500, patient's septic -Continue insulin drip -Monitor BMP every 4 hours -If blood sugar drops to below 200 we will start D5 half-normal saline -Monitor potassium closely currently 5.1 Poorly controlled type 2 diabetes mellitus, A1c 15.2 Pseudohyponatremia, from elevated blood sugars Elevated INR, likely secondary to sepsis Attestations Medical Necessity Statement*: Patient requires hospitalization for sepsis, septic shock, acute encephalopathy, urinary tract infection, cellulitis, NSTEMI, rhabdomyolysis, acute renal failure, diabetic ketoacidosis, Coding Level of Care Code Critical Care >/= 30 minutes Critical care time (in minutes): 60 The high probability of a clinically significant, sudden or life threatening deterioration, as referenced in this documentation, required my full and direct attention, intervention and personal management. The critical care time shown is in addition to time spent performing any reported separately billable procedures and includes the following: [x] Data and vital sign review and interpretation [x ] Patient assessment, examination and intervention [x] Medication orders and man agement [x] Patient/Family updates as able [x] Care Coordination and Documentation. Diagnoses Septic shock A41.9; R65.21 Increased anion gap metabolic acidosis E87.29 Cellulitis L03.90 Urinary tract infection N39.0 Acute encephalopathy G93.40 Rhabdomyolysis M62.82 Non-ST elevation ND (NSTEMI) I21.4 Acute kidney injury N17.9 DKA (diabetic ketoacidosis) E11.10 Insulin dependent type 2 diabetes mellitus E11.9; Z79.4 Hyperlipidemia E78.5 Hypertension I10 CHF (congestive heart failure), NYHA class III I50.9 Leukocytosis D72.829 Stented coronary artery Z95.5 CAD (coronary artery disease) I25.10
[2023-01-15 13:45] LABS: Glucose Point of Care 379 mg/dL (70-110)
[2023-01-15 13:55] LABS: Cortisol Random 16.78 ug/dL (2.47-19.5)
[2023-01-15 14:38] LABS: Folate Level 9.7 ng/mL (4.5-32.2)
[2023-01-15 14:39] LABS: Vitamin B12 638 pg/mL (232-1245)
--- NOTE | 2023-01-15 14:42 | PC.OT ---
OT Carlos Held - Patient held on this day secondary to nursing request to not move patient at this time.
[2023-01-15 14:47] LABS: Glucose Point of Care 293 mg/dL (70-110)
--- NOTE | 2023-01-15 14:48 | PC.PT ---
Patient nurse recommended hold PT evaluation in a.m., then in p.m. recommends hold PT for the day, will reattempt evaluation tomorrow.
[2023-01-15 15:16] LABS: Glucose Point of Care 557 mg/dL (70-110)
[2023-01-15 15:16] LABS: Glucose Point of Care 512 mg/dL (70-110)
[2023-01-15] MEDS: fluconazole premix 200 MG/100 ML PREMIX 100 MG IV (15:17)
[2023-01-15] MEDS: hydrocortisone 100 mg/2 mL SDV IVP (15:18)
--- NOTE | 2023-01-15 15:23 | PC.NURSE ---
Triple lumen PICC placed to right brachial vein without difficulty. Arm circumference measured 10 cm from right AC and noted at 37 cm. Trimmed length of cath 42 cm with 2 cm external length noted. Chest xray confirmed cath tip placed in cavoatrial junction in good position and ready to use. Dressing due to be changed tomorrow, 01/16/23. Report given to bedside nurseEmily. Pt tolerated procedure well.
[2023-01-15 15:43] LABS: Anion Gap 18.9 (5-19); Blood Urea Nitrogen 49 mg/dL (8-23); Calcium 9.3 mg/dL (8.5-10.5); Carbon Dioxide 24 mmol/L (22-29); Chloride 91 mmol/L (98-107); Glucose 272 mg/dL (65-115); Osmolality Calculated 293 mOsm/kg (285-295); Potassium 3.9 mmol/L (3.5-5.1); Sodium 130 mmol/L (136-145)
[2023-01-15 15:47] LABS: Troponin 5 6HR 110.7 ng/L (0-15); Troponin 5 6HR Delta 1.7 ng/L (0-12)
[2023-01-15 15:51] LABS: Glucose Point of Care 292 mg/dL (70-110)
[2023-01-15 16:52] LABS: Glucose Point of Care 252 mg/dL (70-110)
[2023-01-15 17:54] LABS: Glucose Point of Care 264 mg/dL (70-110)
[2023-01-15] MEDS: nystatin powder 15 gm Btl 1 APPLIC TOPICAL (17:59)
[2023-01-15 18:40] LABS: Anion Gap 18.8 (5-19); Blood Urea Nitrogen 46 mg/dL (8-23); Calcium 9.3 mg/dL (8.5-10.5); Carbon Dioxide 26 mmol/L (22-29); Chloride 93 mmol/L (98-107); Glucose 223 mg/dL (65-115); Osmolality Calculated 297 mOsm/kg (285-295); Potassium 3.8 mmol/L (3.5-5.1); Sodium 134 mmol/L (136-145)
[2023-01-15] MEDS: morphine 4 mg/mL SDV 1 mL 1 MG IVP (18:49)
[2023-01-15 19:18] LABS: Glucose Point of Care 298 mg/dL (70-110)
--- NOTE | 2023-01-15 19:40 | PC.NURSE ---
Shift Note Frequent safety and comfort rounds continue. Orders and/or nursing care completed as indicated. Patient monitored for response to intervention and treatment(s). Education provided includes DKA, Sepsis,CHF, and Cellulitis all extensively reviewed with patient while patient was alert upon admission. Patient indicated understanding of teachings verbally. In the early afternoon patient became hypotensive and his confusion increased, patient was no longer oriented and would moan loudly. Dr. Mays updated on patient condition and orders for levophed initiated. See MAR. Consent obtained from patients son over the telephone and verified with second nurse for PICC line placement. Patient pulled Guzmán catheter during confusion, second catheter placed using sterile technique. Patient is currently resting in bed BP 109/58. HR 85, O2 92 on RA.
[2023-01-15 19:54] LABS: Glucose Point of Care 220 mg/dL (70-110)
[2023-01-15] MEDS: potassium chloride ER 20 mEq Tablet 40 MEQ PO (21:02)
[2023-01-15 21:10] LABS: Glucose Point of Care 246 mg/dL (70-110)
[2023-01-15] MEDS: vancomycin 1,500 MG/300 ML PIGGYBACK 200 MG IV (21:24)
[2023-01-15] MEDS: insulin regular-human 250 UNIT in sodium chloride 0.9% 250 ML 24.5 UNIT IV (22:00)
[2023-01-15 22:05] LABS: Glucose Point of Care 364 mg/dL (70-110)
[2023-01-15 22:05] LABS: Glucose Point of Care 223 mg/dL (70-110)
[2023-01-15 22:20] LABS: Anion Gap 16.7 (5-19); Blood Urea Nitrogen 41 mg/dL (8-23); Calcium 9.3 mg/dL (8.5-10.5); Carbon Dioxide 26 mmol/L (22-29); Chloride 95 mmol/L (98-107); Glucose 192 mg/dL (65-115); Osmolality Calculated 293 mOsm/kg (285-295); Potassium 3.7 mmol/L (3.5-5.1); Sodium 134 mmol/L (136-145)
[2023-01-15 22:49] LABS: Add Urine Microscopic? YES; Bilirubin Urine Neg (Negative); Blood Urine 3+ (Negative); Glucose Urine UA 2+ (Normal); Ketones Urine Negative (Negative); Leukocyte Esterase Urine Negative (Negative); Nitrate Urine Negative (Negative); Protein Urine Neg (Negative); Urine Appearance Clear (CLEAR); Urine Color Colorless (Yellow); Urobilinogen Urine Norm (Negative); pH Urine 5 (5-7)
[2023-01-15 22:50] LABS: RBC Urine >100 /hpf (0-2); Squamous Epithelial Cell Urine 0-4 /hpf (0-5)
[2023-01-15 22:57] LABS: Bacteria Urine TRACE /hpf; Uric Acid Crystals Urine 0-4 /hpf
[2023-01-15 22:58] LABS: Add Urine Culture? Yes
[2023-01-15 23:05] LABS: Glucose Point of Care 195 mg/dL (70-110)
--- NOTE | 2023-01-15 23:30 | PC.NURSE ---
Dr. Booth updated on insulin drip and current BG. New order to start D5 to LR @60ml/hr.
[2023-01-15] MEDS: dextrose 5%-lactated ringers 1,000 ML 60 ML IV (23:35)
[2023-01-16] VITALS (99 sets, daily range): BP systolic 66–148; BP diastolic 43–82; PULSE 71–112; RESP 12–25; TEMP 36.4–37; O2SAT 85–100
[2023-01-16] LABS: Glucose Point of Care 172 mg/dL (70-110)
[2023-01-16] MEDS: piperacillin-tazobactam 3.375 GM in sodium chloride 0.9% (plus) 50 ML IV ×3 (00:08→17:41)
[2023-01-16 00:10] LABS: Adenovirus Not Detected (NOT DETECT); Chlamydia Pneumoniae Not Detected (NOT DETECT); Coronavirus 229E,HKU1,NL63,OC4 Not Detected (NOT DETECT); Human Metapneumovirus Not Detected (NOT DETECT); Human Rhinovirus/Enterovirus Not Detected (NOT DETECT); Influenza A Not Detected (NOT DETECT); Influenza A H1 Not Detected (NOT DETECT); Influenza A H1-2009 Not Detected (NOT DETECT); Influenza A H3 Not Detected (NOT DETECT); Influenza B Not Detected (NOT DETECT); Mycoplasma Pneumoniae Not Detected (NOT DETECT); Parainfluenza Virus Type 1 Not Detected (NOT DETECT); Parainfluenza Virus Type 2 Not Detected (NOT DETECT); Parainfluenza Virus Type 3 Not Detected (NOT DETECT); Parainfluenza Virus Type 4 Not Detected (NOT DETECT); Respiratory Syncytial Virus A Not Detected (NOT DETECT); Respiratory Syncytial Virus B Not Detected (NOT DETECT); SARS-COV-2 Not Detected (NOT DETECT)
[2023-01-16 01:01] LABS: Glucose Point of Care 160 mg/dL (70-110)
[2023-01-16 02:10] LABS: Glucose Point of Care 149 mg/dL (70-110)
[2023-01-16 03:09] LABS: Glucose Point of Care 163 mg/dL (70-110)
[2023-01-16] MEDS: morphine 4 mg/mL SDV 1 mL 1 MG IVP ×2 (03:09→22:06)
[2023-01-16 04:05] LABS: Glucose Point of Care 138 mg/dL (70-110)
[2023-01-16 05:04] LABS: Glucose Point of Care 154 mg/dL (70-110)
[2023-01-16 05:12] LABS: Basophils # 0.1 10^3/uL (0.0-0.1); Basophils % 0.3 %; Eosinophils % 0.1 %; Hematocrit 29.2 % (42.0-52.0); Hemoglobin 9.9 g/dL (11.7-16.6); Lymphocytes # 2.3 10^3/uL (0.8-4.8); Lymphocytes % 12.1 %; Mean Corpuscular HGB Conc 33.9 g/dL (30.0-36.0); Mean Corpuscular Hemoglobin 33.3 pg (28.0-34.0); Mean Corpuscular Volume 98.3 fl (80-94); Mean Platelet Volume 10.1 fL (7.4-10.4); Monocytes # 1.3 10^3/uL (0.2-0.9); Monocytes % 6.7 %; Neutrophils # 14.73 10^3/uL (1.8-7.7); Neutrophils % 78.6 %; Nucleated Red Blood Cells % 0 %; Platelet Count 214 10^3/cmm (130-400); Red Blood Count 2.97 10^6/uL (4.1-5.3); Red Cell Distribution Width 13.6 % (12.1-15.1); White Blood Count 18.7 10^3/uL (4.0-10.0)
[2023-01-16 05:33] LABS: Lactate (Lactic Acid level) 2.6 mmol/L (0.5-2.2)
[2023-01-16 05:38] LABS: Alanine Aminotransferase 15 U/L (0-41); Albumin Level 2.7 g/dL (3.5-5.2); Alkaline Phosphatase 191 U/L (40-130); Aspartate Amino Transferase 32 U/L (0-40); Blood Urea Nitrogen 33 mg/dL (8-23); C Reactive Protein 190.2 mg/L (0.0-4.9); Calcium 9.3 mg/dL (8.5-10.5); Carbon Dioxide 28 mmol/L (22-29); Chloride 100 mmol/L (98-107); Globulin 3.9 g/dL (1.3-4.6); Glucose 140 mg/dL (65-115); Magnesium 1.9 mg/dL (1.7-2.3); Osmolality Calculated 296 mOsm/kg (285-295); Phosphorus 2.7 mg/dL (2.5-4.5); Sodium 138 mmol/L (136-145); Total Bilirubin 0.6 mg/dL (0.15-1.2); Total Protein 6.6 g/dL (6.6-8.7)
[2023-01-16 05:52] LABS: Anion Gap 13.9 (5-19); Creatinine Clr Calc Pharmacy 49.7742; Potassium 3.9 mmol/L (3.5-5.1)
[2023-01-16 06:03] LABS: Glucose Point of Care 128 mg/dL (70-110)
--- NOTE | 2023-01-16 06:28 | PC.NURSE ---
Shift Summary: Pt rested throughout most of the shift but did have 2/3 episodes of confusion where he expressed that he felt unsafe here and that we were trying to harm him. During the episodes of confusion the pt never became agitated and did not pull at any lines. Attempted to reorientate pt to person, place, time, and situation but was unsuccessful. Pt stated his name was Osbaldo and that his birthday was 02/04/1931 and later said that for safety, he cant tell me his real name. Asked pt what could be done to help him feel more safe and he responded, let me go home . This RN provided education on the pts critical condition and why he was admited to the hospital. Pt verbalized understanding.
[2023-01-16 07:08] LABS: Glucose Point of Care 118 mg/dL (70-110)
--- NOTE | 2023-01-16 07:33 | PC.NURSE ---
Spoke with Family Spoke with patient daughter, hSruthi, updated her regarding patient current condition and overnight events. Answered all questions at this time.
[2023-01-16] MEDS: heparin 5,000 unit/mL INJ 1 mL 5000 UNIT SUBCUT ×3 (07:54→23:20)
[2023-01-16 08:28] LABS: Glucose Point of Care 120 mg/dL (70-110)
[2023-01-16] MEDS: potassium chloride ER 20 mEq Tablet PO (08:35)
[2023-01-16] MEDS: insulin glargine 100 units/1 mL 10 UNIT SUBCUT ×2 (08:35→18:33)
[2023-01-16] MEDS: pantoprazole 40 mg SDV IVP (08:36)
[2023-01-16] MEDS: aspirin 81 mg EC Tablet PO (08:36)
[2023-01-16] MEDS: sodium chloride 0.9% 1,000 ML 30 ML IV (08:36)
[2023-01-16] MEDS: clopidogrel 75 mg Tablet PO (08:36)
[2023-01-16] MEDS: atorvastatin 40 mg Tablet PO (08:36)
[2023-01-16] MEDS: nystatin powder 15 gm Btl 1 APPLIC TOPICAL ×2 (10:21→17:41)
--- NOTE | 2023-01-16 12:14 | PC.PHAR ---
VANCOMYCIN DOSE ADJUSTMENT DUE TO IMPROVING RENAL FUNCTION CURRENT DOSE 1500 MG Q36H NEW DOSE 1500 MG Q18H TO BEGIN AT ON 01/16 @ 1500 Pharmacokinetic dosing service Date: Time: Objective: Patient: Floor: Age: 72 yo Serum creatinine: 1.7 mg/dL Height: 68.9 Inches Weight (kg): 112 Assessment: IBW (kg): 70.47 Dosing wt(kg): 112 Estimated Creatinine clearance (ml/min): 48.4 CRCL method: Cockcroft and Gault using adjusted body weight Drug selected: Vancomycin Loading dose (mg): Vd (liters): 78.4 (factor used: 0.7 L/kg) Pepe (hr-1): 0.045 Half life (hrs): 15.40 CLvanco=?? 3.528 L/hr Recommended dose: 1500 mg Interval: 18 hrs Infusion time (hrs): 1 Predicted peak (mcg/mL): 33.7 Predicted trough (mcg/mL): 15.68 Total body weight is being used for vancomycin dosing. Recommendations: Give Vancomycin 1500 mg q 18 hrs with an expected Cpeak of 33.7 mcg/ml and an expected Ctrough of 15.68 mcg/ml AUC 0-24 /RADHA Data: RADHA 0.5 mcg/mL:?? AUC/RADHA:? 1133.8 RADHA 1.0 mcg/mL:?? AUC/RADHA:? 566.9 --------- RADHA 1.5 mcg/mL:?? AUC/RADHA:? 377.9 RADHA 2.0 mcg/mL:?? AUC/RADHA:? 283.4 Thank you for the consult, will continue to follow.
[2023-01-16 12:50] LABS: Glucose Point of Care 199 mg/dL (70-110)
[2023-01-16] MEDS: fluconazole premix 200 MG/100 ML PREMIX 100 MG IV (12:57)
[2023-01-16] MEDS: insulin lispro 100 unit/1 mL SUBCUT ×2 (12:58→17:53)
--- NOTE | 2023-01-16 14:43 | PC.NURSE ---
Spoke with Family Spoke with patient sister Lisa, updated her regarding patient condition. Answered all questions at this time.
--- NOTE | 2023-01-16 14:45 | P.PN_ITS ---
Subjective Subjective: Patient was seen this morning he was much more alert and awake, following commands, he still on 4 Levophed, still on insulin drip, anion gap has closed, he follows commands, he tells me he feels a lot better Vitals/I&O/Wt Last Vital Signs Temp 98.3 F 01/16/23 08:00 Pulse 100 01/16/23 12:15 Resp 18 01/16/23 10:54 BP 124/59 01/16/23 12:15 Pulse Ox 86 L 01/16/23 12:15 O2 Del Method 01/16/23 10:54 01/15/23 01/16/23 01/16/23 22:59 06:59 14:59 Intake Total 594.100 / 395.026 5695.613 / 2249.418 624.625 / 624.625 Output Total 4700 / 4700 900 / 5600 Balance -4105.900 / -3716.195 365.613 / -3350.582 624.625 / 624.625 Weight last 48 hrs Weight 112.037 kg Weight 117.934 kg Weight 117.934 kg Physical Exam Const: COMMON NORMALS: no acute distress and patient oriented x3 Resp: COMMON NORMALS: normal respiratory effort, No retractions, No use of accessory muscles and clear to auscultation bilaterally AUSCULTATION: clear t o auscultation bilaterally Cardio: COMMON NORMALS: regular rate, regular rhythm, S1 normal heart sound present and S2 normal heart sound present RATE: regular rate RHYTHM: regular rhythm HEART SOUNDS: S1 normal heart sound present and S2 normal heart sound present GI: COMMON NORMALS: Normal to inspection, nondistended, normoactive bowel sounds present and non-tender Extremity: COMMON NORMALS: capillary refill normal and no pedal edema Neuro: COMMON NORMALS: patient oriented x3 Psych: COMMON NORMALS: mental status grossly normal Skin: NARRATIVE SKIN EXAM: Bilateral camacho, cellulitis improving Urinary Catheter Management: Guzmán: Cath Placed During This Visit: yes Reason for Continuing Indwelling Catheter: Accurate Measurement of Urinary Output in Critically Ill Patients Urinary Catheter Date of Insertion: 01/15/23 Urinary Catheter Time of Insertion: 07:24 Data 01/16/23 04:13 01/16/23 04:13 Micro: Microbiology 01/15/23 06:06 Urine Culture - Preliminary Urine,Clean Catch 01/15/23 06:10 Blood Culture - Preliminary Blood NEGATIVE TO DATE 01/15/23 06:08 Blood Culture - Preliminary Blood NEGATIVE TO DATE A&P Assessment and plan (1) Septic shock: (2) Increased anion gap metabolic acidosis: (3) Cellulitis: (4) Urinary tract infection: (5) Acute encephalopathy: (6) Rhabdomyolysis: (7) Non-ST elevation [place] (NSTEMI): (8) Acute kidney injury: (9) DKA (diabetic ketoacidosis): (10) Insulin dependent type 2 diabetes mellitus: (11) Hyperlipidemia: (12) Hypertension: (13) CHF (congestive heart failure), NYHA class III: (14) Leukocytosis: (15) Stented coronary artery: (16) CAD (coronary artery disease): Plan Acute encephalopathy -Resolving -Likely septic encephalopathy -From UTI, and cellulitis -Neurochecks, aspiration precautions Septic shock -Source likely UTI, and bilateral lower leg cellulitis -Maintain MAP in 65 -We will avoid fluid overload, given his history of EF of 35% and CHF -Continue Levophed -PICC line to be placed -Currently on vancomycin, Zosyn -1 dose of hydrocortisone, serum cortisol level within normal limits Urinary tract infection -Follow urine cultures -Follow blood cultures Bilateral lower extremity cellulitis -ESR is 92 -Bilateral lower limb x-rays are within normal limits -We will consider CT of bilateral lower legs based on clinical progress -Continue vancomycin, Zosyn -Follow blood cultures Acute renal failure -Likely secondary to sepsis -Gentle IV hydration given history of CHF -We will monitor urine output closely Non-ST elevation NJ -Likely type II NSTEMI from supply demand ischemia from sepsis -Cardiac echo -Continue aspirin, Plavix -Serial EKGs, serial troponins, telemetry monitoring Lactic acidosis -Likely from septic shock and sepsis as above Diabetic ketoacidosis -Resolved -Lantus 10 units twice daily -Moderate dose sliding Poorly controlled type 2 diabetes mellitus, A1c 15.2 Pseudohyponatremia, from elevated blood sugars Elevated INR, likely secondary to sepsis Attestations Medical Necessity Statement*: Patient requires hospitalization for septic shock, acute encephalopathy, UTI, bilateral extremity cellulitis, acute renal failure Coding Level of Care Code Critical Care >/= 30 minutes Critical care time (in minutes): 40 The high probability of a clinically significant, sudden or life threatening deterioration, as referenced in this documentation, required my full and direct attention, intervention and personal management. The critical care time shown is in addition to time spent performing any reported separately billable procedures and includes the following: [x] Data and vital sign review and interpretation [x ] Patient assessment, examination and intervention [x] Medication orders and management [x] Patient/Family updates as able [x] Care Coordination and Documentation. Diagnoses Septic shock A41.9; R65.21 Increased anion gap metabolic acidosis E87.29 Cellulitis L03.90 Urinary tract infection N39.0 Acute encephalopathy G93.40 Rhabdomyolysis M62.82 Non-ST elevation NJ (NSTEMI) I21.4 Acute kidney injury N17.9 DKA (diabetic ketoacidosis) E11.10 Insulin dependent type 2 diabetes mellitus E11.9; Z79.4 Hyperlipidemia E78.5 Hypertension I10 CHF (congestive heart failure), NYHA class III I50.9 Leukocytosis D72.829 Stented coronary artery Z95.5 CAD (coronary artery disease) I25.10
[2023-01-16] MEDS: vancomycin 1,500 MG/300 ML PIGGYBACK 200 MG IV (15:03)
[2023-01-16 18:21] LABS: Glucose Point of Care 505 mg/dL (70-110)
[2023-01-16 18:21] LABS: Glucose Point of Care 464 mg/dL (70-110)
[2023-01-16 21:38] LABS: Glucose Point of Care > 600 mg/dL (70-110)
[2023-01-16 21:38] LABS: Glucose Point of Care 596 mg/dL (70-110)
[2023-01-16] MEDS: diphenhydrAMINE cream 30 gm 1 APPLIC TOPICAL (22:09)
[2023-01-16 22:16] LABS: Anion Gap 15.5 (5-19); Blood Urea Nitrogen 26 mg/dL (8-23); Calcium 8.1 mg/dL (8.5-10.5); Carbon Dioxide 22 mmol/L (22-29); Chloride 94 mmol/L (98-107); Osmolality Calculated 298 mOsm/kg (285-295); Potassium 4.5 mmol/L (3.5-5.1); Sodium 127 mmol/L (136-145)
[2023-01-16 22:33] LABS: Glucose 631 mg/dL (65-115)
[2023-01-16] MEDS: insulin glargine 100 units/1 mL 35 UNIT SUBCUT (23:20)
--- NOTE | 2023-01-16 23:43 | PC.NURSE ---
High BG @approximately 0 took BG via finger stick and it read HI , retook BG on opposite hand and it read [address] Booth @2136, new order for stat BMP. Anion Gap and critical Glucose resulted @2232. Dr. Booth called with results. See orders for new orders and MAR for medication given.
[2023-01-17] VITALS (73 sets, daily range): BP systolic 80–142; BP diastolic 39–91; PULSE 67–88; RESP 13–29; TEMP 36.5–36.7; O2SAT 91–100
[2023-01-17] MEDS: piperacillin-tazobactam 3.375 GM in sodium chloride 0.9% (plus) 50 ML IV ×3 (00:55→16:31)
[2023-01-17] MEDS: sodium chloride 0.9% 1,000 ML 30 ML IV (01:30)
[2023-01-17 03:08] LABS: Glucose Point of Care 462 mg/dL (70-110)
[2023-01-17 04:30] LABS: Lactate (Lactic Acid level) 1.9 mmol/L (0.5-2.2)
--- NOTE | 2023-01-17 04:39 | PC.NURSE ---
Spoke w/ Ashok (son) early this morning to update on pt condition. Ashok expressed concerns about his fathers ability to properly take his medications. He also expressed concerns about his father taking his insulin when ever he wants and letting his blood sugar run in the 400's at home. Case management consult placed. Provided education to pt about his diabetes, pt verbalized understanding but was resistant to learning.
[2023-01-17 04:56] LABS: Alanine Aminotransferase 13 U/L (0-41); Albumin Level 2.6 g/dL (3.5-5.2); Alkaline Phosphatase 72 U/L (40-130); Anion Gap 13.8 (5-19); Aspartate Amino Transferase 28 U/L (0-40); Blood Urea Nitrogen 22 mg/dL (8-23); C Reactive Protein 108.5 mg/L (0.0-4.9); Calcium 8.3 mg/dL (8.5-10.5); Carbon Dioxide 23 mmol/L (22-29); Chloride 87 mmol/L (98-107); Creatine Phosphokinase 128 U/L (39-308); Globulin 3.5 g/dL (1.3-4.6); Glucose 457 mg/dL (65-115); NT Pro B Type Natriuretic Pept 695 pg/mL (0-125); Osmolality Calculated 273 mOsm/kg (285-295); Phosphorus 2.4 mg/dL (2.5-4.5); Potassium 3.8 mmol/L (3.5-5.1); Procalcitonin 16.89 ng/mL (0-0.5); Sodium 120 mmol/L (136-145); Total Bilirubin 0.5 mg/dL (0.15-1.2); Total Protein 6.1 g/dL (6.6-8.7)
[2023-01-17 06:00] LABS: Basophils # 0.1 10^3/uL (0.0-0.1); Basophils % 0.6 %; Eosinophils # 0.2 10^3/uL (0.0-0.8); Eosinophils % 2.1 %; Hematocrit 27.9 % (42.0-52.0); Hemoglobin 9.3 g/dL (11.7-16.6); Lymphocytes # 2.9 10^3/uL (0.8-4.8); Lymphocytes % 35.5 %; Mean Corpuscular HGB Conc 33.3 g/dL (30.0-36.0); Mean Corpuscular Hemoglobin 33.6 pg (28.0-34.0); Mean Corpuscular Volume 100.7 fl (80-94); Mean Platelet Volume 10.3 fL (7.4-10.4); Monocytes # 0.9 10^3/uL (0.2-0.9); Monocytes % 11.3 %; Neutrophils # 4.12 10^3/uL (1.8-7.7); Neutrophils % 49.9 %; Nucleated Red Blood Cells % 0 %; Platelet Count 202 10^3/cmm (130-400); Red Blood Count 2.77 10^6/uL (4.1-5.3); White Blood Count 8.3 10^3/uL (4.0-10.0)
[2023-01-17 07:56] LABS: Glucose Point of Care 400 mg/dL (70-110)
[2023-01-17] MEDS: insulin lispro 100 unit/1 mL SUBCUT ×3 (08:37→16:32)
[2023-01-17] MEDS: insulin glargine 100 units/1 mL 50 UNIT SUBCUT ×2 (08:38→21:16)
[2023-01-17] MEDS: pantoprazole 40 mg SDV IVP ×2 (08:40→19:51)
[2023-01-17] MEDS: sucralfate 1 gm Tablet PO ×2 (08:40→19:50)
[2023-01-17] MEDS: aspirin 81 mg EC Tablet PO (08:40)
[2023-01-17] MEDS: clopidogrel 75 mg Tablet PO (08:40)
[2023-01-17] MEDS: atorvastatin 40 mg Tablet PO (08:40)
[2023-01-17] MEDS: nystatin powder 15 gm Btl 1 APPLIC TOPICAL (08:41)
[2023-01-17] MEDS: vancomycin 1,500 MG/300 ML PIGGYBACK 200 MG IV (08:41)
[2023-01-17] MEDS: heparin 5,000 unit/mL INJ 1 mL 5000 UNIT SUBCUT ×3 (08:43→23:31)
[2023-01-17 10:33] LABS: Ferritin 172 ng/mL (30-400); Iron 29 ug/dL (59-158); Percent Saturation 14.1 % (20-50); Total Iron Binding Capacity 205 mcg/dl; Unsaturated Iron Binding 176 ug/dL (112-347); Vitamin B12 745 pg/mL (232-1245)
[2023-01-17 11:37] LABS: Sodium 130 mmol/L (136-145)
[2023-01-17 11:56] LABS: Folate Level 12.3 ng/mL (4.5-32.2)
[2023-01-17 12:33] LABS: Glucose Point of Care 400 mg/dL (70-110)
--- NOTE | 2023-01-17 12:43 | PM.PN ---
Subjective Subjective: Patient was seen this morning, his blood sugars were elevated throughout the night, he tells me he uses 70 units of Lantus at bedtime, with 70 units of NovoLog 3 times daily with meals, he is not exactly sure who told him to take this much insulin at this regimen, but he tells me his blood sugars still high at home, denies any chest pain, no palpitations, no shortness of breath, Vitals/I&O/Wt Last Vital Signs Temp 98.0 F 01/17/23 08:30 Pulse 72 01/17/23 12:00 Resp 16 01/17/23 12:00 BP 80/39 01/17/23 12:00 Pulse Ox 95 01/17/23 12:00 O2 Del Method 01/17/23 07:19 01/16/23 01/17/23 01/17/23 22:59 06:59 14:59 Intake Total 2747.663 / 3472.288 1590.537 / 5062.825 300 / 300 Output Total 2150 / 2150 3350 / 5500 Balance 597.663 / 1322.288 -1759.463 / -437.175 300 / 300 Weight last 48 hrs Weight 112.128 kg Weight 112.037 kg Physical Exam Const: COMMON NORMALS: no acute distress and patient oriented x3 Resp: COMMON NORMALS: normal respiratory effort, No retractions, No use of accessory muscles and clear to auscultation bilaterally AUSCULTATION: clear to auscultation bilaterally Cardio: COMMON NORMALS: regular rate, regular rhythm, S1 normal heart sound present and S2 normal heart sound present RATE: regular rate RHYTHM: regular rhythm HEART SOUNDS: S1 normal heart sound present and S2 normal heart sound present GI: COMMON NORMALS: Normal to inspection, nondistended, normoactive bowel sounds present and non-tender Extremity: COMMON NORMALS: no pedal edema Neuro: COMMON NORMALS: patient oriented x3 Psych: COMMON NORMALS: mental status grossly normal Urinary Catheter Management: Guzmán: Cath Placed During This Visit: yes Reason for Continuing Indwelling Catheter: Accurate Measurement of Urinary Output in Critically Ill Patients Urinary Catheter Date of Insertion: 01/15/23 Urinary Catheter Time of Insertion: 07:24 Data 01/17/23 02:58 01/17/23 11:00 Micro: Microbiology 01/15/23 06:06 Urine Culture - Final Urine,Clean Catch 01/15/23 22:17 Urine Culture - Preliminary Urine,Clean Catch A&P Assessment and plan (1) Septic shock: (2) Increased anion gap metabolic acidosis: (3) Cellulitis: (4) Urinary tract infection: (5) Acute encephalopathy: (6) Rhabdomyolysis: (7) Non-ST elevation [place] (NSTEMI): (8) Acute kidney injury: (9) DKA (diabetic ketoacidosis): (10) Insulin dependent type 2 diabetes mellitus: (11) Hyperlipidemia: (12) Hypertension: (13) CHF (congestive heart failure), NYHA class III: (14) Leukocytosis: (15) Stented coronary artery: (16) CAD (coronary artery disease): Plan Acute encephalopathy -Resolved -Likely septic encephalopathy -From UTI, and cellulitis -Neurochecks, aspiration precautions Septic shock -Source likely UTI, and bilateral lower leg cellulitis -Maintain MAP in 65 -We will avoid fluid overload, given his history of EF of 35% and CHF -Off Levophed -PICC line to be placed -Currently on vancomycin, Zosyn -1 dose of hydrocortisone, serum cortisol level within normal limits Urinary tract infection -Follow urine cultures -Follow blood cultures Bilateral lower extremity cellulitis -ESR is 92 -Bilateral lower limb x-rays are within normal limits -We will consider CT of bilateral lower legs based on clinical progress -Continue vancomycin, Zosyn -Follow blood cultures Acute renal failure -Resolving -Likely secondary to sepsis -Gentle IV hydration given history of CHF -We will monitor urine output closely Non-ST elevation AR -Likely type II NSTEMI from supply demand ischemia from sepsis -Cardiac echo -Continue aspirin, Plavix -Serial EKGs, serial troponins, telemetry monitoring Lactic acidosis -Likely from septic shock and sepsis as above Diabetic ketoacidosis -Resolved -Increase Lantus to 50 units twice daily -High-dose sliding scale Acute anemia -Iron studies, B12, folate -Monitor hemoglobin closely -Protonix, Carafate Poorly controlled type 2 diabetes mellitus, A1c 15.2 Pseudohyponatremia, from elevated blood sugars Elevated INR, likely secondary to sepsis We will moved to general medical floors today Attestations Medical Necessity Statement*: Patient requires admission for cellulitis, sepsis, will moved to general medical floors today Diagnoses Septic shock A41.9; R65.21 Increased anion gap metabolic acidosis E87.29 Cellulitis L03.90 Urinary tract infection N39.0 Acute encephalopathy G93.40 Rhabdomyolysis M62.82 Non-ST elevation AR (NSTEMI) I21.4 Acute kidney injury N17.9 DKA (diabetic ketoacidosis) E11.10 Insulin dependent type 2 diabetes mellitus E11.9; Z79.4 Hyperlipidemia E78.5 Hypertension I10 CHF (congestive heart failure), NYHA class III I50.9 Leukocytosis D72.829 Stented coronary artery Z95.5 CAD (coronary artery disease) I25.10
[2023-01-17] MEDS: fluconazole premix 200 MG/100 ML PREMIX 100 MG IV (12:47)
[2023-01-17] MEDS: morphine 4 mg/mL SDV 1 mL 1 MG IVP (12:48)
[2023-01-17 14:55] LABS: Hematocrit 25.9 % (42.0-52.0); Hemoglobin 8.4 g/dL (11.7-16.6)
[2023-01-17 16:28] LABS: Glucose Point of Care 336 mg/dL (70-110)
--- NOTE | 2023-01-17 16:43 | PC.NURSE ---
Transfer Note Patient transferred to med-surg 251-2 from ICU via chair. Handoff report given to Sasha. Patient oriented to environment and equipment. Covering service notified. Orders reviewed and will continue to monitor. All belongings transferred with patient and placed at bedside. Upon transfer patient on room air and is alert/oriented x4.
[2023-01-17 17:17] LABS: Glucose Point of Care 348 mg/dL (70-110)
[2023-01-17 21:37] LABS: Glucose Point of Care 398 mg/dL (70-110)
[2023-01-18] VITALS (9 sets, daily range): BP systolic 92–132; BP diastolic 38–71; PULSE 80–97; RESP 16–24; TEMP 36.4–36.7; O2SAT 95–98
[2023-01-18] MEDS: piperacillin-tazobactam 3.375 GM in sodium chloride 0.9% (plus) 50 ML IV ×3 (00:44→17:14)
[2023-01-18] MEDS: morphine 4 mg/mL SDV 1 mL 1 MG IVP ×2 (02:44→09:38)
[2023-01-18] MEDS: vancomycin 1,500 MG/300 ML PIGGYBACK 200 MG IV ×2 (02:44→20:07)
[2023-01-18 02:59] LABS: NT Pro B Type Natriuretic Pept 713 pg/mL (0-125); Procalcitonin 8.83 ng/mL (0-0.5)
[2023-01-18 03:10] LABS: Alanine Aminotransferase 13 U/L (0-41); Albumin Level 2.5 g/dL (3.5-5.2); Alkaline Phosphatase 63 U/L (40-130); Aspartate Amino Transferase 25 U/L (0-40); Blood Urea Nitrogen 17 mg/dL (8-23); C Reactive Protein 71.9 mg/L (0.0-4.9); Calcium 8.2 mg/dL (8.5-10.5); Carbon Dioxide 19 mmol/L (22-29); Chloride 96 mmol/L (98-107); Globulin 3.5 g/dL (1.3-4.6); Glucose 349 mg/dL (65-115); Osmolality Calculated 279 mOsm/kg (285-295); Phosphorus 1.9 mg/dL (2.5-4.5); Sodium 127 mmol/L (136-145); Total Bilirubin 0.5 mg/dL (0.15-1.2)
[2023-01-18 03:16] LABS: Anion Gap 16.4 (5-19); Potassium 4.4 mmol/L (3.5-5.1)
[2023-01-18 03:30] LABS: Vancomycin Trough 16.6 ug/mL (10-15)
[2023-01-18 06:28] LABS: Glucose Point of Care 303 mg/dL (70-110)
[2023-01-18] MEDS: atorvastatin 40 mg Tablet PO (08:54)
[2023-01-18] MEDS: clopidogrel 75 mg Tablet PO (08:54)
[2023-01-18] MEDS: phosphorus 250 mg Tablet PO ×2 (08:54→17:13)
[2023-01-18] MEDS: sucralfate 1 gm Tablet PO ×2 (08:54→19:54)
[2023-01-18] MEDS: aspirin 81 mg EC Tablet PO (08:54)
[2023-01-18] MEDS: insulin lispro 100 unit/1 mL SUBCUT ×3 (08:55→17:14)
[2023-01-18 09:18] LABS: Basophils % 0.6 %; Eosinophils # 0.3 10^3/uL (0.0-0.8); Eosinophils % 4.9 %; Hematocrit 27.4 % (42.0-52.0); Hemoglobin 9.1 g/dL (11.7-16.6); Lymphocytes # 2.5 10^3/uL (0.8-4.8); Lymphocytes % 36.4 %; Mean Corpuscular HGB Conc 33.2 g/dL (30.0-36.0); Mean Corpuscular Hemoglobin 33.5 pg (28.0-34.0); Mean Corpuscular Volume 100.7 fl (80-94); Mean Platelet Volume 9.8 fL (7.4-10.4); Monocytes # 0.9 10^3/uL (0.2-0.9); Monocytes % 13.6 %; Neutrophils # 3.01 10^3/uL (1.8-7.7); Neutrophils % 43.5 %; Nucleated Red Blood Cells % 0 %; Platelet Count 192 10^3/cmm (130-400); Red Blood Count 2.72 10^6/uL (4.1-5.3); Red Cell Distribution Width 13.8 % (12.1-15.1); White Blood Count 6.9 10^3/uL (4.0-10.0)
[2023-01-18] MEDS: pantoprazole 40 mg SDV IVP ×2 (09:38→19:54)
--- NOTE | 2023-01-18 09:52 | US_ITS ---
WS: [id number] SCROTAL ULTRASOUND EXAMINATION CLINICAL INFORMATION: pain COMPARISON: None. FINDINGS: Technically difficult study TESTES Normal in size and echotexture, without focal lesion. Color Doppler: Normal color Doppler flow pattern. Right testes size: 1.0 cm x 2.6 cm x 2.5 cm. Left testes size: 3.6 cm x 2.5 cm x 2.1 cm. EPIDIDYMIDES Slightly increased vascularity LEFT epididymis can be seen with epididymitis. RIGHT epididymis is nor mal. HYDROCELE None. VARICOCELE None. OTHER FINDINGS None. US/US scrotum [id number] IMPRESSION: Technically difficult study 1. Slightly increased vascularity LEFT epididymis can be seen with epididymiti s 2. Testicles are normal in appearance.
--- NOTE | 2023-01-18 09:52 | US_ITS ---
WS: [id number] Abdomen ultrasound, limited. HISTORY: Ultrasound limited to the gluteal region. There is a small possible abscess. Ultrasound in the area of concern along the gluteal cleft demonstrates no mass or abnormality identif ied. US/US abdomen limited [id number] IMPRESSION: No gluteal abscess identified by ultrasound.
[2023-01-18] MEDS: insulin glargine 100 units/1 mL 50 UNIT SUBCUT ×2 (10:28→19:55)
[2023-01-18] MEDS: nystatin powder 15 gm Btl 1 APPLIC TOPICAL ×2 (10:29→17:15)
[2023-01-18] MEDS: fluconazole 100 mg Tablet 200 MG PO (10:29)
[2023-01-18 11:02] LABS: Hepatitis A Antibody IgM Non-Reactive (Nonreactive); Hepatitis B Core IgM Non-Reactive (Nonreactive); Hepatitis B Surface Antigen Non-Reactive (Nonreactive); Hepatitis C Virus Antibody Non-Reactive (Nonreactive)
[2023-01-18 11:07] LABS: HIV 1 & 2 Antibody Non-Reactive (Non-Reactiv); HIV 1 & 2 Antigen Non-Reactive (Non-Reactiv)
[2023-01-18 12:25] LABS: Glucose Point of Care 341 mg/dL (70-110)
--- NOTE | 2023-01-18 14:38 | P.PN_ITS ---
Subjective Subjective: patient was seen this moring, he has pain in his scrouum, he tells me he has a rash on his scrotum that is painful Vitals/I&O/Wt Last Vital Signs Temp 97.8 F 01/18/23 08:00 Pulse 97 01/18/23 08:00 Resp 16 01/18/23 09:38 BP 132/67 01/18/23 08:00 Pulse Ox 97 01/18/23 08:00 O2 Del Method 01/18/23 08:00 01/17/23 01/18/23 01/18/23 22:59 06:59 14:59 Intake Total 530 / 1295 480 / 1775 880 / 880 Output Total 250 / 250 400 / 650 Balance 280 / 1045 80 / 1125 880 / 880 Weight last 48 hrs Weight 116.936 kg Weight 112.128 kg Physical Exam Const: COMMON NORMALS: no acute distress and patient oriented x3 Resp: COMMON NORMALS: normal respiratory effort, No retractions, No use of accessory muscles and clear to auscultation bilaterally AUSCULTATION: clear t o auscultation bilaterally Cardio: COMMON NORMALS: regular rate, regular rhythm, S1 normal heart sound present and S2 normal heart sound present RATE: regular rate RHYTHM: regular rhythm HEART SOUNDS: S1 normal heart sound present and S2 normal heart sound present GI: COMMON NORMALS: Normal to inspection, nondistended, normoactive bowel sounds present and non-tender Extremity: COMMON NORMALS: no pedal edema Neuro: COMMON NORMALS: patient oriented x3 Psych: COMMON NORMALS: mental status grossly normal Skin: NARRATIVE SKIN EXAM: -scrotal exam: has erythema, scaling of skin around scrotum, has 2 scrotal lesions, that are raw, non draining -sacram dti, stage 1 Urinary Catheter Management: Guzmán: Cath Placed During This Visit: yes Reason for Continuing Indwelling Catheter: Other Urinary Catheter Date of Insertion: 01/15/23 Urinary Catheter Time of Insertion: 07:24 Data 01/18/23 08:43 01/18/23 02:14 Micro: Microbiology 01/15/23 22:17 Urine Culture - Final Urine,Clean Catch 01/15/23 06:06 Urine Culture - Final Urine,Clean Catch A&P Assessment and plan (1) Septic shock: (2) Increased anion gap metabolic acidosis: (3) Cellulitis: (4) Urinary tract infection: (5) Acute encephalopathy: (6) Rhabdomyolysis: (7) Non-ST elevation [place] (NSTEMI): (8) Acute kidney injury: (9) DKA (diabetic ketoacidosis): (10) Insulin dependent type 2 diabetes mellitus: (11) Hyperlipidemia: (12) Hypertension: (13) CHF (congestive heart failure), NYHA class III: (14) Leukocytosis: (15) Stented coronary artery: (16) CAD (coronary artery disease): (17) Sacral decubitus ulcer: (18) Candidiasis of genitalia: Plan Acute encephalopathy -Resolved -Likely septic encephalopathy -From UTI, and cellulitis -Neurochecks, aspiration precautions Septic shock -Source likely UTI, and bilateral lower leg cellulitis -Maintain MAP in 65 -We will avoid fluid overload, given his history of EF of 35% and CHF -Off Levophed -PICC line to be placed -Currently on vancomycin, Zosyn -1 dose of hydrocortisone, serum cortisol level within normal limits Urinary tract infection -Follow urine cultures -Follow blood cultures Bilateral lower extremity cellulitis -ESR is 92 -Bilateral lower limb x-rays are within normal limits -We will consider CT of bilateral lower legs based on clinical progress -Continue vancomycin, Zosyn -Follow blood cultures Acute renal failure -Resolving -Likely secondary to sepsis -Gentle IV hydration given history of CHF -We will monitor urine output closely Non-ST elevation [place] -Likely type II NSTEMI from supply demand ischemia from sepsis -Cardiac echo -Continue aspirin, Plavix -Serial EKGs, serial troponins, telemetry monitoring Lactic acidosis -Likely from septic shock and sepsis as above Diabetic ketoacidosis -Resolved -Increase Lantus to 50 units twice daily -High-dose sliding scale Acute anemia -hgb 9.1 -hold heparin -Monitor hemoglobin closely -Protonix, Carafate -hemmocult stool candidiasis of scrotum -topical treatment scrotal lesion -will do us for concern for cellulitis -rpr, hiv, hep c, hsv Poorly controlled type 2 diabetes mellitus, A1c 15.2 Pseudohyponatremia, from elevated blood sugars Elevated INR, likely secondary to sepsis We will moved to general medical floors today Attestations Medical Necessity Statement*: patient requires hospitalization for cellulitis, uti, hyperglycemia, scrotal lesion and pain Diagnoses Septic shock A41.9; R65.21 Increased anion gap metabolic acidosis E87.29 Cellulitis L03.90 Urinary tract infection N39.0 Acute encephalopathy G93.40 Rhabdomyolysis M62.82 Non-ST elevation [place] (NSTEMI) I21.4 Acute kidney injury N17.9 DKA (diabetic ketoacidosis) E11.10 Insulin dependent type 2 diabetes mellitus E11.9; Z79.4 Hyperlipidemia E78.5 Hypertension I10 CHF (congestive heart failure), NYHA class III I50.9 Leukocytosis D72.829 Stented coronary artery Z95.5 CAD (coronary artery disease) I25.10 Sacral decubitus ulcer L89.159 Candidiasis of genitalia B37.49
[2023-01-18 16:45] LABS: Glucose Point of Care 281 mg/dL (70-110)
[2023-01-18] MEDS: nystatin cream 30 gm 1 APPLIC TOPICAL (17:15)
--- NOTE | 2023-01-18 18:54 | PC.NURSE ---
Patient is currently resting in bed comfortably. Vitals have remained stable throughout shift. Bedside table and call light are within reach. This nurse answered questions the family/patient had during this shift. No current needs at this time.
[2023-01-18 21:07] LABS: Glucose Point of Care 295 mg/dL (70-110)
[2023-01-18] MEDS: acetaminophen 325 mg Tablet 650 MG PO (22:53)
[2023-01-19] VITALS (11 sets, daily range): BP systolic 117–138; BP diastolic 63–75; PULSE 66–103; RESP 15–17; TEMP 36.6–36.8; O2SAT 94–99
[2023-01-19] MEDS: piperacillin-tazobactam 3.375 GM in sodium chloride 0.9% (plus) 50 ML IV ×3 (00:40→19:15)
[2023-01-19 05:33] LABS: Alanine Aminotransferase 13 U/L (0-41); Albumin Level 2.7 g/dL (3.5-5.2); Alkaline Phosphatase 65 U/L (40-130); Anion Gap 15.3 (5-19); Aspartate Amino Transferase 25 U/L (0-40); Blood Urea Nitrogen 14 mg/dL (8-23); Calcium 8.5 mg/dL (8.5-10.5); Carbon Dioxide 23 mmol/L (22-29); Chloride 101 mmol/L (98-107); Globulin 3.6 g/dL (1.3-4.6); Glucose 244 mg/dL (65-115); Osmolality Calculated 289 mOsm/kg (285-295); Potassium 4.3 mmol/L (3.5-5.1); Sodium 135 mmol/L (136-145); Total Bilirubin 0.4 mg/dL (0.15-1.2); Total Protein 6.3 g/dL (6.6-8.7)
[2023-01-19 07:36] LABS: Glucose Point of Care 239 mg/dL (70-110)
[2023-01-19] MEDS: phosphorus 250 mg Tablet PO ×2 (08:46→18:05)
[2023-01-19] MEDS: clopidogrel 75 mg Tablet PO (08:47)
[2023-01-19] MEDS: sucralfate 1 gm Tablet PO ×2 (08:47→21:29)
[2023-01-19] MEDS: atorvastatin 40 mg Tablet PO (08:47)
[2023-01-19] MEDS: aspirin 81 mg EC Tablet PO (08:47)
[2023-01-19] MEDS: insulin lispro 100 unit/1 mL SUBCUT ×3 (08:47→18:05)
[2023-01-19] MEDS: fluconazole 100 mg Tablet 200 MG PO (08:47)
[2023-01-19] MEDS: insulin glargine 100 units/1 mL 50 UNIT SUBCUT ×2 (08:48→21:29)
[2023-01-19] MEDS: nystatin cream 30 gm 1 APPLIC TOPICAL ×2 (08:48→18:07)
[2023-01-19] MEDS: nystatin powder 15 gm Btl 1 APPLIC TOPICAL ×2 (08:48→18:07)
--- NOTE | 2023-01-19 09:23 | CT_ITS ---
WS: [id number] CT LEFT LOWER EXTREMITY, NONCONTRAST. HISTORY: osteomyelitis, open wound anterior LEFT tibia. Technique: All CT scans at [facility] use at least one of these dose optimization techniques: automated exposure control; mA and/or kV adjustment per patient size (includes targeted exams where dose is matched to clinical indication); or iterative reconstruction. DLP: 651.31 mGy.cm COMPARISON: Radiograph 01/15/2023 Extensive subchondral cystic changes are noted around the knee. There is a large intercondylar lytic lesion measuring 4.6 x 3.1 cm. Additional smaller subchondral cystic changes involving the femoral co ndyles and the tibial plateau. There is a small suprapatellar joint effusion. Small amount of edema s urrounding the knee with joint space narrowing. The remaining tibia appears intact. There is mild sof t tissue edema anteriorly along the entire length of the tibia but no air-containing collection in th e cortex of the tibia and fibula appears intact. CT/CT lower leg LT wo con* [id number] IMPRESSION: 1. No evidence for osteomyelitis involving the tibia or fibula. 2. Numerous subchondral cystic changes and degenerative changes at the knee olivia int. 3. Small effusion at the knee.
[2023-01-19] MEDS: gabapentin 100 mg Capsule PO ×2 (10:21→18:05)
[2023-01-19] MEDS: pantoprazole 40 mg SDV IVP ×2 (10:22→21:29)
[2023-01-19 11:39] LABS: Glucose Point of Care 267 mg/dL (70-110)
--- NOTE | 2023-01-19 12:51 | PM.PN ---
Subjective Subjective: patient was seen this morning he is working with physical therapy, continue to have burning sensation along his scrotum Vitals/I&O/Wt Last Vital Signs Temp 97.8 F 01/19/23 08:00 Pulse 77 01/19/23 10:20 Resp 16 01/19/23 10:20 BP 132/73 01/19/23 08:00 Pulse Ox 95 01/19/23 10:20 O2 Del Method 01/19/23 10:20 01/18/23 01/19/23 01/19/23 22:59 06:59 14:59 Intake Total 350 / 1230 50 / 1280 360 / 360 Output Total 1350 / 1350 1300 / 2650 850 / 850 Balance -1000 / -120 -1250 / -1370 -490 / -490 Weight last 48 hrs Weight 116.936 kg Physical Exam Const: COMMON NORMALS: no acute distress and patient oriented x3 Resp: COMMON NORMALS: normal respiratory effort, No retractions, No use of accessory muscles and clear to auscultation bilaterally AUSCULTATION: clear to auscultation bilaterally Cardio: COMMON NORMALS: regular rate, regular rhythm, S1 normal heart sound present and S2 normal heart sound present RATE: regular rate RHYTHM: regular rhythm HEART SOUNDS: S1 normal heart sound present and S2 normal heart sound present GI: COMMON NORMALS: Normal to inspection, nondistended, normoactive bowel sounds present and non-tender Extremity: COMMON NORMALS: no pedal edema Neuro: COMMON NORMALS: patient oriented x3 Psych: COMMON NORMALS: mental status grossly normal Skin: NARRATIVE SKIN EXAM: scrotal exam, has abrasion, and lesion and erythem of scrotum left camacho, erythema, has open excoriation 1cx1cm Urinary Catheter Management: Guzmán: Cath Placed During This Visit: yes Reason for Continuing Indwelling Catheter: Other Urinary Catheter Date of Insertion: 01/15/23 Urinary Catheter Time of Insertion: 07:24 Data 01/18/23 08:43 01/19/23 04:13 Micro: Microbiology 01/15/23 22:17 Urine Culture - Final Urine,Clean Catch A&P Assessment and plan (1) Septic shock: (2) Increased anion gap metabolic acidosis: (3) Cellulitis: (4) Urinary tract infection: (5) Acute encephalopathy: (6) Rhabdomyolysis: (7) Non-ST elevation [place] (NSTEMI): (8) Acute kidney injury: (9) DKA (diabetic ketoacidosis): (10) Insulin dependent type 2 diabetes mellitus: (11) Hyperlipidemia: (12) Hypertension: (13) CHF (congestive heart failure), NYHA class III: (14) Leukocytosis: (15) Stented coronary artery: (16) CAD (coronary artery disease): (17) Sacral decubitus ulcer: (18) Candidiasis of genitalia: Plan Acute encephalopathy -Resolved -Likely septic encephalopathy -From UTI, and cellulitis -Neurochecks, aspiration precautions Septic shock -Source likely UTI, and bilateral lower leg cellulitis -Maintain MAP in 65 -We will avoid fluid overload, given his history of EF of 35% and CHF -Off Levophed -PICC line to be placed -Currently on vancomycin, Zosyn -1 dose of hydrocortisone, serum cortisol level within normal limits Urinary tract infection -Follow urine cultures -Follow blood cultures Bilateral lower extremity cellulitis -ESR is 92 -Bilateral lower limb x-rays are within normal limits -We will consider CT of left leg given elevated esr -Continue vancomycin, Zosyn -Follow blood cultures Acute renal failure -Resolving -Likely secondary to sepsis -Gentle IV hydration given history of CHF -We will monitor urine output closely Non-ST elevation [place] -Likely type II NSTEMI from supply demand ischemia from sepsis -Cardiac echo, ef 65% -Continue aspirin, Plavix -Serial EKGs, serial troponins, telemetry monitoring Lactic acidosis -Likely from septic shock and sepsis as above Diabetic ketoacidosis -Resolved -Increase Lantus to 50 units twice daily -High-dose sliding scale Acute anemia -hgb 9.1 -hold heparin -Monitor hemoglobin closely -Protonix, Carafate -hemmocult stool candidiasis of scrotum -topical treatment scrotal lesion -us negative for abscess -has open excoriations, from pressure and candidal infection -nystatin cream -rpr, hiv, hep c, hsv Poorly controlled type 2 diabetes mellitus, A1c 15.2 Pseudohyponatremia, from elevated blood sugars Elevated INR, likely secondary to sepsis, resolved We will moved to general medical floors today Attestations Medical Necessity Statement*: patient needs hospitalization for cellulitis, and uti Coding Level of Care Code Acute Code for Chg Fwd Diagnoses Septic shock A41.9; R65.21 Increased anion gap metabolic acidosis E87.29 Cellulitis L03.90 Urinary tract infection N39.0 Acute encephalopathy G93.40 Rhabdomyolysis M62.82 Non-ST elevation [place] (NSTEMI) I21.4 Acute kidney injury N17.9 DKA (diabetic ketoacidosis) E11.10 Insulin dependent type 2 diabetes mellitus E11.9; Z79.4 Hyperlipidemia E78.5 Hypertension I10 CHF (congestive heart failure), NYHA class III I50.9 Leukocytosis D72.829 Stented coronary artery Z95.5 CAD (coronary artery disease) I25.10 Sacral decubitus ulcer L89.159 Candidiasis of genitalia B37.49
[2023-01-19 14:44] LABS: RPR w(Moniotor) w/REFL Titer NON-REACTIVE (NON-REACTIVE)
[2023-01-19 17:30] LABS: Glucose Point of Care 251 mg/dL (70-110)
[2023-01-19] MEDS: vancomycin 1,500 MG/300 ML PIGGYBACK 200 MG IV (17:30)
[2023-01-19 21:25] LABS: Glucose Point of Care 315 mg/dL (70-110)
[2023-01-19 21:27] LABS: Glucose Point of Care 295 mg/dL (70-110)
[2023-01-19] MEDS: HYDROcodone-acetaminophen 5-325 mg Tablet 1 TAB PO (23:03)
[2023-01-20] VITALS (11 sets, daily range): BP systolic 115–167; BP diastolic 64–88; PULSE 67–100; RESP 15–18; TEMP 36.5–36.6; O2SAT 96–98
[2023-01-20] MEDS: piperacillin-tazobactam 3.375 GM in sodium chloride 0.9% (plus) 50 ML IV ×2 (01:03→08:14)
[2023-01-20] MEDS: gabapentin 100 mg Capsule PO ×3 (02:56→17:54)
[2023-01-20 05:46] LABS: Basophils # 0.1 10^3/uL (0.0-0.1); Basophils % 0.8 %; Eosinophils # 0.4 10^3/uL (0.0-0.8); Eosinophils % 6.4 %; Hematocrit 30.2 % (42.0-52.0); Lymphocytes # 2.5 10^3/uL (0.8-4.8); Lymphocytes % 39.8 %; Mean Corpuscular HGB Conc 33.1 g/dL (30.0-36.0); Mean Corpuscular Hemoglobin 33.9 pg (28.0-34.0); Mean Corpuscular Volume 102.4 fl (80-94); Mean Platelet Volume 9.4 fL (7.4-10.4); Monocytes # 0.7 10^3/uL (0.2-0.9); Monocytes % 10.7 %; Neutrophils # 2.51 10^3/uL (1.8-7.7); Neutrophils % 39.5 %; Nucleated Red Blood Cells % 0 %; Platelet Count 220 10^3/cmm (130-400); Red Blood Count 2.95 10^6/uL (4.1-5.3); White Blood Count 6.4 10^3/uL (4.0-10.0)
[2023-01-20 05:48] LABS: Erythrocyte Sedimentation Rate 62 mm/hr (0-10)
[2023-01-20 06:10] LABS: Procalcitonin 2.51 ng/mL (0-0.5)
[2023-01-20 06:21] LABS: Anion Gap 12.2 (5-19); Blood Urea Nitrogen 12 mg/dL (8-23); C Reactive Protein 24.5 mg/L (0.0-4.9); Calcium 8.7 mg/dL (8.5-10.5); Carbon Dioxide 24 mmol/L (22-29); Chloride 103 mmol/L (98-107); Glucose 195 mg/dL (65-115); Magnesium 1.6 mg/dL (1.7-2.3); Osmolality Calculated 285 mOsm/kg (285-295); Potassium 4.2 mmol/L (3.5-5.1); Sodium 135 mmol/L (136-145)
[2023-01-20 06:50] LABS: Glucose Point of Care 186 mg/dL (70-110)
[2023-01-20] MEDS: phosphorus 250 mg Tablet PO ×2 (08:01→17:54)
[2023-01-20] MEDS: sucralfate 1 gm Tablet PO ×2 (08:01→20:00)
[2023-01-20] MEDS: insulin lispro 100 unit/1 mL SUBCUT ×3 (08:02→17:54)
[2023-01-20] MEDS: aspirin 81 mg EC Tablet PO (08:02)
[2023-01-20] MEDS: pantoprazole 40 mg SDV IVP ×2 (08:02→20:00)
[2023-01-20] MEDS: insulin glargine 100 units/1 mL 50 UNIT SUBCUT ×2 (08:02→20:00)
[2023-01-20] MEDS: atorvastatin 40 mg Tablet PO (08:02)
[2023-01-20] MEDS: clopidogrel 75 mg Tablet PO (08:02)
[2023-01-20] MEDS: HYDROcodone-acetaminophen 5-325 mg Tablet 1 TAB PO ×3 (08:02→21:23)
[2023-01-20] MEDS: nystatin powder 15 gm Btl 1 APPLIC TOPICAL ×2 (08:14→17:55)
[2023-01-20] MEDS: nystatin cream 30 gm 1 APPLIC TOPICAL ×2 (08:14→17:55)
[2023-01-20] MEDS: magnesium lactate 84 mg Tablet PO (09:26)
[2023-01-20] MEDS: fluconazole 100 mg Tablet 200 MG PO (09:26)
[2023-01-20] MEDS: vancomycin 1,500 MG/300 ML PIGGYBACK 200 MG IV (09:27)
--- NOTE | 2023-01-20 10:17 | CTR_ITS ---
PROCEDURE INFORMATION: Exam: CT Thoracic Spine Without Contrast Exam date and time: 01/20/2023 11:49 AM Age: 72 years old Clinical indication: Pain in thoracic spine and pain in thoracic intervertebral disc disorder; Patient HX: Discitis with complaint of back pain. TECHNIQUE: Imaging protocol: Computed tomography of the thoracic spine without contrast. Radiation optimization: All CT scans at this facility use at least one of these dose optimization techniques: automated exposure control; mA and/or kV adjustment per patient size (includes targeted exams where dose is matched to clinical indication); or iterative reconstruction. REPORTING DATA: Count of CT and Cardiac NM exams in prior 12 months: This patient has received 7 known CTs and 0 known cardiac nuclear medicine studies in the 12 months prior to the current study. COMPARISON: CT cervical spin wo con* [id number] 01/20/2023 11:47 AM RADIATION DOSE METRICS: Total DLP (mGy-cm): 1906.85 FINDINGS: Thoracic curvature and alignment is unremarkable. There are no compression fractures, spondylolysis or spondylolisthesis. There are degenerative endplate changes in with small Schmorl's nodes involving T4-T5, T7, T9-T10 and T10-T11. There are multilevel asymmetric bridging endplate osteophytes throughout the mid lower thoracic spine there either degenerative in nature secondary to DISH. There is no compelling evidence of discitis/osteomyelitis. There are posterior spondylitic changes T9-T10 and T10-T11 resulting in mild-moderate stenosis of the central canal. There is also in some acquired foraminal narrowing on the right at T10-T11. There is no prevertebral paraspinal soft tissue swelling. CT/CT thoracic spin wo con* [id number] IMPRESSION: 1. No compelling evidence of discitis/osteomyelitis. 2. Multilevel degenerative endplate changes and osteophytosis. 3. Spondylitic changes T9-T10 and T10-T11 resulting in mild-moderate spinal stenosis.
--- NOTE | 2023-01-20 10:17 | CTR_ITS ---
PROCEDURE INFORMATION: Exam: CT Cervical Spine Without Contrast Exam date and time: 01/20/2023 11:47 AM Age: 72 years old Clinical indication: Neck pain; Patient HX: Discitis with complaints of back pain. TECHNIQUE: Imaging protocol: Computed tomography of the cervical spine without contrast. Radiation optimization: All CT scans at this facility use at least one of these dose optimization techniques: automated exposure control; mA and/or kV adjustment per patient size (includes targeted exams where dose is matched to clinical indication); or iterative reconstruction. REPORTING DATA: Count of CT and Cardiac NM exams in prior 12 months: This patient has received 7 known CTs and 0 known cardiac nuclear medicine studies in the 12 months prior to the current study. COM[place]ISON[place] [id number] 01/15/2023 8:24 AM RADIATION DOSE METRICS: Total DLP (mGy-cm): 241.57 FINDINGS: Bones/joints: Cervical curvature and alignment is unremarkable. There is no fracture, subluxation or traumatic spondylolisthesis. There are multilevel degenerative disc and endplate changes lower cervical spine with varying degrees of disc space narrowing, endplate sclerosis and osteophytic lipping. C2-C3: Left-sided uncovertebral hypertrophy and facet arthrosis resulting in mild foraminal narrowing on that side C3-C4: Left posterolateral spondylitic changes and uncovertebral hypertrophy resulting in mild narrowing of the central canal and moderate narrowing left neural foramina C4-C5: Posterior central midline spondylitic spur imparting mild stenosis of the central canal. Mild left-sided acquired foraminal narrowing. C5-C6: Spondylitic changes with posterior protruding disc/osteophyte complex resulting in moderate stenosis of the central canal and mild-moderate foraminal stenosis bilaterally. C6-C7: Spondylitic changes with posterior protruding disc/osteophyte complex imparting moderate stenosis of the central canal and moderate-severe narrowing of the left neural foramina. C7-T1: Spondylitic changes with posterior protruding disc/osteophyte complex resulting in moderate-severe stenosis of the central canal and moderate acquired foraminal narrowing more pronounced on the left. Lungs: Lung apices are normal. Soft tissues: Unremarkable. CT/CT cervical spin wo con* [id number] IMPRESSION: 1. Cervical spondylosis C5-C6, C6-C7 and C7-T1 resulting in multilevel spinal stenosis most pronounced at C7-T1. 2. Multilevel acquired foraminal stenosis as discussed above.
--- NOTE | 2023-01-20 10:17 | CTR_ITS ---
PROCEDURE INFORMATION: Exam: CT Lumbar Spine Without Contrast Exam date and time: 01/20/2023 11:49 AM Age: 72 years old Clinical indication: Low back pain; Patient HX: Discitis with complaints of back pain. TECHNIQUE: Imaging protocol: Computed tomography of the lumbar spine without contrast. Radiation optimization: All CT scans at this facility use at least one of these dose optimization techniques: automated exposure control; mA and/or kV adjustment per patient size (includes targeted exams where dose is matched to clinical indication); or iterative reconstruction. REPORTING DATA: Count of CT and Cardiac NM exams in prior 12 months: This patient has received 7 known CTs and 0 known cardiac nuclear medicine studies in the 12 months prior to the current study. COMPARISON: [place] [id number] 01/15/2023 8:24 AM and January 25, 2022 RADIATION DOSE METRICS: Total DLP (mGy-cm): 1906.85 FINDINGS: Bones/joints: Lumbar curvature is unremarkable. Slight degenerative spondylolisthesis L4-L5, stable. Disc heights are maintained.. Degenerative Schmorl's nodes involving inferior endplate of L2 and opposing endplates L3-L4 mildly progressed from 2021. Multilevel anterolateral bridging endplate osteophytes upper-mid lumbar spine likely degenerative in nature. No compression fractures or compelling evidence of discitis/osteomyelitis. L1-L2: No significant findings L2-L3: No significant findings L3-L4: Annular disc bulge with endplate osteophytic lipping and facet arthrosis flattening the anterior thecal sac, imparting moderate stenosis of the central canal. Mild right-sided acquired foraminal stenosis. L4-L5: Diffuse annular disc bulge superimposed on mild degenerative spondylolisthesis and facet arthrosis flattening the anterior thecal sac, imparting moderate stenosis of the central canal and mild foraminal narrowing bilaterally. L5-S1: Degenerative facet arthrosis contributing to moderate foraminal stenosis bilaterally. Soft tissues: Unremarkable. CT/CT lumbar spine wo con* [id number] IMPRESSION: 1. Moderate degenerative spinal stenosis L3-L4 and L4-L5. 2. Multilevel degenerative endplate changes and anterolateral bridging endplate osteophytes upper-mid lumbar spine. No compelling evidence of discitis/osteomyelitis.
[2023-01-20 12:14] LABS: Glucose Point of Care 339 mg/dL (70-110)
--- NOTE | 2023-01-20 14:16 | P.PN_ITS ---
Subjective Subjective: Patient was seen this morning, he complains of lower back pain, no fevers, no chills, with his elevated ESR, will do a CT of his spine to rule out discitis vertebral osteomyelitis Vitals/I&O/Wt Last Vital Signs Temp 97.7 F 01/20/23 12:00 Pulse 86 01/20/23 12:00 Resp 18 01/20/23 12:00 BP 144/88 01/20/23 12:00 Pulse Ox 98 01/20/23 12:00 O2 Del Method 01/20/23 12:00 O2 Flow Rate 0 01/19/23 21:50 01/19/23 01/20/23 01/20/23 22:59 06:59 14:59 Intake Total 540 / 950 100 / 1050 710 / 710 Output Total 1700 / 2550 1200 / 3750 500 / 500 Balance -1160 / -1600 -1100 / -2700 210 / 210 Weight last 48 hrs Weight 117.962 kg Physical Exam Const: COMMON NORMALS: no acute distress and patient oriented x3 Resp: COMMON NORMALS: normal respiratory effort, No retractions, No use of accessory muscles and clear to auscultation bilaterally AUSCULTATION: clear to auscultation bilaterally Cardio: COMMON NORMALS: regular rate, regular rhythm, S1 normal heart sound present and S2 normal heart sound present RATE: regular rate RHYTHM: regular rhythm HEART SOUNDS: S1 normal heart sound present and S2 normal heart sound present GI: COMMON NORMALS: Normal to inspection, nondistended, normoactive bowel so unds present and non-tender Extremity: COMMON NORMALS: no pedal edema Neuro: COMMON NORMALS: patient oriented x3 Psych: COMMON NORMALS: mental status grossly normal Urinary Catheter Management: Guzmán: Cath Placed During This Visit: yes Reason for Continuing Indwelling Catheter: Other Urinary Catheter Date of Insertion: 01/15/23 Urinary Catheter Time of Insertion: 07:24 Data 01/20/23 05:16 01/20/23 05:16 Micro: Microbiology 01/15/23 06:10 Blood Culture - Final Blood NO GROWTH AFTER 5 DAYS 01/15/23 06:08 Blood Culture - Final Blood NO GROWTH AFTER 5 DAYS A&P Assessment and plan (1) Septic shock: (2) Increased anion gap metabolic acidosis: (3) Cellulitis: (4) Urinary tract infection: (5) Acute encephalopathy: (6) Rhabdomyolysis: (7) Non-ST elevation [place] (NSTEMI): (8) Acute kidney injury: (9) DKA (diabetic ketoacidosis): (10) Insulin dependent type 2 diabetes mellitus: (11) Hyperlipidemia: (12) Hypertension: (13) CHF (congestive heart failure), NYHA class III: (14) Leukocytosis: (15) Stented coronary artery: (16) CAD (coronary artery disease): (17) Sacral decubitus ulcer: (18) Candidiasis of genitalia: Plan Acute encephalopathy -Resolved -Likely septic encephalopathy -From UTI, and cellulitis -Neurochecks, aspiration precautions Septic shock -Resolved -Source likely UTI, and bilateral lower leg cellulitis -Maintain MAP in 65 -We will avoid fluid overload, given his history of EF of 35% and CHF -Off Levophed -PICC line to be placed -Currently on vancomycin, Zosyn -1 dose of hydrocortisone, serum cortisol level within normal limits Urinary tract infection -Follow urine cultures, negative -Follow blood cultures, negative Bilateral lower extremity cellulitis -ESR is 92 -Bilateral lower limb x-rays are within normal limits -CT of the left leg, no evidence of osteomyelitis -Continue vancomycin, Zosyn -Follow blood cultures Lower back pain, with elevated ESR -We will do CT of the spine to rule out discitis vertebral osteomyelitis Acute renal failure -Resolving -Likely secondary to sepsis -We will monitor urine output closely Non-ST elevation [place] -Likely type II NSTEMI from supply demand ischemia from sepsis -Cardiac echo, ef 65% -Continue aspirin, Plavix -Serial EKGs, serial troponins, telemetry monitoring Lactic acidosis -Likely from septic shock and sepsis as above Diabetic ketoacidosis -Resolved -Increase Lantus to 50 units twice daily -High-dose sliding scale Acute anemia -hgb 10 -Monitor hemoglobin closely -Protonix, Carafate -hemmocult stool candidiasis of scrotum -topical treatment scrotal lesion -us negative for abscess -has open excoriations, from pressure and candidal infection -nystatin cream -rpr, hiv, hep c, hsv Poorly controlled type 2 diabetes mellitus, A1c 15.2 Pseudohyponatremia, from elevated blood sugars Elevated INR, likely secondary to sepsis, resolved We will moved to general medical floors today Attestations Medical Necessity Statement*: Patient requires hospitalization for cellulitis, now with back pain, concerns for vertebral osteomyelitis Diagnoses Septic shock A41.9; R65.21 Increased anion gap metabolic acidosis E87.29 Cellulitis L03.90 Urinary tract infection N39.0 Acute encephalopathy G93.40 Rhabdomyolysis M62.82 Non-ST elevation [place] (NSTEMI) I21.4 Acute kidney injury N17.9 DKA (diabetic ketoacidosis) E11.10 Insulin dependent type 2 diabetes mellitus E11.9; Z79.4 Hyperlipidemia E78.5 Hypertension I10 CHF (congestive heart failure), NYHA class III I50.9 Leukocytosis D72.829 Stented coronary artery Z95.5 CAD (coronary artery disease) I25.10 Sacral decubitus ulcer L89.159 Candidiasis of genitalia B37.49
--- NOTE | 2023-01-20 15:59 | PC.SOCIAL ---
IMM updated IMM dated and initialed, copy given to patient and one placed in chart.
[2023-01-20 17:13] LABS: Glucose Point of Care 275 mg/dL (70-110)
[2023-01-20] MEDS: doxycycline 100 mg Tablet PO (17:54)
[2023-01-20] MEDS: amoxicillin-clav 875-125 mg Tablet 1 TAB PO (17:54)
[2023-01-20 20:53] LABS: Glucose Point of Care 290 mg/dL (70-110)
[2023-01-21 00:54] VITALS: BP 140/81; PULSE 84; RESP 19; TEMP 36.7; O2SAT 95
[2023-01-21] MEDS: gabapentin 100 mg Capsule PO ×2 (02:21→10:08)
[2023-01-21 04:00] VITALS: BP 131/69; PULSE 81; RESP 16; TEMP 36.5; O2SAT 95
[2023-01-21 05:56] LABS: Basophils # 0.1 10^3/uL (0.0-0.1); Basophils % 0.7 %; Eosinophils # 0.4 10^3/uL (0.0-0.8); Eosinophils % 6.3 %; Hematocrit 29.2 % (42.0-52.0); Hemoglobin 9.5 g/dL (11.7-16.6); Lymphocytes # 2.4 10^3/uL (0.8-4.8); Lymphocytes % 34.7 %; Mean Corpuscular HGB Conc 32.5 g/dL (30.0-36.0); Mean Corpuscular Hemoglobin 33.3 pg (28.0-34.0); Mean Corpuscular Volume 102.5 fl (80-94); Mean Platelet Volume 9.3 fL (7.4-10.4); Monocytes # 0.7 10^3/uL (0.2-0.9); Monocytes % 9.2 %; Neutrophils # 3.32 10^3/uL (1.8-7.7); Neutrophils % 47.3 %; Nucleated Red Blood Cells % 0 %; Platelet Count 251 10^3/cmm (130-400); Red Blood Count 2.85 10^6/uL (4.1-5.3); Red Cell Distribution Width 13.9 % (12.1-15.1)
[2023-01-21 06:15] VITALS: PULSE 84
[2023-01-21 06:40] LABS: Anion Gap 14.3 (5-19); Blood Urea Nitrogen 12 mg/dL (8-23); C Reactive Protein 14.5 mg/L (0.0-4.9); Calcium 8.7 mg/dL (8.5-10.5); Carbon Dioxide 24 mmol/L (22-29); Chloride 103 mmol/L (98-107); Glucose 210 mg/dL (65-115); Magnesium 1.5 mg/dL (1.7-2.3); Osmolality Calculated 290 mOsm/kg (285-295); Potassium 4.3 mmol/L (3.5-5.1); Sodium 137 mmol/L (136-145)
[2023-01-21 08:00] VITALS: BP 150/77; PULSE 78; PULSE 82; RESP 16; RESP 18; TEMP 36.6; O2SAT 97; O2SAT 98
[2023-01-21 08:04] LABS: Glucose Point of Care 190 mg/dL (70-110)
[2023-01-21 08:04] LABS: Glucose Point of Care 169 mg/dL (70-110)
[2023-01-21] MEDS: insulin lispro 100 unit/1 mL SUBCUT ×2 (08:09→12:18)
[2023-01-21] MEDS: insulin glargine 100 units/1 mL 50 UNIT SUBCUT (08:12)
[2023-01-21] MEDS: pantoprazole 40 mg SDV IVP (08:24)
[2023-01-21] MEDS: sucralfate 1 gm Tablet PO (08:25)
[2023-01-21] MEDS: HYDROcodone-acetaminophen 5-325 mg Tablet 1 TAB PO (08:53)
[2023-01-21] MEDS: amoxicillin-clav 875-125 mg Tablet 1 TAB PO (08:56)
[2023-01-21] MEDS: aspirin 81 mg EC Tablet PO (08:57)
[2023-01-21] MEDS: atorvastatin 40 mg Tablet PO (08:57)
[2023-01-21] MEDS: doxycycline 100 mg Tablet PO (08:58)
[2023-01-21] MEDS: clopidogrel 75 mg Tablet PO (08:58)
[2023-01-21] MEDS: phosphorus 250 mg Tablet PO (09:00)
[2023-01-21] MEDS: fluconazole 100 mg Tablet 200 MG PO (09:01)
[2023-01-21] MEDS: magnesium sulfate premix 2 GM/50 ML PIGGYBACK IV (10:00)
[2023-01-21 10:28] LABS: SARS Covid-2 Antigen negative (Negative)
--- NOTE | 2023-01-21 10:51 | P.DS_ITS ---
Discharge Providers Date of Admission: 01/15/23 06:11 Date of Discharge: January 21, 2023 Attending Provider at Admission: Jessica Booth MD Attending Provider at Discharge: Deondre Mays MD Primary Care Provider: Tashi Mora DO Diagnoses at Discharge Discharge Diagnosis (1) Septic shock: Status: Acute (2) Increased anion gap metabolic acidosis: Status: Acute (3) Cellulitis: Status: Acute (4) Urinary tract infection: Status: Acute (5) Acute encephalopathy: Status: Acute (6) Rhabdomyolysis: Status: Acute (7) Non-ST elevation NM (NSTEMI): Status: Acute (8) Acute kidney injury: Status: Acute (9) DKA (diabetic ketoacidosis): Status: Acute (10) Insulin dependent type 2 diabetes mellitus: Status: Acute (11) Hyperlipidemia: Status: Acute (12) Hypertension: Status: Acute (13) CHF (congestive heart failure), NYHA class III: Status: Acute (14) Leukocytosis: Status: Acute (15) Stented coronary artery: Status: Acute (16) CAD (coronary artery disease): Status: Acute (17) Sacral decubitus ulcer: Status: Acute (18) Candidiasis of genitalia: Status: Acute Reason for Visit Reason for Visit: WEAKNESS/FALL Hospital Course Hospital Course Riki Lopez is a 72 year old male with past medical history of insulin- dependent type 2 diabetes mellitus,diabetic peripheral neuropathy, hypertension, hyperlipidemia, BPH, chronic back pain on chronic opiates who presented to ER via EMS after he was found on the floor due to a fall and he could not get up due to having increasing weakness over the last month.? He states that he has stopped taking his medications but he is not very compliant with them.? He has been feeling weaker and weaker over the last couple of weeks.? He was brought in via EMS.? His lower extremities are swollen.? Blood sugar noted to be 550 in the ER today.? WBC 27,000, lactic acid pending, ammonia level pending at this time.? EKG did not show any acute ischemic changes.? In January 2022 he had a left heart cath which showed multivessel CAD.? He was thought not to be a surgical candidate due to anatomy of his coronary vessels.? He underwent orbital arthrectomy and drug-eluting stent x1 to mid left circumflex.? Then in June 2022 he had a staged PCI of RCA using right femoral approach underwent atherectomy from proximal to mid RCA balloon angioplasty and BENNY x3 to proximal to mid RCA.? He most recently saw cardiology in August 2022.? At that visit he stated he was able to do his housework without stopping.? However now has been feeling weaker and weaker.? Most recent echo from January 2022 shows EF 35 to 40% with moderate hypokinesis mid to apical anterior apical septal apical inferior apical lateral and apical boateng.? Grade 2 diastolic dysfunction.? Chest x-ray done today does not show pneumonia.? Head CT does not show intracranial hemorrhage mass or definite subacute stroke.? Blood cultures obtained today.? Labs show 4% bands, 23% absolute neutrophils.? INR 1.40, sodium 123, potassium 5.8.? Creatinine 2.9.? Baseline is normal 0.7-1.1.? Glucose 500.? AST 45, BNP 2525, albumin 3.3.? Serum ketones are pending.? Patient is supposed to be on aspirin Plavix atorvastatin Lasix 80 twice daily at home along with 50 units of insulin however is noncompliant to his medications.? He tries to take them daily however does miss doses here and there.? Also complains of diarrhea that has been going on for the last 2 days. Patient was admitted to [facility] for acute encephalopathy, secondary to UTI and cellulitis. Received ICU admission, requiring short course of pressor therapy, broad-spectrum antibiotic therapy, overall clinically improved. Moved to general medical floors, so far cultures have been unremarkable, discharged on 5 remaining days of Augmentin and doxycycline. For his diabetic ulcers on his bilateral shins, wound care. For patient's acute renal failure likely secondary to sepsis, resolved on discharge Patient had elevated troponins, likely supply demand ischemia from sepsis, no chest pain complaints Patient had diabetic ketoacidosis, requiring ICU admission, insulin drip, resolved, discharged on Lantus 50 units twice daily, with a Humalog sliding sca le Patient had a candidiasis of his scrotum, discharged on topical nystatin For acute anemia, monitor hemoglobin as outpatient, discharged on Protonix, Carafate Physical Exam Const: COMMON NORMALS: no acute distress and patient oriented x3 Resp: COMMON NORMALS: normal respiratory effort, No retractions, No use of accessory muscles and clear to auscultation bilaterally AUSCULTATION: clear to auscultation bilaterally Cardio: COMMON NORMALS: regular rate, regular rhythm, S1 normal heart sound present and S2 normal heart sound present RATE: regular rate RHYTHM: regular rhythm HEART SOUNDS: S1 normal heart sound present and S2 normal heart sound present GI: COMMON NORMALS: Normal to inspection, nondistended, normoactive bowel sounds present and non-tender Extremity: COMMON NORMALS: no pedal edema Neuro: COMMON NORMALS: patient oriented x3 Psych: COMMON NORMALS: mental status grossly normal Urinary Catheter Management: Guzmán: Cath Placed During This Visit: yes Reason for Continuing Indwelling Catheter: Acute Urinary Retention or Obstruction Urinary Catheter Date of Insertion: 01/15/23 Urinary Catheter Time of Insertion: 07:24 Discharge Data Studies Completed and Pending Completed Studies During Hospitalization Category Date Time Status CT cervical spin wo con* 51996 Routine Cat Scan 01/20/23 10:[address] chest abdomen pelvis [[place] [address]11 Cat Scan 01/15/23 07:34 Completed ] Routine CT head wo con* 21023 Stat Cat Scan 01/15/23 04:[address] lower leg LT wo con* 34635 Routine Cat Scan 01/19/23 09:[address] lumbar spine wo con* 78517 Routine Cat Scan 01/20/23 10:[address] thoracic spin wo con* 48667 Routine Cat Scan 01/20/23 10:17 Completed CXRP [XR chest 1V portable 93763] Routine Exams 01/15/23 13:11 Completed XR chest 1V portable [id number] Stat Exams 01/15/23 04:25 Completed XR tibia fibula LT 2V 13047 Routine Exams 01/15/23 08:54 Completed XR tibia fibula RT 2V 61272 Routine Exams 01/15/23 08:54 [place] [address] Routine Ultrasound 01/15/23 08:54 Completed CV. echo wo/w contrast 62535 Stat Ultrasound 01/15/23 06:43 Completed US abdomen limited 65226 Routine Ultrasound 01/18/23 09:52 Completed US scrotum 53838 Stat Ultrasound 01/18/23 09:52 Completed Pending at discharge Category Date Time Status C Reactive Protein AM LABS Lab 01/22/23 04:00 Ordered Complete Blood Count w/Auto AM LABS Lab 01/22/23 04:00 Ordered Herpes Simplex 1/2 AB w/Titer Routine Lab 01/18/23 08:45 Results Magnesium AM LABS Lab 01/22/23 04:00 Ordered Occult Blood Stool [Immunochemical Fecal OCB] Routine Lab 01/17/23 08:13 Uncollected Procalcitonin AM LABS Lab 01/22/23 04:00 Ordered RPR with Reflex to Titer Routine Lab 01/18/23 08:45 Results Sputum Culture Stat Lab 01/15/23 13:27 Uncollected Sputum Culture and Gram Stain Stat Lab 01/15/23 06:43 Uncollected Wound Culture Routine Lab 01/15/23 06:43 Uncollected Radiology Impressions Head CT 01/15/23 04:25 IMPRESSION: No non-contrast CT evidence of intracranial hemorrhage, masses or definite subacute stroke. Chest/Abdomen/Pelvis CT 01/15/23 07:34 IMPRESSION: 1. Lungs are well aerated. No acute pulmonary infiltrates. Slight bibasilar atelectasis. 2. No mediastinal or hilar lymphadenopathy. 3. Cholelithiasis. 4. No free fluid in the abdomen or pelvis. 5. No hydronephrosis in either kidney. 6. No other acute findings. Tibia/Fibula X-Ray 01/15/23 08:54 IMPRESSION: 1. No fracture or dislocation. 2. Soft tissue swelling. Venous Duplex 01/15/23 08:54 IMPRESSION: No evidence of deep vein thrombosis. Chest X-Ray 01/15/23 13:11 IMPRESSION: 1. Right-sided PICC line ending at the cavoatrial junction. 2. Mild cardiac enlargement unchanged. Abdomen Ultrasound 01/18/23 09:52 IMPRESSION: No gluteal abscess identified by ultrasound. Scrotum Ultrasound 01/18/23 09:52 IMPRESSION: Technically difficult study 1. Slightly increased vascularity LEFT epididymis can be seen with epididymitis 2. Testicles are normal in appearance. Lower Extremity CT 01/19/23 09:23 IMPRESSION: 1. No evidence for osteomyelitis involving the tibia or fibula. 2. Numerous subchondral cystic changes and degenerative changes at the knee joint. 3. Small effusion at the knee. Cervical Spine CT 01/20/23 10:17 IMPRESSION: 1. Cervical spondylosis C5-C6, C6-C7 and C7-T1 resulting in multilevel spinal stenosis most pronounced at C7-T1. 2. Multilevel acquired foraminal stenosis as discussed above. Lumbar Spine CT 04/05/23 10:17 IMPRESSION: 1. Moderate degenerative spinal stenosis L3-L4 and L4-L5. 2. Multilevel degenerative endplate changes and anterolateral bridging endplate osteophytes upper-mid lumbar spine. No compelling evidence of discitis/osteomyelitis. Thoracic Spine CT 01/20/23 10:17 IMPRESSION: 1. No compelling evidence of discitis/osteomyelitis. 2. Multilevel degenerative endplate changes and osteophytosis. 3. Spondylitic changes T9-T10 and T10-T11 resulting in mild-moderate spinal stenosis. Laboratory Results WBC 7.0 10^3/uL (4.0-10.0) 01/21/23 05:48 RBC 2.85 10^6/uL (4.1-5.3) L 01/21/23 05:48 Hgb 9.5 g/dL (11.7-16.6) L 01/21/23 05:48 Hct 29.2 % (42.0-52.0) L 01/21/23 05:48 MCV 102.5 fl (80-94) H 01/21/23 05:48 MCH 33.3 pg (28.0-34.0) 01/21/23 05:48 MCHC 32.5 g/dL (30.0-36.0) 01/21/23 05:48 RDW 13.9 % (12.1-15.1) 01/21/23 05:48 Plt Count 251 10^3/cmm (130-400) 01/21/23 05:48 MPV 9.3 fL (7.4-10.4) 01/21/23 05:48 Neut % (Auto) 47.3 % 01/21/23 05:48 Lymph % (Auto) 34.7 % 01/21/23 05:48 [place] % (Auto) 9.2 % 01/21/23 05:48 Eos % (Auto) 6.3 % 01/21/23 05:48 Baso % (Auto) 0.7 % 01/21/23 05:48 Neut # (Auto) 3.32 10^3/uL (1.8-7.7) 01/21/23 05:48 Lymph # (Auto) 2.4 10^3/uL (0.8-4.8) 01/21/23 05:48 [place] # (Auto) 0.7 10^3/uL (0.2-0.9) 01/21/23 05:48 Eos # (Auto) 0.4 10^3/uL (0.0-0.8) 01/21/23 05:48 Baso # (Auto) 0.1 10^3/uL (0.0-0.1) 01/21/23 05:48 Nucleated RBC % (auto) 0 % 01/21/23 05:48 Total Counted 100 (0-100) 01/15/23 05:20 Atypical Lymphs % 0.0 % (0-5) 01/15/23 05:20 Absolute Neutrophils 23.3 10^3/cmm (1.4-6.5) H 01/15/23 05:20 Segmented Neutrophils 81 % 01/15/23 05:20 Abs Segm Neuts (Man) 22.2 10/cmm (1.6-7.1) H 01/15/23 05:20 Band Neutrophils 4.0 % 01/15/23 05:20 Abs Band Neuts (Man) 1.1 10^3/cmm (0.0-1.2) 01/15/23 05:20 Absolute Lymphocytes 2.2 10^3/cmm (1.2-3.4) 01/15/23 05:20 Lymphocytes (Manual) 8 % 01/15/23 05:20 Monocytes (Manual) 7.0 % 01/15/23 05:20 Absolute Monocytes 1.9 10^3/cmm (0.1-0.6) H 01/15/23 05:20 Eosinophils (Manual) 0 % 01/15/23 05:20 Absolute Eosinophils 0.0 10^3/cmm (0.0-0.7) 01/15/23 05:20 Basophils (Manual) 0.0 % 01/15/23 05:20 Absolute Basophils 0.0 10^3/cmm (0.0-0.2) 01/15/23 05:20 Nucleated RBCs # 0.0 /100WBC 01/21/23 05:48 Platelet Estimate Normal (Normal) 01/15/23 05:20 ESR 62 mm/hr (0-10) H 01/20/23 05:16 PT 17.60 SECONDS (12.1-14.9) H 01/15/23 05:20 INR 1.40 (0.8-1.2) H 01/15/23 05:20 Specimen Type Arterial 01/15/23 08:44 Sample Site Brachial, right 01/15/23 08:44 ABG pH 7.48 (7.35-7.45) H 01/15/23 08:44 ABG pCO2 33.8 mmHg (35-45) L 01/15/23 08:44 ABG pO2 69.2 mmHg (80.0-100.0) L 01/15/23 08:44 ABG HCO3 24.8 mmol/L (22-26) 01/15/23 08:44 ABG Base Excess 1.5 mmol/L (-2.0-2.0) 01/15/23 08:44 Alfred Test Pos 01/15/23 08:44 Hematocrit 32.8 % (42-52) L 01/15/23 08:44 O2 Delivery Device Room air 01/15/23 08:44 FiO2 21.0 % 01/15/23 08:44 International Project Engineer ID [place] 01/15/23 08:44 Sodium 137 mmol/L (136-145) 01/21/23 05:48 Potassium 4.3 mmol/L (3.5-5.1) 01/21/23 05:48 Chloride 103 mmol/L (98-107) 01/21/23 05:48 Carbon Dioxide 24 mmol/L (22-29) 01/21/23 05:48 Anion Gap 14.3 (5-19) 01/21/23 05:48 BUN 12 mg/dL (8-23) 01/21/23 05:48 Creatinine 0.8 mg/dL (0.7-1.2) 01/21/23 05:48 GFR Calculation Not Reportable 01/21/23 05:48 Glucose 210 mg/dL (65-115) H 01/21/23 05:48 POC Glucose 169 mg/dL (70-110) H 01/21/23 07:58 Estimat Average Glucose 390 01/15/23 09:12 Hemoglobin A1c 15.2 % (4.0-6.0) H 01/15/23 09:12 Calculated Osmolality 290 mOsm/kg (285-295) 01/21/23 05:48 Lactate 1.9 mmol/L (0.5-2.2) 01/17/23 02:58 Calcium 8.7 mg/dL (8.5-10.5) 01/21/23 05:48 Phosphorus 1.9 mg/dL (2.5-4.5) L 01/18/23 02:14 Magnesium 1.5 mg/dL (1.7-2.3) L 01/21/23 05:48 Iron 29 ug/dL (59-158) L 01/17/23 02:58 TIBC 205 mcg/dl 01/17/23 02:58 % Saturation 14.1 % (20-50) L 01/17/23 02:58 Unsat Iron Binding 176 ug/dL (112-347) 01/17/23 02:58 Ferritin 172 ng/mL (30-400) 01/17/23 02:58 Total Bilirubin 0.4 mg/dL (0.15-1.2) 01/19/23 04:13 AST 25 U/L (0-40) 01/19/23 04:13 ALT 13 U/L (0-41) 01/19/23 04:13 Alkaline Phosphatase 65 U/L (40-130) 01/19/23 04:13 Ammonia 20 umol/L (16-60) 01/15/23 06:00 Creatine Kinase 128 U/L (39-308) 01/17/23 02:58 Troponin T Baseline 109 ng/L (0-15) H* 01/15/23 05:20 Troponin T 120 Minute 94.65 ng/L (0-15) H 01/15/23 09:12 Delta Troponin T -14.35 ABS# (0-10) L 01/15/23 09:12 Troponin T Hi Sens 6Hr 110.7 ng/L (0-15) H 01/15/23 14:54 Troponin T Hi Sens 6Hr Delta 1.7 ng/L (0-12) 01/15/23 14:54 C-Reactive Protein 14.5 mg/L (0.0-4.9) H 01/21/23 05:48 NT-Pro-B Natriuret Pep 713 pg/mL (0-125) H 01/18/23 02:14 NT-Pro-B Natriuret Pep Cancelled 01/18/23 02:14 Total Protein 6.3 g/dL (6.6-8.7) L 01/19/23 04:13 Albumin 2.7 g/dL (3.5-5.2) L 01/19/23 04:13 Globulin 3.6 g/dL (1.3-4.6) 01/19/23 04:13 Vitamin B12 745 pg/mL (232-1245) 01/17/23 02:58 Folate 12.3 ng/mL (4.5-32.2) 01/17/23 11:00 Procalcitonin 1.40 ng/mL (0-0.5) H 01/21/23 05:48 TSH 1.04 uIU/mL (0.27-4.20) 01/15/23 09:12 Random Cortisol 16.78 ug/dL (2.47-19.5) 01/15/23 09:12 Urine Color Colorless (Yellow) 01/15/23 22:17 Urine Appearance Clear (CLEAR) 01/15/23 22:17 Urine pH 5 (5-7) 01/15/23 22:17 Ur Specific Mcd[place]ough 1.010 (1.005-1.030) 01/15/23 22:17 Urine Protein Neg (Negative) 01/15/23 22:17 Urine Glucose (UA) 2+ (Normal) H 01/15/23 22:17 Urine Ketones Negative (Negative) 01/15/23 22:17 Urine Blood 3+ (Negative) H 01/15/23 22:17 Urine Nitrate Negative (Negative) 01/15/23 22:17 Urine Bilirubin Neg (Negative) 01/15/23 22:17 Urine Urobilinogen Norm mg/dL (Negative) 01/15/23 22:17 Ur Leukocyte Esterase Negative (Negative) 01/15/23 22:17 Urine RBC >100 /hpf (0-2) H 01/15/23 22:17 Urine WBC 5-10 /hpf (0-5) H 01/15/23 22:17 Ur Squamous Epith Cells 0-4 /hpf (0-5) H 01/15/23 22:17 Uric Acid Crystals 0-4 /hpf 01/15/23 22:17 Amorphous Sediment Not Reportable 01/15/23 22:17 Urine Bacteria Trace /hpf (NONE) 01/15/23 22:17 Urine Mucus Trace /hpf 01/15/23 06:06 Urine Yeast 1+ /hpf H 01/15/23 06:06 Nasal Influ A H1 2009 PCR Not detected (NOT DETECT) 01/15/23 22:17 Vancomycin Trough 16.6 ug/mL (10-15) H 01/18/23 02:14 Serum Ketones Negative (Negative) 01/15/23 06:19 RPR w/Rflx to Titer Non-reactive (NON-REACTIVE) 01/18/23 08:45 Adenovirus (PCR) Not detected (NOT DETECT) 01/15/23 22:17 C. pneumoniae DNA (PCR) Not detected (NOT DETECT) 01/15/23 22:17 Coronavirus 229E (PCR) Not detected (NOT DETECT) 01/15/23 22:17 Hepatitis A IgM Ab Non-reactive (Nonreactive) 01/18/23 08:45 Hep Bs Antigen Non-reactive (Nonreactive) 01/18/23 08:45 Hep B Core IgM Ab Non-reactive (Nonreactive) 01/18/23 08:45 Hepatitis C Antibody Non-reactive (Nonreactive) 01/18/23 08:45 HIV 1&2 Ab & HIV 1 Ag Non-reactive (Non-Reactiv) 01/18/23 08:45 HIV 1&2 Antibody Non-reactive (Non-Reactiv) 01/18/23 08:45 Human Metapneumovir PCR Not detected (NOT DETECT) 01/15/23 22:17 Influenza A (H1) PCR Not detected (NOT DETECT) 01/15/23 22:17 Influenza A (H3) PCR Not detected (NOT DETECT) 01/15/23 22:17 Influenza Type A (PCR) Not detected (NOT DETECT) 01/15/23 22:17 Influenza Type B (PCR) Not detected (NOT DETECT) 01/15/23 22:17 M. pneumoniae (PCR) Not detected (NOT DETECT) 01/15/23 22:17 Parainfluenza 1 (PCR) Not detected (NOT DETECT) 01/15/23 22:17 Parainfluenza 2 (PCR) Not detected (NOT DETECT) 01/15/23 22:17 Parainfluenza 3 (PCR) Not detected (NOT DETECT) 01/15/23 22:17 Parainfluenza 4 (PCR) Not detected (NOT DETECT) 01/15/23 22:17 RSV Type A (PCR) Not detected (NOT DETECT) 01/15/23 22:17 RSV Type B (PCR) Not detected (NOT DETECT) 01/15/23 22:17 Entero/Rhino (PCR) Not detected (NOT DETECT) 01/15/23 22:17 SARS-CoV-2 (PCR) Not detected (NOT DETECT) 01/15/23 22:17 SARS-CoV-2 Ag (Rapid) negative (Negative) 01/21/23 09:30 Vitals Last Vital Signs Temp 98 F 01/21/23 08:00 Pulse 78 01/21/23 08:00 Resp 18 01/21/23 08:00 BP 150/77 01/21/23 08:00 Pulse Ox 98 01/21/23 08:00 O2 Del Method 01/21/23 08:00 O2 Flow Rate 0 01/20/23 19:19 Discharge Plan Discharge Patient Disposition: Home Condition: Stable Prescriptions: New atorvastatin 40 mg Tablet 40 mg PO DAILY 30 Days Qty: 30 0RF nystatin [Nystop] 100,000 unit/gram Powder 1 applic topical BID Qty: 60 0RF fluconazole 100 mg Tablet 200 mg PO Q24H 5 Days Qty: 10 0RF nystatin 100,000 unit/gram Cream 1 applic topical BID Qty: 30 0RF gabapentin 100 mg Capsule 100 mg PO Q8H 30 Days Qty: 90 0RF amoxicillin-pot clavulanate 875-125 mg Tablet 1 tab PO BID 5 Days Qty: 10 0RF doxycycline monohydrate 100 mg Tablet 100 mg PO BID 5 Days Qty: 10 0RF pantoprazole [Protonix] 40 mg tablet,delayed release (DR/EC) 40 mg PO BID 30 Days Qty: 60 0RF sucralfate 1 gram Tablet 1 g PO Q12H 30 Days Qty: 60 0RF magnesium L-lactate [Magtab] 84 mg Tablet Extended Release 84 mg PO DAILY 30 Days Qty: 30 0RF Continued pantoprazole 40 mg tablet,delayed release (DR/EC) 40 mg PO DAILY clopidogrel 75 mg tablet 75 mg PO DAILY aspirin [Adult Low Dose Aspirin] 81 mg tablet,delayed release (DR/EC) 81 mg PO DAILY Lantus U-100 Insulin 100 unit/mL solution 50 unit SUBCUT BID Qty: 10 12RF magnesium oxide 400 mg magnesium capsule 400 mg PO BID Qty: 180 0RF hydrocodone-acetaminophen 5-325 mg tablet 1 tab PO QID PRN (Reason: Pain) 30 Days Qty: 120 0RF cyclobenzaprine 10 mg tablet See Rx Instructions .ROUTE .COMPLEX Qty: 30 5RF Dose Instruction: take 1/2 to 1 tablet BY MOUTH EVERY DAY NEEDED Rx Instructions: take 1/2 to 1 tablet BY MOUTH EVERY DAY NEEDED (DME) insulin syringe-needle U-100 [UltiCare] 1 mL 30 gauge x 1/2 syringe See Rx Instructions .ROUTE .COMPLEX Qty: 100 5RF Dose Instruction: FOR USE with lantus & humalog 5/day Rx Instructions: FOR USE with lantus & humalog 5/day (DME) OneTouch Ultra Test Strip See Rx Instructions .ROUTE .COMPLEX Qty: 100 3RF Dose Instruction: USE ONE STRIP DIRECTED FOR CHECKING BLOOD GLUCOSE, CHECK FASTING AND ONE HOUR AFTER MEALS DUE TO INSULIN TREATMENTS Rx Instructions: USE ONE STRIP DIRECTED FOR CHECKING BLOOD GLUCOSE, CHECK FASTING AND ONE HOUR AFTER MEALS DUE TO INSULIN TREATMENTS metformin 1,000 mg tablet 1,000 mg PO BID Hold Instructions: Resume on 06/26/22. gabapentin 100 mg capsule 100 mg PO TID PRN (Reason: Pain) naloxone [Narcan] 4 mg/actuation spray,non-aerosol 1 spray INTRANASAL . DIRECTED PRN (Reason: overdose) nitroglycerin 0.4 mg tablet, sublingual 0.4 mg sublingual Q5M PRN (Reason: chest pain) Qty: 30 3RF Rx Instructions: do not exceed 3 doses per episode atorvastatin 20 mg tablet 20 mg PO QPM Changed metoprolol succinate 50 mg tablet extended release 24 hr 25 mg PO DAILY 30 Days Qty: 15 0RF potassium chloride 20 mEq tablet,ER particles/crystals 20 meq PO DAILY PRN (Reason: with lasix as needed) 30 Days Qty: 30 0RF furosemide 80 mg tablet 40 mg PO DAILY PRN (Reason: for lower extremity edema or increased weight gain) 30 Days Qty: 15 0RF Rx Instructions: take with potassium insulin lispro [Humalog U-100 Insulin] 100 unit/mL solution See Rx Instructions .ROUTE .COMPLEX Qty: 10 12RF Dose Instruction: inject SUBCUTANEOUSLY THREE TIMES DAILY BEFORE MEALS according TO moderate sliding scale (max 100 units/day) Rx Instructions: inject SUBCUTANEOUSLY THREE TIMES DAILY AFTER MEALS according TO moderate sliding scale (max 60 units/day) Held sacubitril-valsartan 97-103 mg tablet 1 tab PO BID Qty: 180 3RF Hold Instructions: Resume on 02/17/23. hold until you see cardiology Discontinued spironolactone 50 mg tablet See Rx Instructions .ROUTE .COMPLEX Qty: 30 11RF Dose Instruction: TAKE 1 TABLET BY MOUTH EVERY DAY Rx Instructions: TAKE 1 TABLET BY MOUTH EVERY DAY Discharge Orders: Discharge Order (Routine); Ordered 01/21/23 Ordered By: Deondre Mays Other Ambulatory Orders: DME: Wheelchair (Order) Location: None Selected Ordered By: Deondre Mays Referrals: Robin Wilkerson DPM [Physician] - 1 month Tashi Mora DO [Primary Care Provider] - [facility], [Staff Physician] - 1 week Discharge Diet: Diabetic Discharge Activity: Resume usual activity Patient Instructions: Opioid Safety Activity Restrictions/Additional Instructions: - Take antibiotics as prescribed -Monitor blood sugars closely -Follow-up with podiatry -Wound care to diabetic ulcers Discharge Attestations Time Spent in Discharge Care*: greater than 30 min Quality Metrics Clinical Quality Measures [ No reported AMI, CVA or VTE this stay] Coding Level of Care Code 27758 Total time (in minutes) for Discharge: 50 Diagnoses Septic shock A41.9; R65.21 Increased anion gap metabolic acidosis E87.29 Cellulitis L03.90 Urinary tract infection N39.0 Acute encephalopathy G93.40 Rhabdomyolysis M62.82 Non-ST elevation NM (NSTEMI) I21.4 Acute kidney injury N17.9 DKA (diabetic ketoacidosis) E11.10 Insulin dependent type 2 diabetes mellitus E11.9; Z79.4 Hyperlipidemia E78.5 Hypertension I10 CHF (congestive heart failure), NYHA class III I50.9 Leukocytosis D72.829 Stented coronary artery Z95.5 CAD (coronary artery disease) I25.10 Sacral decubitus ulcer L89.159 Candidiasis of genitalia B37.49
[2023-01-21 11:15] LABS: Glucose Point of Care 254 mg/dL (70-110)
[2023-01-21 12:07] VITALS: BP 133/70; PULSE 82; RESP 18; TEMP 36.7; O2SAT 96
[2023-01-21] MEDS: nystatin cream 30 gm 1 APPLIC TOPICAL (12:11)
[2023-01-21] MEDS: nystatin powder 15 gm Btl 1 APPLIC TOPICAL (12:11)
--- NOTE | 2023-01-21 12:12 | PC.NURSE ---
Report called to Tamiko at [facility].
[2023-01-21 12:43] VITALS: BP 133/70; PULSE 82; RESP 18; TEMP 36.7; O2SAT 96
[2023-01-24 17:38] LABS: Herpes Simplex I IGM AB Screen POSITIVE; Herpes Simplex I IGM Titer 1:40; Herpes Simplex II IGM AB Scr NEGATIVE
== END 2023-01-21 12:44 | disposition skilled nursing facility (03) | DRG 871 ==
LOC: ER 06:04 → ICU 06:42 → MEDSURG 01-17 16:40
PROVIDERS: Admitting Provider Internal Medicine; Emergency Provider Emergency Medicine; PCP Family Medicine; Visit Provider Family Medicine
DX: A41.9 Sepsis, unspecified organism (principal); E11.10 Type 2 diabetes mellitus with ketoacidosis without coma; G93.41 Metabolic encephalopathy; R65.21 Severe sepsis with septic shock; I50.43 Acute on chronic combined systolic (congestive) and diastolic (congestive) heart failure; I21.A1 Myocardial infarction type 2; L97.929 Non-pressure chronic ulcer of unspecified part of left lower leg with unspecified severity; L97.919 Non-pressure chronic ulcer of unspecified part of right lower leg with unspecified severity; I13.0 Hypertensive heart and chronic kidney disease with heart failure and stage 1 through stage 4 chronic kidney disease, or unspecified chronic kidney disease; B37.49 Other urogenital candidiasis; L03.116 Cellulitis of left lower limb; L03.115 Cellulitis of right lower limb; N17.9 Acute kidney failure, unspecified; E87.1 Hypo-osmolality and hyponatremia; M62.82 Rhabdomyolysis; W19.XXXA Unspecified fall, initial encounter; E11.42 Type 2 diabetes mellitus with diabetic polyneuropathy; E11.622 Type 2 diabetes mellitus with other skin ulcer; E11.22 Type 2 diabetes mellitus with diabetic chronic kidney disease; N18.9 Chronic kidney disease, unspecified; E78.5 Hyperlipidemia, unspecified; N40.0 Benign prostatic hyperplasia without lower urinary tract symptoms; G89.29 Other chronic pain; M54.9 Dorsalgia, unspecified; Z79.891 Long term (current) use of opiate analgesic; I25.10 Atherosclerotic heart disease of native coronary artery without angina pectoris; Z95.5 Presence of coronary angioplasty implant and graft; B37.2 Candidiasis of skin and nail; M48.02 Spinal stenosis, cervical region; M48.061 Spinal stenosis, lumbar region without neurogenic claudication; M48.04 Spinal stenosis, thoracic region; D63.1 Anemia in chronic kidney disease; E86.0 Dehydration; E87.5 Hyperkalemia; K21.9 Gastro-esophageal reflux disease without esophagitis; Z96.652 Presence of left artificial knee joint; L89.151 Pressure ulcer of sacral region, stage 1; L89.152 Pressure ulcer of sacral region, stage 2; Z79.84 Long term (current) use of oral hypoglycemic drugs; Z79.4 Long term (current) use of insulin; Z79.02 Long term (current) use of antithrombotics/antiplatelets
CPT/HCPCS: 36415; 36416; 36569; 36592; 36600; 51702; 70450; 71045; 71250; 72125; 72128; 72131; 73590; 73700; 74176; 76705; 76870; 80048; 80053; 80074; 80202; 81001; 82009; 82140; 82533; 82550; 82607; 82728; 82746; 82803; 82962; 83036; 83540; 83550; 83605; 83735; 83880; 84100; 84145; 84295; 84443; 84484; 85007; 85014; 85018; 85025; 85610; 85651; 86140; 86592; 86695; 86696; 87040; 87086; 87426; 87486; 87581; 87633; 87806; 92523; 92610; 93005; 93970; 94664; 96365; 96367; 96372; 96376; 97110; 97116; 97161; 97165; 97530; 97535; 99285; C8929; C9113; J1450; J1644; J1720; J1815; J2270; J2543; J3370; J3475; J7030; J7050; J7060; J7120; J7121; Q3014; Q9956

== ENCOUNTER 2023-01-29 17:29 | Emergency (ER) | payer MEDICARE, MEDICAID, SELFPAY ==
[2023-01-29 17:32] VITALS: BP 0/0; PULSE 0; RESP 0; O2SAT 0
--- NOTE | 2023-01-29 17:36 | ED_ITS ---
HPI - General Adult General: Chief complaint: Cardiac Arrest/CPR Stated complaint: post cardiac arrest Time Seen by Provider: 01/29/23 17:35 Source: EMS Mode of arrival: EMS History of Present Illness: 72-year-old male arrives via EMS from [facility]. He had went into cardiac arrest at [facility] they had no shockable rhythm or treatable rhythm during 25-minute. He got multiple doses of epi they were about to cease resuscitative efforts when they felt that they had achieved pulse his heart rate declined to the 40s and he was put on external pacer. See notes below PFSH ED PFSH: Medical History Atherosclerosis of coronary artery CHF (congestive heart failure), NYHA class III Chronic prescription opiate use Dementia History of diabetic neuropathy Hyperlipidemia Hypertension Insulin dependent type 2 diabetes mellitus Surgical History History of left knee replacement Social History Smoking and tobacco status: never smoked Alcohol intake: never Course Vital Signs: Vital signs: Vital Signs Pulse Rate 0 L 01/29/23 17:32 Respiratory Rate 0 L 01/29/23 17:32 Blood Pressure 0/0 01/29/23 17:32 Pulse Oximetry 0 L 01/29/23 17:32 MDM - General Adult Medical Decision Making On arrival here patient is intubated ventilated on [id number]. He has a paced rhythm. However when ultrasound is applied I do not see any significant cardiac activity basically some fasciculations of the ventricle. He has no palpable pulse and no blood pressure. Given the length of time he was down it was decided to not reinitiate resuscitative efforts. Confirmed pulseless electrical activity after removing external pacers in 2 leads. Discharge Plan Discharge Patient Disposition: Clinical Impression: Cardiac arrest Coding Level of Care Code ED Psychology Fellow for Henrietta Ulloa
--- NOTE | 2023-01-29 19:02 | PC.NURSE ---
Patient came in with no pulse. Dr. Wei was at bedside. No CPR done. Code was called per
--- NOTE | 2023-01-29 20:16 | PC.NURSE ---
[facility] 2010
--- NOTE | 2023-01-30 00:05 | PC.NURSE ---
01/29/23 at 2350 [facility] called & said family consents to organ donation. They will send transport to [facility].
== END 2023-01-29 20:00 | disposition expired ==
PROVIDERS: Emergency Provider Family Medicine; PCP Family Medicine
DX: I46.9 Cardiac arrest, cause unspecified (principal); I25.10 Atherosclerotic heart disease of native coronary artery without angina pectoris; I11.0 Hypertensive heart disease with heart failure; I50.9 Heart failure, unspecified; F03.90 Unspecified dementia, unspecified severity, without behavioral disturbance, psychotic disturbance, mood disturbance, and anxiety; E78.5 Hyperlipidemia, unspecified; E11.9 Type 2 diabetes mellitus without complications
CPT/HCPCS: 99283